=== PATIENT | female | born 1955 | race African-American/Black ===

== ENCOUNTER 2019-08-20 21:13 | Inpatient (IN) | payer OTHER ==
[2019-08-20] MEDS ORDERED: LIDOCAINE PATCH REMOVAL MC SCH (22:00)
[2019-08-20] MEDS ORDERED: morphine SULFATE 4 MG/ML VIAL IVPUSH ONE (22:33)
[2019-08-20] MEDS ORDERED: LACTATED RINGERS SOLUTION 1,000 ML/1,000 ML INFUS.BAG IV STA (22:34)
--- NOTE | 2019-08-20 22:34 | PDOC ---
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 For the past several days, she has had worsening R hip pain despite taking her gabapentin and her Percocet. Today, she has taken about 20 total of Percocet without relief, driving her to come to the ER. Pain is "24/04" rather than her baseline 02/12. Patient had an MRI on 08/05/2019, which showed a large 3.5 cm evolving area of osteonecrosis involving approximately 80% of the femoral head. Concern for multifocal areas of osteonecrosis vs possible metastases. Patient last saw her oncologist 2 weeks ago, who told her that she was ineligible for a trial. At that time, the patient stated that she wanted to stop the chemo and try prayer. Past History - Past Medical History Allergies/Adverse Reactions: Allergies Allergy/AdvReac Type Severity Reaction Status Date / Time Sulfa (Sulfonamide Allergy Swelling Verified 08/20/19 21:23 Antibiotics) [Sulfa(Sulfonamide Antibiotics)] Home Medications: Ambulatory Orders Gabapentin 400 mg PO TID 08/21/19 Meclizine HCl 25 mg PO TID PRN 08/21/19 Oxycodone HCl/Acetaminophen [Oxycodone-Acetaminophen 10-325] 1 each PO TID 08/21 Tramadol HCl 50 mg PO TID 08/21/19 Anemia: No Asthma: Yes (In childhood - now occasional Bronchitis) Cancer: Yes (left breast CA) COPD: No GI Disorders: (S/P Cholecystectomy) - Surgical History Abdominal Surgery: Yes (cholecystectomy) Appendectomy: No Cholecystectomy: Yes Neurologic Surgery: Yes Orthopedic Surgery: (Screws in back - herniated discs) - Immunization History Td Vaccination: No TDAP Vaccination: No Immunization Up to Date: Yes - Psycho Social/Smoking Cessation Hx Smoking Status: No Smoking History: Never smoked Number of Cigarettes Smoked Daily: 0 Hx Alcohol Use: No Drug/Substance Use Hx: No Substance Use Type: None Review of Systems - Review of Systems Comments:: 08/21/19 05:27 GENERAL/CONSTITUTIONAL: denies fever, chills, diaphoresis, generalized weakness , malaise, loss of appetite, weight change HEAD, EYES, EARS, NOSE AND THROAT: denies rhinorrhea, nasal congestion, throat pain, throat swelling, difficulty swallowing, mouth swelling, ear pain, eye pain , visual changes NEUROLOGIC: denies headache, focal weakness or paresthesias, dizziness, unsteady gait, seizure, mental status changes, bladder or bowel incontinence CARDIOVASCULAR: denies chest pain, syncope, palpitations, irregular heart rate, lightheadedness, peripheral edema RESPIRATORY: denies cough, shortness of breath, dyspnea with exertion, orthopnea , wheezing, stridor, hemoptysis GASTROINTESTINAL: denies abdominal pain, abdominal distension, nausea, vomiting , diarrhea, constipation, melena, hematochezia GENITOURINARY: denies dysuria, frequency, urgency, hesitancy, hematuria, flank pain, genital pain MUSCULOSKELETAL: endorses severe R hip pain SKIN: denies rash, itching, pallor HEMATOLOGIC/IMMUNOLOGIC: denies easy bleeding, easy bruising, lymphadenopathy, frequent infections ENDOCRINE: denies unexplained weight gain, unexplained weight loss, heat intolerance, cold intolerance PSYCHIATRIC: denies anxiety, depression, suicidal or homicidal ideation, hallucinations. *Physical Exam - Vital Signs Last Vital Signs Temp Pulse Resp BP Pulse Ox 97.6 F 106 H 18 119/73 95 08/20/19 21:22 08/20/19 21:22 08/20/19 21:22 08/20/19 21:22 08/20/19 21:22 - Physical Exam 08/21/19 05:28 GENERAL: Awake, alert, and fully oriented, appears in severe pain. HEAD: Normal with no signs of trauma. EYES: Pupils equal, round and reactive to light, extraocular movements intact, sclera anicteric, conjunctiva clear. No lid lag. EARS, NOSE, THROAT: Ears normal, nares patent, oropharynx clear without exudates. Dry mucous membranes. NECK: Normal range of motion, supple without lymphadenopathy, JVD, or masses. LUNGS: Breath sounds equal, clear to auscultation bilaterally. No wheezes, and no crackles. No accessory muscle use. HEART: Regular rate and rhythm, normal S1 and S2 without murmur, rub or gallop. ABDOMEN: Soft, nontender, non-distended, normoactive bowel sounds, negative guarding, negative rebound MUSCULOSKELETAL: R hip tenderness at ASIS. UPPER EXTREMITIES: 2+ pulses, warm, well-perfused. No cyanosis. No clubbing. Cap refill <2 seconds. No peripheral edema. LOWER EXTREMITIES: 2+ pulses, warm, well-perfused. No calf tenderness. No peripheral edema. NEUROLOGICAL: Cranial nerves II-XII intact. Normal speech. Normal gait. PSYCHIATRIC: Cooperative. Good eye contact. Appropriate mood and affect. SKIN: Warm, dry, normal turgor, no rashes or lesions noted. ED Treatment Course - LABORATORY CBC & Chemistry Diagram: 08/20/19 23:55 08/20/19 23:55 Medical Decision Making - Medical Decision Making 08/20/19 23:01 Patient with hx of breast cancer, prior met to small intestine, with R hip osteonecrosis vs malignancy and severe pain/inability to ambulate. - Hip X-rays - CBC, CMP - Lidocaine patch - morphine - admit for worsening pain uncontrolled by extensive regimen Discharge - Discharge Information Problems reviewed: Yes Clinical Impression/Diagnosis: Hip pain, right, Inability to ambulate due to hip - Admission Yes - Follow up/Referral - Patient Discharge Instructions - Post Discharge Activity
--- NOTE | 2019-08-20 22:36 | PDOC ---
Attending Attestation - Resident Resident Name: Sterling Lovell - ED Attending Attestation I have performed the following: I have examined & evaluated the patient, The case was reviewed & discussed with the resident, I agree w/resident's findings & plan - HPI HPI: 08/20/19 23:01 Pt comes with chronic right hip pain. She has necrosis of her femoral head. She was controlled on percocets, but the pain is breaking thru and percs only work for a few hrs at a time, and now patient is unable to ambulate. She has a hx of breast cancer with mets. She has no other PMHx. - Physicial Exam PE: 08/20/19 23:02 Pt is afebrile No rashes. Abd is distended, gas and stool; pt states that she is not constipated, but given all her narcotic use. No abd rebound or guarding heart [id number] lungs CTA b ext no pitting edema exquisite tenderness in the right hip. - Medical Decision Making 08/21/19 00:42 labs normal; alk phos is elevated slightly 08/21/19 04:21 Pt is unable to ambulate and she will be admitted 08/21/19 04:22 Pt will be admitted for pain management and for ortho eval
[2019-08-20] MEDS ORDERED: morphine CARPU-JECT 2 MG/1 ML DISP.SYRIN IVPUSH ONE (22:55)
[2019-08-20] MEDS ORDERED: LIDOCAINE 5% TOPICAL PATCH TP ONE (23:09)
[2019-08-20] MEDS ORDERED: LIDOCAINE 5% TOPICAL PATCH ONE (23:30)
[2019-08-20] MEDS ORDERED: MORPHINE SULFATE 2 MG/ML VIAL ONE (23:32)
[2019-08-21 00:14] LABS: BASO % 0.7 % (0-2.0); HEMATOCRIT 35.3 % (32.4-45.2); HEMOGLOBIN 11.8 GM/dL (10.7-15.3); LYMPH % 25.3 % (8-40); MCH 28.8 pg (25.7-33.7); MCHC 33.4 g/dl (32.0-36.0); MEAN CELL VOLUME 86.3 fl (80-96); MEAN PLT VOLUME 8.8 fl (7.5-11.1); MONO % 8.4 % (3.8-10.2); NEUT % 60.6 % (42.8-82.8); PLATELET COUNT 187 K/MM3 (134-434); RBC 4.09 M/mm3 (3.60-5.2); RDW 16.4 % (11.6-15.6); WHITE BLOOD COUNT 5.3 K/mm3 (4.0-10.0)
[2019-08-21 00:40] LABS: ALBUMIN 2.9 g/dl (3.4-5.0); BILIRUBIN,TOTAL 0.4 mg/dL (0.2-1); BLOOD UREA NITROGEN 8.1 mg/dL (7-18); CALCIUM 9.1 mg/dL (8.5-10.1); CREATININE 0.8 mg/dL (0.55-1.3); POTASSIUM 4.5 mmol/L (3.5-5.1); TOT PROT 7.7 g/dl (6.4-8.2)
[2019-08-21] MEDS ORDERED: MECLIZINE HCL 25 MG TABLET (FP) PO PRN (01:10)
[2019-08-21] MEDS ORDERED: PATIENT'S OWN MEDICATION (NON-FORMULARY) (Oxycodone Hcl/Acetaminophen [Oxycodone-Acetamino PO PRN (01:10)
--- NOTE | 2019-08-21 02:12 | HP ---
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 Patient recently moved from [place] where she sees her pain doctor. For about 2 months, patient experienced right hip pain for which she takes percocet, tramadol and gabapentin. About 2 weeks ago, she went to her doctor for persistent hip pain and difficulty walking, and MRI was done on 2019 which revealed a large 3.5 cm evolving area of osteonecrosis involving approx 80% of femoral head, concern for multifocal areas of osteonecrosis vs possible metastastases. She was advised to follow up with an orthopedic surgeon. Today, patient experienced severe, 10/10 right hip pain radiating down the thigh, not anymore relieved by her medications, so she came to the ED. Patient denies any fever, chills, headache, dizziness, chest pain, SOB, abdominal pain, diarrhea. 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 chronic Right hip pain PAST SURGICAL HISTORY: Mastectomy Social History: Smoking:denies Alcohol:denies Drugs: denies Allergies Sulfa (Sulfonamide Antibiotics) [Sulfa(Sulfonamide Antibiotics)] Allergy ( Verified 08/20/19 21:23) Swelling HOME MEDICATIONS: Home Medications Medication Instructions Recorded Gabapentin 400 mg PO TID 08/21/19 Meclizine HCl 25 mg PO TID PRN 08/21/19 Oxycodone HCl/Acetaminophen 1 each PO TID 08/21/19 [Oxycodone-Acetaminophen 10-325] Tramadol HCl 50 mg PO TID 08/21/19 REVIEW OF SYSTEMS CONSTITUTIONAL: Absent: fever, chills, diaphoresis, generalized weakness, malaise, loss of appetite, weight change HEENT: Absent: rhinorrhea, nasal congestion, throat pain, throat swelling, difficulty swallowing, mouth swelling, ear pain, eye pain, visual changes CARDIOVASCULAR: Absent: chest pain, syncope, palpitations, irregular heart rate, lightheadedness , peripheral edema RESPIRATORY: Absent: cough, shortness of breath, dyspnea with exertion, orthopnea, wheezing, stridor, hemoptysis GASTROINTESTINAL: Absent: abdominal pain, abdominal distension, nausea, vomiting, diarrhea, constipation, melena, hematochezia GENITOURINARY: Absent: dysuria, frequency, urgency, hesitancy, hematuria, flank pain, genital pain MUSCULOSKELETAL: Right hip pain Absent: myalgia, arthralgia, joint swelling, back pain, neck pain SKIN: Absent: rash, itching, pallor HEMATOLOGIC/IMMUNOLOGIC: Absent: easy bleeding, easy bruising, lymphadenopathy, frequent infections ENDOCRINE: Absent: unexplained weight gain, unexplained weight loss, heat intolerance, cold intolerance NEUROLOGIC: Absent: headache, focal weakness or paresthesias, dizziness, unsteady gait, seizure, mental status changes, bladder or bowel incontinence PSYCHIATRIC: Absent: anxiety, depression, suicidal or homicidal ideation, hallucinations. PHYSICAL EXAMINATION Vital Signs - 24 hr 08/20/19 08/21/19 21:22 01:05 Temperature 97.6 F 97.8 F Pulse Rate 106 H 80 Respiratory 18 18 Rate Blood Pressure 119/73 132/94 O2 Sat by Pulse 95 Oximetry (%) GENERAL: Awake, alert, and fully oriented, in no acute distress. HEAD: Normal with no signs of trauma. EYES: PERRLA, EOMI, sclera anicteric, conjunctiva clear. EARS, NOSE, THROAT: Moist mucous membranes. NECK: Normal range of motion, supple without lymphadenopathy, JVD, or masses. LUNGS: Breath sounds equal, clear to auscultation bilaterally. HEART: Regular rate and rhythm, normal S1 and S2 without murmur, rub or gallop. ABDOMEN: Soft, nontender, not distended, normoactive bowel sounds. MUSCULOSKELETAL: Normal range of motion at all joints. +tenderness on palpation of right hip/thigh LOWER EXTREMITIES: 2+ pulses, warm, well-perfused. No calf tenderness. No peripheral edema. NEUROLOGICAL: Cranial nerves II-XII grossly intact. Normal speech. Motor strength 5/5 RUE/LUE/LLE, 4/5 RLE limited by pain, sensation intact. PSYCHIATRIC: Cooperative. Good eye contact. Appropriate mood and affect. SKIN: Warm, dry, normal turgor. Laboratory Results - last 24 hr 08/20/19 08/20/1908/20/20 23:55 23:55 23:55 WBC 5.3 RBC 4.09 Hgb 11.8 Hct 35.3 MCV 86.3 MCH 28.8 MCHC 33.4 RDW 16.4 H Plt Count 187 MPV 8.8 Absolute Neuts (auto) 3.2 Neutrophils % 60.6 Lymphocytes % 25.3 Monocytes % 8.4 Eosinophils % 5.0 H D Basophils % 0.7 Nucleated RBC % 0 Sodium 139 Potassium 4.5 Chloride 106 Carbon Dioxide 27 Anion Gap 6 L BUN 8.1 Creatinine 0.8 Est GFR (CKD-EPI)AfAm 91.58 Est GFR (CKD-EPI)NonAf 79.01 Random Glucose 93 Calcium 9.1 Total Bilirubin 0.4 AST 79 H ALT 60 Alkaline Phosphatase 259 H Total Protein 7.7 Albumin 2.9 L Lipase 178 ASSESSMENT/PLAN: Patient is a 64 year old female with past medical history of 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 #Right hip pain, inability to ambulate -likely 2/2 osteonecrosis of right hip -Ortho (Dr. Chávez) consulted. -will continue home meds percocet, tramadol, gabapentin -IV Morphine prn -physical therapy #Elevated LFTs -will order abdominal US to evaluate -hepatitis panel -will continue to monitor #Hx of breast CA #FEN -Not on any standing fluids -Electrolytes wnl, routine bmp monitoring -Regular diet #Prophylaxis -Lovenox 40mg sq daily #Disposition -admit to med surg ATTENDING PHYSICIAN STATEMENT I saw and evaluated the patient. I reviewed the resident's note and discussed the case with the resident. I agree with the resident's findings and plan as documented. SUBJECTIVE: OBJECTIVE: ASSESSMENT AND PLAN: <Mookie Moran - Last Filed: 08/21/19 05:53> CHIEF COMPLAINT: PCP: HISTORY OF PRESENT ILLNESS: ER course was notable for: (1) (2) (3) Recent Travel: PAST MEDICAL HISTORY: PAST SURGICAL HISTORY: Social History: Smoking: Alcohol: Drugs: Allergies Sulfa (Sulfonamide Antibiotics) [Sulfa(Sulfonamide Antibiotics)] Allergy ( Verified 08/20/19 21:23) Swelling HOME MEDICATIONS: Home Medications Medication Instructions Recorded Gabapentin 400 mg PO TID 08/21/19 Meclizine HCl 25 mg PO TID PRN 08/21/19 Oxycodone HCl/Acetaminophen 1 each PO TID 08/21/19 [Oxycodone-Acetaminophen 10-325] Tramadol HCl 50 mg PO TID 08/21/19 REVIEW OF SYSTEMS CONSTITUTIONAL: Absent: fever, chills, diaphoresis, generalized weakness, malaise, loss of appetite, weight change HEENT: Absent: rhinorrhea, nasal congestion, throat pain, throat swelling, difficulty swallowing, mouth swelling, ear pain, eye pain, visual changes CARDIOVASCULAR: Absent: chest pain, syncope, palpitations, irregular heart rate, lightheadedness , peripheral edema RESPIRATORY: Absent: cough, shortness of breath, dyspnea with exertion, orthopnea, wheezing, stridor, hemoptysis GASTROINTESTINAL: Absent: abdominal pain, abdominal distension, nausea, vomiting, diarrhea, constipation, melena, hematochezia GENITOURINARY: Absent: dysuria, frequency, urgency, hesitancy, hematuria, flank pain, genital pain MUSCULOSKELETAL: Absent: myalgia, arthralgia, joint swelling, back pain, neck pain SKIN: Absent: rash, itching, pallor HEMATOLOGIC/IMMUNOLOGIC: Absent: easy bleeding, easy bruising, lymphadenopathy, frequent infections ENDOCRINE: Absent: unexplained weight gain, unexplained weight loss, heat intolerance, cold intolerance NEUROLOGIC: Absent: headache, focal weakness or paresthesias, dizziness, unsteady gait, seizure, mental status changes, bladder or bowel incontinence PSYCHIATRIC: Absent: anxiety, depression, suicidal or homicidal ideation, hallucinations. PHYSICAL EXAMINATION Vital Signs - 24 hr 08/20/19 08/21/19 08/21/19 21:22 01:05 05:18 Temperature 97.6 F 97.8 F 97.9 F Pulse Rate 106 H 80 84 Respiratory 18 18 18 Rate Blood Pressure 119/73 132/94 129/77 O2 Sat by Pulse 95 Oximetry (%) GENERAL: Awake, alert, and fully oriented, in no acute distress. HEAD: Normal with no signs of trauma. EYES: Pupils equal, round and reactive to light, extraocular movements intact, sclera anicteric, conjunctiva clear. No lid lag. EARS, NOSE, THROAT: Ears normal, nares patent, oropharynx clear without exudates. Moist mucous membranes. NECK: Normal range of motion, supple without lymphadenopathy, JVD, or masses. LUNGS: Breath sounds equal, clear to auscultation bilaterally. No wheezes, and no crackles. No accessory muscle use. HEART: Regular rate and rhythm, normal S1 and S2 without murmur, rub or gallop. ABDOMEN: Soft, nontender, not distended, normoactive bowel sounds, no guarding, no rebound, no masses. No hepatomegaly or splenomegaly. MUSCULOSKELETAL: Normal range of motion at all joints. No bony deformities or tenderness. No CVA tenderness. UPPER EXTREMITIES: 2+ pulses, warm, well-perfused. No cyanosis. No clubbing. No peripheral edema. LOWER EXTREMITIES: 2+ pulses, warm, well-perfused. No calf tenderness. No peripheral edema. NEUROLOGICAL: Cranial nerves II-XII intact. Normal speech. Normal gait. PSYCHIATRIC: Cooperative. Good eye contact. Appropriate mood and affect. SKIN: Warm, dry, normal turgor, no rashes or lesions noted, normal capillary refill. Laboratory Results - last 24 hr 08/20/19 08/20/19 08/20/19 23:55 23:55 23:55 WBC 5.3 RBC 4.09 Hgb 11.8 Hct 35.3 MCV 86.3 MCH 28.8 MCHC 33.4 RDW 16.4 H Plt Count 187 MPV 8.8 Absolute Neuts (auto) 3.2 Neutrophils % 60.6 Lymphocytes % 25.3 Monocytes % 8.4 Eosinophils % 5.0 H D Basophils % 0.7 Nucleated RBC % 0 Sodium 139 Potassium 4.5 Chloride 106 Carbon Dioxide 27 Anion Gap 6 L BUN 8.1 Creatinine 0.8 Est GFR (CKD-EPI)AfAm 91.58 Est GFR (CKD-EPI)NonAf 79.01 Random Glucose 93 Calcium 9.1 Total Bilirubin 0.4 AST 79 H ALT 60 Alkaline Phosphatase 259 H Total Protein 7.7 Albumin 2.9 L Lipase 178 ASSESSMENT/PLAN: Visit type - Emergency Visit Emergency Visit: Yes ED Registration Date: 08/20/19 Care time: The patient presented to the Emergency Department on the above date and was hospitalized for further evaluation of their emergent condition. - New Patient This patient is new to me today: Yes Date on this admission: 08/21/19 - Critical Care Critical Care patient: No ATTENDING PHYSICIAN STATEMENT I saw and evaluated the patient. I reviewed the resident's note and discussed the case with the resident. I agree with the resident's findings and plan as documented. 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 She is unable to ambulate due to pain. She rates pain as 10/10 gets worse with the movement. She had MRI was done on 08/05/2019 which revealed a large 3.5 cm evolving area of osteonecrosis involving approx 80% of femoral head, concern for multifocal areas of osteonecrosis vs possible metastastases. She denies chest pain, shortness of breath, nuasea, vomiting,fever, dizziness, LOC Shhe c/o mild generlaized abdominal pain and pelvic pain OBJECTIVE: Last Vital Signs Temp Pulse Resp BP Pulse Ox 97.9 F 84 18 129/77 95 08/21/19 05:18 08/21/19 05:18 08/21/19 05:18 08/21/19 05:18 08/20/19 21:22 ST/ALT/ALP 79/60/259, Labs, imaging studies reviewed General :Obese, not in acute distress Head - NC/ AT Eyes : PORSHA, EOMI, No cunjuctival pallor neck : supple, Thyroid wnl, no lymphadenopathy Resp : B/l clear CVS : RRR, s1s2+ no MRG Abd : Distended, Mild generlaized tenderness Neuro : A&o x3No focal neurologic deficit Ext : no edema, peripheral pulses palpable, Right hip tender to touch, ROM right hip severely restricted ASSESSMENT AND PLAN: Severe right hip pain due to osteonecrosis Unable to ambulate Declining functional status ABd pain, distension likley due to opioid induced constipation Transaminitis Admit to floor UA, EKG Pain management - percocet, morphine Stool softners Get abd sonogram hepatitis panel physical therapy eval ortho consult DVt ppx regular diet Discussed with resident staff in details Mookie Perry MD
[2019-08-21] MEDS ORDERED: GABAPENTIN 100 MG CAPSULE ONE (05:56)
[2019-08-21] MEDS ORDERED: DOCUSATE SODIUM 100 MG CAPSULE (FP) PO ONE (05:56)
[2019-08-21] MEDS: DOCUSATE SODIUM 100 MG CAPSULE (FP) PO SCH ×3 (06:15→21:05)
[2019-08-21] MEDS: GABAPENTIN 400 MG CAPSULE PO SCH ×3 (06:15→21:05)
[2019-08-21] MEDS ORDERED: morphine SULFATE 4 MG/ML VIAL ONE (08:57)
[2019-08-21] MEDS: ENOXAPARIN NA (PORCINE) 40 MG/0.4 ML DISP.SYRIN SQ SCH (09:30)
[2019-08-21] MEDS: MORPHINE SULFATE 2 MG/ML VIAL IVPUSH PRN (09:30)
[2019-08-21] MEDS: POLYETHYLENE GLYCOL 3350 119 GM BTL PO SCH (09:30)
--- NOTE | 2019-08-21 11:36 | PN ---
Physical Exam: SUBJECTIVE: Patient seen and examined. She is comfortable after receiving pain medication. OBJECTIVE: Vital Signs Period Temp Pulse Resp BP Sys/Lomeli Pulse Ox Last 24 Hr 97.6 F-97.9 F 80-106 18-18 119-132/73-94 95 GENERAL: The patient is awake, alert, and fully oriented, in no acute distress. HEAD: Normal with no signs of trauma. EYES: PERRL, extraocular movements intact, sclera anicteric, conjunctiva clear. No ptosis. ENT: Ears normal, nares patent, oropharynx clear without exudates, moist mucous membranes. NECK: Trachea midline, full range of motion, supple. LUNGS: Breath sounds equal, clear to auscultation bilaterally, no wheezes, no crackles, no accessory muscle use. HEART: Regular rate and rhythm, S1, S2 without murmur, rub or gallop. ABDOMEN: Soft, nontender, nondistended, normoactive bowel sounds, no guarding, no rebound, no hepatosplenomegaly, no masses. EXTREMITIES: 2+ pulses, warm, well-perfused, no edema. NEUROLOGICAL: Cranial nerves II through XII grossly intact. Normal speech, gait not observed. PSYCH: Normal mood, normal affect. SKIN: Warm, dry, normal turgor, no rashes or lesions noted Laboratory Results - last 24 hr 08/20/19 08/20/19 08/20/19 23:55 23:55 23:55 WBC 5.3 RBC 4.09 Hgb 11.8 Hct 35.3 MCV 86.3 MCH 28.8 MCHC 33.4 RDW 16.4 H Plt Count 187 MPV 8.8 Absolute Neuts (auto) 3.2 Neutrophils % 60.6 Lymphocytes % 25.3 Monocytes % 8.4 Eosinophils % 5.0 H D Basophils % 0.7 Nucleated RBC % 0 Sodium 139 Potassium 4.5 Chloride 106 Carbon Dioxide 27 Anion Gap 6 L BUN 8.1 Creatinine 0.8 Est GFR (CKD-EPI)AfAm 91.58 Est GFR (CKD-EPI)NonAf 79.01 Random Glucose 93 Calcium 9.1 Total Bilirubin 0.4 AST 79 H ALT 60 Alkaline Phosphatase 259 H Total Protein 7.7 Albumin 2.9 L Lipase 178 Active Medications Generic Name Dose Route Start Last Admin Trade Name Freq PRN Reason Stop Dose Admin Acetaminophen 325 mg 08/21/19 01:45 Tylenol - PO TID PRN PAIN 6-10 Docusate Sodium 100 mg 08/21/19 06:00 08/21/19 06:15 Colace - PO 100 mg TID WILLIAM Administration Enoxaparin Sodium 40 mg 08/21/19 10:00 08/21/19 09:30 Lovenox - SQ 40 mg DAILY WILLIAM Administration Gabapentin 400 mg 08/21/19 06:00 08/21/19 06:15 Neurontin - PO 400 mg TID WILLIAM Administration Meclizine HCl 25 mg 08/21/19 01:10 Antivert - PO TID PRN PAIN Morphine Sulfate 1 mg 08/21/19 01:09 08/21/19 09:30 Morphine Sulfate IVPUSH 1 mg Q4H PRN Administration PAIN LEVEL 7 - 10 Oxycodone HCl 5 mg 08/21/19 01:45 Roxicodone - PO TID PRN PAIN 6-10 Polyethylene Glycol 17 gm 08/21/19 10:00 08/21/19 09:30 Miralax (For Daily Use) - PO 17 gm DAILY WILLIAM Administration Tramadol HCl 50 mg 08/21/19 01:10 Ultram - PO TID PRN PAIN LEVEL 7 - 10 ASSESSMENT/PLAN: This is a 64 year old female with a history of metastatic breast cancer, chronic right hip pain who presented to the ED with worsening right hip pain. 1. Right hip pain secondary to osteonecrosis, possible metastases of femoral head - Pain control - Ortho consult 2. Metastatic breast cancer - RUQ US shows 2.3 cm and 2 cm hepatic lesions consistent with metastatic disease - Oncology, pallaitive care consults Visit type - Emergency Visit Emergency Visit: Yes ED Registration Date: 08/20/19 Care time: The patient presented to the Emergency Department on the above date and was hospitalized for further evaluation of their emergent condition. - New Patient This patient is new to me today: Yes Date on this admission: 08/21/19 - Critical Care Critical Care patient: No - Discharge Referral Referred to [facility] Med [facility].: No
[2019-08-21 11:53] LABS: BASO % 0.5 % (0-2.0); EOS % 5.5 % (0-4.5); HEMATOCRIT 33.1 % (32.4-45.2); HEMOGLOBIN 11.3 GM/dL (10.7-15.3); LYMPH % 21.4 % (8-40); MCH 29.4 pg (25.7-33.7); MEAN CELL VOLUME 86.4 fl (80-96); MEAN PLT VOLUME 8.5 fl (7.5-11.1); MONO % 8.1 % (3.8-10.2); NEUT % 64.5 % (42.8-82.8); PLATELET COUNT 174 K/MM3 (134-434); RBC 3.84 M/mm3 (3.60-5.2); WHITE BLOOD COUNT 4.7 K/mm3 (4.0-10.0)
[2019-08-21 12:16] LABS: ALBUMIN 2.6 g/dl (3.4-5.0); BILIRUBIN,TOTAL 0.4 mg/dL (0.2-1); CALCIUM 8.9 mg/dL (8.5-10.1); CREATININE 0.7 mg/dL (0.55-1.3); MAGNESIUM 2.2 mg/dL (1.8-2.4); PHOSPHOROUS 4.1 mg/dL (2.5-4.9); POTASSIUM 4.2 mmol/L (3.5-5.1)
[2019-08-21] MEDS ORDERED: ACETAMINOPHEN 325 MG TABLET (FP) ONE (18:11)
[2019-08-21] MEDS ORDERED: oxyCODONE HCL 5 MG TABLET ONE (18:12)
[2019-08-21] MEDS: oxyCODONE HCL 5 MG TABLET PO PRN (18:19)
[2019-08-21] MEDS: ACETAMINOPHEN 325 MG TABLET (FP) PO PRN (18:20)
[2019-08-22] MEDS ORDERED: guaiFENesin/D-METHORPHAN HB 10 ML UNIT-DOSE CUPS PO PRN (02:08)
[2019-08-22] MEDS: MORPHINE SULFATE 2 MG/ML VIAL IVPUSH PRN ×3 (05:21→19:47)
[2019-08-22] MEDS: DOCUSATE SODIUM 100 MG CAPSULE (FP) PO SCH ×3 (05:22→21:53)
[2019-08-22] MEDS: GABAPENTIN 400 MG CAPSULE PO SCH ×3 (05:22→21:53)
[2019-08-22] MEDS: ENOXAPARIN NA (PORCINE) 40 MG/0.4 ML DISP.SYRIN SQ SCH (10:09)
[2019-08-22] MEDS: POLYETHYLENE GLYCOL 3350 119 GM BTL PO SCH (10:09)
--- NOTE | 2019-08-22 10:17 | EKG ---
Test Reason : Blood Pressure : / mmHG Vent. Rate : 085 BPM Atrial Rate : 085 BPM P-R Int : 158 ms QRS Dur : 068 ms QT Int : 384 ms P-R-T Axes : 044 008 002 degrees QTc Int : 456 ms NORMAL SINUS RHYTHM MINIMAL VOLTAGE CRITERIA FOR LVH, MAY BE NORMAL VARIANT ABNORMAL ECG WHEN COMPARED WITH ECG OF 09-SEP-2015 09:28, NO SIGNIFICANT CHANGE WAS FOUND Confirmed by Jaron Corado ([id number]) on 08/22/2019 10:17:27 AM Referred By: Confirmed By:Jaron Corado
--- NOTE | 2019-08-22 10:19 | CONSULT ---
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 Patient recently moved from [place] where she sees her pain doctor. For about 2 months, patient experienced right hip pain for which she takes percocet, tramadol and gabapentin. About 2 weeks ago, she went to her doctor for persistent hip pain and difficulty walking, and MRI was done on 2019 which revealed a large 3.5 cm evolving area of osteonecrosis involving approx 80% of femoral head, concern for multifocal areas of osteonecrosis vs possible metastastases. She was advised to follow up with an orthopedic surgeon. Today, patient experienced severe, 10/10 right hip pain radiating down the thigh, not anymore relieved by her medications, so she came to the ED. Patient denies any fever, chills, headache, dizziness, chest pain, SOB, abdominal pain, diarrhea. PAST MEDICAL HISTORY: metastatic breast cancer chronic Right hip pain PAST SURGICAL HISTORY: Mastectomy-left cholecystesctomy L spine surgery Social History: Smoking:denies Alcohol:denies Drugs: denies Allergies Sulfa (Sulfonamide Antibiotics) [Sulfa(Sulfonamide Antibiotics)] Allergy ( Verified 08/20/19 21:23) Swelling HOME MEDICATIONS: Home Medications Medication Instructions Recorded Gabapentin 400 mg PO TID 08/21/19 Meclizine HCl 25 mg PO TID PRN 08/21/19 Oxycodone HCl/Acetaminophen 1 each PO TID 08/21/19 [Oxycodone-Acetaminophen 10-325] Tramadol HCl 50 mg PO TID 08/21/19 Home Medication List Medication Instructions Recorded Confirmed Type Gabapentin 400 mg PO TID 08/21/19 08/21/19 History Meclizine HCl 25 mg PO TID PRN 08/21/19 08/21/19 History Oxycodone HCl/Acetaminophen 1 each PO TID 08/21/19 08/21/19 History [Oxycodone-Acetaminophen 10-325] Tramadol HCl 50 mg PO TID 08/21/19 08/21/19 History Active Medications Generic Name Dose Route Start Last Admin Trade Name Freq PRN Reason Stop Dose Admin Acetaminophen 325 mg 08/21/19 01:45 08/21/19 18:20 Tylenol - PO 325 mg TID PRN Administration PAIN 6-10 Docusate Sodium 100 mg 08/21/19 06:00 08/22/19 05:22 Colace - PO 100 mg TID WILLIAM Administration Enoxaparin Sodium 40 mg 08/21/19 10:00 08/22/19 10:09 Lovenox - SQ 40 mg DAILY WILLIAM Administration Gabapentin 400 mg 08/21/19 06:00 08/22/19 05:22 Neurontin - PO 400 mg TID WILLIAM Administration Guaifenesin 10 ml 08/22/19 02:08 Robitussin Dm - PO Q4H PRN COUGH Meclizine HCl 25 mg 08/21/19 01:10 Antivert - PO TID PRN PAIN Morphine Sulfate 1 mg 08/21/19 01:09 08/22/19 05:21 Morphine Sulfate IVPUSH 1 mg Q4H PRN Administration PAIN LEVEL 7 - 10 Oxycodone HCl 5 mg 08/21/19 01:45 08/21/19 18:19 Roxicodone - PO 5 mg TID PRN Administration PAIN 6-10 Polyethylene Glycol 17 gm 08/21/19 10:00 08/22/19 10:09 Miralax (For Daily Use) - PO 17 gm DAILY WILLIAM Administration Tramadol HCl 50 mg 08/21/19 01:10 Ultram - PO TID PRN PAIN LEVEL 7 - 10 PHYSICAL EXAMINATION Last Vital Signs Temp Pulse Resp BP Pulse Ox 98.6 F 106 H 20 151/80 96 08/22/19 06:00 08/22/19 06:00 08/22/19 06:00 08/22/19 06:00 08/21/19 21:00 Cor: RSR, No murmurs, No gallops Lungs: Clear to P&A Abd: Soft, Normal bowel sounds, No organomegaly Ext:No significant edema Labs/Meds reviewed ASSESSMENT/PLAN: Patient is a 64 year old female with past medical history of breast cancer Breast cancer-- diagnosed 8 yrs.ago -- Left breast cancer--stage III diagnosed 2011 --10+ nodes. ER+, AK+, Her2-. Received ACx4 followed by Tx4 and RT. Was on arimidex Developed retroperitoneal mass ---bx + metastatic breast cancer-- ER-/AK-, Her2- 3+. Microsatellite stable. She has been on TDM1.? elevated LFTs needing 1 dose reduction s/p gemzar/trastuzumab ( got medrol dose paks with gemzar) Plan was to start her on trastuzumab deruxtecan ---when she moved from [place] CT c/a/p --07/08/19 --stable paraesophageal adenopathy. Minimally decreasing mesenteric, retrocaval, periceliac and shotty retrocrural adenopathy, stable to minimally decreased compared to CT c/a/p in 12/2018 will need to review MRI hip and L spine images done in [place] Will request orthopedics consult X ray done here shows no acute pathology 2 hepatic lesions on U/S--? new ? PET/? biopsy check CA 27.29 Pain control
--- NOTE | 2019-08-22 11:12 | PN ---
Progress Note (short form) - Note Progress Note: NEUROSURGERY CONSULT Pt just seen in my office last week Distant h/o L4-S1 fusion Intermittent LBP and sciatica Treated in [place] by pain management with multiple pain management injections Pain to R hip, groin and upper thigh, worse over past 2 weeks despite percocet, tramadol and neurontin; pain 10/10 No lower leg weakness/numbness; no B/B dysfunction h/o breast CA; no recent weight loss PMH; breast CA with small bowel seeding, L4-5-S1 fusion Meds: Tramadol, neurontin, percocet, hydrocodone prn; All: sulfa So Hx: non-smoker, no EtOH, retired Family History: non-contributory except for CA and DM ROS- negative for other constitutional, HEENT, CV, pulm, GI, , leather crafter, pscy, neuro; no fever/chill, recent weight loss PE: AF, VSS HEENT- NC/AT; Neck- supple; Cor- RR; Lungs- CTA B; Abd- benign; Ext- no sign of DVT CN- intact; Motor- 4+-5 except R IP 4- pain limited; Sensation- intact LT; DTR- 2+ LS spine MRI ([place])- intact L4-5-S1 fusion and implant; minimal central disc bulge L2-3 and L3-4 with mild annular tear/edema; no significant stenosis; implants in excellent positions L4-5-S1 R hip MRI- R femur head osteonecrosis H/o L4-S1 fusion with instrumentation; minimal L2-3 and L3-4 central disc bulge (not the patient's cause of current symptomatology), no neurosurgical intervention indicated nor recommended Metastatic/breast w/u per med onc Ortho input for R femur head osteonecrosis DVT prophylaxis The patient understands the above
--- NOTE | 2019-08-22 11:38 | PN ---
Physical Exam: SUBJECTIVE: Patient seen and examined. Pain in right hip is better. OBJECTIVE: Vital Signs Period Temp Pulse Resp BP Sys/Lomeli Pulse Ox Last 24 Hr 98 F-98.6 F 100-128 20-20 100-151/57-81 96-98 GENERAL: The patient is awake, alert, and fully oriented, in no acute distress. LUNGS: Breath sounds equal, clear to auscultation bilaterally, no wheezes, no crackles, no accessory muscle use. HEART: Regular rate and rhythm, S1, S2 without murmur, rub or gallop. ABDOMEN: Obese, soft, nontender, nondistended, normoactive bowel sounds, no guarding, no rebound, no hepatosplenomegaly, no masses. EXTREMITIES: 2+ pulses, warm, well-perfused, no edema. Laboratory Results - last 24 hr 08/21/19 08/21/19 11:32 11:32 WBC 4.7 RBC 3.84 Hgb 11.3 Hct 33.1 MCV 86.4 MCH 29.4 MCHC 34.0 RDW 16.0 H Plt Count 174 MPV 8.5 Absolute Neuts (auto) 3.0 Neutrophils % 64.5 Lymphocytes % 21.4 Monocytes % 8.1 Eosinophils % 5.5 H Basophils % 0.5 Nucleated RBC % 0 Sodium 141 Potassium 4.2 Chloride 107 Carbon Dioxide 32 Anion Gap 2 L BUN 9.0 Creatinine 0.7 Est GFR (CKD-EPI)AfAm 107.62 Est GFR (CKD-EPI)NonAf 92.86 Random Glucose 93 Calcium 8.9 Phosphorus 4.1 Magnesium 2.2 Total Bilirubin 0.4 AST 65 H ALT 53 Alkaline Phosphatase 234 H Total Protein 7.0 Albumin 2.6 L Active Medications Generic Name Dose Route Start Last Admin Trade Name Freq PRN Reason Stop Dose Admin Acetaminophen 325 mg 08/21/19 01:45 08/21/19 18:20 Tylenol - PO 325 mg TID PRN Administration PAIN 6-10 Docusate Sodium 100 mg 08/21/19 06:00 08/22/19 05:22 Colace - PO 100 mg TID WILLIAM Administration Enoxaparin Sodium 40 mg 08/21/19 10:00 08/22/19 10:09 Lovenox - SQ 40 mg DAILY WILLIAM Administration Gabapentin 400 mg 08/21/19 06:00 08/22/19 05:22 Neurontin - PO 400 mg TID WILLIAM Administration Guaifenesin 10 ml 08/22/19 02:08 Robitussin Dm - PO Q4H PRN COUGH Meclizine HCl 25 mg 08/21/19 01:10 Antivert - PO TID PRN PAIN Morphine Sulfate 1 mg 08/21/19 01:09 08/22/19 05:21 Morphine Sulfate IVPUSH 1 mg Q4H PRN Administration PAIN LEVEL 7 - 10 Oxycodone HCl 5 mg 08/21/19 01:45 08/21/19 18:19 Roxicodone - PO 5 mg TID PRN Administration PAIN 6-10 Polyethylene Glycol 17 gm 08/21/19 10:00 08/22/19 10:09 Miralax (For Daily Use) - PO 17 gm DAILY WILLIAM Administration Tramadol HCl 50 mg 08/21/19 01:10 Ultram - PO TID PRN PAIN LEVEL 7 - 10 ASSESSMENT/PLAN: This is a 64 year old female with a history of metastatic breast cancer, chronic right hip pain who presented to the ED with worsening right hip pain. 1. Right hip pain secondary to osteonecrosis, possible metastases of femoral head - Pain control - Awaiting ortho consult 2. Metastatic breast cancer - RUQ US shows 2.3 cm and 2 cm hepatic lesions consistent with metastatic disease - Oncology consult appreciated - palliative care evaluation Visit type - Emergency Visit Emergency Visit: Yes ED Registration Date: 08/20/19 Care time: The patient presented to the Emergency Department on the above date and was hospitalized for further evaluation of their emergent condition. - New Patient This patient is new to me today: No - Critical Care Critical Care patient: No - Discharge Referral Referred to [facility] No
--- NOTE | 2019-08-22 16:48 | PN ---
Progress Note (short form) - Note Progress Note: consult seen start PT, wbat will evaluate pt for total hip replacement
--- NOTE | 2019-08-22 17:06 | CONS ---
DATE OF CONSULTATION: 08/22/2019 CHIEF COMPLAINT: Right hip pain. HISTORY OF PRESENT ILLNESS: This is a 64-year-old female who has had acute on chronic right hip pain. The patient does have a workup, which was started in [place]; however, she is moving to [place] for continuation of her care at this point. She underwent MRI on August 05 showing a large area of osteonecrosis within the right femoral head. She also was evaluated for her lumbar spine as she has had a history of surgery, but recent imaging was reviewed by Dr. Faustin, and he does not feel that there is any lumbar spine involvement in her current pain. She says the pain is mostly in the hip and thigh area. She does note she gets a little bit of pain in the great toe as well. She denies any numbness or tingling. Of note, the patient is being treated for metastatic breast cancer and has had metastasis to the small bowel but not any bony metastasis to this point. In addition, recent PET scan did not show any hip involvement. PAST MEDICAL HISTORY: As above. PAST SURGICAL HISTORY: Significant for cholecystectomy, spine surgery. MEDICATIONS: Reviewed as in chart. SOCIAL HISTORY: Denies alcohol, tobacco, or drugs. REVIEW OF SYMPTOMS: Negative for any fever, chills, nausea, vomiting, or night sweats. PHYSICAL EXAMINATION: General: This is a well-appearing female in no acute distress. She is alert and oriented x3. She is seen lying in the hospital stretcher. Extremities: Examination of the right lower extremity demonstrates no skin lesions, no swelling, and no deformity. The hip is nontender laterally. The knee is nontender. The ankle is nontender. She does have some discomfort on log roll of the hip. She has pain with both internal and external rotation and flexion. That being said, she has no significant limitations to range of motion. She has negative straight leg raise. Displaced sensation is intact to light touch, 2+ DP pulse. EHL, FHL, tibialis anterior, gastroc, and soleus are intact. DIAGNOSTIC DATA: Plain film radiographs from the ER as well as the MRI from August 05 are reviewed. There is no apparent collapse in the right hip. There is extensive avascular necrosis present without any evidence of lytic lesion on the right hip. Of note, there is similar avascular necrosis on the left hip. Both sides show some reactive changes in the acetabulum as well. ASSESSMENT: Right hip avascular necrosis. PLAN: Discussed today's findings with patient. We reviewed that she does have avascular necrosis, which appears symptomatic on the right. I reviewed that asymptomatic aseptic necrosis does not need to be addressed, so her left side should be left to be for now. Should it become symptomatic, treatment could be necessary. The options for treating the right hip include conservative care with physical therapy and use of a walker. We also discussed the option of total hip replacement. Advised that therapy may result in her pain improving or may not. It is possible that she has gone on to have a small amount of collapse, which was not visible on her plain film x-rays, and this would have very limited healing ability. She would like to consider total hip replacement. I consulted with Dr. Elaine who will come to evaluate the patient to make a decision on whether she is a candidate for surgery. In the meantime, she can start physical therapy, weightbearing as tolerated using a walker. Dr. Elaine stated that surgery could be performed on Thursday should she be a reasonable candidate after his evaluation. NENA OAKES M.D. [id number]
--- NOTE | 2019-08-22 19:22 | PN ---
Progress Note (short form) - Note Progress Note: 64F admitted with ~2 months atraumatic, progressively worsening right hip pain and current inability to ambulate. (+) Right anterior groin pain that radiates down anterior thigh; worse with all weight-bearing activity involving right lower extremity and all range of motion involving right hip joint. (+) Right lateral hip pain that inhibits patient from lying on right side in bed at night. Some (+) pain at rest. (+) Increased difficulty attending to right foot hygiene, and putting on/taking off socks & shoes. Functional walking capacity deteriorated to <1/4 city block; rapid deterioration ; pain-free, unlimited ambulation 3 months ago. Dependent on a cane as an assistive ambulatory device. Pain mostly relieved by offloading right lower extremity. Pt. denies recent history of right hip trauma & right hip surgery. Pt. reports normal bowel and bladder function, as well as normal perineal sensation. Pt. denies any recent history of chills, sweats, fevers, chills, flu-like and otherwise constitutional symptoms. (+) Breast cancer, receiving treatment in [place]. (+) Intra and retro-peritoneal metastases. (?) Unclear duration off chemotherapeutic agents. PMH: Breast cancer with abdominal and retroperitoneal metastases; lumbar spinal stenosis; ELOISA due to hypovolemic shock. PSH: L4-S1 spinal fusion. Medication List: Neurontin, Tramadol PRN, Hydrocodone PRN, Percocet PRN. Medication Allergies: Sulfa drugs. Family Hx: Cancer; diabetes mellitus. Social Hx: Denies tobacco, alcohol, & recreational drugs; retired; lives in [place] and stays with son in [place]. ROS: Otherwise negative for any significant cardiac, oncologic, infectious, respiratory, endocrine, gastrointestinal, renal, orthopaedic, ENT, psychiatric, neurologic, metabolic, vascular, or hematologic conditions. All labs and vitals reviewed. Physical Examination: AAO x 3, NAD. Pt. examined while lying in bed. 5'5"; 195 lbs.; BMI: 32.4 kg/m2. General Orthopaedic Examination: General orthopaedic examination is negative for any small joint disease of the hands, no dorsal tendinopathy of the wrists, no interosseous, thenar, or hypothenar eminence muscle wasting of the hands, no generalized ligamentous laxity about the wrists, and she can fully extend both of her elbows. Hips: Skin C/D/I. No gross deformity. (+) TTP bilateral greater trochanters. Equal leg length. Negative Sage tests bilaterally. Normal left hip exam. (+) Right anterior groin pain elicited with log roll and axial load right lower extremity. PROM Right hip: 0-100 deg HF, 0-70 deg ER, 0-10 deg IR w/ reproduction of pain at terminus of IR; 0-30 deg abduction; 0-10 deg adduction. Able to SLR RLE, but (+) reproduction of right anterior groin pain. B/L LE M: Intact L2-S1. RLE S: 1/2 L5; L2-L4, S1 2/2. LLE S: L2-S 2/2. AP Pelvis, Frog-Leg Lateral X-Ray Right Hip: Mild degenerative changes; no obvious fractures nor dislocations; (+) lumbar spine hardware. MRI Pelvis: (+) Heterogeneous signal changes in both femoral heads. (+) Salters sign right femoral head w/subchondral collapse and flattening. A/P: 64F p/w symptomatic avascular necrosis of the right femoral head and current inability to ambulate. -Pain control: NSAID's, Percocet. -DVT PPx: -Chemical: Lovenox; hold all Factor Xa inhibitors and all platelet inhibitors. -Mechanical: KIRILL's, SCD's. -Incentive spirometry. -PT/OR/Rehab, OOB; WBAT RLE. -f/u plan per medical oncology team; need to clarify how long patient has been off chemotherapy for and how long she can remain off chemotherapeutic agents for. -Plan for right total hip replacement Thursday08/24/2018; risks, benefits, and alternatives discussed with and understood by patient and her family. -Care as per primary medical team. -Will follow. Nic Elaine MD (Orthopaedic Surgery).
[2019-08-22] MEDS: traMADol HCL 50 MG TABLET PO PRN (23:46)
[2019-08-23] MEDS: DOCUSATE SODIUM 100 MG CAPSULE (FP) PO SCH ×3 (05:31→21:53)
[2019-08-23] MEDS: GABAPENTIN 400 MG CAPSULE PO SCH ×3 (05:31→21:53)
[2019-08-23 07:35] LABS: HEMATOCRIT 30.7 % (32.4-45.2); HEMOGLOBIN 10.6 GM/dL (10.7-15.3); MCH 29.1 pg (25.7-33.7); MCHC 34.5 g/dl (32.0-36.0); MEAN CELL VOLUME 84.3 fl (80-96); MEAN PLT VOLUME 8.6 fl (7.5-11.1); PLATELET COUNT 171 K/MM3 (134-434); RBC 3.64 M/mm3 (3.60-5.2); RDW 16.4 % (11.6-15.6); WHITE BLOOD COUNT 4.5 K/mm3 (4.0-10.0)
[2019-08-23 07:42] LABS: INR 1.16 (0.83-1.09); PROTHROMBIN TIME (PATIENT) 13.7 SEC (9.7-13.0)
[2019-08-23 07:45] LABS: ACTIVATED PTT 29.9 SECONDS (25.2-36.5)
[2019-08-23 07:54] LABS: ALBUMIN 2.6 g/dl (3.4-5.0); BILIRUBIN,TOTAL 0.5 mg/dL (0.2-1); BLOOD UREA NITROGEN 5.8 mg/dL (7-18); CREATININE 0.5 mg/dL (0.55-1.3); POTASSIUM 3.7 mmol/L (3.5-5.1); TOT PROT 6.8 g/dl (6.4-8.2)
[2019-08-23] MEDS: MORPHINE SULFATE 2 MG/ML VIAL IVPUSH PRN ×3 (09:23→21:52)
[2019-08-23] MEDS: ENOXAPARIN NA (PORCINE) 40 MG/0.4 ML DISP.SYRIN SQ SCH (09:28)
[2019-08-23] MEDS: POLYETHYLENE GLYCOL 3350 119 GM BTL PO SCH (09:29)
[2019-08-23 09:43] LABS: URINE APPEARANCE CLEAR; URINE BILIRUBIN NEGATIVE (NEGATIVE); URINE COLOR YELLOW; URINE GLUCOSE (UA) NEGATIVE (NEGATIVE); URINE KETONE NEGATIVE (NEGATIVE); URINE LEUK ESTERASE NEGATIVE (NEGATIVE); URINE NITRITE NEGATIVE (NEGATIVE); URINE PROTEIN NEGATIVE (NEGATIVE); URINE UROBILINOGEN 0.2 mg/dL (0.2-1.0)
[2019-08-23] MEDS: traMADol HCL 50 MG TABLET PO PRN (12:45)
--- NOTE | 2019-08-23 13:52 | PN ---
Physical Exam: SUBJECTIVE: Patient seen and examined at the bedside. Stated she continues to have R hip pain and some abdominal pain. Denies acute complaints of cp, sob, n/v /c/d, fever, chills, headaches, dizziness, lightheadedness, headaches. OBJECTIVE: Vital Signs Period Temp Pulse Resp BP Sys/Lomeli Pulse Ox Last 24 Hr 98 F-98.8 F 90-105 20-20 134-153/64-88 97-98 GENERAL: The patient is awake, alert, and fully oriented, in no acute distress. EYES: PERRL, extraocular movements intact, conjunctiva clear. ENT: Oropharynx clear without exudates, moist mucous membranes. LUNGS: Breath sounds equal, clear to auscultation bilaterally, no wheezes, no crackles, no accessory muscle use. HEART: Regular rate and rhythm, S1, S2 without murmur, rub. ABDOMEN: Soft, tender to palpation throughout, obese, normoactive bowel sounds, no guarding, no rebound, no masses. EXTREMITIES: 2+ pulses, warm, well-perfused, no edema. PSYCH: Normal mood, normal affect. SKIN: Warm, dry, normal turgor, no rashes or lesions noted Laboratory Results - last 24 hr 08/23/19 08/23/19 08/23/19 06:40 06:40 06:40 WBC 4.5 RBC 3.64 Hgb 10.6 L Hct 30.7 L MCV 84.3 MCH 29.1 MCHC 34.5 RDW 16.4 H Plt Count 171 MPV 8.6 PT with INR 13.70 H INR 1.16 H PTT (Actin FS) 29.9 Sodium 142 Potassium 3.7 Chloride 111 H Carbon Dioxide 27 Anion Gap 4 L BUN 5.8 L Creatinine 0.5 L Est GFR (CKD-EPI)AfAm 120.22 Est GFR (CKD-EPI)NonAf 103.73 Random Glucose 106 Calcium 9.0 Total Bilirubin 0.5 AST 70 H ALT 53 Alkaline Phosphatase 222 H Total Protein 6.8 Albumin 2.6 L Urine Color Urine Appearance Urine pH Ur Specific Eden Urine Protein Urine Glucose (UA) Urine Ketones Urine Blood Urine Nitrite Urine Bilirubin Urine Urobilinogen Ur Leukocyte Esterase 08/23/19 07:31 WBC RBC Hgb Hct MCV MCH MCHC RDW Plt Count MPV PT with INR INR PTT (Actin FS) Sodium Potassium Chloride Carbon Dioxide Anion Gap BUN Creatinine Est GFR (CKD-EPI)AfAm Est GFR (CKD-EPI)NonAf Random Glucose Calcium Total Bilirubin AST ALT Alkaline Phosphatase Total Protein Albumin Urine Color Yellow Urine Appearance Clear Urine pH 7.0 Ur Specific Eden 1.008 L Urine Protein Negative Urine Glucose (UA) Negative Urine Ketones Negative Urine Blood Negative Urine Nitrite Negative Urine Bilirubin Negative Urine Urobilinogen 0.2 Ur Leukocyte Esterase Negative Active Medications Generic Name Dose Route Start Last Admin Trade Name Freq PRN Reason Stop Dose Admin Acetaminophen 325 mg 08/21/19 01:45 08/21/19 18:20 Tylenol - PO 325 mg TID PRN Administration PAIN 6-10 Docusate Sodium 100 mg 08/21/19 06:00 08/23/19 13:37 Colace - PO 100 mg TID WILLIAM Administration Enoxaparin Sodium 40 mg 08/21/19 10:00 08/23/19 09:28 Lovenox - SQ 40 mg DAILY WILLIAM Administration Gabapentin 400 mg 08/21/19 06:00 08/23/19 13:37 Neurontin - PO 400 mg TID WILLIAM Administration Guaifenesin 10 ml 08/22/19 02:08 Robitussin Dm - PO Q4H PRN COUGH Meclizine HCl 25 mg 08/21/19 01:10 Antivert - PO TID PRN PAIN Morphine Sulfate 1 mg 08/21/19 01:09 08/23/19 09:23 Morphine Sulfate IVPUSH 1 mg Q4H PRN Administration PAIN LEVEL 7 - 10 Oxycodone HCl 5 mg 08/21/19 01:45 08/21/19 18:19 Roxicodone - PO 5 mg TID PRN Administration PAIN 6-10 Polyethylene Glycol 17 gm 08/21/19 10:00 08/23/19 09:29 Miralax (For Daily Use) - PO 17 gm DAILY WILLIAM Administration Senna 1 tab 08/23/19 22:00 Senna - PO HS WILLIAM Tramadol HCl 50 mg 08/21/19 01:10 08/23/19 12:45 Ultram - PO 50 mg TID PRN Administration PAIN LEVEL 7 - 10 ASSESSMENT/PLAN: Lida Lim is a 64 year old female with past medical history of 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 and chronic Right hip pain admitted for inability to ambulate secondary to osteonecrosis Inability to ambulate secondary to osteonecrosis - orthopedics consulted, recs appreciated - as per orthopedics and MRI has osteonecrosis of the R hip - will be going to OR on 08/24 for washout - will continue home meds percocet, tramadol, gabapentin - IV Morphine prn - physical therapy Elevated LFTs - abd U/S noting hepatic lesions suggestive of neoplastic disease - hepatitis panel negative - will continue to monitor Hx of breast CA - will need latif scan to determine extent of malignancy - requiring IV access which is difficult to obtain - oncology consulted, recs appreciated - palliative care consulted Anemia - Hgb electrophoresis - sickle cell screen - LEENA - hematology consulted DVT PPx - Lovenox 40mg sq daily, holding prior to surgery FEN - No standing fluids - continue to monitor electrolytes and replete as necessary - Regular diet Disposition - continue to monitor on Med-surg Visit type - Emergency Visit Emergency Visit: Yes ED Registration Date: 08/20/19 Care time: The patient presented to the Emergency Department on the above date and was hospitalized for further evaluation of their emergent condition. - New Patient This patient is new to me today: Yes Date on this admission: 08/23/19 - Critical Care Critical Care patient: No
[2019-08-23] MEDS: ACETAMINOPHEN 325 MG TABLET (FP) PO PRN (16:38)
--- NOTE | 2019-08-23 16:54 | PN ---
Teaching Attending Note Name of Resident: William Fierro ATTENDING PHYSICIAN STATEMENT I saw and evaluated the patient. I reviewed the resident's note and discussed the case with the resident. I agree with the resident's findings and plan as documented. SUBJECTIVE: Patient reports right hip pain is controlled. OBJECTIVE: Vital Signs Period Temp Pulse Resp BP Sys/Lomeli Pulse Ox Last 24 Hr 98 F-98.8 F 90-100 20-20 131-153/64-88 97-98 GENERAL: The patient is awake, alert, and fully oriented, in no acute distress. LUNGS: Breath sounds equal, clear to auscultation bilaterally, no wheezes, no crackles, no accessory muscle use. HEART: Regular rate and rhythm, S1, S2 without murmur, rub or gallop. ABDOMEN: Obese, soft, nontender, nondistended, normoactive bowel sounds, no guarding, no rebound, no hepatosplenomegaly, no masses. EXTREMITIES: 2+ pulses, warm, well-perfused, no edema. Laboratory Results - last 24 hr 08/23/19 08/23/19 08/23/19 06:40 06:40 06:40 WBC 4.5 RBC 3.64 Hgb 10.6 L Hct 30.7 L MCV 84.3 MCH 29.1 MCHC 34.5 RDW 16.4 H Plt Count 171 MPV 8.6 PT with INR 13.70 H INR 1.16 H PTT (Actin FS) 29.9 Sodium 142 Potassium 3.7 Chloride 111 H Carbon Dioxide 27 Anion Gap 4 L BUN 5.8 L Creatinine 0.5 L Est GFR (CKD-EPI)AfAm 120.22 Est GFR (CKD-EPI)NonAf 103.73 Random Glucose 106 Calcium 9.0 Total Bilirubin 0.5 AST 70 H ALT 53 Alkaline Phosphatase 222 H Total Protein 6.8 Albumin 2.6 L Urine Color Urine Appearance Urine pH Ur Specific [place] Urine Protein Urine Glucose (UA) Urine Ketones Urine Blood Urine Nitrite Urine Bilirubin Urine Urobilinogen Ur Leukocyte Esterase 08/23/19 07:31 WBC RBC Hgb Hct MCV MCH MCHC RDW Plt Count MPV PT with INR INR PTT (Actin FS) Sodium Potassium Chloride Carbon Dioxide Anion Gap BUN Creatinine Est GFR (CKD-EPI)AfAm Est GFR (CKD-EPI)NonAf Random Glucose Calcium Total Bilirubin AST ALT Alkaline Phosphatase Total Protein Albumin Urine Color Yellow Urine Appearance Clear Urine pH 7.0 Ur Specific [place] 1.008 L Urine Protein Negative Urine Glucose (UA) Negative Urine Ketones Negative Urine Blood Negative Urine Nitrite Negative Urine Bilirubin Negative Urine Urobilinogen 0.2 Ur Leukocyte Esterase Negative Current Medications Generic Name Dose Route Start Last Admin Trade Name Freq PRN Reason Stop Dose Admin Acetaminophen 325 mg 08/21/19 01:45 08/23/19 16:38 Tylenol - PO 325 mg TID PRN Administration PAIN 6-10 Docusate Sodium 100 mg 08/21/19 06:00 08/23/19 13:37 Colace - PO 100 mg TID WILLIAM Administration Enoxaparin Sodium 40 mg 08/21/19 10:00 08/23/19 09:28 Lovenox - SQ 40 mg DAILY WILLIAM Administration Gabapentin 400 mg 08/21/19 06:00 08/23/19 13:37 Neurontin - PO 400 mg TID WILLIAM Administration Guaifenesin 10 ml 08/22/19 02:08 Robitussin Dm - PO Q4H PRN COUGH Meclizine HCl 25 mg 08/21/19 01:10 Antivert - PO TID PRN PAIN Morphine Sulfate 1 mg 08/21/19 01:09 08/23/19 16:21 Morphine Sulfate IVPUSH 1 mg Q4H PRN Administration PAIN LEVEL 7 - 10 Oxycodone HCl 5 mg 08/21/19 01:45 08/21/19 18:19 Roxicodone - PO 5 mg TID PRN Administration PAIN 6-10 Polyethylene Glycol 17 gm 08/21/19 10:00 08/23/19 09:29 Miralax (For Daily Use) - PO 17 gm DAILY WILLIAM Administration Senna 1 tab 08/23/19 22:00 Senna - PO HS WILLIAM Tramadol HCl 50 mg 08/21/19 01:10 08/23/19 12:45 Ultram - PO 50 mg TID PRN Administration PAIN LEVEL 7 - 10 ASSESSMENT AND PLAN: This is a 64 year old female with a history of metastatic breast cancer, chronic right hip pain who presented to the ED with worsening right hip pain. 1. Avaascular necrosis of right femoral head - Pain controlled - Plan for right total hip replacement tomorrow 2. Metastatic breast cancer - RUQ US shows 2.3 cm and 2 cm hepatic lesions consistent with metastatic disease - Oncology consult appreciated - Palliative care input appreciated - CA 27-29 pending
--- NOTE | 2019-08-23 17:46 | PN ---
Progress Note (short form) - Note Progress Note: Patient seen and examined Complains of right hip pains and difficulty in moving same Had [place].S. of liver with 2 suspicious lesions . Unable to do CT imaging because of lack of IV access. States last had treatment in [place] greater than 2 months ago. Last Vital Signs Temp Pulse Resp BP Pulse Ox 98.8 F 100 H 20 131/70 98 08/23/19 15:15 08/23/19 15:15 08/23/19 15:15 08/23/19 15:15 08/23/19 09:00 HEENT: IVANIA, EOM Intact Oropharynx: No thrush, No mucositis Neck: Supple Nodes: Without adenopathy Breasts: Without masses on right ; s/p recvonstruction on left ; right breast - s/p surgery Cor: RSR, No murmurs, No gallops Lungs: Clear to P&A, poor inspiratory effort Abd: Soft, Normal bowel sounds, No organomegaly Ext:No significant edema Skin: No rashes, Integument intact CBC, BMP 08/23/19 06:40 08/23/19 06:40 INR, PTT INR 1.16 (0.83-1.09) H 08/23/19 06:40 Current Medications Generic Name Dose Route Start Last Admin Trade Name Freq PRN Reason Stop Dose Admin Acetaminophen 325 mg 08/21/19 01:45 08/23/19 16:38 Tylenol - PO 325 mg TID PRN Administration PAIN 6-10 Docusate Sodium 100 mg 08/21/19 06:00 08/23/19 13:37 Colace - PO 100 mg TID WILLIAM Administration Enoxaparin Sodium 40 mg 08/21/19 10:00 08/23/19 09:28 Lovenox - SQ 40 mg DAILY WILLIAM Administration Gabapentin 400 mg 08/21/19 06:00 08/23/19 13:37 Neurontin - PO 400 mg TID WILLIAM Administration Guaifenesin 10 ml 08/22/19 02:08 Robitussin Dm - PO Q4H PRN COUGH Meclizine HCl 25 mg 08/21/19 01:10 Antivert - PO TID PRN PAIN Morphine Sulfate 1 mg 08/21/19 01:09 08/23/19 16:21 Morphine Sulfate IVPUSH 1 mg Q4H PRN Administration PAIN LEVEL 7 - 10 Oxycodone HCl 5 mg 08/21/19 01:45 08/21/19 18:19 Roxicodone - PO 5 mg TID PRN Administration PAIN 6-10 Polyethylene Glycol 17 gm 08/21/19 10:00 08/23/19 09:29 Miralax (For Daily Use) - PO 17 gm DAILY WILLIAM Administration Senna 1 tab 08/23/19 22:00 Senna - PO HS WILLIAM Tramadol HCl 50 mg 08/21/19 01:10 08/23/19 12:45 Ultram - PO 50 mg TID PRN Administration PAIN LEVEL 7 - 10 Impression: Avascular necrosis of right femoral head For surgery Metastatic breast c Details from [facility].S. with 2 lesions in liver and RPN lymphadenopathy. For surgery in AM.
[2019-08-23] MEDS ORDERED: SENNOSIDES 8.6MG TABLET (FP) PO SCH (22:00)
[2019-08-24] MEDS: oxyCODONE HCL 5 MG TABLET PO PRN ×2 (02:22→05:45)
[2019-08-24] MEDS: GABAPENTIN 400 MG CAPSULE PO SCH ×4 (05:29→23:39)
[2019-08-24] MEDS: DOCUSATE SODIUM 100 MG CAPSULE (FP) PO SCH ×2 (05:29→13:07)
[2019-08-24] MEDS: ACETAMINOPHEN 325 MG TABLET (FP) PO PRN (05:47)
--- NOTE | 2019-08-24 06:18 | PN ---
Physical Exam: SUBJECTIVE: Patient seen and examined at the bedside. Stated she is feeling the same as yesterday. Continues to have pain in her R hip but is able to ambulate with it. Denies fever, chills, cp, sob, abd pain, n/v/c/d, dizziness, lightheadedness, headaches. OBJECTIVE: Vital Signs Period Temp Pulse Resp BP Sys/Lomeli Pulse Ox Last 24 Hr 98 F-98.8 F 83-102 18-20 129-150/67-88 97-98 GENERAL: The patient is awake, alert, and fully oriented, in no acute distress. EYES: PERRL, extraocular movements intact, conjunctiva clear. ENT: Oropharynx clear without exudates, moist mucous membranes. LUNGS: Breath sounds equal, clear to auscultation bilaterally, no wheezes, no crackles, no accessory muscle use. HEART: Regular rate and rhythm, S1, S2 without murmur, rub. ABDOMEN: Soft, non-tender, obese, normoactive bowel sounds, no guarding, no rebound, no masses. EXTREMITIES: 2+ pulses, warm, well-perfused, no edema. PSYCH: Normal mood, normal affect. SKIN: Warm, dry, normal turgor, no rashes or lesions noted Laboratory Results - last 24 hr 08/23/19 08/23/19 08/23/19 06:40 06:40 06:40 WBC 4.5 RBC 3.64 Hgb 10.6 L Hct 30.7 L MCV 84.3 MCH 29.1 MCHC 34.5 RDW 16.4 H Plt Count 171 MPV 8.6 Sickle Cell Screen PT with INR 13.70 H INR 1.16 H PTT (Actin FS) 29.9 Sodium Potassium Chloride Carbon Dioxide Anion Gap BUN Creatinine Est GFR (CKD-EPI)AfAm Est GFR (CKD-EPI)NonAf Random Glucose Calcium Total Bilirubin AST ALT Alkaline Phosphatase Total Protein Albumin CA 27-29 32 Urine Color Urine Appearance Urine pH Ur Specific [place] Urine Protein Urine Glucose (UA) Urine Ketones Urine Blood Urine Nitrite Urine Bilirubin Urine Urobilinogen Ur Leukocyte Esterase 08/23/19 08/23/19 08/23/19 06:40 07:31 08:40 WBC RBC Hgb Hct MCV MCH MCHC RDW Plt Count MPV Sickle Cell Screen Cancelled PT with INR INR PTT (Actin FS) Sodium 142 Potassium 3.7 Chloride 111 H Carbon Dioxide 27 Anion Gap 4 L BUN 5.8 L Creatinine 0.5 L Est GFR (CKD-EPI)AfAm 120.22 Est GFR (CKD-EPI)NonAf 103.73 Random Glucose 106 Calcium 9.0 Total Bilirubin 0.5 AST 70 H ALT 53 Alkaline Phosphatase 222 H Total Protein 6.8 Albumin 2.6 L CA 27-29 Urine Color Yellow Urine Appearance Clear Urine pH 7.0 Ur Specific [place] 1.008 L Urine Protein Negative Urine Glucose (UA) Negative Urine Ketones Negative Urine Blood Negative Urine Nitrite Negative Urine Bilirubin Negative Urine Urobilinogen 0.2 Ur Leukocyte Esterase Negative Active Medications Generic Name Dose Route Start Last Admin Trade Name Freq PRN Reason Stop Dose Admin Acetaminophen 325 mg 08/21/19 01:45 08/24/19 05:47 Tylenol - PO 325 mg TID PRN Administration PAIN 6-10 Docusate Sodium 100 mg 08/21/19 06:00 08/24/19 05:29 Colace - PO 100 mg TID WILLIAM Administration Enoxaparin Sodium 40 mg 08/21/19 10:00 08/23/19 09:28 Lovenox - SQ 40 mg DAILY WILLIAM Administration Gabapentin 400 mg 08/21/19 06:00 08/24/19 05:29 Neurontin - PO 400 mg TID WILLIAM Administration Guaifenesin 10 ml 08/22/19 02:08 Robitussin Dm - PO Q4H PRN COUGH Meclizine HCl 25 mg 08/21/19 01:10 Antivert - PO TID PRN PAIN Morphine Sulfate 1 mg 08/21/19 01:09 08/23/19 21:52 Morphine Sulfate IVPUSH 1 mg Q4H PRN Administration PAIN LEVEL 7 - 10 Oxycodone HCl 5 mg 08/21/19 01:45 08/24/19 05:45 Roxicodone - PO 5 mg TID PRN Administration PAIN 6-10 Polyethylene Glycol 17 gm 08/21/19 10:00 08/23/19 09:29 Miralax (For Daily Use) - PO 17 gm DAILY WILLIAM Administration Senna 1 tab 08/23/19 22:00 08/23/19 21:53 Senna - PO 1 tab HS WILLIAM Administration Tramadol HCl 50 mg 08/21/19 01:10 08/23/19 12:45 Ultram - PO 50 mg TID PRN Administration PAIN LEVEL 7 - 10 ASSESSMENT/PLAN: Lida Lim is a 64 year old female with past medical history of 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 and chronic Right hip pain admitted for inability to ambulate secondary to osteonecrosis Inability to ambulate secondary to osteonecrosis - orthopedics consulted, recs appreciated - as per orthopedics and MRI has osteonecrosis of the R hip - will be going to OR today for hip replacement - will continue home meds percocet, tramadol, gabapentin - IV Morphine prn - physical therapy Elevated LFTs - abd U/S noting hepatic lesions suggestive of neoplastic disease - hepatitis panel negative - will continue to monitor Hx of breast CA - will need latif scan to determine extent of malignancy - oncology consulted, recs appreciated - palliative care consulted - previous oncologist, Dr. Gupta in [facility] - records obtained by oncology as per onc note Anemia - Hgb electrophoresis - sickle cell screen - LEENA - hematology consulted DVT PPx - Lovenox 40mg sq daily, holding prior to surgery FEN - No standing fluids - continue to monitor electrolytes and replete as necessary - NPO pending surgery, restart after surgery Disposition - continue to monitor on Med-surg Visit type - Emergency Visit Emergency Visit: Yes ED Registration Date: 08/20/19 Care time: The patient presented to the Emergency Department on the above date and was hospitalized for further evaluation of their emergent condition. - New Patient This patient is new to me today: No - Critical Care Critical Care patient: No
[2019-08-24 07:10] LABS: BASO % 0.5 % (0-2.0); EOS % 6.7 % (0-4.5); HEMATOCRIT 31.1 % (32.4-45.2); HEMOGLOBIN 10.7 GM/dL (10.7-15.3); LYMPH % 27.5 % (8-40); MCH 29.4 pg (25.7-33.7); MCHC 34.5 g/dl (32.0-36.0); MEAN CELL VOLUME 85.2 fl (80-96); MEAN PLT VOLUME 8.4 fl (7.5-11.1); MONO % 10.1 % (3.8-10.2); NEUT % 55.2 % (42.8-82.8); PLATELET COUNT 159 K/MM3 (134-434); RBC 3.65 M/mm3 (3.60-5.2); RDW 15.8 % (11.6-15.6); WHITE BLOOD COUNT 4.2 K/mm3 (4.0-10.0)
[2019-08-24 07:35] LABS: INR 1.11 (0.83-1.09); PROTHROMBIN TIME (PATIENT) 13.1 SEC (9.7-13.0)
[2019-08-24 07:37] LABS: ALBUMIN 2.5 g/dl (3.4-5.0); BILIRUBIN,TOTAL 0.4 mg/dL (0.2-1); BLOOD UREA NITROGEN 6.2 mg/dL (7-18); CALCIUM 8.9 mg/dL (8.5-10.1); CREATININE 0.5 mg/dL (0.55-1.3); MAGNESIUM 2.2 mg/dL (1.8-2.4); POTASSIUM 3.7 mmol/L (3.5-5.1); TOT PROT 6.6 g/dl (6.4-8.2)
[2019-08-24 07:38] LABS: ACTIVATED PTT 30.3 SECONDS (25.2-36.5)
--- NOTE | 2019-08-24 09:28 | PN ---
Progress Note (short form) - Note Progress Note: -Right total hip replacement today. -NPO, IVF. -Hold all chemical DVT PPx. Nic Elaine MD (Orthopaedic Surgery).
--- NOTE | 2019-08-24 09:44 | PN ---
Progress Note (short form) - Note Progress Note: NEUROSURGERY h/o L4-S1 fusion 15+ years ago Intermittent LBP and sciatica Occ R foot D1 pain No lower leg weakness/numbness; no B/B dysfunction h/o breast CA, followed by oncology PE: AF, VSS HEENT- NC/AT; Neck- supple; Cor- RR; Lungs- CTA B; Abd- benign; Ext- no sign of DVT CN- intact; Motor- 4+-5 except R IP 4- pain limited; Sensation- intact LT; DTR- 2+ LS spine MRI ([place])- intact L4-5-S1 fusion and implant; minimal central disc bulge L2-3 and L3-4 with mild annular tear/edema; no significant stenosis; implants in excellent positions L4-5-S1 R hip MRI- R femur head osteonecrosis H/o L4-S1 fusion with instrumentation; minimal L2-3 and L3-4 central disc bulge (not the patient's cause of current symptomatology) Metastatic/breast w/u per med onc Ortho procedure (R THR) planned today DVT prophylaxis Will only follow peripherally
[2019-08-24] MEDS: POLYETHYLENE GLYCOL 3350 119 GM BTL PO SCH (10:06)
[2019-08-24] MEDS: MORPHINE SULFATE 2 MG/ML VIAL IVPUSH PRN (10:52)
[2019-08-24] MEDS ORDERED: MIDAZOLAM HCL 2 MG/2 ML SINGLE DOSE VIAL ONE ×5 (13:51→19:46)
[2019-08-24] MEDS ORDERED: PROPOFOL 20 ML ONE (13:51)
--- NOTE | 2019-08-24 16:04 | PN ---
Progress Note (short form) - Note Progress Note: Pt. seen and examined in pre-op holding area. H&P reviewed. Risks, benefits, and alternatives of right total hip replacement surgery discussed with and understood by patient. Will proceed as planned: right total hip replacement. Nic Elaine MD (Orthopaedic Surgery).
[2019-08-24] MEDS ORDERED: ceFAZolin SODIUM 1 GM VIAL ONE ×2 (17:49→19:51)
[2019-08-24] MEDS ORDERED: VANCOMYCIN 1,000 MG VIAL (RESTRICTED TO ID ONLY) ONE (17:49)
[2019-08-24] MEDS ORDERED: ceFAZolin SODIUM 1 GM VIAL IVPB ONE ×2 (17:50→19:52)
[2019-08-24] MEDS ORDERED: KETOROLAC TROMETHAMINE 30 MG/1 ML VIAL ONE (17:55)
[2019-08-24] MEDS ORDERED: TRANEXAMIC ACID 1000 MG/10 ML VIAL ONE ×2 (17:55→19:51)
[2019-08-24] MEDS ORDERED: DEXAMETHASONE SOD PHOSPHATE 4 MG/1 ML VIAL ONE (17:55)
[2019-08-24] MEDS ORDERED: ONDANSETRON 4 MG/2 ML VIAL ONE (17:55)
[2019-08-24] MEDS ORDERED: VANCOMYCIN 1,000 MG VIAL (RESTRICTED TO ID ONLY) IVPB ONE (17:55)
--- NOTE | 2019-08-24 19:46 | PN ---
Teaching Attending Note Name of Resident: William Fierro ATTENDING PHYSICIAN STATEMENT I saw and evaluated the patient. I reviewed the resident's note and discussed the case with the resident. I agree with the resident's findings and plan as documented. SUBJECTIVE: seen at 1 pm No fever or chills. R hip pain. no N/V . no CP OBJECTIVE: NAd Cv: RRr, no MRG lungs: CTAB Ext : No edema or erythema . TTP over R lateral hip . no edema or erythema o n LE Lungs: CTAB Abd: soft, NT, Nd , NL BS breasts: L mastectomy, clean scar. no LAP in L axilla. R breast with no masses, no LAP in R axilla, no drainage from nipple ASSESSMENT AND PLAN: 64 y./o lady with h/o L breast cancer s/p mastectomy, radiation and chemo, with mets to intestine, L4-S1 fusion , sciatica, R femoral head osteonepcrosis ( out pt MRI) , who presented due to her hip pain . 1- R femoral head osteonecrosis 2- h/o Met breast cancer 3- Liver lesions . ? mets 4- h/o Sciatica and L4-S1 fusion 5- Dilated R renal collceting system on limited US plan : - for THR today - case was d/w Dr. Caldera. records from [place] were reviewed by Dr. Chris. Hb electropheresis ordered . cancer plan to be followed as out pt. willprobably need PET scan to evaluate liver lesions - CT C/A/P ordered - evaluate possible dilation of collecting system seen on limited Us. - start DVT px in am
[2019-08-24] MEDS ORDERED: oxyCODONE HCL 5 MG TABLET PO PRN ×2 (20:58→21:49)
[2019-08-24] MEDS ORDERED: ONDANSETRON 4 MG/2 ML VIAL IVPUSH PRN ×4 (20:58→21:49)
[2019-08-24] MEDS ORDERED: PROMETHAZINE HCL 25 MG/1 ML VIAL IVPUSH PRN ×2 (20:58→21:49)
--- NOTE | 2019-08-24 21:06 | PN ---
Progress Note (short form) - Note Progress Note: 64F s/p right VENESSA POD #0. -Pain control: per anaesthesia team. -Ancef 2g IV q6h x 3 doses post-op. -DVT PPx: - Chemical: ASA 81mg PO BID x 6 weeks. - Mechanical: KIRILL's, SCD's. -Incentive spirometry q15 min. -PT/OT/Rehab, OOB. -WBAT RLE. -Right hip precautions. -Hip abduction pillow: straps loose, not tight. -f/u AM labs: maintain Hemoglobin above 10/Hematocrit above 30. -f/u drain output: 1 x deep & 1 x superficial HemoVac drains (common cannister). -Care per ICU & medical hospitalist team. -Discharge planning: f/u 7-10 days at [facility] [place] office; call for appointment; . -Will follow. Nic Elaine MD (Orthopaedic Surgery).
--- NOTE | 2019-08-24 21:10 | OP ---
Operative Note - Note: Operative Date: 08/24/19 Pre-Operative Diagnosis: Avascular necrosis right hip Operation: Right total hip replacement Findings: AVN right femoral head Implants: [place]. Cup - Trident II-Tritanium, 52mm, cluster. 1 x 25mm acetabular screw. Poly - 32mm, neutral. Stem - Accolade II, 127 deg NSA, #2. Head - 32mm diameter, standard length, Biolox/Delta Ceramic Post-Operative Diagnosis: Same as Pre-op Surgeon: Nic Elaine Story Teller: Tommy Elaine Anesthesiologist/SHODER FILLER: William Rodríguez Anesthesia: Spinal Specimens Removed: Right femoral head Estimated Blood Loss (mls): 400 Drains & Tubes with Location: 1 x superficial & 1 x deep HemoVac (common cannister). Fluid Volume Replaced (mls): 1,400 (Crystalloid) Operative Report Dictated: Yes
[2019-08-24] MEDS ORDERED: MAGNESIUM HYDROX 2400MG/30ML ORAL SUSPENSION 30 ML CUP PO PRN (21:15)
[2019-08-24] MEDS ORDERED: MAG HYDROX/AL HYDROX/SIMETH 30 ML UNIT-DOSE CUP PO PRN (21:15)
[2019-08-24] MEDS ORDERED: LACTATED RINGERS SOLUTION 1,000 ML IV SCH ×2 (21:15→21:49)
[2019-08-24] MEDS ORDERED: MECLIZINE HCL 25 MG TABLET (FP) PO PRN (21:49)
[2019-08-24] MEDS ORDERED: guaiFENesin/D-METHORPHAN HB 10 ML UNIT-DOSE CUPS PO PRN (21:49)
[2019-08-24] MEDS ORDERED: SENNOSIDES/DOCUSATE COMBO (SENNA PLUS) TABLET (UD) PO SCH (22:00)
[2019-08-24] MEDS ORDERED: ASPIRIN 81 MG CHEWABLE TABLETS PO SCH (22:00)
[2019-08-24] MEDS ORDERED: HYDROmorphone HCl 2 MG/ML VIAL ONE (22:19)
[2019-08-24] MEDS ORDERED: HYDROmorphone HCl 2 MG/ML VIAL IVPUSH ONE (22:20)
[2019-08-24] MEDS ORDERED: HYDROmorphone HCL CARPU-JECT 2 MG/1 ML DISP.SYRIN IVPUSH ONE (22:20)
--- NOTE | 2019-08-24 22:33 | CONSULT ---
Consultation: REQUESTING PROVIDER: Dr. Elaine CONSULT REQUEST: We have been asked to medically evaluate this patient for Admission to ICU for post op care. 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 MRI performed as outpatient showed osteonecrosis of the right hip. Patient went for total hip replacement with Dr. Elaine and is POD 0. REVIEW OF SYSTEMS: CONSTITUTIONAL: Absent: fever, chills, diaphoresis, generalized weakness, malaise, loss of appetite, weight change HEENT: Absent: rhinorrhea, nasal congestion, throat pain, throat swelling, difficulty swallowing, mouth swelling, ear pain, eye pain, visual changes CARDIOVASCULAR: Absent: chest pain, syncope, palpitations, irregular heart rate, lightheadedness, peripheral edema RESPIRATORY: Absent: cough, shortness of breath, dyspnea with exertion, orthopnea, wheezing, stridor, hemoptysis GASTROINTESTINAL: Absent: abdominal pain, abdominal distension, nausea, vomiting, diarrhea, constipation, melena, hematochezia GENITOURINARY: Absent: dysuria, frequency, urgency, hesitancy, hematuria, flank pain, genital pain MUSCULOSKELETAL: Absent: neck pain SKIN: Absent: rash, itching, pallor HEMATOLOGIC/IMMUNOLOGIC: Absent: easy bleeding, easy bruising, lymphadenopathy, frequent infections ENDOCRINE: Absent: unexplained weight gain, unexplained weight loss, heat intolerance, cold intolerance NEUROLOGIC: Absent: headache, focal weakness or paresthesias, dizziness, unsteady gait, seizure, mental status changes, bladder or bowel incontinence PSYCHIATRIC: Absent: anxiety, depression, suicidal or homicidal ideation, hallucinations. PHYSICAL EXAMINATION Vital Signs - 24 hr 08/24/19 08/24/19 08/24/19 00:00 05:57 08:27 Temperature 98.7 F 98.4 F 98.4 F Pulse Rate 102 H 83 104 H Respiratory 18 18 18 Rate Blood Pressure 129/71 141/67 112/52 L O2 Sat by Pulse Oximetry (%) 08/24/19 08/24/19 08/24/19 09:00 12:45 21:05 Temperature 97.7 F Pulse Rate 100 H 93 H Respiratory 12 13 Rate Blood Pressure 131/76 90/70 O2 Sat by Pulse 97 100 100 Oximetry (%) 02/19/20 02/19/20 02/19/20 21:15 21:30 21:45 Temperature Pulse Rate 87 97 H 100 H Respiratory 15 14 12 Rate Blood Pressure 125/66 132/69 131/76 O2 Sat by Pulse 100 100 100 Oximetry (%) 08/24/19 22:00 Temperature Pulse Rate 98 H Respiratory 16 Rate Blood Pressure 135/78 O2 Sat by Pulse 100 Oximetry (%) GENERAL: Awake, alert, and fully oriented, in no acute distress. HEAD: Normal with no signs of trauma. EYES: Pupils equal, round and reactive to light, extraocular movements intact, sclera anicteric, conjunctiva clear. No lid lag. LUNGS: Breath sounds equal, clear to auscultation bilaterally. No wheezes, and no crackles. No accessory muscle use. HEART: Regular rate and rhythm, normal S1 and S2 without murmur, rub or gallop. ABDOMEN: Soft, nontender, moderately distended, normoactive bowel sounds, no guarding, no rebound, no masses. No hepatomegaly or splenomegaly. LOWER EXTREMITIES: 2+ pulses, warm, well-perfused. No calf tenderness. No peripheral edema. Post op wound NEUROLOGICAL: Cranial nerves II-X intact. Normal speech. Laboratory Results - last 24 hr 08/23/19 08/23/19 08/24/19 06:40 08:40 06:35 WBC 4.2 RBC 3.65 Hgb 10.7 Hct 31.1 L MCV 85.2 MCH 29.4 MCHC 34.5 RDW 15.8 H Plt Count 159 MPV 8.4 Absolute Neuts (auto) 2.3 Neutrophils % 55.2 Lymphocytes % 27.5 D Monocytes % 10.1 Eosinophils % 6.7 H Basophils % 0.5 Nucleated RBC % 0 PT with INR INR PTT (Actin FS) Sodium Potassium Chloride Carbon Dioxide Anion Gap BUN Creatinine Est GFR (CKD-EPI)AfAm Est GFR (CKD-EPI)NonAf Random Glucose Calcium Magnesium Total Bilirubin AST ALT Alkaline Phosphatase Total Protein Albumin CA 27-29 32 LEENA Screen Positive H LEENA Homogeneous Pattern TNP LEENA Nucleolar Pattern TNP LEENA Spindle Simona Pattern TNP LEENA Midbody Pattern TNP LEENA Centriole Pattern TNP LEENA Nuclear Dot Pattern TNP LEENA PCNA Pattern TNP LEENA Nuclear Membr Pat 1:320 H LEENA Speckled Pattern 1:80 LEENA Centromere Pattern TNP Blood Type Antibody Screen 08/24/19 08/24/19 08/24/19 06:35 06:35 06:35 WBC RBC Hgb Hct MCV MCH MCHC RDW Plt Count MPV Absolute Neuts (auto) Neutrophils % Lymphocytes % Monocytes % Eosinophils % Basophils % Nucleated RBC % PT with INR 13.10 H INR 1.11 H PTT (Actin FS) 30.3 Sodium 141 Potassium 3.7 Chloride 108 H Carbon Dioxide 27 Anion Gap 5 L BUN 6.2 L Creatinine 0.5 L Est GFR (CKD-EPI)AfAm 120.22 Est GFR (CKD-EPI)NonAf 103.73 Random Glucose 100 Calcium 8.9 Magnesium 2.2 Total Bilirubin 0.4 AST 63 H ALT 50 Alkaline Phosphatase 212 H Total Protein 6.6 Albumin 2.5 L CA 27-29 LEENA Screen LEENA Homogeneous Pattern LEENA Nucleolar Pattern LEENA Spindle Simona Pattern LEENA Midbody Pattern LEENA Centriole Pattern LEENA Nuclear Dot Pattern LEENA PCNA Pattern LEENA Nuclear Membr Pat LEENA Speckled Pattern LEENA Centromere Pattern Blood Type O POSITIVE Antibody Screen Negative Active Medications Generic Name Dose Route Start Last Admin Trade Name Freq PRN Reason Stop Dose Admin Al Hydroxide/Mg Hydroxide 30 ml 08/24/19 21:49 Mylanta Oral Suspension - PO Q4H PRN DYSPEPSIA Aspirin 81 mg 08/24/19 22:00 Asa - PO BID [facility] Chlorhexidine Gluconate 1 applic 08/24/19 22:00 Hibiclens For Decolonization - TP HS [facility] Fentanyl 50 mcg 08/24/19 21:49 Sublimaze Injection - IVPUSH [id number] PRN PAIN-PACU ORDER X 4 DOSES ONLY Gabapentin 400 mg 08/24/19 22:00 Neurontin - PO TID WILLIAM Guaifenesin 10 ml 08/24/19 21:49 Robitussin Dm - PO Q4H PRN COUGH Hydromorphone HCl 1 mg 08/24/19 22:20 Dilaudid Injection - IVPUSH 08/24/19 22:21 ONCE ONE Cefazolin Sodium 2 gm/ 50 mls @ 200 mls/hr 08/25/19 02:00 Dextrose IVPB 08/25/19 14:14 Q6H WILLIAM Lactated Ringer's 1,000 mls @ 125 mls/hr 08/24/19 21:49 Lactated Ringers Solution IV 08/25/19 06:00 ASDIR WILLIAM Magnesium Hydroxide 30 ml 08/24/19 21:49 Milk Of Magnesia - PO PRN PRN CONSTIPATION Meclizine HCl 25 mg 08/24/19 21:49 Antivert - PO TID PRN PAIN Mupirocin 1 applic 08/24/19 22:00 Bactroban Ointment (For Decolonization) - NS 08/29/19 21:59 BID WILLIAM Ondansetron HCl 4 mg 08/24/19 21:49 Zofran Injection IVPUSH Q6H PRN NAUSEA AND/OR VOMITING Ondansetron HCl 4 mg 08/24/19 21:49 Zofran Injection IVPUSH Q6H PRN NAUSEA Oxycodone HCl 5 mg 08/24/19 21:49 Roxicodone - PO TID PRN PAIN 6-10 Oxycodone HCl 10 mg 08/24/19 21:49 Roxicodone - PO 08/25/19 20:57 Q4H PRN PAIN LEVEL 6-10 Pantoprazole Sodium 40 mg 08/25/19 10:00 Protonix - PO DAILY WILLIAM Promethazine HCl 12.5 mg 08/24/19 21:49 Phenergan Injection - IVPUSH Q6H PRN NAUSEA-FOR RESCUE AFTER 15 MIN Senna/Docusate Sodium 2 tablet 08/24/19 22:00 Pericolace - PO BID WILLIAM ASSESSMENT/PLAN: The patient is a 64 yo f w/ PMH 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 MRI performed as outpatient showed osteonecrosis of the right hip. Patient went for total hip replacement with Dr. Elaine and is POD 0. #Neuro -awake and alert #Cardio -BP WNL post op #Pulmonary -on supplemental O2 by NC -no active issues #MSK -POD 0 right hip replacement -Pain ctrl per anaesthesia team -ancef 2g IV q6h x 3 doses post op -PT/OOB -immobilize limb in abduction pillow -f/u am labs -drainsx2 in place #Prophy -ASA 81 PO BID x 6 weeks -SCDs #FEN -LR @ 125 -replete lytes PRN -Regular diet #Dispo -admit ICU for post op management Visit type - Emergency Visit Emergency Visit: Yes ED Registration Date: 08/20/19 Care time: The patient presented to the Emergency Department on the above date and was hospitalized for further evaluation of their emergent condition. - New Patient This patient is new to me today: Yes Date on this admission: 08/24/19 - Critical Care Critical Care patient: Yes Total Critical Care Time (in minutes): 35 Critical Care Statement: The care of this patient involved high complexity decision making to prevent further life threatening deterioration of the patient's condition and/or to evaluate & treat vital organ system(s) failure or risk of failure. ATTENDING PHYSICIAN STATEMENT I saw and evaluated the patient. I reviewed the resident's note and discussed the case with the resident. I agree with the resident's findings and plan as documented. SUBJECTIVE: OBJECTIVE: ASSESSMENT AND PLAN:
[2019-08-24] MEDS: ASPIRIN 81 MG CHEWABLE TABLETS PO SCH (23:13)
[2019-08-24] MEDS: CHLORHEXIDINE GLUCONATE 4% CLEANSER FOR DECOLONIZATION TP SCH (23:16)
[2019-08-24] MEDS: MUPIROCIN 2% TOPICAL OINTMENT FOR DECOLONIZATION NS SCH (23:17)
[2019-08-24] MEDS: SENNOSIDES/DOCUSATE COMBO (SENNA PLUS) TABLET (UD) PO SCH (23:39)
--- NOTE | 2019-08-25 01:01 | OP ---
Date of Operation: 08/24/2019 Pre-Operative Diagnosis: Avascular necrosis right hip. Post-Operative Diagnosis: Avascular necrosis right hip. Procedure Performed: Right total hip replacement. ([id number]) Surgeon: Nic Elaine M.D. Assistant Executive Housekeeper: Tommy Elaine M.D. Anesthesia: Spinal, sedation. Position: Supine Incision: Lateral. Specimens Removed: Bones, soft tissue. Estimated Blood Loss: 400 mL. Intravenous Fluid: 1.4L crystalloid. Specimens: None. Drains: 1 x deep & 1 x superficial HemoVac. Complications: None. Urine Output: None. Bacteriology: None. Transfusions: None. Closure: No. 1 Vicryl, skin yusef. Indications: The patient was indicated for a right total hip replacement in order to facilitate improved motion and mobilization, and to prevent the complications associated with a sedentary lifestyle. The patient was identified in the holding area by her armband. A long discussion was held with the patient regarding the risks, benefits and alternatives of the above named procedure. Risks include but are not limited to: pain, bleeding, infection, damage to surrounding structures (including nerves, blood vessels, skin, ligaments, tendons and bone), wound complications, failure of hardware/implants/reduction, need for further surgery, blood clots, myocardial infarction, pulmonary embolism , cerebrovascular insult, anaesthesia complications, compartment syndrome, limb loss, limp, loss of function, and . Benefits as mentioned above. Alternatives include no surgery. All questions were answered. The patient understood and agreed to the procedure. Informed consent was obtained, witnessed and verified. The patients correct operative limb - that is the right lower extremity - was marked, and the patient was taken to the operating room after being seen by the anesthesia and nursing staff. Procedure: The patient was brought into the operating room, placed on the OR table and secured with a safety strap. Consent and the operative site were again verified with the patient and nursing and anaesthesia staff. Anaesthesia was then administered. This included 2g IV Ancef, 1g IV Vancomycin, and 1g IV tranexamic acid (TXA). The patient was placed in the supine position with the greater trochanter lying at the edge of the table, thus freeing the muscles of the buttock from the table. All bony prominences were well padded. The non-operative limb was loosely secured to the operating table using a Kerlix bandage. With respect to the pelvis, the limb lengths were accurately compared. There was a limb length discrepancy of 0.25cm noted with the left limb longer than the other. The operative limb was prepped in standard sterile fashion using betadine prep & scrub, alcohol, and DuraPrep, and then free draped. A time out was done, led by me the attending surgeon, and the case began. With the patient in the supine position, a modified lateral (Hardinge) approach was utilized to access the hip. The skin incision was centered over the greater trochanter proximally, at the level of the anterior-superior iliac spine, and extended distally, ending 3-5cm distal to the vastus ridge, along the anterior border of the femur. Subcutaneous dissection was carried down to the level of the iliotibial band which was split longitudinally in line with its fibers. The gluteus bianca muscle was split proximally in line with its fibers to the level of the apex of the incision. A standard Charnley retractor was then placed subfascially to expose the deep structures. Using electrocautery, a hockey stick incision was utilized to split the anterior fibers of gluteus medius and gain access to the joe-lateral femur. This ended parallel to the femur at the entry point to the Gu[place]arrama-Blas window. Electrocautery was then used to expose the anterior neck of the femur. The supero-lateral and infero-medial hip capsule was then incised and anterior radial capsular cuts were made as needed. An anterior acetabular retractor was then placed to facilitate exposure. The operative limb was adducted across the midline and the hip was externally rotated with the knee flexed using the tibia as a lever to facilitate an anterolateral hip dislocation. A femoral neck cut was made approximately 1cm proximal to the lesser trochanter using an oscillating saw. The femoral head was delivered out of the operative field. The operative limb was then brought back onto the table and the ankles were crossed. Posterior and inferior acetabular retractors were then placed. The acetabulum was then reamed in sequentially increasing diameter using sharp domed basket reamers. A final size 52mm reamer was used, ensuring concentric acetabular bone bed preparation. A Steve Tident II-Tritanium, 52mm cup was then impacted, achieving solid press fit in the desired orientation based on pelvic alignment. We elected to supplement cup fixation with a single 25mm acetabular screw. A 32mm, neutral highly cross-linked UHMWPE liner was then implanted. All retractors were removed. The operative limb was adducted and externally rotated to allow visualization of the proximal femur. A sharp Hohmann retractor was placed posterior to the tip of the greater trochanter to protect the hip abductor. A box osteotome was used to begin the femoral preparation. A sharp, end cutting reamer was used to manually gain entry to the femoral canal. Next, broaches were delivered via mallet strikes to prepare the proximal femoral bone bed for final implantation. The tibia was used as a goniometer with which we could accurately dial in our desired femoral anteversion. Modular femoral stem, neck, and head trial components were assembled and the hip was reduced. In the supine position, the true limb lengths were matched. The hip was then reduced and stability was ensured in all physiologic positions of compromise. This included flexion to 90 degrees with adduction and internal rotation. This also included extension and external rotation. At no point did the trunion impinge upon the cup. A Gustine Accolade II, Size #2, high offset stem was then implanted using mallet strikes until achieving solid press-fit. A Biolox/Delta Ceramic head, size 32mm diameter, standard length head was then impacted using a protective head impacter and mallet strikes. As before, the hip was reduced and stability was ensured in all physiologic positions of compromise. Again, in the supine position, the true limb lengths were matched. The operative limb lay in physiologic 15 degrees of external rotation. The wounds were copiously irrigated throughout the case and hemostatis was assured. Meticulous technique was implemented to avoid any implants coming into contact with free edges of the wound & skin. One deep (subfascial) and one superficial (suprafascial) drain were utilized. The split gluteus medius muscle fibers were reattached using #1 vicryl sutures. The iliotibial band, gluteus bianca fascia, and subcutaneous tissues were closed using #1 vicryl sutures. The skin was closed using yusef. A sterile compressive dressing was applied. A hip abduction pillow was placed between the legs. The patient was transferred to a hospital bed. A post-operative x-ray was taken with the patient on the hospital bed. This showed the hip to be well reduced with all implants in place and no evidence of annemarie-prosthetic fracture or retained foreign body. The patient was then transferred to the recovery room in stable condition, as per the anesthesia team, having tolerated the procedure well. MD NASRA Trujillo/[id number] MTDD
[2019-08-25] MEDS ORDERED: CEFAZOLIN 2 GM in DEXTROSE 5%-WATER - 50 ML IVPB SCH (02:00)
[2019-08-25] MEDS ORDERED: CEFAZOLIN 2 GM/D5W 2 GM/50 ML ML IVPB SCH (02:00)
[2019-08-25] MEDS: CEFAZOLIN 2 GM/D5W 2 GM/50 ML ML IVPB SCH ×3 (02:30→13:07)
[2019-08-25] MEDS: oxyCODONE HCL 5 MG TABLET PO PRN ×4 (02:30→14:59)
[2019-08-25] MEDS: GABAPENTIN 400 MG CAPSULE PO SCH ×3 (06:38→21:45)
[2019-08-25] MEDS: MAGNESIUM HYDROX 2400MG/30ML ORAL SUSPENSION 30 ML CUP PO PRN ×2 (06:38→21:45)
--- NOTE | 2019-08-25 08:45 | PN ---
Physical Exam: SUBJECTIVE: Patient seen and examined at the bedside. Had total hip replacement yesterday. Stated she felt better post-op with pain well controlled. Endorsed some abdominal discomfort and noted that she had moved her bowels prior to the surgery. Denied fever, chills, cp, sob, n/v/c/d, headaches, dizziness, lightheadedness. OBJECTIVE: Vital Signs Period Temp Pulse Resp BP Sys/Lomeli Pulse Ox Last 24 Hr 97.7 F-98.6 F 87-123 12-21 90-151/52-79 97-100 GENERAL: The patient is awake, alert, and fully oriented, in no acute distress. EYES: PERRL, extraocular movements intact, conjunctiva clear. ENT: Oropharynx clear without exudates, moist mucous membranes. LUNGS: Breath sounds equal, clear to auscultation bilaterally, no wheezes, no crackles, no accessory muscle use. HEART: Regular rate and rhythm, S1, S2 without murmur, rub. ABDOMEN: Soft, mild discomfort to palpation, obese, normoactive bowel sounds, no guarding, no rebound, no masses. EXTREMITIES: 2+ pulses, warm, well-perfused, no edema. Noted drain and dressings on the R hip in abductor pillow. Minor pain upon palpation. PSYCH: Normal mood, normal affect. SKIN: Warm, dry, normal turgor, no rashes or lesions noted. Laboratory Results - last 24 hr 08/23/19 08:40 LEENA Screen Positive H LEENA Homogeneous Pattern TNP LEENA Nucleolar Pattern TNP LEENA Spindle Simona Pattern TNP LEENA Midbody Pattern TNP LEENA Centriole Pattern TNP LEENA Nuclear Dot Pattern TNP LEENA PCNA Pattern TNP LEENA Nuclear Membr Pat 1:320 H LEENA Speckled Pattern 1:80 LEENA Centromere Pattern TNP Active Medications Generic Name Dose Route Start Last Admin Trade Name Freq PRN Reason Stop Dose Admin Al Hydroxide/Mg Hydroxide 30 ml 08/24/19 21:49 Mylanta Oral Suspension - PO Q4H PRN DYSPEPSIA Aspirin 81 mg 08/24/19 22:00 08/24/19 23:13 Asa - PO Not Given BID WILLIAM Chlorhexidine Gluconate 1 applic 08/24/19 22:00 08/24/19 23:16 Hibiclens For Decolonization - TP 1 applic HS WILLIAM Administration Fentanyl 50 mcg 08/24/19 21:49 Sublimaze Injection - IVPUSH Q5M PRN PAIN-PACU ORDER X 4 DOSES ONLY Gabapentin 400 mg 08/24/19 22:00 08/25/19 06:38 Neurontin - PO 400 mg TID WILLIAM Administration Guaifenesin 10 ml 08/24/19 21:49 Robitussin Dm - PO Q4H PRN COUGH Cefazolin Sodium/Dextrose 2 gm in 50 mls @ 100 mls/hr 08/25/19 02:00 02:30 Ancef 2 Gm Premixed Ivpb - IVPB 08/25/19 14:29 100 mls/hr Q6H WILLIAM Administration Magnesium Hydroxide 30 ml 08/24/19 21:49 08/25/19 06:38 Milk Of Magnesia - PO 30 ml PRN PRN Administration CONSTIPATION Meclizine HCl 25 mg 08/24/19 21:49 Antivert - PO TID PRN PAIN Mupirocin 1 applic 08/24/19 22:00 08/24/19 23:17 Bactroban Ointment (For Decolonization) - NS 08/29/19 21:59 1 applic BID WILLIAM Administration Ondansetron HCl 4 mg 08/24/19 21:49 Zofran Injection IVPUSH Q6H PRN NAUSEA Oxycodone HCl 10 mg 08/24/19 21:49 08/25/19 06:38 Roxicodone - PO 08/25/19 20:57 10 mg Q4H PRN Administration PAIN LEVEL 6-10 Oxycodone HCl 5 mg 08/25/19 07:27 Roxicodone - PO Q4H PRN PAIN LEVEL 1-5 Pantoprazole Sodium 40 mg 08/25/19 10:00 Protonix - PO DAILY WILLIAM Promethazine HCl 12.5 mg 08/24/19 21:49 Phenergan Injection - IVPUSH Q6H PRN NAUSEA-FOR RESCUE AFTER 15 MIN Senna/Docusate Sodium 2 tablet 08/24/19 22:00 08/24/19 23:39 Pericolace - PO 2 tablet BID WILLIAM Administration RECORDS OBTAINED FROM ONCOLOGY OFFICE 2011 extensive breast cancer on left side. 10 positive lymph nodes ER+, WI+, HER2 -. Given AC x4 and taxol x4 and radiation, Armimidex. Had retroperitoneal mass biopsied and positive for metastatic breast cancer. Then found to be ER -, WI -, HER/donnell +. On Kadcyla one dose reduction. Impression of breast cancer ER - , WI -, HER/donnell + in the mesentery and retroperitoneum, with recurrence. Hx of extensive primary breast cancer in 2011 that was ER+, WI +, HER/donnell - having failed arimidex, s/p AC x4 and taxol x4. Plan at time of 07/11/19: denied BRCA testing, on "waldemar intervention", had discussed navelbine or trastuzamab deruxtecan with family and patient to make her decision. PET SCAN 05/16/19 Impression: mimimally enlarging paraesophageal adenopathy with a current maximum SUV of 10.8g/ml, increased from previous study. Increasing hypermetabolic activity in mesenteric and retrocaval adenopathy since previous study. stable periceliac and retrocaval adenopathy. findings compatible with mild progression of disease since 02/18/19. 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 and chronic Right hip pain admitted for inability to ambulate secondary to osteonecrosis Inability to ambulate secondary to osteonecrosis - orthopedics consulted, recs appreciated - as per orthopedics and MRI has osteonecrosis of the R hip - s/p day 1 of Right total hip replacement - will continue home meds percocet, tramadol, gabapentin - cefazolin s/p surgery - physical therapy/OOB - chemical AC: aspirin 81mg bid for 6 weeks - incentive spirometry - on bowel regimen Elevated LFTs - abd U/S noting hepatic lesions suggestive of neoplastic disease - hepatitis panel negative - will continue to monitor Hx of breast CA - will need latif scan to determine extent of malignancy - oncology consulted, recs appreciated - palliative care consulted - previous oncologist, Dr. Gupta in [facility] - records obtained by oncology as per onc note, records also faxed from oncology office shortly as above Anemia - Hgb electrophoresis - sickle cell screen - LEENA - hematology consulted DVT PPx - aspirin 81mg bid as per orthopedics FEN - No standing fluids - continue to monitor electrolytes and replete as necessary - regular diet Disposition - currently in ICU, transfer to the floor Visit type - Emergency Visit Emergency Visit: Yes ED Registration Date: 08/20/19 Care time: The patient presented to the Emergency Department on the above date and was hospitalized for further evaluation of their emergent condition. - New Patient This patient is new to me today: No - Critical Care Critical Care patient: Yes Total Critical Care Time (in minutes): 35 Critical Care Statement: The care of this patient involved high complexity decision making to prevent further life threatening deterioration of the patient 's condition and/or to evaluate & treat vital organ system(s) failure or risk of failure.
[2019-08-25] MEDS ORDERED: PANTOPRAZOLE 40 MG TABLET PO SCH (10:00)
[2019-08-25] MEDS ORDERED: PT OWN MED DRAWER 7, Y5N ONE (10:30)
[2019-08-25] MEDS: PANTOPRAZOLE 40 MG TABLET PO SCH (10:31)
[2019-08-25] MEDS: ASPIRIN 81 MG CHEWABLE TABLETS PO SCH ×2 (10:31→21:45)
[2019-08-25] MEDS: SENNOSIDES/DOCUSATE COMBO (SENNA PLUS) TABLET (UD) PO SCH ×2 (10:31→21:45)
--- NOTE | 2019-08-25 11:11 | PN ---
Progress Note (short form) - Note Progress Note: 64yo F s/p Right hip replacement, POD 1. Pt seen and examined at bedside in ICU. Pt had no acute events overnight. Pt states that she feels well today only complaining of Hip pain. Pt denies numbness or weakness in right leg. Pt denies fever, chills, n/v, cp, sob. Last Vital Signs Temp Pulse Resp BP Pulse Ox 98.4 F 120 H 18 117/84 100 08/25/19 10:00 08/25/19 10:00 08/25/19 10:00 08/25/19 10:00 08/25/19 09:00 CBC, BMP 08/24/19 06:35 08/24/19 06:35 PE; Gen: A&O X3 Resp: breathing comfortably Ext: no weakness or numbness, drain in place with serosanguinous drainage. Incision dressing intact/clean Problem List - Problems (1) H/O total hip arthroplasty Assessment/Plan: Plan -pt appears to be stable, she can be transferred to the floor -pain control -oob/ambulate with PT -ASA 81mg BID for DVT ppx -regular diet Pt discussed with Dr. Jesus, who agrees with plan Code(s): Z96.649 - PRESENCE OF UNSPECIFIED ARTIFICIAL HIP JOINT Qualifiers: Laterality: right Qualified Code(s): Z96.641 - Presence of right artificial hip joint
[2019-08-25] MEDS: MUPIROCIN 2% TOPICAL OINTMENT FOR DECOLONIZATION NS SCH ×2 (11:25→21:48)
--- NOTE | 2019-08-25 11:41 | PN ---
Teaching Attending Note Name of Resident: Yasmin Maciel ATTENDING PHYSICIAN STATEMENT I saw and evaluated the patient. I reviewed the resident's note and discussed the case with the resident. I agree with the resident's findings and plan as documented. SUBJECTIVE: Pt seen and examined in the ICU. Just received pain meds. No nausea/vomiting. No fevers or chills. OBJECTIVE: Vital Signs Period Temp Pulse Resp BP Sys/Lomeli Pulse Ox Last 24 Hr 97.7 F-98.6 F 87-123 12-21 90-151/52-84 100-100 Intake & Output 08/22/19 08/23/19 08/24/19 08/25/19 23:59 23:59 23:59 23:59 Intake Total 710 0 1600 960 Output Total 800 310 Balance 710 0 800 650 Weight 88.451 kg 88.723 kg Gen: NAD at rest Heart: RRR Lung: decreased breath sounds at the bases Abd: soft, nontender Ext: no edema, drain with serosanguinous fluid CBC, BMP 08/24/19 06:35 08/24/19 06:35 Active Medications Al Hydroxide/Mg Hydroxide (Mylanta Oral Suspension -) 30 ml PO Q4H PRN PRN Reason: DYSPEPSIA Aspirin (Asa -) 81 mg PO BID [facility] Last Admin: 08/25/19 10:31 Dose: 81 mg Chlorhexidine Gluconate (Hibiclens For Decolonization -) 1 applic TP HS [facility] Last Admin: 08/24/19 23:16 Dose: 1 applic Fentanyl (Sublimaze Injection -) 50 mcg IVPUSH Q5M PRN PRN Reason: PAIN-PACU ORDER X 4 DOSES ONLY Gabapentin (Neurontin -) 400 mg PO TID [facility] Last Admin: 08/25/19 06:38 Dose: 400 mg Guaifenesin (Robitussin Dm -) 10 ml PO Q4H PRN PRN Reason: COUGH Cefazolin Sodium/Dextrose (Ancef 2 Gm Premixed Ivpb -) 2 gm in 50 mls @ 100 mls /hr IVPB Q6H [facility] Stop: 08/25/19 14:29 Last Admin: 08/25/19 08:54 Dose: 100 mls/hr Magnesium Hydroxide (Milk Of Magnesia -) 30 ml PO PRN PRN PRN Reason: CONSTIPATION Last Admin: 08/25/19 06:38 Dose: 30 ml Meclizine HCl (Antivert -) 25 mg PO TID PRN PRN Reason: PAIN Mupirocin (Bactroban Ointment (For Decolonization) -) 1 applic NS BID [facility] Stop: 08/29/19 21:59 Last Admin: 08/25/19 11:25 Dose: 1 applic Ondansetron HCl (Zofran Injection) 4 mg IVPUSH Q6H PRN PRN Reason: NAUSEA Oxycodone HCl (Roxicodone -) 10 mg PO Q4H PRN PRN Reason: PAIN LEVEL 6-10 Stop: 08/25/19 20:57 Last Admin: 08/25/19 10:50 Dose: 10 mg Oxycodone HCl (Roxicodone -) 5 mg PO Q4H PRN PRN Reason: PAIN LEVEL 1-5 Pantoprazole Sodium (Protonix -) 40 mg PO DAILY [facility] Last Admin: 08/25/19 10:31 Dose: 40 mg Promethazine HCl (Phenergan Injection -) 12.5 mg IVPUSH Q6H PRN PRN Reason: NAUSEA-FOR RESCUE AFTER 15 MIN Senna/Docusate Sodium (Pericolace -) 2 tablet PO BID [facility] Last Admin: 08/25/19 10:31 Dose: 2 tablet ASSESSMENT AND PLAN: Metastatic Breast Cancer Right Femoral Head AVN s/p Right total hip replacement - pain control - incentive spirometry - PO as tolerated - rehab/PT - DVT prophylaxis - can monitor on floor
--- NOTE | 2019-08-25 11:48 | PN ---
Physical Exam: SUBJECTIVE: Patient seen and examined. No acute events overnight. Moderate pain in R hip surgical site. No fevers. Pt passing flatus. Denies tingling, numbness, weakness in lower extremities. OBJECTIVE: Vital Signs Period Temp Pulse Resp BP Sys/Lomeli Pulse Ox Last 24 Hr 97.7 F-98.6 F 87-123 12-21 90-151/52-84 100-100 GENERAL: The patient is awake, alert, and fully oriented, in no acute distress. HEAD: Normal with no signs of trauma. EYES: PERRL, extraocular movements intact, sclera anicteric, conjunctiva clear. No ptosis. ENT: Ears normal, nares patent, oropharynx clear without exudates, moist mucous membranes. NECK: Trachea midline, full range of motion, supple. LUNGS: Breath sounds equal, clear to auscultation bilaterally, no wheezes, no crackles, no accessory muscle use. HEART: Regular rate and rhythm, S1, S2 without murmur, rub or gallop. ABDOMEN: Soft, mild tenderness, slightly distended (baseline) normoactive bowel sounds, no guarding, no rebound, no hepatosplenomegaly, no masses. EXTREMITIES: 2+ pulses, warm, well-perfused, no edema. Noted drain and dressings on the R hip in abductor pillow. Minor pain upon palpation. NEUROLOGICAL: Cranial nerves II through XII grossly intact. Normal speech, gait not observed. PSYCH: Normal mood, normal affect. SKIN: Warm, dry, normal turgor, no rashes or lesions noted Laboratory Results - last 24 hr 08/23/19 08:40 LEENA Screen Positive H LEENA Homogeneous Pattern TNP LEENA Nucleolar Pattern TNP LEENA Spindle Simona Pattern TNP LEENA Midbody Pattern TNP LEENA Centriole Pattern TNP LEENA Nuclear Dot Pattern TNP LEENA PCNA Pattern TNP LEENA Nuclear Membr Pat 1:320 H LEENA Speckled Pattern 1:80 LEENA Centromere Pattern TNP Active Medications Al Hydroxide/Mg Hydroxide (Mylanta Oral Suspension -) 30 ml PO Q4H PRN PRN Reason: DYSPEPSIA Aspirin (Asa -) 81 mg PO BID [facility] Last Admin: 08/25/19 10:31 Dose: 81 mg Chlorhexidine Gluconate (Hibiclens For Decolonization -) 1 applic TP HS [facility] Last Admin: 08/24/19 23:16 Dose: 1 applic Fentanyl (Sublimaze Injection -) 50 mcg IVPUSH Q5M PRN PRN Reason: PAIN-PACU ORDER X 4 DOSES ONLY Gabapentin (Neurontin -) 400 mg PO TID [facility] Last Admin: 08/25/19 06:38 Dose: 400 mg Guaifenesin (Robitussin Dm -) 10 ml PO Q4H PRN PRN Reason: COUGH Cefazolin Sodium/Dextrose (Ancef 2 Gm Premixed Ivpb -) 2 gm in 50 mls @ 100 mls/hr IVPB Q6H [facility] Stop: 08/25/19 14:29 Last Admin: 08/25/19 08:54 Dose: 100 mls/hr Magnesium Hydroxide (Milk Of Magnesia -) 30 ml PO PRN PRN PRN Reason: CONSTIPATION Last Admin: 08/25/19 06:38 Dose: 30 ml Meclizine HCl (Antivert -) 25 mg PO TID PRN PRN Reason: PAIN Mupirocin (Bactroban Ointment (For Decolonization) -) 1 applic NS BID [facility] Stop: 08/29/19 21:59 Last Admin: 08/25/19 11:25 Dose: 1 applic Ondansetron HCl (Zofran Injection) 4 mg IVPUSH Q6H PRN PRN Reason: NAUSEA Oxycodone HCl (Roxicodone -) 10 mg PO Q4H PRN PRN Reason: PAIN LEVEL 6-10 Stop: 08/25/19 20:57 Last Admin: 08/25/19 10:50 Dose: 10 mg Oxycodone HCl (Roxicodone -) 5 mg PO Q4H PRN PRN Reason: PAIN LEVEL 1-5 Pantoprazole Sodium (Protonix -) 40 mg PO DAILY [facility] Last Admin: 08/25/19 10:31 Dose: 40 mg Promethazine HCl (Phenergan Injection -) 12.5 mg IVPUSH Q6H PRN PRN Reason: NAUSEA-FOR RESCUE AFTER 15 MIN Senna/Docusate Sodium (Pericolace -) 2 tablet PO BID [facility] Last Admin: 08/25/19 10:31 Dose: 2 tablet ASSESSMENT/PLAN: Patient is a 64 year old female with past medical history of 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 and chronic Right hip pain admitted for inability to ambulate secondary to osteonecrosis Neuro -Awake and alert Cardiovascular -BP WNL post op Pulmonary -On supplemental O2 by NC -No active issues -Incentive spirometry MSK -As per orthopedics and MRI has osteonecrosis of the R hip -POD#1 of Right total hip replacement -Pain ctrl per anaesthesia team -Ancef 2g IV q6h x 3 doses post op -PT/OOB -Immobilize limb in abduction pillow -Drains x2 in place Ppx -ASA 81 PO BID x 6 weeks -SCDs FEN -No standing fluids -Replete lytes PRN -Advance to Regular diet Dispo -Pt is stable for transfer to med-surg Visit type - Emergency Visit Emergency Visit: No - New Patient This patient is new to me today: Yes Date on this admission: 08/25/19 - Critical Care Critical Care patient: Yes Total Critical Care Time (in minutes): 45 Critical Care Statement: The care of this patient involved high complexity decision making to prevent further life threatening deterioration of the patient's condition and/or to evaluate & treat vital organ system(s) failure or risk of failure. ATTENDING PHYSICIAN STATEMENT I saw and evaluated the patient. I reviewed the resident's note and discussed the case with the resident. I agree with the resident's findings and plan as documented. SUBJECTIVE: OBJECTIVE: ASSESSMENT AND PLAN:
--- NOTE | 2019-08-25 12:53 | PN ---
Teaching Attending Note Name of Resident: William Fierro ATTENDING PHYSICIAN STATEMENT I saw and evaluated the patient. I reviewed the resident's note and discussed the case with the resident. I agree with the resident's findings and plan as documented. SUBJECTIVE: seen at 9:30 am pain is controlled on pain regimen, denies SOB , denies any CP or abd pain. passed gas but no BM OBJECTIVE: NAd Cv: RRR, no MRG lungs: CTAB Ext :R hip with a surgical dressing and some edema , no erythema. drains with sanguinous fluid. R DP and PT 2+. warm foot with nl sensation . no edema on LLE Abd: soft, NT, Nd , NL BS ASSESSMENT AND PLAN: 64 y/o lady with h/o L breast cancer s/p mastectomy, radiation and chemo, with mets to intestine, L4-S1 fusion , sciatica, R femoral head osteonepcrosis ( out pt MRI) , who presented due to her hip pain. 1- R femoral head osteonecrosis 2- h/o Met breast cancer 3- Liver lesions. ? mets 4- h/o Sciatica and L4-S1 fusion 5- Dilated R renal collceting system on limited US plan: - s/p R THR 08/24/19. - doing well and pain is controlled - drains management per surgical team. monitor out put - DVT px per surgical team: asa bid x 6 weeks - SCds on L leg - PT eval. - Dr. Chris's note reviewed. Info regarding her cancer reviewed. will ask patient to bring MRI report ( back and hip ) - She will sheryl further w/u as out pt - CT scans of C/A/P are pending to evaluate for METs and to evaluate renal collecting system seen on US. dispo: transfer to floor. discharge is pending removal of drain and ambulation . d/w patient and her sister the possibility of rehab placement. they will think about it.
[2019-08-25] MEDS ORDERED: ACETAMINOPHEN 1000 MG/100 ML VIAL (NON FORMULARY) IVPB ONE ×2 (13:06→22:39)
[2019-08-25] MEDS: SIMETHICONE 80 MG TAB.CHEW (FP) PO PRN (15:19)
[2019-08-25 17:06] LABS: HGB SOLUBILITY Positive (Negative); Hgb C 0 % (0.0); Hgb F 0 % (0.0-2.0); Hgb S 39.4 % (0.0)
[2019-08-25] MEDS ORDERED: oxyCODONE HCL 5 MG TABLET PO PRN (21:24)
--- NOTE | 2019-08-25 21:39 | PN ---
Progress Note (short form) - Note Progress Note: PAtient seen and examined c/o constipation AFVSS Cor: RSR, No murmurs, No gallops Lungs: Clear to P&A Abd: Soft, Normal bowel sounds, mildly distended Ext:No significant edema LAbs/MEds reviewed A/P Patient is a 64 year old female with past medical history of breast cancer Breast cancer-- diagnosed 8 yrs.ago -- Left breast cancer--stage III diagnosed 2011 --10+ nodes. ER+, MS+, Her2-. Received ACx4 followed by Tx4 and RT. Was on arimidex Developed retroperitoneal mass ---bx + metastatic breast cancer-- ER-/MS-, Her2- 3+. Microsatellite stable. She has been on TDM1.? elevated LFTs needing 1 dose reduction s/p gemzar/trastuzumab ( got medrol dose paks with gemzar) Discussed with primary oncologist in [place]---Plan was to start her on trastuzumab deruxtecan ---when she moved from [place] CT c/a/p --07/08/19 --stable paraesophageal adenopathy. Minimally decreasing mesenteric, retrocaval, periceliac and shotty retrocrural adenopathy, stable to minimally decreased compared to CT c/a/p in 12/2018 will need to review MRI hip and L spine images done in [place] Will request orthopedics consult X ray done here shows no acute pathology 2 hepatic lesions on U/S--? new PET/biopsy when medically stable s/p rt. 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 hip post op. anemia post op. constipation will request GI consult
[2019-08-25] MEDS: CHLORHEXIDINE GLUCONATE 4% CLEANSER FOR DECOLONIZATION TP SCH (21:45)
[2019-08-25] MEDS ORDERED: PIPERACILLIN/TAZOB 3.375 GM 3.375 GM in DEXTROSE 5%-WATER - 50 ML IVPB ONE (23:30)
[2019-08-26] MEDS ORDERED: DEXTROSE 5%-WATER - 50 ML IVPB ONE (00:15)
[2019-08-26] MEDS ORDERED: PIPERACILLIN/TAZOBACTAM 3.375 GM VIAL IVPB ONE (00:15)
[2019-08-26 01:33] LABS: PH,URINE 5.5 (5.0-8.0); URINE APPEARANCE CLOUDY; URINE BILIRUBIN NEGATIVE (NEGATIVE); URINE COLOR YELLOW; URINE GLUCOSE (UA) NEGATIVE (NEGATIVE); URINE KETONE NEGATIVE (NEGATIVE); URINE LEUK ESTERASE NEGATIVE (NEGATIVE); URINE NITRITE NEGATIVE (NEGATIVE); URINE PROTEIN NEGATIVE (NEGATIVE); URINE UROBILINOGEN 0.2 mg/dL (0.2-1.0)
[2019-08-26] MEDS: GABAPENTIN 400 MG CAPSULE PO SCH ×3 (06:47→21:22)
[2019-08-26 07:08] LABS: BASO % 0.3 % (0-2.0); EOS % 2.4 % (0-4.5); HEMOGLOBIN 7.8 GM/dL (10.7-15.3); LYMPH % 17.9 % (8-40); MCH 29.8 pg (25.7-33.7); MCHC 35.3 g/dl (32.0-36.0); MEAN CELL VOLUME 84.4 fl (80-96); MEAN PLT VOLUME 8.2 fl (7.5-11.1); MONO % 9.3 % (3.8-10.2); NEUT % 70.1 % (42.8-82.8); PLATELET COUNT 148 K/MM3 (134-434); RDW 15.8 % (11.6-15.6); WHITE BLOOD COUNT 7.1 K/mm3 (4.0-10.0)
[2019-08-26 07:38] LABS: ALBUMIN 2.2 g/dl (3.4-5.0); BILIRUBIN,TOTAL 0.6 mg/dL (0.2-1); BLOOD UREA NITROGEN 7.4 mg/dL (7-18); CREATININE 0.6 mg/dL (0.55-1.3); MAGNESIUM 2.3 mg/dL (1.8-2.4); PHOSPHOROUS 3.3 mg/dL (2.5-4.9); TOT PROT 5.8 g/dl (6.4-8.2)
--- NOTE | 2019-08-26 08:43 | PN ---
Progress Note (short form) - Note Progress Note: ORTHOPEDICS 64yo F s/p Right hip replacement, POD 2. Pt seen and examined at bedside in ICU. Pt spiked low grade fever overnight 100.6 and is tachy to 118. Pt states that she feels well today and that hip pain is improved. Pt denies numbness or weakness in right leg. Pt denies n/v, cp, sob. Pt has yet to get out of bed and pt was not seen by PT yesterday. Pt states she is anxious to get out of bed and moving. PE; Gen: A&O X3 Resp: breathing comfortably Ext: no weakness or numbness, drain in place with serosanguinous drainage. Incision dressing intact/clean Problem List - Problems (1) H/O total hip arthroplasty Assessment/Plan: Plan -pt needs OOB/ambulate/CHair today -aggressive chest PT and incentive spirometry, fever most likely actelectosis -pain control -DEANDRA chamorro once out of bed Pt discussed with Dr. Elaine who agrees with plan Code(s): Z96.649 - PRESENCE OF UNSPECIFIED ARTIFICIAL HIP JOINT Qualifiers: Laterality: right Qualified Code(s): Z96.641 - Presence of right artificial hip joint
[2019-08-26] MEDS: MUPIROCIN 2% TOPICAL OINTMENT FOR DECOLONIZATION NS SCH ×2 (09:15→22:00)
[2019-08-26] MEDS: SENNOSIDES/DOCUSATE COMBO (SENNA PLUS) TABLET (UD) PO SCH ×2 (09:16→21:22)
[2019-08-26] MEDS: oxyCODONE HCL 5 MG TABLET PO PRN ×2 (09:16→20:30)
[2019-08-26] MEDS: PANTOPRAZOLE 40 MG TABLET PO SCH (09:16)
--- NOTE | 2019-08-26 09:38 | PN ---
Physical Exam: SUBJECTIVE: Patient seen and examined. Pt had fever 100.6 overnight. Pain is moderate in R hip. Decreased appetite, no bowel movements but passing flatus. OBJECTIVE: Vital Signs Period Temp Pulse Resp BP Sys/Lomeli Pulse Ox Last 24 Hr 97.9 F-100.6 F 107-128 14-18 103-141/53-84 94-98 GENERAL: The patient is awake, alert, and fully oriented, in no acute distress. HEAD: Normal with no signs of trauma. EYES: PERRL, extraocular movements intact, sclera anicteric, conjunctiva clear. No ptosis. ENT: Ears normal, nares patent, oropharynx clear without exudates, moist mucous membranes. NECK: Trachea midline, full range of motion, supple. LUNGS: Breath sounds equal, clear to auscultation bilaterally, no wheezes, no crackles, no accessory muscle use. HEART: Regular rate and rhythm, S1, S2 without murmur, rub or gallop. ABDOMEN: Soft, mild tenderness, slightly distended (baseline) normoactive bowel sounds, no guarding, no rebound, no hepatosplenomegaly, no masses. EXTREMITIES: 2+ pulses, warm, well-perfused, no edema. Noted drain and dressings on the R hip in abductor pillow. Minor pain upon palpation. NEUROLOGICAL: Cranial nerves II through XII grossly intact. Normal speech, gait not observed. PSYCH: Normal mood, normal affect. SKIN: Warm, dry, normal turgor, no rashes or lesions noted Laboratory Results - last 24 hr CBC, BMP 08/26/19 06:00 08/26/19 06:00 Active Medications Al Hydroxide/Mg Hydroxide (Mylanta Oral Suspension -) 30 ml PO Q4H PRN PRN Reason: DYSPEPSIA Aspirin (Asa -) 81 mg PO BID [facility] Last Admin: 08/25/19 21:45 Dose: 81 mg Chlorhexidine Gluconate (Hibiclens For Decolonization -) 1 applic TP HS [facility] Last Admin: 08/25/19 21:45 Dose: 1 applic Fentanyl (Sublimaze Injection -) 50 mcg IVPUSH Q5M PRN PRN Reason: PAIN-PACU ORDER X 4 DOSES ONLY Gabapentin (Neurontin -) 400 mg PO TID [facility] Last Admin: 08/26/19 06:47 Dose: Not Given Guaifenesin (Robitussin Dm -) 10 ml PO Q4H PRN PRN Reason: COUGH Magnesium Hydroxide (Milk Of Magnesia -) 30 ml PO PRN PRN PRN Reason: CONSTIPATION Last Admin: 08/25/19 21:45 Dose: 30 ml Meclizine HCl (Antivert -) 25 mg PO TID PRN PRN Reason: PAIN Mupirocin (Bactroban Ointment (For Decolonization) -) 1 applic NS BID [facility] Stop: 08/29/19 21:59 Last Admin: 08/26/19 09:15 Dose: 1 applic Ondansetron HCl (Zofran Injection) 4 mg IVPUSH Q6H PRN PRN Reason: NAUSEA Oxycodone HCl (Roxicodone -) 5 mg PO Q4H PRN PRN Reason: PAIN LEVEL 1-5 Last Admin: 08/26/19 09:16 Dose: 5 mg Oxycodone HCl (Roxicodone -) 10 mg PO Q4H PRN PRN Reason: PAIN LEVEL 6-10 Pantoprazole Sodium (Protonix -) 40 mg PO DAILY [facility] Last Admin: 08/26/19 09:16 Dose: 40 mg Promethazine HCl (Phenergan Injection -) 12.5 mg IVPUSH Q6H PRN PRN Reason: NAUSEA-FOR RESCUE AFTER 15 MIN Senna/Docusate Sodium (Pericolace -) 2 tablet PO BID [facility] Last Admin: 08/26/19 09:16 Dose: 2 tablet Simethicone (Mylicon -) 80 mg PO Q4H PRN PRN Reason: GAS Last Admin: 08/25/19 15:19 Dose: 80 mg ASSESSMENT/PLAN: Patient is a 64 year old female with past medical history of 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 and chronic Right hip pain admitted for inability to ambulate secondary to osteonecrosis Neuro -Awake and alert Cardiovascular -BP WNL post op Pulmonary -On supplemental O2 by NC -No active issues -Incentive spirometry MSK -As per orthopedics and MRI has osteonecrosis of the R hip -POD#2 of Right total hip replacement -Pain ctrl per anaesthesia team -Ancef 2g IV q6h x 3 doses post op -PT/OOB -Immobilize limb in abduction pillow -Drains x2 in place -Fever 100.6 overnight, likely post-op fever -Sepsis w/u sent: CXR no acute issues, no leukocytosis Ppx -ASA 81 PO BID x 6 weeks -SCDs FEN -No standing fluids -Replete lytes PRN -Advance to Regular diet Dispo -Pt is stable for transfer to [facility]-surg Visit type - Emergency Visit Emergency Visit: No - New Patient This patient is new to me today: No - Critical Care Critical Care patient: Yes Total Critical Care Time (in minutes): 45 Critical Care Statement: The care of this patient involved high complexity decision making to prevent further life threatening deterioration of the patient 's condition and/or to evaluate & treat vital organ system(s) failure or risk of failure. ATTENDING PHYSICIAN STATEMENT I saw and evaluated the patient. I reviewed the resident's note and discussed the case with the resident. I agree with the resident's findings and plan as documented. SUBJECTIVE: OBJECTIVE: ASSESSMENT AND PLAN:
[2019-08-26] MEDS ORDERED: IBUPROFEN 600 MG TABLET (FP) PO ONE (10:00)
[2019-08-26 10:01] LABS: HEMOGLOBIN 8.3 GM/dL (10.7-15.3); MCH 29.4 pg (25.7-33.7); MCHC 34.6 g/dl (32.0-36.0); MEAN CELL VOLUME 84.9 fl (80-96); MEAN PLT VOLUME 8.5 fl (7.5-11.1); PLATELET COUNT 187 K/MM3 (134-434); RBC 2.83 M/mm3 (3.60-5.2); RDW 15.9 % (11.6-15.6); WHITE BLOOD COUNT 8.9 K/mm3 (4.0-10.0)
--- NOTE | 2019-08-26 10:15 | PN ---
Progress Note (short form) - Note Progress Note: Hematology/Oncology Resident HPI: Pt reports still significant pain mostly revolving around surgery and abdomen. Pt is sitting OOB to chair which she reports is her first time since surgery. Pt has low-grade temperatures starting today without clear source. Vital Signs Temperature 100.5 F H 08/26/19 10:00 Pulse Rate 143 H 08/26/19 10:00 Respiratory Rate 15 08/26/19 10:00 Blood Pressure 141/65 08/26/19 10:00 O2 Sat by Pulse Oximetry (%) 94 L 08/26/19 04:50 PE: Gen: OOB to chair with mild distress 2/2 to pain, awake, alert, oriented x3 HEENT: NC/AT, FRED, sclera anicteric, MMM LUNG: Shallow breaths, diminished at bases b/l, no wheezes noted, on RA without accessory muscle use. CHEST: Port site C/D/I R anterior site CARD: Tachycardic with regular rhythm, no murmurs appreciated ABD: Soft, distended, hypoactive BS, mild tenderness throughout, no guarding, no rebound. EXT: No calf tenderness, no edema Active Medications Al Hydroxide/Mg Hydroxide (Mylanta Oral Suspension -) 30 ml PO Q4H PRN PRN Reason: DYSPEPSIA Aspirin (Asa -) 81 mg PO BID [facility] Last Admin: 08/25/19 21:45 Dose: 81 mg Chlorhexidine Gluconate (Hibiclens For Decolonization -) 1 applic TP HS [facility] Last Admin: 08/25/19 21:45 Dose: 1 applic Fentanyl (Sublimaze Injection -) 50 mcg IVPUSH Q5M PRN PRN Reason: PAIN-PACU ORDER X 4 DOSES ONLY Gabapentin (Neurontin -) 400 mg PO TID [facility] Last Admin: 08/26/19 06:47 Dose: Not Given Guaifenesin (Robitussin Dm -) 10 ml PO Q4H PRN PRN Reason: COUGH Magnesium Hydroxide (Milk Of Magnesia -) 30 ml PO PRN PRN PRN Reason: CONSTIPATION Last Admin: 08/25/19 21:45 Dose: 30 ml Meclizine HCl (Antivert -) 25 mg PO TID PRN PRN Reason: PAIN Mupirocin (Bactroban Ointment (For Decolonization) -) 1 applic NS BID [facility] Stop: 08/29/19 21:59 Last Admin: 08/26/19 09:15 Dose: 1 applic Ondansetron HCl (Zofran Injection) 4 mg IVPUSH Q6H PRN PRN Reason: NAUSEA Oxycodone HCl (Roxicodone -) 5 mg PO Q4H PRN PRN Reason: PAIN LEVEL 1-5 Last Admin: 08/26/19 09:16 Dose: 5 mg Oxycodone HCl (Roxicodone -) 10 mg PO Q4H PRN PRN Reason: PAIN LEVEL 6-10 Pantoprazole Sodium (Protonix -) 40 mg PO DAILY [facility] Last Admin: 08/26/19 09:16 Dose: 40 mg Promethazine HCl (Phenergan Injection -) 12.5 mg IVPUSH Q6H PRN PRN Reason: NAUSEA-FOR RESCUE AFTER 15 MIN Senna/Docusate Sodium (Pericolace -) 2 tablet PO BID [facility] Last Admin: 08/26/19 09:16 Dose: 2 tablet Simethicone (Mylicon -) 80 mg PO Q4H PRN PRN Reason: GAS Last Admin: 08/25/19 15:19 Dose: 80 mg CBC, BMP 08/26/19 09:40 08/26/19 06:00 IMAGING (new) CXR night of 08/25: Single view of the chest has been submitted. Since 08/21/2019 there is minimal increase in central markings with prominent mediastinum and right port with tip at junction of SVC and right atrium. There is no sign of a pneumothorax. Gross consolidation or peripheral failure is not seen. There is no sign of a pneumothorax or gross atelectasis. The angles are sharp. There are left sided possible breast clips. Correlation recommended. Assessment/Plan: Stage III Breast Ca Osteonecrosis of the hip s/p intervention Post-operative fevers Abdominal distention Sinus Tachycardia --Pt with abdominal distention causing significant pain --Possibly related to post-op ileus vs. opiate related constipation --Continue to mobilize per surgery team and patient toleration --Would minimize opiate pain medications --Fever w/u per primary teams --Tachycardia likely related to pain --Pt will eventually need PET scan alongside of biopsy if not performed for Breast Ca --Discussion with [place] oncologist with plan being starting Trastuzumab when acute problems have resolved and allowed by surgery for wound healing Case discussed with Dr. Dot Mccormick, DO - IM PGY-3
[2019-08-26] MEDS: ASPIRIN 81 MG CHEWABLE TABLETS PO SCH ×2 (10:29→21:18)
[2019-08-26 10:42] LABS: LDH 306 U/L (84-246)
[2019-08-26] MEDS ORDERED: MORPHINE SULFATE 2 MG/ML VIAL IVPUSH PRN (11:44)
--- NOTE | 2019-08-26 11:44 | PN ---
Teaching Attending Note Name of Resident: Yasmin Maciel ATTENDING PHYSICIAN STATEMENT I saw and evaluated the patient. I reviewed the resident's note and discussed the case with the resident. I agree with the resident's findings and plan as documented. SUBJECTIVE: Patient seen and examined in the ICU. Still with significant pain. No CP or SOB. OBJECTIVE: Intake & Output 08/23/19 08/24/19 08/25/19 08/26/19 23:59 23:59 23:59 23:59 Intake Total 0 1600 2035 370 Output Total 800 1315 400 Balance 0 800 720 -30 Weight 195 lb 9.6 oz 198 lb 8 oz Last Vital Signs Temp Pulse Resp BP Pulse Ox 100.5 F H 143 H 15 115/71 94 L 08/26/19 10:00 08/26/19 10:00 08/26/19 10:00 08/26/19 10:00 08/26/19 09:00 Active Medications Al Hydroxide/Mg Hydroxide (Mylanta Oral Suspension -) 30 ml PO Q4H PRN PRN Reason: DYSPEPSIA Aspirin (Asa -) 81 mg PO BID [facility] Last Admin: 08/26/19 10:29 Dose: 81 mg Chlorhexidine Gluconate (Hibiclens For Decolonization -) 1 applic TP HS [facility] Last Admin: 08/25/19 21:45 Dose: 1 applic Fentanyl (Sublimaze Injection -) 50 mcg IVPUSH Q5M PRN PRN Reason: PAIN-PACU ORDER X 4 DOSES ONLY Gabapentin (Neurontin -) 400 mg PO TID [facility] Last Admin: 08/26/19 06:47 Dose: Not Given Guaifenesin (Robitussin Dm -) 10 ml PO Q4H PRN PRN Reason: COUGH Magnesium Hydroxide (Milk Of Magnesia -) 30 ml PO PRN PRN PRN Reason: CONSTIPATION Last Admin: 08/25/19 21:45 Dose: 30 ml Meclizine HCl (Antivert -) 25 mg PO TID PRN PRN Reason: PAIN Mupirocin (Bactroban Ointment (For Decolonization) -) 1 applic NS BID [facility] Stop: 08/29/19 21:59 Last Admin: 08/26/19 09:15 Dose: 1 applic Ondansetron HCl (Zofran Injection) 4 mg IVPUSH Q6H PRN PRN Reason: NAUSEA Oxycodone HCl (Roxicodone -) 5 mg PO Q4H PRN PRN Reason: PAIN LEVEL 1-5 Last Admin: 08/26/19 09:16 Dose: 5 mg Oxycodone HCl (Roxicodone -) 10 mg PO Q4H PRN PRN Reason: PAIN LEVEL 6-10 Pantoprazole Sodium (Protonix -) 40 mg PO DAILY [facility] Last Admin: 08/26/19 09:16 Dose: 40 mg Promethazine HCl (Phenergan Injection -) 12.5 mg IVPUSH Q6H PRN PRN Reason: NAUSEA-FOR RESCUE AFTER 15 MIN Senna/Docusate Sodium (Pericolace -) 2 tablet PO BID [facility] Last Admin: 08/26/19 09:16 Dose: 2 tablet Simethicone (Mylicon -) 80 mg PO Q4H PRN PRN Reason: GAS Last Admin: 08/25/19 15:19 Dose: 80 mg Gen: Awake and alert, Uncomfortable due to pain Heart: RRR Lung: decreased breath sounds at the bases Abd: soft, nontender Ext: no edema, drain with serosanguinous fluid Laboratory Results - last 24 hr 08/23/19 08/24/19 08/26/19 08:40 06:35 00:00 WBC RBC Hgb Hct MCV MCH MCHC RDW Plt Count MPV Absolute Neuts (auto) Neutrophils % Lymphocytes % Monocytes % Eosinophils % Basophils % Nucleated RBC % Hemoglobin A 56.6 L Hemoglobin A2 4.0 H Hemoglobin C 0 Hemoglobin S 39.4 H Variant Hemoglobin 0.0 Hemoglobin Interpret Maternal Rh 0 Hemoglobin Solubility Positive H Sodium Potassium Chloride Carbon Dioxide Anion Gap BUN Creatinine Est GFR (CKD-EPI)AfAm Est GFR (CKD-EPI)NonAf Random Glucose Calcium Phosphorus Magnesium Total Bilirubin AST ALT Alkaline Phosphatase LD Total Total Protein Albumin Urine Color Yellow Urine Appearance Cloudy Urine pH 5.5 D Ur Specific [place] 1.012 Urine Protein Negative Urine Glucose (UA) Negative Urine Ketones Negative Urine Blood Negative Urine Nitrite Negative Urine Bilirubin Negative Urine Urobilinogen 0.2 Ur Leukocyte Esterase Negative Rheumatoid Factor Crossmatch See Detail 08/26/19 08/26/19 08/26/19 06:00 06:00 09:40 WBC 7.1 8.9 RBC 2.60 L 2.83 L Hgb 7.8 L 8.3 L Hct 22.0 L D 24.0 L MCV 84.4 84.9 MCH 29.8 29.4 MCHC 35.3 34.6 RDW 15.8 H 15.9 H Plt Count 148 187 D MPV 8.2 8.5 Absolute Neuts (auto) 5.0 Neutrophils % 70.1 D Lymphocytes % 17.9 D Monocytes % 9.3 Eosinophils % 2.4 Basophils % 0.3 Nucleated RBC % 0 Hemoglobin A Hemoglobin A2 Hemoglobin C Hemoglobin S Variant Hemoglobin Hemoglobin Interpret Maternal Rh Hemoglobin Solubility Sodium 138 Potassium 4.0 Chloride 104 Carbon Dioxide 29 Anion Gap 4 L BUN 7.4 Creatinine 0.6 Est GFR (CKD-EPI)AfAm 113.22 Est GFR (CKD-EPI)NonAf 97.69 Random Glucose 106 Calcium 8.0 L Phosphorus 3.3 Magnesium 2.3 Total Bilirubin 0.6 AST 79 H ALT 33 Alkaline Phosphatase 190 H LD Total Total Protein 5.8 L Albumin 2.2 L Urine Color Urine Appearance Urine pH Ur Specific [place] Urine Protein Urine Glucose (UA) Urine Ketones Urine Blood Urine Nitrite Urine Bilirubin Urine Urobilinogen Ur Leukocyte Esterase Rheumatoid Factor Crossmatch 08/26/19 09:40 WBC RBC Hgb Hct MCV MCH MCHC RDW Plt Count MPV Absolute Neuts (auto) Neutrophils % Lymphocytes % Monocytes % Eosinophils % Basophils % Nucleated RBC % Hemoglobin A Hemoglobin A2 Hemoglobin C Hemoglobin S Variant Hemoglobin Hemoglobin Interpret Maternal Rh Hemoglobin Solubility Sodium Potassium Chloride Carbon Dioxide Anion Gap BUN Creatinine Est GFR (CKD-EPI)AfAm Est GFR (CKD-EPI)NonAf Random Glucose Calcium Phosphorus Magnesium Total Bilirubin AST ALT Alkaline Phosphatase LD Total 306 H Total Protein Albumin Urine Color Urine Appearance Urine pH Ur Specific [place] Urine Protein Urine Glucose (UA) Urine Ketones Urine Blood Urine Nitrite Urine Bilirubin Urine Urobilinogen Ur Leukocyte Esterase Rheumatoid Factor < 10.0 Crossmatch ASSESSMENT AND PLAN: Metastatic Breast Cancer Right Femoral Head AVN s/p Right total hip replacement Anemia - Increase pain control - incentive spirometry - PO as tolerated - rehab/PT - DVT prophylaxis - Normal transfusion thresholds - Can monitor on floor Dr Laird
[2019-08-26] MEDS ORDERED: POLYETHYLENE GLYCOL 3350 119 GM BTL PO PRN (11:45)
[2019-08-26] MEDS ORDERED: SENNOSIDES 8.6MG TABLET (FP) PO PRN (11:45)
[2019-08-26] MEDS ORDERED: DOCUSATE SODIUM 100 MG CAPSULE (FP) PO PRN (11:45)
--- NOTE | 2019-08-26 13:36 | PN ---
Teaching Attending Note Name of Resident: William Fierro ATTENDING PHYSICIAN STATEMENT I saw and evaluated the patient. I reviewed the resident's note and discussed the case with the resident. I agree with the resident's findings and plan as documented. SUBJECTIVE: no fever or chills. has painin R hip. No N/V . No palpitations, feels thirsty. no N/V . No abd pain . fever last niight OBJECTIVE: seen at 9:30 am just after she finished PT. NAD. sitting in chair , dry MM Cv: regular rhythm, tachycardic , no MRG. lungs: CTAB. Ext: R hip with a surgical dressing and some edema, no erythema. drains with sanguinous fluid. R DP and PT 2+. warm foot with nl sensation . no edema on LLE Abd distended. NT. ASSESSMENT AND PLAN: 64 y/o lady with h/o L breast cancer s/p mastectomy, radiation and chemo, with mets to intestine, L4-S1 fusion , sciatica, R femoral head osteonepcrosis ( out pt MRI), who presented due to her hip pain. 1- R femoral head osteonecrosis 2- h/o Met breast cancer. 3- Liver lesions. ? mets. 4- h/o Sciatica and L4-S1 fusion. 5- Dilated R renal collceting system on limited US. 6- Positive LEENA. 7- tachycardia. 8- Acute blood loss anemia. 9- fever Plan: - s/p R THR 08/24/19. - tachycardia ( sinus on tele ) , is likely due to increased pain, anemia and volume depletion . - repeat HB is 8.3. anemia is likely due to acute blood loss, doubt hemolysis. has sickle cell trait on electropheresis. check LDH - pain control regimen adjusted - start IVF - drains management per surgical team. monitor out put - DVT px per surgical team: asa bid x 6 weeks - SCDs on L leg. - PT eval. walked in room and sat on chair - LEENA is strongly positive , but this is not specific. will order RF, and Ds DNA. unfortunately, Estevez Abs are not available at our institution - CT scans of C/A/P was cancelled, as patient refused. no urgency in doing it looking for Mets - will renal US to evaluate dilated collecting system. - constipation and worsening abd distention are likely due to Narcotic use. will use Bowel regimen .if worsening condition , then might get CT of abd/ pelvis - Fever: hopefully it is due to atelectasis. cxray and UA today neg. watch off Abx dispo: transfer to floor is pending
[2019-08-26 15:11] LABS: SICKLE CELL SCREEN POSITIVE (NEGATIVE)
--- NOTE | 2019-08-26 15:57 | CON.GI ---
Consult Consult Specialty:: GI Referred by:: Hospitalist Service Reason for Consultation:: abdominal distention - History of Present Illness Chief Complaint: Right hip pain History of Present Illness: 64F s/p TRHR secondary to avascular necrosis 08/24/19. Called to evaluate abdominal distention. Patient denies abdominal pain. No BM since admission. Describes chronic constipation. No rectal bleeding. Had colonoscopy remotely in [place], none recently. Abdominal US this admission revealed 2 liver lesions. - History Source History Provided By: Patient, Family Member (daughter present at bedside) Limitations to Obtaining History: No Limitations - Past Medical History Heme/Onc: Yes: Cancer (BCA (patient describes spread to small bowel. Clarified as there being mesenteric adenopathy by Dr. Paz)) Musculoskeletal: Yes: Chronic low back pain - Past Surgical History Past Surgical History: Yes: Hysterectomy (with one ovary retained) - Alcohol/Substance Use Hx Alcohol Use: No History of Substance Use: reports: None - Smoking History Smoking history: Never smoked Aproximately how many cigarettes per day: 0 - Social History ADL: Independent Occupation: On disability: worked as [employer] @ [employer] Place of : Other ([place]) History of Recent Travel: No Home Medications - Allergies Allergies/Adverse Reactions: Allergies Allergy/AdvReac Type Severity Reaction Status Date / Time Sulfa (Sulfonamide Allergy Swelling Verified 08/20/19 21:23 Antibiotics) [Sulfa(Sulfonamide Antibiotics)] - Home Medications Home Medications: Ambulatory Orders Gabapentin 400 mg PO TID 08/21/19 Meclizine HCl 25 mg PO TID PRN 08/21/19 Oxycodone HCl/Acetaminophen [Oxycodone-Acetaminophen 10-325] 1 each PO TID 08/21 Tramadol HCl 50 mg PO TID 08/21/19 Family Medical History Other Family History: Mothe: : Lung Ca: 60's. Father: : Colon Ca: 70' s. 6 brothers, 3 sisters. 1 sister with DM II. 2 daughters, 1 brother Review of Systems - Review of Systems Constitutional: denies: Chills, Fever Cardiovascular: denies: Chest Pain Respiratory: denies: Cough Gastrointestinal: reports: Bloating, Constipation. denies: Abdominal Pain, Diarrhea, Rectal Bleeding Physical Exam-GI Vital Signs: Vital Signs Temperature 100.0 F H 08/26/19 14:00 Pulse Rate 111 H 08/26/19 14:00 Respiratory Rate 117 H 08/26/19 14:00 Blood Pressure 104/72 08/26/19 14:00 O2 Sat by Pulse Oximetry (%) 94 L 08/26/19 09:00 Constitutional: Yes: Calm Eyes: No: Sclera Icterus Cardiovascular: Yes: Regular Rate and Rhythm. No: Murmur Respiratory: Yes: Diminished (at bases bilaterally with poor insp effort) Gastrointestinal Inspection: No: Distention ...Auscultate: Yes: Normoactive Bowel Sounds ...Palpate: Yes: Soft. No: Hepatomegaly, Splenomegaly, Tenderness ...Percussion: Yes: Tympanitic (Mild tympany) ...Rectal Exam: Yes: Other (Advisor Consultant present: No external lesions, no masses, no stool in rectal vault.) Edema: No (No LE edema) Neurological: Yes: Alert Labs: CBC, BMP 08/26/19 09:40 08/26/19 06:00 INR, PTT INR 1.11 (0.83-1.09) H 08/24/19 06:35 Problem List - Problems (1) Constipation Assessment/Plan: Chronic constipation likely exacerbated by recent hip surgery and subsequent opiate analgesia, component of post op ileus Currently on bowel regimen Ordered Triple phase CT scan of the abdomen and pelvis with and without contrast to further assess liver lesions and bowel. Per my discussion with Dr. Paz, liver lesions were not noted on CT scan performed in [place] 07/25. Other recommendations pending the above When acute issues are resolved and when medically able, colonoscopy could be considered given family history of colon cancer. Code(s): K59.00 - CONSTIPATION, UNSPECIFIED
--- NOTE | 2019-08-26 17:30 | PN ---
Physical Exam: SUBJECTIVE: Patient seen and examined at the bedside. Overnight events noted, fever during the night. Stated that she was feeling better but continued to have R hip pain, back discomfort, and some dizziness. Had not moved her bowels since before her surgery. Denied cp, sob, abd pain, n/v, headaches, focal weakness, numbness, tingling. Drain with 40cc of fluid overnight. OBJECTIVE: Vital Signs Period Temp Pulse Resp BP Sys/Lomeli Pulse Ox Last 24 Hr 98.1 F-100.6 F 107-143 14-117 103-141/54-74 94-98 GENERAL: The patient is awake, alert, and fully oriented, in no acute distress. EYES: PERRL, extraocular movements intact, conjunctiva clear. ENT: Oropharynx clear without exudates, moist mucous membranes. LUNGS: Breath sounds equal, clear to auscultation bilaterally, no wheezes, no crackles, no accessory muscle use. HEART: Regular rate and rhythm, S1, S2 without murmur, rub. ABDOMEN: Soft, no discomfort to palpation, obese, normoactive bowel sounds, no guarding, no rebound, no masses. EXTREMITIES: 2+ pulses, warm, well-perfused, no edema. Noted drain and dressings on the R hip in abductor pillow. Minor pain upon palpation. PSYCH: Normal mood, normal affect. SKIN: Warm, dry, normal turgor, no rashes or lesions noted. Laboratory Results - last 24 hr 08/23/19 08/24/19 08/26/19 06:40 06:35 00:00 WBC RBC Hgb Hct MCV MCH MCHC RDW Plt Count MPV Absolute Neuts (auto) Neutrophils % Lymphocytes % Monocytes % Eosinophils % Basophils % Nucleated RBC % Sickle Cell Screen Positive Sodium Potassium Chloride Carbon Dioxide Anion Gap BUN Creatinine Est GFR (CKD-EPI)AfAm Est GFR (CKD-EPI)NonAf Random Glucose Calcium Phosphorus Magnesium Total Bilirubin AST ALT Alkaline Phosphatase LD Total Total Protein Albumin Urine Color Yellow Urine Appearance Cloudy Urine pH 5.5 D Ur Specific [place] 1.012 Urine Protein Negative Urine Glucose (UA) Negative Urine Ketones Negative Urine Blood Negative Urine Nitrite Negative Urine Bilirubin Negative Urine Urobilinogen 0.2 Ur Leukocyte Esterase Negative Rheumatoid Factor Blood Type O POSITIVE Antibody Screen Negative Crossmatch See Detail 08/26/19 08/26/19 08/26/19 06:00 06:00 09:40 WBC 7.1 8.9 RBC 2.60 L 2.83 L Hgb 7.8 L 8.3 L Hct 22.0 L D 24.0 L MCV 84.4 84.9 MCH 29.8 29.4 MCHC 35.3 34.6 RDW 15.8 H 15.9 H Plt Count 148 187 D MPV 8.2 8.5 Absolute Neuts (auto) 5.0 Neutrophils % 70.1 D Lymphocytes % 17.9 D Monocytes % 9.3 Eosinophils % 2.4 Basophils % 0.3 Nucleated RBC % 0 Sickle Cell Screen Sodium 138 Potassium 4.0 Chloride 104 Carbon Dioxide 29 Anion Gap 4 L BUN 7.4 Creatinine 0.6 Est GFR (CKD-EPI)AfAm 113.22 Est GFR (CKD-EPI)NonAf 97.69 Random Glucose 106 Calcium 8.0 L Phosphorus 3.3 Magnesium 2.3 Total Bilirubin 0.6 AST 79 H ALT 33 Alkaline Phosphatase 190 H LD Total Total Protein 5.8 L Albumin 2.2 L Urine Color Urine Appearance Urine pH Ur Specific [place] Urine Protein Urine Glucose (UA) Urine Ketones Urine Blood Urine Nitrite Urine Bilirubin Urine Urobilinogen Ur Leukocyte Esterase Rheumatoid Factor Blood Type Antibody Screen Crossmatch 08/26/19 09:40 WBC RBC Hgb Hct MCV MCH MCHC RDW Plt Count MPV Absolute Neuts (auto) Neutrophils % Lymphocytes % Monocytes % Eosinophils % Basophils % Nucleated RBC % Sickle Cell Screen Sodium Potassium Chloride Carbon Dioxide Anion Gap BUN Creatinine Est GFR (CKD-EPI)AfAm Est GFR (CKD-EPI)NonAf Random Glucose Calcium Phosphorus Magnesium Total Bilirubin AST ALT Alkaline Phosphatase LD Total 306 H Total Protein Albumin Urine Color Urine Appearance Urine pH Ur Specific [place] Urine Protein Urine Glucose (UA) Urine Ketones Urine Blood Urine Nitrite Urine Bilirubin Urine Urobilinogen Ur Leukocyte Esterase Rheumatoid Factor < 10.0 Blood Type Antibody Screen Crossmatch Active Medications Generic Name Dose Route Start Last Admin Trade Name Freq PRN Reason Stop Dose Admin Acetaminophen 650 mg 08/26/19 11:43 Tylenol - PO Q6H PRN Fever Or Pain Al Hydroxide/Mg Hydroxide 30 ml 08/24/19 21:49 Mylanta Oral Suspension - PO Q4H PRN DYSPEPSIA Aspirin 81 mg 08/24/19 22:00 08/26/19 10:29 Asa - PO 81 mg BID WILLIAM Administration Chlorhexidine Gluconate 1 applic 08/24/19 22:00 08/25/19 21:45 Hibiclens For Decolonization - TP 1 applic HS WILLIAM Administration Docusate Sodium 100 mg 08/26/19 11:45 Colace - PO DAILY PRN CONSTIPATION Gabapentin 400 mg 08/24/19 22:00 08/26/19 06:47 Neurontin - PO Not Given TID WILLIAM Guaifenesin 10 ml 08/24/19 21:49 Robitussin Dm - PO Q4H PRN COUGH Magnesium Hydroxide 30 ml 08/24/19 21:49 08/25/19 21:45 Milk Of Magnesia - PO 30 ml PRN PRN Administration CONSTIPATION Meclizine HCl 25 mg 08/24/19 21:49 Antivert - PO TID PRN PAIN Morphine Sulfate 1 mg 08/26/19 11:44 Morphine Sulfate IVPUSH Q4H PRN PAIN LEVEL 6-10 Mupirocin 1 applic 08/24/19 22:00 08/26/19 09:15 Bactroban Ointment (For Decolonization) - NS 08/29/19 21:59 1 applic BID WILLIAM Administration Ondansetron HCl 4 mg 08/24/19 21:49 Zofran Injection IVPUSH Q6H PRN NAUSEA Oxycodone HCl 5 mg 08/25/19 07:27 08/26/19 09:16 Roxicodone - PO 5 mg Q4H PRN Administration PAIN LEVEL 1-5 Oxycodone HCl 10 mg 08/26/19 08:36 Roxicodone - PO Q4H PRN PAIN LEVEL 6-10 Pantoprazole Sodium 40 mg 08/25/19 10:00 08/26/19 09:16 Protonix - PO 40 mg DAILY WILLIAM Administration Polyethylene Glycol 17 gm 08/26/19 11:45 Miralax (For Daily Use) - PO DAILY PRN CONSTIPATION Promethazine HCl 12.5 mg 08/24/19 21:49 Phenergan Injection - IVPUSH Q6H PRN NAUSEA-FOR RESCUE AFTER 15 MIN Senna/Docusate Sodium 2 tablet 08/24/19 22:00 08/26/19 09:16 Pericolace - PO 2 tablet BID WILLIAM Administration Simethicone 80 mg 08/25/19 15:09 08/25/19 15:19 Mylicon - PO 80 mg Q4H PRN Administration GAS RECORDS OBTAINED FROM ONCOLOGY OFFICE 2011 extensive breast cancer on left side. 10 positive lymph nodes ER+, DE+, HER2 -. Given AC x4 and taxol x4 and radiation, Armimidex. Had retroperitoneal mass biopsied and positive for metastatic breast cancer. Then found to be ER -, DE -, HER/donnell +. On Kadcyla one dose reduction. Impression of breast cancer ER - , DE -, HER/donnell + in the mesentery and retroperitoneum, with recurrence. Hx of extensive primary breast cancer in 2011 that was ER+, DE +, HER/donnell - having failed arimidex, s/p AC x4 and taxol x4. Plan at time of 07/11/19: denied BRCA testing, on "waldemar intervention", had discussed navelbine or trastuzamab deruxtecan with family and patient to make her decision. PET SCAN 05/16/19 Impression: mimimally enlarging paraesophageal adenopathy with a current maximum SUV of 10.8g/ml, increased from previous study. Increasing hypermetabolic activity in mesenteric and retrocaval adenopathy since previous study. stable periceliac and retrocaval adenopathy. findings compatible with mild progression of disease since 02/18/19. 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 On bowel regimen due to opiate use and constipation - physical therapy/OOB, walked 5ft with PT - chemical AC: aspirin 81mg bid for 6 weeks - incentive spirometry - on bowel regimen - will likely need SNF upon discharge Fever - likely in setting of atelectasis due to recent surgery and staying immobile in bed - CXR without changes - UA negative - continue to monitor Elevated LFTs - abd U/S noting hepatic lesions suggestive of neoplastic disease - hepatitis panel negative - will continue to monitor - triple scan phase ordered to assess liver lesions and bowel Hx of breast CA - will need latif scan to determine extent of malignancy, to be done as outpatient - oncology consulted, recs appreciated - palliative care consulted - previous oncologist, Dr. Gupta in [facility] - records obtained by oncology as per onc note, records also faxed from oncology office shortly as above - colonoscopy could be considered in setting of family history of colon CA as per GI Anemia - Hgb electrophoresis - sickle cell screen positive - LEENA positive - RF negative - having 2 units of PRBCs transfused - hematology consulted - continue to monitor CBC DVT PPx - aspirin 81mg bid as per orthopedics FEN - No standing fluids - continue to monitor electrolytes and replete as necessary - regular diet Disposition - currently in ICU, transfer to the floor Visit type - Emergency Visit Emergency Visit: Yes ED Registration Date: 08/20/19 Care time: The patient presented to the Emergency Department on the above date and was hospitalized for further evaluation of their emergent condition. - New Patient This patient is new to me today: No - Critical Care Critical Care patient: Yes Total Critical Care Time (in minutes): 35 Critical Care Statement: The care of this patient involved high complexity decision making to prevent further life threatening deterioration of the patient 's condition and/or to evaluate & treat vital organ system(s) failure or risk of failure.
--- NOTE | 2019-08-26 18:56 | PATH ---
Surgical Pathology Report Patient Name: DINA SCALES [facility]. Rec. #: [id number] /Age/Gender: 1955 (Age: 64) / F Account: [id number] Location: ICU JUNIOR PROJECT MANAGER Taken: 08/24/2019 Received: 08/25/2019 Reported: 08/26/2019 Physicians: Tommy Elaine M.D. Specimen(s) Received RIGHT FEMORAL HEAD Clinical History Inability to ambulate due to right hip pain Final Diagnosis FEMORAL HEAD, RIGHT, TOTAL HIP REPLACEMENT: BONE WITH MARROW FAT NECROSIS AND DYSTROPHIC CALCIFICATION COMPATIBLE WITH OSTEONECROSIS (AVASCULAR BONE NECROSIS). Electronically Signed Hanna Mabry M.D. Gross Description Received in formalin, labeled "right femoral head," is a 4.0 x 4.0 x 3.7 cm. femoral head with a 2.2 cm in length portion of femoral length attached. The margin of resection is smooth. No areas of eburnation are identified. The articular surface is braun-yellow and focally granular. The underlying trabecular bone is yellow and hard. A resources representative section is submitted in one cassette, following decalcification. /08/25/2019 saudi08/25/2019
[2019-08-26] MEDS: ACETAMINOPHEN 325 MG TABLET (FP) PO PRN (20:32)
[2019-08-26] MEDS ORDERED: PT OWN MED DRAWER 7, Y5N ONE (20:56)
[2019-08-26] MEDS: CHLORHEXIDINE GLUCONATE 4% CLEANSER FOR DECOLONIZATION TP SCH (21:18)
[2019-08-26] MEDS: MAG HYDROX/AL HYDROX/SIMETH 30 ML UNIT-DOSE CUP PO PRN (21:19)
[2019-08-26] MEDS: SIMETHICONE 80 MG TAB.CHEW (FP) PO PRN (21:19)
[2019-08-26 22:36] LABS: HEMATOCRIT 24.1 % (32.4-45.2); HEMOGLOBIN 8.3 GM/dL (10.7-15.3); MCH 29.7 pg (25.7-33.7); MCHC 34.6 g/dl (32.0-36.0); MEAN PLT VOLUME 8.2 fl (7.5-11.1); PLATELET COUNT 143 K/MM3 (134-434); RBC 2.81 M/mm3 (3.60-5.2); RDW 15.4 % (11.6-15.6)
[2019-08-27] MEDS: GABAPENTIN 400 MG CAPSULE PO SCH ×3 (06:04→22:15)
[2019-08-27 06:43] LABS: BASO % 0.3 % (0-2.0); EOS % 2.1 % (0-4.5); HEMATOCRIT 24.4 % (32.4-45.2); HEMOGLOBIN 8.5 GM/dL (10.7-15.3); LYMPH % 15.4 % (8-40); MCH 29.8 pg (25.7-33.7); MCHC 34.7 g/dl (32.0-36.0); MEAN CELL VOLUME 85.6 fl (80-96); MEAN PLT VOLUME 8.4 fl (7.5-11.1); MONO % 9.2 % (3.8-10.2); PLATELET COUNT 159 K/MM3 (134-434); RBC 2.85 M/mm3 (3.60-5.2); RDW 15.8 % (11.6-15.6); WHITE BLOOD COUNT 7.9 K/mm3 (4.0-10.0)
--- NOTE | 2019-08-27 07:34 | PN ---
Progress Note (short form) - Note Progress Note: SUBJECTIVE: Patient seen and examined in the ICU. -pain better controlled -improved movement -awaiting floor bed OBJECTIVE: Vital Signs Temp 98.4 F 08/27/19 02:00 Pulse 128 H 08/27/19 06:00 Resp 21 H 08/27/19 06:00 BP 118/58 L 08/27/19 06:00 Pulse Ox 99 08/26/19 20:12 Intake & Output 08/26/19 08/26/19 08/27/19 11:59 23:59 11:59 Intake Total 370 180 Output Total 439 329 0450 Balance -30 750 -1425 Weight 90.038 kg 91.2 kg Intake: IVPB 150 Oral 220 180 Output: Drainage 30 25 Right Hip 30 25 Urine 627 255 2209 [place] [phone] Other: Voiding Method Indwelling Catheter Indwelling Catheter # Unmeasured Voids [place] 1 Bowel Movement Yes No # Bowel Movements 1 Body Mass Index (BMI) 32.9 Weight Measurement Method Built in Bedscale Built in Bedscale Active Medications Acetaminophen (Tylenol -) 650 mg PO Q6H PRN PRN Reason: Fever Or Pain Last Admin: 08/26/19 20:32 Dose: 650 mg Al Hydroxide/Mg Hydroxide (Mylanta Oral Suspension -) 30 ml PO Q4H PRN PRN Reason: DYSPEPSIA Last Admin: 08/26/19 21:19 Dose: 30 ml Aspirin (Asa -) 81 mg PO BID [facility] Last Admin: 08/26/19 21:18 Dose: 81 mg Chlorhexidine Gluconate (Hibiclens For Decolonization -) 1 applic TP HS [facility] Last Admin: 08/26/19 21:18 Dose: 1 applic Docusate Sodium (Colace -) 100 mg PO DAILY PRN PRN Reason: CONSTIPATION Gabapentin (Neurontin -) 400 mg PO TID [facility] Last Admin: 08/27/19 06:04 Dose: 400 mg Guaifenesin (Robitussin Dm -) 10 ml PO Q4H PRN PRN Reason: COUGH Magnesium Hydroxide (Milk Of Magnesia -) 30 ml PO PRN PRN PRN Reason: CONSTIPATION Last Admin: 08/25/19 21:45 Dose: 30 ml Meclizine HCl (Antivert -) 25 mg PO TID PRN PRN Reason: PAIN Morphine Sulfate (Morphine Sulfate) 1 mg IVPUSH Q4H PRN PRN Reason: PAIN LEVEL 6-10 Mupirocin (Bactroban Ointment (For Decolonization) -) 1 applic NS BID [facility] Stop: 08/29/19 21:59 Last Admin: 08/26/19 22:00 Dose: Not Given Ondansetron HCl (Zofran Injection) 4 mg IVPUSH Q6H PRN PRN Reason: NAUSEA Oxycodone HCl (Roxicodone -) 5 mg PO Q4H PRN PRN Reason: PAIN LEVEL 1-5 Last Admin: 08/26/19 09:16 Dose: 5 mg Oxycodone HCl (Roxicodone -) 10 mg PO Q4H PRN PRN Reason: PAIN LEVEL 6-10 Last Admin: 08/26/19 20:30 Dose: 10 mg Pantoprazole Sodium (Protonix -) 40 mg PO DAILY [facility] Last Admin: 08/26/19 09:16 Dose: 40 mg Polyethylene Glycol (Miralax (For Daily Use) -) 17 gm PO DAILY PRN PRN Reason: CONSTIPATION Promethazine HCl (Phenergan Injection -) 12.5 mg IVPUSH Q6H PRN PRN Reason: NAUSEA-FOR RESCUE AFTER 15 MIN Senna/Docusate Sodium (Pericolace -) 2 tablet PO BID [facility] Last Admin: 08/26/19 21:22 Dose: 2 tablet Gen: Awake and alert, Uncomfortable due to pain Heart: RRR Lung: decreased breath sounds at the bases Abd: soft, nontender Ext: no edema, drain with serosanguinous fluid ASSESSMENT AND PLAN: Metastatic Breast Cancer Right Femoral Head AVN s/p Right total hip replacement Anemia - Pain control, roxicodone - incentive spirometry - PO as tolerated - rehab/PT, OOB - DVT prophylaxis - Normal transfusion thresholds - transfer to floor bed
[2019-08-27 07:42] LABS: ALBUMIN 2.2 g/dl (3.4-5.0); BILIRUBIN,TOTAL 0.6 mg/dL (0.2-1); BLOOD UREA NITROGEN 8.2 mg/dL (7-18); CALCIUM 8.5 mg/dL (8.5-10.1); CREATININE 0.5 mg/dL (0.55-1.3); MAGNESIUM 2.4 mg/dL (1.8-2.4); PHOSPHOROUS 2.4 mg/dL (2.5-4.9); POTASSIUM 3.9 mmol/L (3.5-5.1)
[2019-08-27] MEDS: SENNOSIDES/DOCUSATE COMBO (SENNA PLUS) TABLET (UD) PO SCH ×2 (09:19→22:16)
[2019-08-27] MEDS: PANTOPRAZOLE 40 MG TABLET PO SCH (09:20)
[2019-08-27] MEDS: ASPIRIN 81 MG CHEWABLE TABLETS PO SCH ×2 (09:20→22:16)
[2019-08-27] MEDS: MUPIROCIN 2% TOPICAL OINTMENT FOR DECOLONIZATION NS SCH ×2 (09:25→22:16)
[2019-08-27] MEDS ORDERED: NAPH,MB-DB/K PH,MBDB POWDER PACKET PO ONE (09:46)
--- NOTE | 2019-08-27 09:46 | PN ---
Progress Note (short form) - Note Progress Note: NEUROSURGERY In ICU Chart reviewed s/p R THR Incisional pain In good spirit PE: AF, VSS, low grade temp earlier HEENT- NC/AT; Neck- supple; Cor- RR; Lungs- CTA B; Abd- benign; Ext- no sign of DVT CN- intact; Motor- 4+-5 except R IP 4- pain limited; Sensation- intact LT; DTR- 2+ LS spine MRI ([place])- intact L4-5-S1 fusion and implant; minimal central disc bulge L2-3 and L3-4 with mild annular tear/edema; no significant stenosis; implants in excellent positions L4-5-S1 R hip MRI- R femur head osteonecrosis H/o L4-S1 fusion with instrumentation; minimal L2-3 and L3-4 central disc bulge (not the patient's cause of current symptomatology) Metastatic/breast w/u per med onc (liver lesions?) Ortho procedure (R THR) planned today DVT prophylaxis Will follow peripherally
--- NOTE | 2019-08-27 09:54 | PN ---
Progress Note (short form) - Note Progress Note: PAtient seen and examined c/o rt. hip post op. paina nd abdomianlpain HAd 2 BMs today AFVSS Cor: RSR, No murmurs, No gallops Lungs: Clear to P&A Abd: Soft, Normal bowel sounds, mildly distended. no guarding/rigidity Ext:No significant edema LAbs/MEds reviewed A/P Patient is a 64 year old female with past medical history of breast cancer Breast cancer-- diagnosed 8 yrs.ago -- Left breast cancer--stage III diagnosed 2011 --10+ nodes. ER+, TN+, Her2-. Received ACx4 followed by Tx4 and RT. Was on arimidex Developed retroperitoneal mass ---bx + metastatic breast cancer-- ER-/TN-, Her2- 3+. Microsatellite stable. She has been on TDM1.? elevated LFTs needing 1 dose reduction s/p gemzar/trastuzumab ( got medrol dose paks with gemzar) Discussed with primary oncologist in [place]---Plan was to start her on trastuzumab deruxtecan ---when she moved from [place] CT c/a/p --07/08/19 --stable paraesophageal adenopathy. Minimally decreasing mesenteric, retrocaval, periceliac and shotty retrocrural adenopathy, stable to minimally decreased compared to CT c/a/p in 12/2018 will need to review MRI hip and L spine images done in [place] Will request orthopedics consult X ray done here shows no acute pathology 2 hepatic lesions on U/S--? new PET/biopsy when medically stable s/p rt. 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 hip post op. anemia post op. constipation//? ileus appreciate GI input -- CT scans oredered post op. care per icu/surgery/medical teams Will need w/u of liver lesions ane metastATic disease after postop. recovery
[2019-08-27] MEDS: ACETAMINOPHEN 325 MG TABLET (FP) PO PRN ×2 (12:51→18:51)
[2019-08-27] MEDS: oxyCODONE HCL 5 MG TABLET PO PRN ×2 (12:59→22:21)
--- NOTE | 2019-08-27 13:26 | PN ---
Progress Note (short form) - Note Progress Note: POD#3 Comfortable Apyrexial Vitals as per chart Hg Low7 Pulse is hyperdynamic. For 2 pints of blood Wound Bandage dry Drain in situ Will remove tomorrow R LE No calf or subsartorial tenderness No NVD PLAN 2 pints blood PainMX PT Mobilize FWBAT VTE prophylaxis [id number] BID
--- NOTE | 2019-08-27 13:36 | PN ---
Progress Note (short form) - Note Progress Note: Pt reports increased bloating. No BM today. On abdominal exam she is tympanitic, distended. No signs of peritonitis. Will order Relistor 8 mg S.C. daily to help restore GI function. Advised patient to minimize use of narcotics.
[2019-08-27] MEDS: SODIUM CHLORIDE 1,000 ML IV SCH (14:00)
--- NOTE | 2019-08-27 14:12 | PN ---
Teaching Attending Note Name of Resident: Juan Carlos Barber ATTENDING PHYSICIAN STATEMENT I saw and evaluated the patient. I reviewed the resident's note and discussed the case with the resident. I agree with the resident's findings and plan as documented. SUBJECTIVE: pain is controlled. denies SOB , no N/V OBJECTIVE: NAD. sitting in chair, dry MM. Cv: regular rhythm, tachycardic, no MRG. lungs: CTAB. Ext: R hip with a surgical dressing and some edema, no erythema. R DP and PT 2+ . warm foot with nl sensation . no edema or erythema on LLE Abd distended. NT. nl BS ASSESSMENT AND PLAN: 64 y/o lady with h/o L breast cancer s/p mastectomy, radiation and chemo, with mets to intestine, L4-S1 fusion , sciatica, R femoral head osteonepcrosis ( out pt MRI), who presented due to her hip pain. 1- R femoral head osteonecrosis 2- h/o Met breast cancer. 3- Liver lesions. ? mets. 4- h/o Sciatica and L4-S1 fusion. 5- Dilated R renal collecting system on limited US. 6- Positive LEENA. 7- Sinus tachycardia. 8- Acute blood loss anemia. 9- fever 10- Sickle cell trait 11- constipation with possible mild ileus Plan: - s/p R THR 08/24/19. - Sinus tachycardia due to volume depletion , pain , and anemia . improved - stable HB - pain control - IVF - bowel regimen . relistor started - DVT px per surgical team: asa bid x 6 weeks - follow RF, and Ds DNA. unfortunately. further w/u as out pt - follow CT scan of Abd/pelvis - cancel renal US as CT is ordered - monitor if fever recurs
--- NOTE | 2019-08-27 14:32 | PN ---
Physical Exam: SUBJECTIVE: Patient seen and examined at bedside. Complaint of R hip pain and mild dizziness. Has had BM. Eating slowly. OBJECTIVE: Vital Signs Period Temp Pulse Resp BP Sys/Lomeli Pulse Ox Last 24 Hr 98.2 F-98.4 F 69-129 15- 93-122/58-72 99 Gen: AAOx3, NAD HEENT: NCAT, EOMI Neck: supple, no bruit Cardio: tachycardic, regular, normal s1s2, no mrg Pulm: limited exam. Pt unable to turn. No rales/ronchi appreciated Abd: soft, nontender Ext: sensation/motor function intact distally Laboratory Results - last 24 hr 08/23/19 08/26/19 08/26/19 06:40 09:40 22:20 WBC 8.0 RBC 2.81 L Hgb 8.3 L Hct 24.1 L MCV 86.0 MCH 29.7 MCHC 34.6 RDW 15.4 Plt Count 143 D MPV 8.2 Absolute Neuts (auto) Neutrophils % Lymphocytes % Monocytes % Eosinophils % Basophils % Nucleated RBC % Sickle Cell Screen Positive Sodium Potassium Chloride Carbon Dioxide Anion Gap BUN Creatinine Est GFR (CKD-EPI)AfAm Est GFR (CKD-EPI)NonAf Random Glucose Calcium Phosphorus Magnesium Total Bilirubin AST ALT Alkaline Phosphatase Total Protein Albumin Double Strand DNA Ab <1 08/27/19 08/27/19 06:00 06:00 WBC 7.9 RBC 2.85 L Hgb 8.5 L Hct 24.4 L MCV 85.6 MCH 29.8 MCHC 34.7 RDW 15.8 H Plt Count 159 MPV 8.4 Absolute Neuts (auto) 5.8 Neutrophils % 73.0 Lymphocytes % 15.4 Monocytes % 9.2 Eosinophils % 2.1 Basophils % 0.3 Nucleated RBC % 0 Sickle Cell Screen Sodium 140 Potassium 3.9 Chloride 106 Carbon Dioxide 28 Anion Gap 5 L BUN 8.2 Creatinine 0.5 L Est GFR (CKD-EPI)AfAm 120.22 Est GFR (CKD-EPI)NonAf 103.73 Random Glucose 118 H Calcium 8.5 Phosphorus 2.4 L Magnesium 2.4 Total Bilirubin 0.6 AST 81 H ALT 30 Alkaline Phosphatase 182 H Total Protein 6.0 L Albumin 2.2 L Double Strand DNA Ab Active Medications Generic Name Dose Route Start Last Admin Trade Name Freq PRN Reason Stop Dose Admin Acetaminophen 650 mg 08/26/19 11:43 08/27/19 12:51 Tylenol - PO 650 mg Q6H PRN Administration Fever Or Pain Al Hydroxide/Mg Hydroxide 30 ml 08/24/19 21:49 08/26/19 21:19 Mylanta Oral Suspension - PO 30 ml Q4H PRN Administration DYSPEPSIA Aspirin 81 mg 08/24/19 22:00 08/27/19 09:20 Asa - PO 81 mg BID [facility] Administration Chlorhexidine Gluconate 1 applic 08/24/19 22:00 08/26/19 21:18 Hibiclens For Decolonization - TP 1 applic HS [facility] Administration Docusate Sodium 100 mg 08/26/19 11:45 Colace - PO DAILY PRN CONSTIPATION Gabapentin 400 mg 08/24/19 22:00 08/27/19 06:04 Neurontin - PO 400 mg TID [facility] Administration Guaifenesin 10 ml 08/24/19 21:49 Robitussin Dm - PO Q4H PRN COUGH Sodium Chloride 1,000 mls @ 75 mls/hr 08/27/19 12:15 Normal Saline - IV ASDIR [facility] Magnesium Hydroxide 30 ml 08/24/19 21:49 08/25/19 21:45 Milk Of Magnesia - PO 30 ml PRN PRN Administration CONSTIPATION Meclizine HCl 25 mg 08/24/19 21:49 Antivert - PO TID PRN PAIN Methylnaltrexone [place] 8 mg 08/27/19 13:45 Relistor - SQ DAILY [facility] Morphine Sulfate 1 mg 08/26/19 11:44 Morphine Sulfate IVPUSH Q4H PRN PAIN LEVEL 6-10 Mupirocin 1 applic 08/24/19 22:00 08/27/19 09:25 Bactroban Ointment (For Decolonization) - NS 08/29/19 21:59 1 applic BID [facility] Administration Ondansetron HCl 4 mg 08/24/19 21:49 Zofran Injection IVPUSH Q6H PRN NAUSEA Oxycodone HCl 5 mg 08/25/19 07:27 08/26/19 09:16 Roxicodone - PO 5 mg Q4H PRN Administration PAIN LEVEL 1-5 Oxycodone HCl 10 mg 08/26/19 08:36 08/27/19 12:59 Roxicodone - PO 10 mg Q4H PRN Administration PAIN LEVEL 6-10 Pantoprazole Sodium 40 mg 08/25/19 10:00 08/27/19 09:20 Protonix - PO 40 mg DAILY [facility] Administration Polyethylene Glycol 17 gm 08/26/19 11:45 Miralax (For Daily Use) - PO DAILY PRN CONSTIPATION Promethazine HCl 12.5 mg 08/24/19 21:49 Phenergan Injection - IVPUSH Q6H PRN NAUSEA-FOR RESCUE AFTER 15 MIN Senna/Docusate Sodium 2 tablet 08/24/19 22:00 08/27/19 09:19 Pericolace - PO 2 tablet BID [facility] Administration ASSESSMENT/PLAN: 64 year old female with past medical history of 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 She is now s/p R THR (08/24/19). R hip osteonecrosis -s/p R THR (08/24/19) -eating -had BM yest -EBL 400 -R hip drainage stable at 30ml Anemia -likely 2/2 surgery -monitor RBC -per pt, she received 1 PRBC yest via chemoport Tachycardia -sinus tachy -likely 2/2 blood loss and pain -monitor Breast CA with ? mets to liver -GI, Heme/Onc on board -evidently new lesions seen on US -for CTAP -LEENA, RF pos, dsDNA pending Visit type - Emergency Visit Emergency Visit: No - New Patient This patient is new to me today: Yes Date on this admission: 08/27/19 - Critical Care Critical Care patient: Yes Total Critical Care Time (in minutes): 30 Critical Care Statement: The care of this patient involved high complexity decision making to prevent further life threatening deterioration of the patient's condition and/or to evaluate & treat vital organ system(s) failure or risk of failure. ATTENDING PHYSICIAN STATEMENT I saw and evaluated the patient. I reviewed the resident's note and discussed the case with the resident. I agree with the resident's findings and plan as documented. SUBJECTIVE: OBJECTIVE: ASSESSMENT AND PLAN:
[2019-08-27] MEDS: Methylnaltrexone Bromide 12 MG/0.6 ML KIT SQ SCH (14:55)
--- NOTE | 2019-08-27 17:56 | PN ---
Progress Note, Physician History of Present Illness: c/o right hip pain. no new events. - Current Medication List Current Medications: Active Medications Acetaminophen (Tylenol -) 650 mg PO Q6H PRN PRN Reason: Fever Or Pain Last Admin: 08/27/19 12:51 Dose: 650 mg Al Hydroxide/Mg Hydroxide (Mylanta Oral Suspension -) 30 ml PO Q4H PRN PRN Reason: DYSPEPSIA Last Admin: 08/26/19 21:19 Dose: 30 ml Aspirin (Asa -) 81 mg PO BID [facility] Last Admin: 08/27/19 09:20 Dose: 81 mg Chlorhexidine Gluconate (Hibiclens For Decolonization -) 1 applic TP HS [facility] Last Admin: 08/26/19 21:18 Dose: 1 applic Docusate Sodium (Colace -) 100 mg PO DAILY PRN PRN Reason: CONSTIPATION Gabapentin (Neurontin -) 400 mg PO TID [facility] Last Admin: 08/27/19 14:55 Dose: 400 mg Guaifenesin (Robitussin Dm -) 10 ml PO Q4H PRN PRN Reason: COUGH Sodium Chloride (Normal Saline -) 1,000 mls @ 75 mls/hr IV ASDIR [facility] Last Admin: 08/27/19 14:00 Dose: 75 mls/hr Magnesium Hydroxide (Milk Of Magnesia -) 30 ml PO PRN PRN PRN Reason: CONSTIPATION Last Admin: 08/25/19 21:45 Dose: 30 ml Meclizine HCl (Antivert -) 25 mg PO TID PRN PRN Reason: PAIN Methylnaltrexone [place] (Relistor -) 8 mg SQ DAILY [facility] Last Admin: 08/27/19 14:55 Dose: 8 mg Morphine Sulfate (Morphine Sulfate) 1 mg IVPUSH Q4H PRN PRN Reason: PAIN LEVEL 6-10 Mupirocin (Bactroban Ointment (For Decolonization) -) 1 applic NS BID [facility] Stop: 08/29/19 21:59 Last Admin: 08/27/19 09:25 Dose: 1 applic Ondansetron HCl (Zofran Injection) 4 mg IVPUSH Q6H PRN PRN Reason: NAUSEA Oxycodone HCl (Roxicodone -) 5 mg PO Q4H PRN PRN Reason: PAIN LEVEL 1-5 Last Admin: 08/26/19 09:16 Dose: 5 mg Oxycodone HCl (Roxicodone -) 10 mg PO Q4H PRN PRN Reason: PAIN LEVEL 6-10 Last Admin: 08/27/19 12:59 Dose: 10 mg Pantoprazole Sodium (Protonix -) 40 mg PO DAILY [facility] Last Admin: 08/27/19 09:20 Dose: 40 mg Polyethylene Glycol (Miralax (For Daily Use) -) 17 gm PO DAILY PRN PRN Reason: CONSTIPATION Promethazine HCl (Phenergan Injection -) 12.5 mg IVPUSH Q6H PRN PRN Reason: NAUSEA-FOR RESCUE AFTER 15 MIN Senna/Docusate Sodium (Pericolace -) 2 tablet PO BID [facility] Last Admin: 08/27/19 09:19 Dose: 2 tablet - Objective Vital Signs: Vital Signs Temperature 99.8 F H 08/27/19 14:00 Pulse Rate 114 H 08/27/19 16:00 Respiratory Rate 22 H 08/27/19 16:00 Blood Pressure 133/66 08/27/19 16:00 O2 Sat by Pulse Oximetry (%) 99 08/27/19 09:00 Constitutional: Yes: No Distress Eyes: Yes: Conjunctiva Clear Respiratory: Yes: Regular, CTA Bilaterally Gastrointestinal: Yes: Soft. No: Tenderness Edema: No Labs: CBC, BMP 08/27/19 06:00 08/27/19 06:00 INR, PTT INR 1.11 (0.83-1.09) H 08/24/19 06:35 Assessment/Plan 64F with metastatic breast cancer, follows in [place], admitted with worsening right hip pain 2/2 large 3.5 cm osteonecrosis s/p THR on 08/24. CBC stable. Plan for imaging to eval extent of breast ca and outpatient oncology f/u.
[2019-08-27] MEDS: CHLORHEXIDINE GLUCONATE 4% CLEANSER FOR DECOLONIZATION TP SCH (22:16)
[2019-08-28] MEDS: GABAPENTIN 400 MG CAPSULE PO SCH ×3 (05:34→21:13)
[2019-08-28 06:34] LABS: BASO % 0.4 % (0-2.0); HEMATOCRIT 29.3 % (32.4-45.2); HEMOGLOBIN 10.1 GM/dL (10.7-15.3); LYMPH % 15.6 % (8-40); MCH 29.9 pg (25.7-33.7); MCHC 34.4 g/dl (32.0-36.0); MEAN CELL VOLUME 86.9 fl (80-96); MEAN PLT VOLUME 8.3 fl (7.5-11.1); MONO % 9.4 % (3.8-10.2); NEUT % 70.6 % (42.8-82.8); PLATELET COUNT 161 K/MM3 (134-434); RBC 3.37 M/mm3 (3.60-5.2); RDW 15.7 % (11.6-15.6); WHITE BLOOD COUNT 7.4 K/mm3 (4.0-10.0)
[2019-08-28 06:46] LABS: BILIRUBIN,TOTAL 0.6 mg/dL (0.2-1); BLOOD UREA NITROGEN 7.8 mg/dL (7-18); CALCIUM 8.1 mg/dL (8.5-10.1); CREATININE 0.5 mg/dL (0.55-1.3); TOT PROT 5.9 g/dl (6.4-8.2)
[2019-08-28] MEDS: ASPIRIN 81 MG CHEWABLE TABLETS PO SCH ×2 (09:37→21:13)
[2019-08-28] MEDS: oxyCODONE HCL 5 MG TABLET PO PRN ×3 (09:38→21:14)
[2019-08-28] MEDS: SENNOSIDES/DOCUSATE COMBO (SENNA PLUS) TABLET (UD) PO SCH ×2 (09:38→21:12)
[2019-08-28] MEDS: SODIUM CHLORIDE 1,000 ML IV SCH ×2 (09:39→14:23)
[2019-08-28] MEDS: PANTOPRAZOLE 40 MG TABLET PO SCH (09:40)
[2019-08-28] MEDS: MAG HYDROX/AL HYDROX/SIMETH 30 ML UNIT-DOSE CUP PO PRN (09:40)
[2019-08-28] MEDS: ACETAMINOPHEN 325 MG TABLET (FP) PO PRN ×2 (09:41→17:51)
[2019-08-28] MEDS: MUPIROCIN 2% TOPICAL OINTMENT FOR DECOLONIZATION NS SCH (09:43)
--- NOTE | 2019-08-28 10:40 | PN ---
Progress Note (short form) - Note Progress Note: Pulm/CCM Subjective: Patient seen and examined in ICU. S/p right THR with drain. Not in acute distress, denies pain. Up for transfer to floor CBC, BMP 08/28/19 06:00 08/28/19 06:00 Vital Signs Temperature 98.4 F 08/28/19 05:00 Pulse Rate 104 H 08/28/19 08:00 Respiratory Rate 19 08/28/19 09:00 Blood Pressure 109/95 08/28/19 08:00 O2 Sat by Pulse Oximetry (%) 99 08/28/19 09:00 Intake & Output 08/25/19 08/26/19 08/27/19 08/28/19 23:59 23:59 23:59 23:59 Intake Total 2035 656 432 1683 Output Total 1315 1330 2795 550 Balance 688 -408 -2459 767 Weight 88.723 kg 90.038 kg 91.2 kg 85.82 kg Home Medication List Medication Instructions Recorded Confirmed Type Gabapentin 400 mg PO TID 08/21/19 08/21/19 History Meclizine HCl 25 mg PO TID PRN 08/21/19 08/21/19 History Oxycodone HCl/Acetaminophen 1 each PO TID 08/21/19 08/21/19 History [Oxycodone-Acetaminophen 10-325] Tramadol HCl 50 mg PO TID 08/21/19 08/21/19 History Active Medications Active Medications Acetaminophen (Tylenol -) 650 mg PO Q6H PRN PRN Reason: Fever Or Pain Last Admin: 08/28/19 09:41 Dose: 650 mg Al Hydroxide/Mg Hydroxide (Mylanta Oral Suspension -) 30 ml PO Q4H PRN PRN Reason: DYSPEPSIA Last Admin: 08/28/19 09:40 Dose: 30 ml Aspirin (Asa -) 81 mg PO BID [facility] Last Admin: 08/28/19 09:37 Dose: 81 mg Chlorhexidine Gluconate (Hibiclens For Decolonization -) 1 applic TP HS [facility] Last Admin: 08/27/19 22:16 Dose: 1 applic Docusate Sodium (Colace -) 100 mg PO DAILY PRN PRN Reason: CONSTIPATION Last Admin: 08/28/19 09:37 Dose: 100 mg Gabapentin (Neurontin -) 400 mg PO TID [facility] Last Admin: 08/28/19 05:34 Dose: 400 mg Guaifenesin (Robitussin Dm -) 10 ml PO Q4H PRN PRN Reason: COUGH Sodium Chloride (Normal Saline -) 1,000 mls @ 75 mls/hr IV ASDIR [facility] Last Admin: 08/28/19 09:39 Dose: 75 mls/hr Magnesium Hydroxide (Milk Of Magnesia -) 30 ml PO PRN PRN PRN Reason: CONSTIPATION Last Admin: 08/25/19 21:45 Dose: 30 ml Meclizine HCl (Antivert -) 25 mg PO TID PRN PRN Reason: PAIN Last Admin: 08/28/19 09:40 Dose: 25 mg Methylnaltrexone [place] (Relistor -) 8 mg SQ DAILY [facility] Last Admin: 08/27/19 14:55 Dose: 8 mg Morphine Sulfate (Morphine Sulfate) 1 mg IVPUSH Q4H PRN PRN Reason: PAIN LEVEL 6-10 Last Admin: 08/28/19 02:26 Dose: 1 mg Mupirocin (Bactroban Ointment (For Decolonization) -) 1 applic NS BID [facility] Stop: 08/29/19 21:59 Last Admin: 08/28/19 09:43 Dose: 1 applic Ondansetron HCl (Zofran Injection) 4 mg IVPUSH Q6H PRN PRN Reason: NAUSEA Oxycodone HCl (Roxicodone -) 5 mg PO Q4H PRN PRN Reason: PAIN LEVEL 1-5 Last Admin: 08/27/19 22:21 Dose: 5 mg Oxycodone HCl (Roxicodone -) 10 mg PO Q4H PRN PRN Reason: PAIN LEVEL 6-10 Last Admin: 08/28/19 09:38 Dose: 10 mg Pantoprazole Sodium (Protonix -) 40 mg PO DAILY [facility] Last Admin: 08/28/19 09:40 Dose: 40 mg Polyethylene Glycol (Miralax (For Daily Use) -) 17 gm PO DAILY PRN PRN Reason: CONSTIPATION Promethazine HCl (Phenergan Injection -) 12.5 mg IVPUSH Q6H PRN PRN Reason: NAUSEA-FOR RESCUE AFTER 15 MIN Senna/Docusate Sodium (Pericolace -) 2 tablet PO BID [facility] Last Admin: 08/28/19 09:38 Dose: 2 tablet ASSESSMENT: Neuro: Awake, alert, oriented Pulm: lungs clear bilaterally, no adventitious breath sounds, diminished at bases CV: S1S2, Sinus tach : chamorro cath in place, (+) 750 ml last 24 hrs GI: abdomen soft, non tender All Active Problems Fever H/O total hip arthroplasty (Acute) Hip pain, right Inability to ambulate due to hip Breast cancer DVT prophylaxis (Acute) PLAN: Follow up on cultures (NTD) Incentive spirometer DVT ppx as per surgery, continue ASA PT/OT PPI ppx Dispo: up for transfer to the floor Nanci Goldsmith ACNP-BC
[2019-08-28] MEDS: Methylnaltrexone Bromide 12 MG/0.6 ML KIT SQ SCH (11:00)
--- NOTE | 2019-08-28 17:35 | PN ---
Progress Note, Physician History of Present Illness: Feeling better, less pain. - Current Medication List Current Medications: Active Medications Acetaminophen (Tylenol -) 650 mg PO Q6H PRN PRN Reason: Fever Or Pain Last Admin: 08/28/19 09:41 Dose: 650 mg Al Hydroxide/Mg Hydroxide (Mylanta Oral Suspension -) 30 ml PO Q4H PRN PRN Reason: DYSPEPSIA Last Admin: 08/28/19 09:40 Dose: 30 ml Aspirin (Asa -) 81 mg PO BID [facility] Last Admin: 08/28/19 09:37 Dose: 81 mg Chlorhexidine Gluconate (Hibiclens For Decolonization -) 1 applic TP HS [facility] Last Admin: 08/27/19 22:16 Dose: 1 applic Docusate Sodium (Colace -) 100 mg PO DAILY PRN PRN Reason: CONSTIPATION Last Admin: 08/28/19 09:37 Dose: 100 mg Gabapentin (Neurontin -) 400 mg PO TID [facility] Last Admin: 08/28/19 14:22 Dose: 400 mg Guaifenesin (Robitussin Dm -) 10 ml PO Q4H PRN PRN Reason: COUGH Sodium Chloride (Normal Saline -) 1,000 mls @ 75 mls/hr IV ASDIR [facility] Last Admin: 08/28/19 14:23 Dose: Not Given Magnesium Hydroxide (Milk Of Magnesia -) 30 ml PO PRN PRN PRN Reason: CONSTIPATION Last Admin: 08/25/19 21:45 Dose: 30 ml Meclizine HCl (Antivert -) 25 mg PO TID PRN PRN Reason: PAIN Last Admin: 08/28/19 09:40 Dose: 25 mg Methylnaltrexone [place] (Relistor -) 8 mg SQ DAILY [facility] Last Admin: 08/28/19 11:00 Dose: 8 mg Morphine Sulfate (Morphine Sulfate) 1 mg IVPUSH Q4H PRN PRN Reason: PAIN LEVEL 6-10 Last Admin: 08/28/19 02:26 Dose: 1 mg Mupirocin (Bactroban Ointment (For Decolonization) -) 1 applic NS BID [facility] Stop: 08/29/19 21:59 Last Admin: 08/28/19 09:43 Dose: 1 applic Ondansetron HCl (Zofran Injection) 4 mg IVPUSH Q6H PRN PRN Reason: NAUSEA Oxycodone HCl (Roxicodone -) 5 mg PO Q4H PRN PRN Reason: PAIN LEVEL 1-5 Last Admin: 08/27/19 22:21 Dose: 5 mg Oxycodone HCl (Roxicodone -) 10 mg PO Q4H PRN PRN Reason: PAIN LEVEL 6-10 Last Admin: 08/28/19 09:38 Dose: 10 mg Pantoprazole Sodium (Protonix -) 40 mg PO DAILY [facility] Last Admin: 08/28/19 09:40 Dose: 40 mg Polyethylene Glycol (Miralax (For Daily Use) -) 17 gm PO DAILY PRN PRN Reason: CONSTIPATION Promethazine HCl (Phenergan Injection -) 12.5 mg IVPUSH Q6H PRN PRN Reason: NAUSEA-FOR RESCUE AFTER 15 MIN Senna/Docusate Sodium (Pericolace -) 2 tablet PO BID [facility] Last Admin: 08/28/19 09:38 Dose: 2 tablet - Objective Vital Signs: Vital Signs Temperature 99.5 F 08/28/19 14:00 Pulse Rate 109 H 08/28/19 14:00 Respiratory Rate 17 08/28/19 14:00 Blood Pressure 122/66 08/28/19 14:00 O2 Sat by Pulse Oximetry (%) 99 08/28/19 09:00 Constitutional: Yes: No Distress, Calm, Other Eyes: Yes: Conjunctiva Clear Cardiovascular: Yes: Regular Rate and Rhythm Respiratory: Yes: Regular Edema: No Labs: CBC, BMP 08/28/19 06:00 08/28/19 06:00 INR, PTT INR 1.11 (0.83-1.09) H 08/24/19 06:35 Assessment/Plan 64F with metastatic breast cancer, follows in [place], admitted with worsening right hip pain 2/2 large 3.5 cm osteonecrosis s/p THR on 08/24. CBC stable. Plan for imaging to eval extent of breast ca and outpatient oncology f/u.
--- NOTE | 2019-08-28 18:27 | PN ---
Progress Note (short form) - Note Progress Note: Subjective: no fever or chills. no SOB , has pain in R hip. no BM yesterday Objective: Vital Signs: Last Vital Signs Temp Pulse Resp BP Pulse Ox 98.7 F 110 H 17 150/80 99 08/28/19 18:00 08/28/19 18:00 08/28/19 18:00 08/28/19 18:00 08/28/19 09:00 Laboratory Results - last 24 hr 08/24/19 08/27/19 08/28/19 06:35 14:45 06:00 WBC 7.4 RBC 3.37 L Hgb 10.1 L Hct 29.3 L D MCV 86.9 MCH 29.9 MCHC 34.4 RDW 15.7 H Plt Count 161 MPV 8.3 Absolute Neuts (auto) 5.2 Neutrophils % 70.6 Lymphocytes % 15.6 Monocytes % 9.4 Eosinophils % 4.0 D Basophils % 0.4 Nucleated RBC % 0 Sodium Potassium Chloride Carbon Dioxide Anion Gap BUN Creatinine Est GFR (CKD-EPI)AfAm Est GFR (CKD-EPI)NonAf Random Glucose Calcium Total Bilirubin AST ALT Alkaline Phosphatase Total Protein Albumin Blood Type O POSITIVE Antibody Screen Negative Crossmatch See Detail See Detail 08/28/19 06:00 WBC RBC Hgb Hct MCV MCH MCHC RDW Plt Count MPV Absolute Neuts (auto) Neutrophils % Lymphocytes % Monocytes % Eosinophils % Basophils % Nucleated RBC % Sodium 139 Potassium 4.0 Chloride 108 H Carbon Dioxide 27 Anion Gap 4 L BUN 7.8 Creatinine 0.5 L Est GFR (CKD-EPI)AfAm 120.22 Est GFR (CKD-EPI)NonAf 103.73 Random Glucose 109 H Calcium 8.1 L Total Bilirubin 0.6 AST 71 H ALT 29 Alkaline Phosphatase 161 H Total Protein 5.9 L Albumin 2.0 L Blood Type Antibody Screen Crossmatch Physical Exam: NAD. MMM Cv: regular rhythm, tachycardic to 110, no MRG. lungs: CTAB. Ext: R hip with a surgical dressing and some edema, no erythema. R DP and PT 2+ . warm foot with nl sensation . no edema or erythema on LLE Abd distended. NT. nl BS ASSESSMENT AND PLAN: 64 y/o lady with h/o L breast cancer s/p mastectomy, radiation and chemo, with mets to intestine, L4-S1 fusion , sciatica, R femoral head osteonepcrosis ( out pt MRI), who presented due to her hip pain. 1- R femoral head osteonecrosis 2- h/o Met breast cancer. 3- Liver lesions. ? mets. 4- h/o Sciatica and L4-S1 fusion. 5- Dilated R renal collecting system on limited US. 6- Positive LEENA. 7- Sinus tachycardia. 8- Acute blood loss anemia. 9- fever 10- Sickle cell trait 11- constipation with possible mild ileus Plan: - s/p R THR 08/24/19. - Sinus tachycardia due to volume depletion , pain , and anemia . improved - stable HB - pain control - IVF - bowel regimen - DVT px per surgical team: asa bid x 6 weeks - + LEENA , Neg RF and DsDNA. further w/u as out pt - follow CT scan of Abd/pelvis cont PT Visit type - Emergency Visit Emergency Visit: Yes ED Registration Date: 08/20/19 Care time: The patient presented to the Emergency Department on the above date and was hospitalized for further evaluation of their emergent condition. - New Patient This patient is new to me today: No - Critical Care Critical Care patient: No
[2019-08-28] MEDS ORDERED: PROMETHAZINE HCL 25 MG/1 ML VIAL IVPUSH PRN (20:45)
[2019-08-28] MEDS ORDERED: MECLIZINE HCL 25 MG TABLET (FP) PO PRN (20:45)
[2019-08-28] MEDS ORDERED: ONDANSETRON 4 MG/2 ML VIAL IVPUSH PRN (20:45)
[2019-08-28] MEDS ORDERED: guaiFENesin/D-METHORPHAN HB 10 ML UNIT-DOSE CUPS PO PRN (20:45)
[2019-08-28] MEDS ORDERED: MAG HYDROX/AL HYDROX/SIMETH 30 ML UNIT-DOSE CUP PO PRN (20:45)
[2019-08-28] MEDS ORDERED: MUPIROCIN 2% TOPICAL OINTMENT FOR DECOLONIZATION NS SCH (22:00)
[2019-08-28] MEDS ORDERED: CHLORHEXIDINE GLUCONATE 4% CLEANSER FOR DECOLONIZATION TP SCH (22:00)
[2019-08-29] MEDS: GABAPENTIN 400 MG CAPSULE PO SCH ×3 (06:18→22:40)
[2019-08-29 09:24] LABS: HEMATOCRIT 29.9 % (32.4-45.2); HEMOGLOBIN 10.2 GM/dL (10.7-15.3); MCH 29.7 pg (25.7-33.7); MCHC 34.3 g/dl (32.0-36.0); MEAN CELL VOLUME 86.8 fl (80-96); MEAN PLT VOLUME 8.1 fl (7.5-11.1); PLATELET COUNT 212 K/MM3 (134-434); RBC 3.44 M/mm3 (3.60-5.2); RDW 15.7 % (11.6-15.6); WHITE BLOOD COUNT 6.7 K/mm3 (4.0-10.0)
[2019-08-29] MEDS: ASPIRIN 81 MG CHEWABLE TABLETS PO SCH ×2 (10:46→22:40)
[2019-08-29] MEDS: DOCUSATE SODIUM 100 MG CAPSULE (FP) PO PRN (10:46)
[2019-08-29] MEDS: SENNOSIDES/DOCUSATE COMBO (SENNA PLUS) TABLET (UD) PO SCH ×2 (10:46→22:40)
[2019-08-29] MEDS: MAGNESIUM HYDROX 2400MG/30ML ORAL SUSPENSION 30 ML CUP PO PRN (10:47)
[2019-08-29] MEDS: PANTOPRAZOLE 40 MG TABLET PO SCH (10:47)
[2019-08-29] MEDS: POLYETHYLENE GLYCOL 3350 119 GM BTL PO PRN (10:47)
[2019-08-29] MEDS: oxyCODONE HCL 5 MG TABLET PO PRN ×2 (12:38→22:39)
[2019-08-29] MEDS: SODIUM CHLORIDE 1,000 ML IV SCH ×2 (12:39→20:06)
[2019-08-29] MEDS: Methylnaltrexone Bromide 12 MG/0.6 ML KIT SQ SCH (12:39)
--- NOTE | 2019-08-29 13:54 | PN ---
Teaching Attending Note Name of Resident: William Fierro ATTENDING PHYSICIAN STATEMENT I saw and evaluated the patient. I reviewed the resident's note and discussed the case with the resident. I agree with the resident's findings and plan as documented. SUBJECTIVE: No fever or chills. no BELLA . No N/V. she has R hip pain. had a small BM. no ABD pain OBJECTIVE: NAD. MMM Cv: regular rhythm, slightly tachycardic, no MRG. Lungs: CTAB. Ext: R hip with a surgical dressing and some edema, no erythema. R DP and PT 2+ . warm foot with nl sensation . no edema or erythema on LLE Abd distended. NT. nl BS ASSESSMENT AND PLAN: 64 y/o lady with h/o L breast cancer s/p mastectomy, radiation and chemo, with mets to intestine, L4-S1 fusion , sciatica, R femoral head osteonecrosis ( out pt MRI), who presented due to her hip pain. 1- R femoral head osteonecrosis 2- h/o Met breast cancer. 3- Liver lesions. ? mets. 4- h/o Sciatica and L4-S1 fusion. 5- Dilated R renal collecting system on limited US. 6- Positive LEENA. 7- Sinus tachycardia. 8- Acute blood loss anemia. 9- fever 10- Sickle cell trait 11- constipation with possible mild ileus Plan: - s/p R THR 08/24/19. - Sinus tachycardia due to volume depletion, pain, and anemia. improved - stable HB. - pain control. - IVF. - bowel regimen. - DVT px per surgical team: asa bid x 6 weeks - + LEENA , Neg RF and DsDNA. further w/u as out pt - follow CT scan of Abd/pelvis . will try to get a peripheral IV fro the IV contrast . cont PT Rehab placement at [place]
[2019-08-29] MEDS ORDERED: PORTA CATH FLUSH 10 ML IVPUSH ONE (14:15)
--- NOTE | 2019-08-29 16:28 | PN ---
Physical Exam: SUBJECTIVE: Patient seen and examined at the bedside. Patient stated that she continued to have some pain in her right hip and endorsed some dizziness and mild nausea. Denied any acute complaints of cp, sob, abd pain, vomiting, constipation, diarrhea, headaches. OBJECTIVE: Vital Signs Period Temp Pulse Resp BP Sys/Lomeli Pulse Ox Last 24 Hr 98.7 F-100.6 F 98-117 17-20 135-150/72-80 96-99 GENERAL: The patient is awake, alert, and fully oriented, in no acute distress. EYES: PERRL, extraocular movements intact, conjunctiva clear. ENT: Oropharynx clear without exudates, moist mucous membranes. LUNGS: Breath sounds equal, clear to auscultation bilaterally, no wheezes, no crackles, no accessory muscle use. HEART: Regular rate and rhythm, S1, S2 without murmur, rub. ABDOMEN: Soft, no discomfort to palpation, obese, normoactive bowel sounds, no guarding, no rebound, no masses. EXTREMITIES: 2+ pulses, warm, well-perfused, no edema. Noted drain and dressings on the R hip in abductor pillow. Minor pain upon palpation. PSYCH: Normal mood, normal affect. SKIN: Warm, dry, normal turgor, no rashes or lesions noted. Laboratory Results - last 24 hr 08/24/19 08/29/19 06:35 08:30 WBC 6.7 RBC 3.44 L Hgb 10.2 L Hct 29.9 L MCV 86.8 MCH 29.7 MCHC 34.3 RDW 15.7 H Plt Count 212 D MPV 8.1 Blood Type O POSITIVE Antibody Screen Negative Crossmatch See Detail Active Medications Generic Name Dose Route Start Last Admin Trade Name Freq PRN Reason Stop Dose Admin Acetaminophen 650 mg 08/28/19 20:45 Tylenol - PO Q6H PRN Fever Or Pain Al Hydroxide/Mg Hydroxide 30 ml 08/28/19 20:45 Mylanta Oral Suspension - PO Q4H PRN DYSPEPSIA Aspirin 81 mg 08/28/19 22:00 08/29/19 10:46 Asa - PO 81 mg BID WILLIAM Administration Docusate Sodium 100 mg 08/28/19 20:45 08/29/19 10:46 Colace - PO 100 mg DAILY PRN Administration CONSTIPATION Gabapentin 400 mg 08/28/19 22:00 08/29/19 14:45 Neurontin - PO 400 mg TID WILLIAM Administration Guaifenesin 10 ml 08/28/19 20:45 Robitussin Dm - PO Q4H PRN COUGH Sodium Chloride 1,000 mls @ 75 mls/hr 08/27/19 12:15 08/29/19 12:39 Normal Saline - IV Not Given ASDIR WILLIAM Magnesium Hydroxide 30 ml 08/28/19 20:45 08/29/19 10:47 Milk Of Magnesia - PO 30 ml PRN PRN Administration CONSTIPATION Meclizine HCl 25 mg 08/28/19 20:45 Antivert - PO TID PRN PAIN Methylnaltrexone [place] 8 mg 08/27/19 13:45 08/29/19 12:39 Relistor - SQ 8 mg DAILY WILLIAM Administration Morphine Sulfate 1 mg 08/28/19 20:45 Morphine Sulfate IVPUSH Q4H PRN PAIN LEVEL 6-10 Ondansetron HCl 4 mg 08/28/19 20:45 Zofran Injection IVPUSH Q6H PRN NAUSEA Oxycodone HCl 5 mg 08/28/19 20:45 08/29/19 12:38 Roxicodone - PO 5 mg Q4H PRN Administration PAIN LEVEL 1-5 Oxycodone HCl 10 mg 08/28/19 20:45 Roxicodone - PO Q4H PRN PAIN LEVEL 6-10 Pantoprazole Sodium 40 mg 08/29/19 10:00 08/29/19 10:47 Protonix - PO 40 mg DAILY WILLIAM Administration Polyethylene Glycol 17 gm 08/28/19 20:45 08/29/19 10:47 Miralax (For Daily Use) - PO 17 gm DAILY PRN Administration CONSTIPATION Senna/Docusate Sodium 2 tablet 08/28/19 22:00 08/29/19 10:46 Pericolace - PO 2 tablet BID WILLIAM Administration RECORDS OBTAINED FROM ONCOLOGY OFFICE 2011 extensive breast cancer on left side. 10 positive lymph nodes ER+, MO+, HER2 -. Given AC x4 and taxol x4 and radiation, Armimidex. Had retroperitoneal mass biopsied and positive for metastatic breast cancer. Then found to be ER -, MO -, HER/donnell +. On Kadcyla one dose reduction. Impression of breast cancer ER - , MO -, HER/donnell + in the mesentery and retroperitoneum, with recurrence. Hx of extensive primary breast cancer in 2012 that was ER+, MO +, HER/donnell - having f eleanor arimidex, s/p AC x4 and taxol x4. Plan at time of 07/11/19: denied BRCA testing, on "waldemar intervention", had discussed navelbine or trastuzamab deruxtecan with family and patient to make her decision. PET SCAN 05/16/19 Impression: mimimally enlarging paraesophageal adenopathy with a current maximum SUV of 10.8g/ml, increased from previous study. Increasing hypermetabolic activity in mesenteric and retrocaval adenopathy since previous study. stable periceliac and retrocaval adenopathy. findings compatible with mild progression of disease since 02/18/19. 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 and chronic Right hip pain admitted for inability to ambulate secondary to osteonecrosis Inability to ambulate secondary to osteonecrosis - orthopedics consulted, recs appreciated - as per orthopedics and MRI has osteonecrosis of the R hip - s/p day 5 Right total hip replacement - oxycodone, gabapentin for pain. On bowel regimen due to opiate use and constipation - physical therapy/OOB, walked 8ft with PT - chemical AC: aspirin 81mg bid for 6 weeks - incentive spirometry - will likely need SNF upon discharge Fever - likely in setting of atelectasis due to recent surgery and staying immobile in bed - CXR without changes - UA negative, repeat ordered due to repeat fever - continue to monitor Elevated LFTs - abd U/S noting hepatic lesions suggestive of neoplastic disease - hepatitis panel negative - will continue to monitor - triple scan phase ordered to assess liver lesions and bowel, attempting to have scan performed, difficulty in obtaining access Hx of breast CA - will need latif scan to determine extent of malignancy, to be done as outpatient - oncology consulted, recs appreciated - palliative care consulted - previous oncologist, Dr. Gupta in [facility] - records obtained by oncology as per onc note, records also faxed from oncology office shortly as above - colonoscopy could be considered in setting of family history of colon CA as per GI Anemia - Hgb electrophoresis - sickle cell screen positive - LEENA positive - RF, Anti-DSDNA negative - s/p 2 units tranfusion - hematology consulted - continue to monitor CBC DVT PPx - aspirin 81mg bid as per orthopedics FEN - No standing fluids - continue to monitor electrolytes and replete as necessary - regular diet Disposition - continue to monitor on Med-surg - will be discharged to SNF Visit type - Emergency Visit Emergency Visit: Yes ED Registration Date: 08/20/19 Care time: The patient presented to the Emergency Department on the above date and was hospitalized for further evaluation of their emergent condition. - New Patient This patient is new to me today: No - Critical Care Critical Care patient: No
[2019-08-29] MEDS: ACETAMINOPHEN 325 MG TABLET (FP) PO PRN (17:19)
--- NOTE | 2019-08-29 21:41 | PN ---
Progress Note (short form) - Note Progress Note: PAtient seen and examined c/o rt. hip post op. paina nd abdomianlpain HAd 2 BMs today Last Vital Signs Temp Pulse Resp BP Pulse Ox 100 F H 116 H 20 134/74 96 08/29/19 16:20 08/29/19 16:20 08/29/19 16:20 08/29/19 16:20 08/29/19 09:00 Cor: RSR, No murmurs, No gallops Lungs: Clear to P&A Abd: Soft, Normal bowel sounds, mildly distended. no guarding/rigidity Ext:No significant edema LAbs/MEds reviewed A/P Patient is a 64 year old female with past medical history of breast cancer Breast cancer-- diagnosed 8 yrs.ago -- Left breast cancer--stage III diagnosed 2011 --10+ nodes. ER+, MT+, Her2-. Received ACx4 followed by Tx4 and RT. Was on arimidex Developed retroperitoneal mass ---bx + metastatic breast cancer-- ER-/MT-, Her2- 3+. Microsatellite stable. She has been on TDM1.? elevated LFTs needing 1 dose reduction s/p gemzar/trastuzumab ( got medrol dose paks with gemzar) Discussed with primary oncologist in [place]---Plan was to start her on trastuzumab deruxtecan ---when she moved from [place] CT c/a/p --07/08/19 --stable paraesophageal adenopathy. Minimally decreasing mesenteric, retrocaval, periceliac and shotty retrocrural adenopathy, stable to minimally decreased compared to CT c/a/p in 12/2018 will need to review MRI hip and L spine images done in [place] Will request orthopedics consult X ray done here shows no acute pathology 2 hepatic lesions on U/S--? new PET/biopsy when medically stable s/p rt. 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 hip post op. anemia post op. constipation//? ileus appreciate GI input -- CT scans oredered post op. care per icu/surgery/medical teams Will need w/u of liver lesions ane metastATic disease after postop. recovery
[2019-08-30] MEDS: MORPHINE SULFATE 2 MG/ML VIAL IVPUSH PRN (01:44)
[2019-08-30] MEDS: DOCUSATE SODIUM 100 MG CAPSULE (FP) PO PRN ×2 (01:52→09:04)
[2019-08-30] MEDS: MAGNESIUM HYDROX 2400MG/30ML ORAL SUSPENSION 30 ML CUP PO PRN (01:52)
[2019-08-30 05:27] LABS: BASO % 0.3 % (0-2.0); HEMATOCRIT 29.5 % (32.4-45.2); LYMPH % 15.8 % (8-40); MCH 29.7 pg (25.7-33.7); MCHC 33.9 g/dl (32.0-36.0); MEAN CELL VOLUME 87.6 fl (80-96); MEAN PLT VOLUME 7.2 fl (7.5-11.1); MONO % 11.4 % (3.8-10.2); NEUT % 68.5 % (42.8-82.8); PLATELET COUNT 223 K/MM3 (134-434); RBC 3.37 M/mm3 (3.60-5.2); RDW 15.8 % (11.6-15.6); WHITE BLOOD COUNT 5.7 K/mm3 (4.0-10.0)
[2019-08-30] MEDS: GABAPENTIN 400 MG CAPSULE PO SCH ×3 (05:34→21:56)
[2019-08-30 06:13] LABS: ALBUMIN 1.9 g/dl (3.4-5.0); BILIRUBIN,TOTAL 0.4 mg/dL (0.2-1); CALCIUM 8.3 mg/dL (8.5-10.1); CREATININE 0.5 mg/dL (0.55-1.3); MAGNESIUM 2.4 mg/dL (1.8-2.4); TOT PROT 5.8 g/dl (6.4-8.2)
[2019-08-30] MEDS ORDERED: LACTATED RINGERS SOLUTION 1,000 ML/1,000 ML INFUS.BAG IV SCH (06:15)
[2019-08-30] MEDS: Methylnaltrexone Bromide 12 MG/0.6 ML KIT SQ SCH (09:03)
[2019-08-30] MEDS: SENNOSIDES/DOCUSATE COMBO (SENNA PLUS) TABLET (UD) PO SCH ×2 (09:04→21:56)
[2019-08-30] MEDS: PANTOPRAZOLE 40 MG TABLET PO SCH (09:04)
[2019-08-30] MEDS: ASPIRIN 81 MG CHEWABLE TABLETS PO SCH ×2 (09:04→21:57)
[2019-08-30] MEDS ORDERED: MINERAL OIL ENEMA 133 ML ENEMA PR ONE (10:14)
[2019-08-30 12:12] VITALS: BMI 31.4
[2019-08-30 12:41] LABS: EPI CELLS 4.5 /HPF (0-5/HPF); HYALINE CASTS 1 /lpf (0-8); URINE APPEARANCE CLOUDY; URINE BACTERIA 1886.4 /hpf (NEGATIVE); URINE BILIRUBIN NEGATIVE (NEGATIVE); URINE COLOR YELLOW; URINE GLUCOSE (UA) NEGATIVE (NEGATIVE); URINE KETONE NEGATIVE (NEGATIVE); URINE LEUK ESTERASE 1+ (NEGATIVE); URINE NITRITE NEGATIVE (NEGATIVE); URINE PROTEIN NEGATIVE (NEGATIVE); URINE RBC 2 /hpf (0-4); URINE UROBILINOGEN 0.2 mg/dL (0.2-1.0); URINE WBC 8 /hpf (0-5)
[2019-08-30] MEDS ORDERED: CEFTRIAXONE 1 GM in DEXTROSE 5%-WATER - 50 ML IVPB ONE ×2 (13:30→17:30)
[2019-08-30] MEDS: oxyCODONE HCL 5 MG TABLET PO PRN ×2 (13:40→17:26)
--- NOTE | 2019-08-30 14:39 | PN.GI ---
GI Progress Note Subjective: CT scan reviewed: B/L pleural effusions Mass near GE Junction separate from esophagus suspicious for necrotic LN B/L hydronephrosis Enlarged mesenteric LN's Right pelvic mass felt to be necrotic LN Hypodense liver lesions suspicious for tumors Patient sitting in chair, complaining of SOB. O2 Sat 100%. No chest pain. Started on relistor over the weekend - Objective Vital Signs: Vital Signs Temperature 97.9 F 08/30/19 10:56 Pulse Rate 103 H 08/30/19 10:56 Respiratory Rate 18 08/30/19 10:56 Blood Pressure 149/73 08/30/19 10:56 O2 Sat by Pulse Oximetry (%) 96 08/30/19 08:52 Constitutional: Calm Eyes: No: Sclera Icterus Cardiovascular: Yes: Tachycardia. No: Murmur Respiratory: Yes: Diminished (at bases bilaterally) Gastrointestinal Inspection: No: Scars ...Auscultate: Yes: Normoactive Bowel Sounds ...Palpate: Yes: Soft. No: Tenderness ...Percussion: No: Tympanitic Neurological: Yes: Alert Labs: CBC, BMP 08/30/19 05:00 08/30/19 05:00 INR, PTT INR 1.11 (0.83-1.09) H 08/24/19 06:35 Hepatic Panel Total Bilirubin 0.4 mg/dL (0.2-1) 08/30/19 05:00 AST 70 U/L (15-37) H 08/30/19 05:00 ALT 33 U/L (13-61) 08/30/19 05:00 Alkaline Phosphatase 158 U/L (45-117) H 08/30/19 05:00 Albumin 1.9 g/dl (3.4-5.0) L 08/30/19 05:00 Problem List - Problems (1) Constipation Assessment/Plan: On relistor 8mg SC daily MiraLAX and Senokot Discontinue Senokot and MiraLAX if having watery BMS Code(s): K59.00 - CONSTIPATION, UNSPECIFIED (2) Liver masses Assessment/Plan: And lymphadenopathy as described in CT scan suspicious for metastatic disease. Plan per oncology Code(s): R16.0 - HEPATOMEGALY, NOT ELSEWHERE CLASSIFIED (3) Shortness of breath Assessment/Plan: Ms. Panda's nurse is aware and was evaluating Ms. Panda. Will be letting primary team know Code(s): R06.02 - SHORTNESS OF BREATH
--- NOTE | 2019-08-30 15:20 | PN ---
Physical Exam: SUBJECTIVE: Patient seen and examined at the bedside. Stated that she had episodes of vomiting overnight. Noted that she continues to have left hip pain and some abdominal discomfort. Stated that she did have 2 bowel movements after [employer] today. Had one fever yesterday. Denied further fevers, chills, cp, headaches, dizziness, lightheadedness. Endorsed some shortness of breath. OBJECTIVE: Vital Signs Period Temp Pulse Resp BP Sys/Lomeli Pulse Ox Last 24 Hr 97.9 F-100 F 102-116 18-20 110-149/60-74 96-99 GENERAL: The patient is awake, alert, and fully oriented, in no acute distress. EYES: PERRL, extraocular movements intact, conjunctiva clear. ENT: Oropharynx clear without exudates, moist mucous membranes. LUNGS: Breath sounds equal, clear to auscultation bilaterally, no wheezes, no crackles, no accessory muscle use. HEART: Regular rate and rhythm, S1, S2 without murmur, rub. ABDOMEN: Soft, distended, obese, mild discomfort to palpation, normoactive bowel sounds, no guarding, no rebound, no masses. EXTREMITIES: 2+ pulses, warm, well-perfused, no edema. Noted dressings on the R hip in abductor pillow. Minor pain upon palpation. PSYCH: Normal mood, normal affect. SKIN: Warm, dry, normal turgor, no rashes or lesions noted. Laboratory Results - last 24 hr 08/30/19 08/30/19 08/30/19 05:00 05:00 11:30 WBC 5.7 RBC 3.37 L Hgb 10.0 L Hct 29.5 L MCV 87.6 MCH 29.7 MCHC 33.9 RDW 15.8 H Plt Count 223 MPV 7.2 L D Absolute Neuts (auto) 3.9 Neutrophils % 68.5 Lymphocytes % 15.8 Monocytes % 11.4 H Eosinophils % 4.0 Basophils % 0.3 Nucleated RBC % 0 Sodium 140 Potassium 4.0 Chloride 107 Carbon Dioxide 28 Anion Gap 5 L BUN 7.0 Creatinine 0.5 L Est GFR (CKD-EPI)AfAm 120.22 Est GFR (CKD-EPI)NonAf 103.73 Random Glucose 111 H Calcium 8.3 L Magnesium 2.4 Total Bilirubin 0.4 AST 70 H ALT 33 Alkaline Phosphatase 158 H Total Protein 5.8 L Albumin 1.9 L Lipase 125 Urine Color Yellow Urine Appearance Cloudy Urine pH 8.0 D Ur Specific [place] 1.007 L Urine Protein Negative Urine Glucose (UA) Negative Urine Ketones Negative Urine Blood Negative Urine Nitrite Negative Urine Bilirubin Negative Urine Urobilinogen 0.2 Ur Leukocyte Esterase 1+ H Urine WBC (Auto) 8 Urine RBC (Auto) 2 Urine Casts (Auto) 1 U Epithel Cells (Auto) 4.5 Urine Bacteria (Auto) 1886.4 Active Medications Generic Name Dose Route Start Last Admin Trade Name Freq PRN Reason Stop Dose Admin Acetaminophen 650 mg 08/28/19 20:45 08/29/19 17:19 Tylenol - PO 650 mg Q6H PRN Administration Fever Or Pain Al Hydroxide/Mg Hydroxide 30 ml 08/28/19 20:45 Mylanta Oral Suspension - PO Q4H PRN DYSPEPSIA Aspirin 81 mg 08/28/19 22:00 08/30/19 09:04 Asa - PO 81 mg BID [facility] Administration Docusate Sodium 100 mg 08/28/19 20:45 08/30/19 09:04 Colace - PO 100 mg DAILY PRN Administration CONSTIPATION Gabapentin 400 mg 08/28/19 22:00 08/30/19 13:39 Neurontin - PO 400 mg TID WILLIAM Administration Guaifenesin 10 ml 08/28/19 20:45 Robitussin Dm - PO Q4H PRN COUGH Magnesium Hydroxide 30 ml 08/28/19 20:45 08/30/19 01:52 Milk Of Magnesia - PO 30 ml PRN PRN Administration CONSTIPATION Meclizine HCl 25 mg 08/28/19 20:45 Antivert - PO TID PRN PAIN Methylnaltrexone [place] 8 mg 08/27/19 13:45 08/30/19 09:03 Relistor - SQ 8 mg DAILY WILLIAM Administration Morphine Sulfate 1 mg 08/28/19 20:45 08/30/19 01:44 Morphine Sulfate IVPUSH 1 mg Q4H PRN Administration PAIN LEVEL 6-10 Ondansetron HCl 4 mg 08/28/19 20:45 Zofran Injection IVPUSH Q6H PRN NAUSEA Oxycodone HCl 5 mg 08/28/19 20:45 08/29/19 12:38 Roxicodone - PO 5 mg Q4H PRN Administration PAIN LEVEL 1-5 Oxycodone HCl 10 mg 08/28/19 20:45 08/30/19 13:40 Roxicodone - PO 10 mg Q4H PRN Administration PAIN LEVEL 6-10 Pantoprazole Sodium 40 mg 08/29/19 10:00 08/30/19 09:04 Protonix - PO 40 mg DAILY WILLIAM Administration Polyethylene Glycol 17 gm 08/28/19 20:45 08/29/19 10:47 Miralax (For Daily Use) - PO 17 gm DAILY PRN Administration CONSTIPATION Senna/Docusate Sodium 2 tablet 08/28/19 22:00 08/30/19 09:04 Pericolace - PO 2 tablet BID WILLIAM Administration RECORDS OBTAINED FROM ONCOLOGY OFFICE 2012 extensive breast cancer on left side. 10 positive lymph nodes ER+, RI+, HER2 -. Given AC x4 and taxol x4 and radiation, Armimidex. Had retroperitoneal mass biopsied and positive for metastatic breast cancer. Then found to be ER -, RI -, HER/donnell +. On Kadcyla one dose reduction. Impression of breast cancer ER - , RI -, HER/donnell + in the mesentery and retroperitoneum, with recurrence. Hx of extensive primary breast cancer in 2011 that was ER+, RI +, HER/donnell - having failed arimidex, s/p AC x4 and taxol x4. Plan at time of 07/11/19: denied BRCA testing, on "waldemar intervention", had discussed navelbine or trastuzamab deruxtecan with family and patient to make her decision. PET SCAN 05/16/19 Impression: mimimally enlarging paraesophageal adenopathy with a current maximum SUV of 10.8g/ml, increased from previous study. Increasing hypermetabolic activity in mesenteric and retrocaval adenopathy since previous study. stable periceliac and retrocaval adenopathy. findings compatible with mild progression of disease since 02/18/19. no new hypermetabolic lesions CT CHEST ABDOMEN PELVIS 07/08/19 CT CHEST: stable paraesophageal adenopathy with current maximum short axis diaemeter 18mm, unchanged CT ABD/PELVIS: Minimally decreasing mesenteric, retrocaval, periceliac, and shotty retrocrural adenopathy, all stable or minimally decrease since the previous study, compatible with positive responses to therapy IMAGING CT ABD/PELVIS 1. Bilateral pleural effusions and bibasilar atelectasis. 2. GE junction mass possibly representing a necrotic lymph node. 3. Ascites. 4. Hepatomegaly with hypodense liver lesions suspicious for metastatic disease. 5. Bilateral hydronephrosis without obvious obstruction. 6. Enlarged mesenteric lymph nodes. 7. Right pelvic masses also suspicious for additional adenopathy. Local correlation and follow-up recommended. Please see above discussion. 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 On bowel regimen due to opiate use and constipation, had been having bowel movements. Can d/c if patient having watery bowel movements - physical therapy/OOB, walked 8ft with PT - chemical AC: aspirin 81mg bid for 6 weeks - incentive spirometry - will need SNF upon discharge Fever - likely in setting of atelectasis due to recent surgery and staying immobile in bed - CXR without changes - UA negative, repeat noting bacteriuria, ordering urine and blood cx - one dose of ceftriaxone, continue to monitor and restart if cultures grow bacteria Elevated LFTs - abd U/S noting hepatic lesions suggestive of neoplastic disease - hepatitis panel negative - will continue to monitor - triple scan phase ordered to assess liver lesions and bowel, report as above Hx of breast CA - will need latif scan to determine extent of malignancy, to be done as outpatient - oncology consulted, recs appreciated - palliative care consulted - previous oncologist, Dr. Gupta in [facility] - records obtained by oncology as per onc note, records also faxed from oncology office shortly as above - colonoscopy could be considered in setting of family history of colon CA as per GI Anemia - Hgb electrophoresis - sickle cell screen positive - LEENA positive - RF, Anti-DSDNA negative - s/p 2 units tranfusion - hematology consulted - continue to monitor CBC DVT PPx - aspirin 81mg bid as per orthopedics FEN - No standing fluids - continue to monitor electrolytes and replete as necessary - regular diet Disposition - continue to monitor on Med-surg - will be discharged to SNF Visit type - Emergency Visit Emergency Visit: Yes ED Registration Date: 08/20/19 Care time: The patient presented to the Emergency Department on the above date and was hospitalized for further evaluation of their emergent condition. - New Patient This patient is new to me today: No - Critical Care Critical Care patient: No
[2019-08-30] MEDS ORDERED: DEXTROSE 5%-WATER - 50 ML IVPB ONE (17:24)
[2019-08-30] MEDS ORDERED: cefTRIAXone SODIUM 1 GM VIAL ONE (17:24)
--- NOTE | 2019-08-30 19:39 | PN ---
Teaching Attending Note Name of Resident: William Fierro ATTENDING PHYSICIAN STATEMENT I saw and evaluated the patient. I reviewed the resident's note and discussed the case with the resident. I agree with the resident's findings and plan as documented. SUBJECTIVE:seen at around 12 pm no fever or chills. no SOB , no N/V . had BMs. feels her Abd distention is better OBJECTIVE: NAD. MMM Cv: regular rhythm, slightly tachycardic, no MRG. Lungs: CTAB. Ext: R hip with a surgical dressing and some edema, no erythema. R DP and PT 2+ . warm foot with nl sensation. no edema or erythema on LLE Abd distended. minimal TTp inall quadrants, no guarding . Tympany. bladder is not percussed ASSESSMENT AND PLAN: 64 y/o lady with h/o L breast cancer s/p mastectomy, radiation and chemo, with mets to intestine, L4-S1 fusion , sciatica, R femoral head osteonecrosis ( out pt MRI), who presented due to her hip pain. 1- R femoral head osteonecrosis 2- h/o Met breast cancer. 3- Suspicion for Liver lesions 4- h/o Sciatica and L4-S1 fusion. 5- Dilated R renal collecting system on limited US. 6- Positive LEENA. 7- Sinus tachycardia. 8- Acute blood loss anemia. 9- fever : resolved 10- Sickle cell trait 11- constipation with possible mild ileus 12 - bilateral hydronephrosis Plan: - s/p R THR 08/24/19. - stable HB. - having BM. cont bowel regimen - dc IVF - CT scan reviewed . lymphadenopathy . liver lesions likely mets. b/l hydro - uro eval as out pt - d/w ONc team: No plan for any specific treatment at this point after her sx - DVT px per surgical team: asa bid x 6 weeks - + LEENA, Neg RF and DsDNA. further w/u as out pt cont PT Rehab placement at [facility] ASSESSMENT AND PLAN:
[2019-08-31] MEDS: GABAPENTIN 400 MG CAPSULE PO SCH ×3 (05:34→21:28)
--- NOTE | 2019-08-31 09:17 | PN ---
Teaching Attending Note Name of Resident: William Fierro ATTENDING PHYSICIAN STATEMENT I saw and evaluated the patient. I reviewed the resident's note and discussed the case with the resident. I agree with the resident's findings and plan as documented. SUBJECTIVE: Patient look comfortbale with no acute distress. Vital Signs Temperature 98.6 F 08/31/19 06:00 Pulse Rate 109 H 08/31/19 06:00 Respiratory Rate 20 08/31/19 06:00 Blood Pressure 145/75 08/31/19 06:00 O2 Sat by Pulse Oximetry (%) 96 08/30/19 21:00 GENERAL: The patient is awake, alert, and fully oriented, in no acute distress. HEAD: Normal with no signs of trauma. EYES: PERRL, extraocular movements intact, sclera anicteric, conjunctiva clear. ENT: Ears normal, oropharynx clear without exudates, moist mucous membranes. NECK: Trachea midline, full range of motion, supple. LUNGS: Breath sounds equal, clear to auscultation bilaterally, no wheezes, no crackles, no accessory muscle use. HEART: NST rate of 109, S1, S2 without murmur, rub or gallop. ABDOMEN: Soft, nontender, nondistended, normoactive bowel sounds, no guarding, no rebound, no hepatosplenomegaly, no masses. EXTREMITIES: 2+ pulses, warm, well-perfused, no edema. NEUROLOGICAL: Cranial nerves II through XII grossly intact. Normal speech, gait not observed. PSYCH: Normal mood, normal affect. SKIN: Warm, dry, normal turgor, no rashes or lesion CBCD WBC 5.7 K/mm3 (4.0-10.0) 08/30/19 05:00 RBC 3.37 M/mm3 (3.60-5.2) L 08/30/19 05:00 Hgb 10.0 GM/dL (10.7-15.3) L 08/30/19 05:00 Hct 29.5 % (32.4-45.2) L 08/30/19 05:00 MCV 87.6 fl (80-96) 08/30/19 05:00 MCHC 33.9 g/dl (32.0-36.0) 08/30/19 05:00 RDW 15.8 % (11.6-15.6) H 08/30/19 05:00 Plt Count 223 K/MM3 (134-434) 08/30/19 05:00 MPV 7.2 fl (7.5-11.1) L D 08/30/19 05:00 CMP Sodium 140 mmol/L (136-145) 08/30/19 05:00 Potassium 4.0 mmol/L (3.5-5.1) 08/30/19 05:00 Chloride 107 mmol/L (98-107) 08/30/19 05:00 Carbon Dioxide 28 mmol/L (21-32) 08/30/19 05:00 Anion Gap 5 MMOL/L (8-16) L 08/30/19 05:00 BUN 7.0 mg/dL (7-18) 08/30/19 05:00 Creatinine 0.5 mg/dL (0.55-1.3) L 08/30/19 05:00 Random Glucose 111 mg/dL (74-106) H 08/30/19 05:00 Calcium 8.3 mg/dL (8.5-10.1) L 08/30/19 05:00 Total Bilirubin 0.4 mg/dL (0.2-1) 08/30/19 05:00 AST 70 U/L (15-37) H 08/30/19 05:00 ALT 33 U/L (13-61) 08/30/19 05:00 Alkaline Phosphatase 158 U/L (45-117) H 08/30/19 05:00 Total Protein 5.8 g/dl (6.4-8.2) L 08/30/19 05:00 Albumin 1.9 g/dl (3.4-5.0) L 08/30/19 05:00 Current Medications Generic Name Dose Route Start Last Admin Trade Name Freq PRN Reason Stop Dose Admin Acetaminophen 650 mg 08/28/19 20:45 08/29/19 17:19 Tylenol - PO 650 mg Q6H PRN Administration Fever Or Pain Al Hydroxide/Mg Hydroxide 30 ml 08/28/19 20:45 Mylanta Oral Suspension - PO Q4H PRN DYSPEPSIA Aspirin 81 mg 08/28/19 22:00 08/30/19 21:57 Asa - PO 81 mg BID WILLIAM Administration Docusate Sodium 100 mg 08/28/19 20:45 08/30/19 09:04 Colace - PO 100 mg DAILY PRN Administration CONSTIPATION Gabapentin 400 mg 08/28/19 22:00 08/31/19 05:34 Neurontin - PO 400 mg TID [facility] Administration Guaifenesin 10 ml 08/28/19 20:45 Robitussin Dm - PO Q4H PRN COUGH Magnesium Hydroxide 30 ml 08/28/19 20:45 08/30/19 01:52 Milk Of Magnesia - PO 30 ml PRN PRN Administration CONSTIPATION Meclizine HCl 25 mg 08/28/19 20:45 Antivert - PO TID PRN PAIN Methylnaltrexone [place] 8 mg 08/27/19 13:45 08/30/19 09:03 Relistor - SQ 8 mg DAILY [facility] Administration Morphine Sulfate 1 mg 08/28/19 20:45 08/30/19 01:44 Morphine Sulfate IVPUSH 1 mg Q4H PRN Administration PAIN LEVEL 6-10 Ondansetron HCl 4 mg 08/28/19 20:45 Zofran Injection IVPUSH Q6H PRN NAUSEA Oxycodone HCl 5 mg 08/28/19 20:45 08/29/19 12:38 Roxicodone - PO 5 mg Q4H PRN Administration PAIN LEVEL 1-5 Oxycodone HCl 10 mg 08/28/19 20:45 08/30/19 17:26 Roxicodone - PO 10 mg Q4H PRN Administration PAIN LEVEL 6-10 Pantoprazole Sodium 40 mg 08/29/19 10:00 08/30/19 09:04 Protonix - PO 40 mg DAILY WILLIAM Administration Polyethylene Glycol 17 gm 08/28/19 20:45 08/29/19 10:47 Miralax (For Daily Use) - PO 17 gm DAILY PRN Administration CONSTIPATION Senna/Docusate Sodium 2 tablet 08/28/19 22:00 08/30/19 21:56 Pericolace - PO 2 tablet BID [facility] Administration Home Medications Medication Instructions Recorded Gabapentin 400 mg PO TID 08/21/19 Meclizine HCl 25 mg PO TID PRN 08/21/19 Oxycodone HCl/Acetaminophen 1 each PO TID 08/21/19 [Oxycodone-Acetaminophen 10-325] Tramadol HCl 50 mg PO TID 08/21/19 Microbiology 08/25/19 22:12 Blood - Peripheral Venous Blood Culture - Final NO GROWTH AFTER 5 DAYS INCUBATION 08/25/19 22:55 Blood - Peripheral Venous Blood Culture - Final NO GROWTH AFTER 5 DAYS INCUBATION 08/25/19 23:30 Urine - Urine - Catheterized Urine Culture - Final NO GROWTH OBTAINED CT scan reviewed . lymphadenopathy . liver lesions likely mets. b/l hydro ASSESSMENT AND PLAN: Patient is a 64yof with PMhx of L breast cancer s/p mastectomy, radiation and chemo, with mets to intestine, L4-S1 fusion , sciatica, R femoral head osteonecrosis ( out pt MRI), who presented due to having hip pain. # R femoral head osteonecrosis s/p R THR 08/24/19. # h/o Met breast cancer. # Suspicion for Liver lesions # h/o Sciatica and L4-S1 fusion. # Dilated R renal collecting system on limited US. # Positive LEENA. # Sinus tachycardia. # Acute blood loss anemia. # fever : resolved # Sickle cell trait # constipation with possible mild ileus; resolved # bilateral hydronephrosis hematology recommends lovenox aq vs aspirin since is a high risk for dvt as per oncology team: No plan for any specific treatment at this point after her sx as per ortho : DVT px per surgical team: asa bid x 6 weeks cont PT Rehab placement at [facility]
[2019-08-31] MEDS: SENNOSIDES/DOCUSATE COMBO (SENNA PLUS) TABLET (UD) PO SCH ×2 (09:43→21:28)
[2019-08-31] MEDS: ASPIRIN 81 MG CHEWABLE TABLETS PO SCH ×2 (09:43→21:28)
[2019-08-31] MEDS: PANTOPRAZOLE 40 MG TABLET PO SCH (09:43)
[2019-08-31] MEDS: ACETAMINOPHEN 325 MG TABLET (FP) PO PRN ×2 (09:44→21:30)
[2019-08-31] MEDS ORDERED: PT OWN MED DRAWER 7, Y5N ONE (10:39)
--- NOTE | 2019-08-31 11:50 | PN.GI ---
GI Progress Note Subjective: Continues with constipation, though small BM yesterday in afternoon. - Objective Vital Signs: Vital Signs Temperature 99.2 F 08/31/19 09:00 Pulse Rate 114 H 08/31/19 09:00 Respiratory Rate 18 08/31/19 09:00 Blood Pressure 139/71 08/31/19 09:00 O2 Sat by Pulse Oximetry (%) 96 08/30/19 21:00 Gastrointestinal Inspection: No: Distention ...Auscultate: Yes: Normoactive Bowel Sounds ...Palpate: Yes: Soft. No: Tenderness Labs: CBC, BMP 08/30/19 05:00 08/30/19 05:00 INR, PTT INR 1.11 (0.83-1.09) H 08/24/19 06:35 - ....Imaging Cat Scan: Report Reviewed (Suspicious for necrotic LN's adjacent to esophagus and liver lesions likely constituting metastases) Assessment/Plan Continued constipation in setting of being bed bound with hip pain and CT findings suspicious for metastatic disease. Suggest: Increase Miralax to 85 g x 1 (1/4 of usual bowel prep for colonoscopy) followed by daily dose of 34 g Plans per oncology given findings highly suggestive of metastatic disease
[2019-08-31] MEDS: Methylnaltrexone Bromide 12 MG/0.6 ML KIT SQ SCH (12:00)
--- NOTE | 2019-08-31 13:21 | PN ---
Physical Exam: SUBJECTIVE: Patient seen and examined at the bedside. Patient stated that she continues to have pain in her hip and occasionally does get some shortness of breath when she ambulates. Has occasional dizziness, feels generalized weakness , and has some abdominal pain. Noted she had a very small bowel movement overnight. Denied cp, nausea, vomiting, headaches, fever, chills, visual changes. OBJECTIVE: Vital Signs Period Temp Pulse Resp BP Sys/Lomeli Pulse Ox Last 24 Hr 98 F-99.2 F 103-116 18-20 122-145/58-76 96 GENERAL: The patient is awake, alert, and fully oriented, in no acute distress. EYES: PERRL, extraocular movements intact, conjunctiva clear. ENT: Oropharynx clear without exudates, moist mucous membranes. LUNGS: Breath sounds equal, clear to auscultation bilaterally, no wheezes, no crackles, no accessory muscle use. HEART: Regular rate and rhythm, S1, S2 without murmur, rub. ABDOMEN: Soft, distended, obese, mild discomfort to palpation throughout, normoactive bowel sounds, no guarding, no rebound, no masses. EXTREMITIES: 2+ pulses, warm, well-perfused, no edema. Noted dressings on the R hip in abductor pillow. Minor pain upon palpation. PSYCH: Normal mood, normal affect. SKIN: Warm, dry, normal turgor. Laboratory Results - last 24 hr 08/23/19 08/23/19 08/23/19 06:40 06:40 06:40 WBC 4.5 Corrected WBC (auto) [employer] RBC 3.64 Hgb 10.6 L Hct 30.7 L MCV 84.3 MCH 29.1 MCHC 34.5 RDW 16.4 H Plt Count 171 MPV 8.6 Manual Slide Review Mar[employer] Install[employer] Platelet Comment [employer] Install[employer] Sickle Cell Screen Positive Hemoglobin A Cancelled Hemoglobin A2 Cancelled Hemoglobin C Cancelled Hemoglobin S Cancelled Variant Hemoglobin Cancelled Hemoglobin Interpret Cancelled Maternal Rh Cancelled Hemoglobin Solubility Cancelled Sodium 142 Potassium 3.7 Chloride 111 H Carbon Dioxide 27 Anion Gap 4 L BUN 5.8 L Creatinine 0.5 L Est GFR (CKD-EPI)AfAm 120.22 Est GFR (CKD-EPI)NonAf 103.73 POC Glucometer Random Glucose 106 Calcium 9.0 Total Bilirubin 0.5 AST 70 H ALT 53 Alkaline Phosphatase 222 H Total Protein 6.8 Albumin 2.6 L Blood Type Antibody Screen Crossmatch 08/27/19 08/31/19 14:45 11:28 WBC Corrected WBC (auto) RBC Hgb Hct MCV MCH MCHC RDW Plt Count MPV Manual Slide Review Platelet Comment Sickle Cell Screen Hemoglobin A Hemoglobin A2 Hemoglobin C Hemoglobin S Variant Hemoglobin Hemoglobin Interpret Maternal Rh Hemoglobin Solubility Sodium Potassium Chloride Carbon Dioxide Anion Gap BUN Creatinine Est GFR (CKD-EPI)AfAm Est GFR (CKD-EPI)NonAf POC Glucometer 109 Random Glucose Calcium Total Bilirubin AST ALT Alkaline Phosphatase Total Protein Albumin Blood Type O POSITIVE Antibody Screen Negative Crossmatch See Detail Active Medications Generic Name Dose Route Start Last Admin Trade Name Freq PRN Reason Stop Dose Admin Acetaminophen 650 mg 08/28/19 20:45 08/31/19 09:44 Tylenol - PO 650 mg Q6H PRN Administration Fever Or Pain Al Hydroxide/Mg Hydroxide 30 ml 08/28/19 20:45 Mylanta Oral Suspension - PO Q4H PRN DYSPEPSIA Aspirin 81 mg 08/28/19 22:00 08/31/19 09:43 Asa - PO 81 mg BID WILLIAM Administration Docusate Sodium 100 mg 08/28/19 20:45 08/30/19 09:04 Colace - PO 100 mg DAILY PRN Administration CONSTIPATION Gabapentin 400 mg 08/28/19 22:00 08/31/19 05:34 Neurontin - PO 400 mg TID WILLIAM Administration Guaifenesin 10 ml 08/28/19 20:45 Robitussin Dm - PO Q4H PRN COUGH Magnesium Hydroxide 30 ml 08/28/19 20:45 08/30/19 01:52 Milk Of Magnesia - PO 30 ml PRN PRN Administration CONSTIPATION Meclizine HCl 25 mg 08/28/19 20:45 Antivert - PO TID PRN PAIN Methylnaltrexone [place] 8 mg 08/27/19 13:45 08/31/19 12:00 Relistor - SQ 8 mg DAILY WILLIAM Administration Morphine Sulfate 1 mg 08/28/19 20:45 08/30/19 01:44 Morphine Sulfate IVPUSH 1 mg Q4H PRN Administration PAIN LEVEL 6-10 Ondansetron HCl 4 mg 08/28/19 20:45 Zofran Injection IVPUSH Q6H PRN NAUSEA Oxycodone HCl 5 mg 08/28/19 20:45 02/24/20 12:38 Roxicodone - PO 5 mg Q4H PRN Administration PAIN LEVEL 1-5 Oxycodone HCl 10 mg 08/28/19 20:45 08/30/19 17:26 Roxicodone - PO 10 mg Q4H PRN Administration PAIN LEVEL 6-10 Pantoprazole Sodium 40 mg 08/29/19 10:00 08/31/19 09:43 Protonix - PO 40 mg DAILY WILLIAM Administration Polyethylene Glycol 17 gm 08/28/19 20:45 08/29/19 10:47 Miralax (For Daily Use) - PO 17 gm DAILY PRN Administration CONSTIPATION Senna/Docusate Sodium 2 tablet 08/28/19 22:00 08/31/19 09:43 Pericolace - PO 2 tablet BID WILLIAM Administration RECORDS OBTAINED FROM ONCOLOGY OFFICE 2012 extensive breast cancer on left side. 10 positive lymph nodes ER+, MO+, HER2 -. Given AC x4 and taxol x4 and radiation, Armimidex. Had retroperitoneal mass biopsied and positive for metastatic breast cancer. Then found to be ER -, MO -, HER/donnell +. On Kadcyla one dose reduction. Impression of breast cancer ER - , MO -, HER/donnell + in the mesentery and retroperitoneum, with recurrence. Hx of extensive primary breast cancer in 2011 that was ER+, MO +, HER/donnell - having failed arimidex, s/p AC x4 and taxol x4. Plan at time of 07/11/19: denied BRCA testing, on "waldemar intervention", had discussed navelbine or trastuzamab deruxtecan with family and patient to make her decision. PET SCAN 05/16/19 Impression: mimimally enlarging paraesophageal adenopathy with a current maximum SUV of 10.8g/ml, increased from previous study. Increasing hypermetabolic activity in mesenteric and retrocaval adenopathy since previous study. stable periceliac and retrocaval adenopathy. findings compatible with mild progression of disease since 02/18/19. no new hypermetabolic lesions CT CHEST ABDOMEN PELVIS 07/08/19 CT CHEST: stable paraesophageal adenopathy with current maximum short axis diaemeter 18mm, unchanged CT ABD/PELVIS: Minimally decreasing mesenteric, retrocaval, periceliac, and shotty retrocrural adenopathy, all stable or minimally decrease since the previous study, compatible with positive responses to therapy IMAGING CT ABD/PELVIS 1. Bilateral pleural effusions and bibasilar atelectasis. 2. GE junction mass possibly representing a necrotic lymph node. 3. Ascites. 4. Hepatomegaly with hypodense liver lesions suspicious for metastatic disease. 5. Bilateral hydronephrosis without obvious obstruction. 6. Enlarged mesenteric lymph nodes. 7. Right pelvic masses also suspicious for additional adenopathy. Local correlation and follow-up recommended. Please see above discussion. 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 Inability to ambulate secondary to osteonecrosis - orthopedics consulted, recs appreciated - as per orthopedics and MRI has osteonecrosis of the R hip - s/p day 7 Right total hip replacement - oxycodone, gabapentin for pain. On bowel regimen due to opiate use and constipation, had been having bowel movements. Can d/c if patient having watery bowel movements - physical therapy/OOB, walked 25ft with PT - chemical AC: aspirin 81mg bid for 6 weeks. After speaking with orthopedics it is advised to have this DVT prophylaxis regimen and not to stop it as patients after hip replacement are at high risk of DVT - incentive spirometry - will need SNF upon discharge Fever - likely in setting of atelectasis due to recent surgery and staying immobile in bed - CXR without changes - UA negative, repeat noting bacteriuria, ordering urine and blood cx - one dose of ceftriaxone, continue to monitor and restart if cultures grow bacteria, has remained afebrile - bilateral duplex negative for DVT - will CTA in setting of malignancy, recent surgery, increased immobility PE. Wells Score 4 for PE Elevated LFTs - abd U/S noting hepatic lesions suggestive of neoplastic disease - hepatitis panel negative - will continue to monitor - triple scan phase ordered to assess liver lesions and bowel, report as above Hx of breast CA - will need latif scan to determine extent of malignancy, to be done as outpatient - oncology consulted, recs appreciated - palliative care consulted - previous oncologist, Dr. Gupta in [facility] [place] - records obtained by oncology as per onc note, records also faxed from oncology office shortly as above - colonoscopy could be considered in setting of family history of colon CA as per GI - lesions and lymph nodes to be biopsied at a later time when aspirin prophylaxis is completed as biopsy will require no antiplatelets or anticoagulants. No chemotherapy or cancer treatment will be initiated prior to biopsy and analysis of lesions. Patient can be discharged to SNF for subacute rehab and will follow up with the oncology service for further guidance and management of her cancer. Discussed with hematology/oncology team Anemia - Hgb electrophoresis - sickle cell screen positive - LEENA positive - RF, Anti-DSDNA negative - s/p 2 units transfusion - hematology consulted, recs appreciated - continue to monitor CBC Constipation - likely in the setting of decreased mobility, opiate use, and CT findings suspicious of metastatic disease - GI consulted, recs appreciated - Miralax 85gm x1 followed by daily dose of 34g daily - continue to monitor for bowel movements DVT PPx - aspirin 81mg bid as per orthopedics FEN - No standing fluids - continue to monitor electrolytes and replete as necessary - regular diet Disposition - continue to monitor on Med-surg - will be discharged to SNF Visit type - Emergency Visit Emergency Visit: Yes ED Registration Date: 08/20/19 Care time: The patient presented to the Emergency Department on the above date and was hospitalized for further evaluation of their emergent condition. - New Patient This patient is new to me today: No - Critical Care Critical Care patient: No
[2019-08-31] MEDS: oxyCODONE HCL 5 MG TABLET PO PRN ×2 (14:02→21:28)
--- NOTE | 2019-08-31 16:45 | EKG ---
Test Reason : Blood Pressure : / mmHG Vent. Rate : 115 BPM Atrial Rate : 115 BPM P-R Int : 142 ms QRS Dur : 068 ms QT Int : 328 ms P-R-T Axes : 029 006 -04 degrees QTc Int : 453 ms SINUS TACHYCARDIA INFERIOR INFARCT , AGE UNDETERMINED ABNORMAL ECG WHEN COMPARED WITH ECG OF 20-AUG-2019 23:43, INFERIOR INFARCT IS NOW PRESENT PATIENT SITTING IN CHAIR DURING EKG, V1, V2 POSITIONED HIGHER DUE TO CHEST PORT . Confirmed by MD DEION, ALFREDO ([id number]) on 08/31/2019 4:44:42 PM Referred By: Dexter LAND Confirmed By:ALFREDO ALBARRAN MD
[2019-08-31] MEDS: MORPHINE SULFATE 2 MG/ML VIAL IVPUSH PRN (17:02)
--- NOTE | 2019-08-31 20:40 | PN ---
Progress Note (short form) - Note Progress Note: 64F s/p RIGHT total hip replacement POD #5. Pain well controlled. No acute events overnight. Pt. denies overnight history of headaches, chest pain, shortness of breath, nausea, vomiting, chills, & sweats. (+) Voiding; (+) Flatus; (+) BM. Tolerating diet. (+) Walked in room with PT. All labs and vitals reviewed. PE: AAO x 3, NAD. R-Hip: Dressing C/D/I. Drain intact & in place; drain removed now on rounds. NVI distally. A/P: 64F s/p RIGHT total hip replacement POD #5. -Pain control. -DVT PPx: -Chemical: ASA 81mg PO BID x 6 weeks. -Mechanical: KIRILL's, SCD's. -Incentive spirometry q15 min. -PT/OT/Rehab, OOB. -WBAT RLE. -(+) Hip abduction pillow x 6 weeks when in bed. -(+) R hip precautions. -Diet as tolerated. -Care per medical hospitalist & medical oncology teams. -Discharge planning: rehab; f/u [facility] [place] office 7-10 days after hospital discharge; call for appointment; . -Will follow. Nic Elaine MD (Orthopaedic Surgery).
[2019-09-01] MEDS: POLYETHYLENE GLYCOL 3350 119 GM BTL PO PRN (01:43)
[2019-09-01] MEDS: GABAPENTIN 400 MG CAPSULE PO SCH ×3 (06:36→21:59)
[2019-09-01 07:22] LABS: BASO % 0.4 % (0-2.0); EOS % 4.1 % (0-4.5); HEMATOCRIT 27.4 % (32.4-45.2); HEMOGLOBIN 9.4 GM/dL (10.7-15.3); LYMPH % 17.3 % (8-40); MCH 29.9 pg (25.7-33.7); MCHC 34.4 g/dl (32.0-36.0); MEAN CELL VOLUME 86.7 fl (80-96); MEAN PLT VOLUME 7.5 fl (7.5-11.1); MONO % 8.8 % (3.8-10.2); NEUT % 69.4 % (42.8-82.8); PLATELET COUNT 250 K/MM3 (134-434); RBC 3.16 M/mm3 (3.60-5.2); RDW 15.8 % (11.6-15.6); WHITE BLOOD COUNT 5.4 K/mm3 (4.0-10.0)
[2019-09-01 08:01] LABS: ALBUMIN 1.8 g/dl (3.4-5.0); BILIRUBIN,TOTAL 0.3 mg/dL (0.2-1); BLOOD UREA NITROGEN 6.1 mg/dL (7-18); CALCIUM 8.3 mg/dL (8.5-10.1); CREATININE 0.5 mg/dL (0.55-1.3); MAGNESIUM 2.1 mg/dL (1.8-2.4); POTASSIUM 3.7 mmol/L (3.5-5.1); TOT PROT 5.6 g/dl (6.4-8.2)
[2019-09-01] MEDS ORDERED: cefTRIAXone SODIUM 1 GM VIAL ONE (09:48)
[2019-09-01] MEDS ORDERED: DEXTROSE 5%-WATER - 50 ML IVPB ONE (09:48)
[2019-09-01] MEDS: CEFTRIAXONE 1 GM in DEXTROSE 5%-WATER - 50 ML IVPB SCH ×2 (10:25→10:27)
[2019-09-01] MEDS: SENNOSIDES/DOCUSATE COMBO (SENNA PLUS) TABLET (UD) PO SCH ×2 (10:26→22:02)
[2019-09-01] MEDS: PANTOPRAZOLE 40 MG TABLET PO SCH (10:26)
[2019-09-01] MEDS: ASPIRIN 81 MG CHEWABLE TABLETS PO SCH (10:26)
[2019-09-01] MEDS: ENOXAPARIN NA (PORCINE) 40 MG/0.4 ML DISP.SYRIN SQ SCH (10:26)
[2019-09-01] MEDS: Methylnaltrexone Bromide 12 MG/0.6 ML KIT SQ SCH (10:32)
[2019-09-01] MEDS ORDERED: PT OWN MED DRAWER 7, Y5N ONE (10:59)
[2019-09-01] MEDS: oxyCODONE HCL 5 MG TABLET PO PRN ×3 (12:22→21:58)
--- NOTE | 2019-09-01 16:38 | PN ---
Physical Exam: SUBJECTIVE: Patient seen and examined at the bedside. Stated that she felt ok. Her breathing status she noted is stable. Had not had good bowel movements. Denied cp, sob, abd pain, nausea, vomiting, lightheadness, focal weakness, sensory deficits, fever, chills. OBJECTIVE: Vital Signs Period Temp Pulse Resp BP Sys/Lomeli Pulse Ox Last 24 Hr 97.8 F-99.4 F 95-120 15-21 138-175/68-79 98 GENERAL: The patient is awake, alert, and fully oriented, in no acute distress. EYES: PERRL, extraocular movements intact, conjunctiva clear. ENT: Oropharynx clear without exudates, moist mucous membranes. LUNGS: Breath sounds equal, clear to auscultation bilaterally, no wheezes, no crackles, no accessory muscle use. HEART: Regular rate and rhythm, S1, S2 without murmur, rub. ABDOMEN: Soft, distended, obese, mild discomfort to palpation throughout, normoactive bowel sounds, no guarding, no rebound, no masses. EXTREMITIES: 2+ pulses, warm, well-perfused, no edema. Dressing intact. Minor pain upon palpation. NEUROLOGY: 4/5 muscle strength bilaterally upper and lower extremities. Sensation intact to gross touch throughout. PSYCH: Normal mood, normal affect. SKIN: Warm, dry, normal turgor. Laboratory Results - last 24 hr 09/01/19 09/01/19 06:30 06:30 WBC 5.4 RBC 3.16 L Hgb 9.4 L Hct 27.4 L MCV 86.7 MCH 29.9 MCHC 34.4 RDW 15.8 H Plt Count 250 MPV 7.5 Absolute Neuts (auto) 3.8 Neutrophils % 69.4 Lymphocytes % 17.3 Monocytes % 8.8 Eosinophils % 4.1 Basophils % 0.4 Nucleated RBC % 0 Sodium 139 Potassium 3.7 Chloride 105 Carbon Dioxide 27 Anion Gap 7 L BUN 6.1 L Creatinine 0.5 L Est GFR (CKD-EPI)AfAm 120.22 Est GFR (CKD-EPI)NonAf 103.73 Random Glucose 96 Calcium 8.3 L Phosphorus 4.0 Magnesium 2.1 Total Bilirubin 0.3 AST 71 H ALT 34 Alkaline Phosphatase 164 H Total Protein 5.6 L Albumin 1.8 L Active Medications Generic Name Dose Route Start Last Admin Trade Name Freq PRN Reason Stop Dose Admin Acetaminophen 650 mg 08/28/19 20:45 08/31/19 21:30 Tylenol - PO 650 mg Q6H PRN Administration Fever Or Pain Al Hydroxide/Mg Hydroxide 30 ml 08/28/19 20:45 09/01/19 01:43 Mylanta Oral Suspension - PO 30 ml Q4H PRN Administration DYSPEPSIA Aspirin 81 mg 08/28/19 22:00 09/01/19 10:26 Asa - PO 81 mg BID [facility] Administration Docusate Sodium 100 mg 08/28/19 20:45 08/30/19 09:04 Colace - PO 100 mg DAILY PRN Administration CONSTIPATION Enoxaparin Sodium 40 mg 09/01/19 10:00 09/01/19 10:26 Lovenox - SQ 40 mg DAILY [facility] Administration Gabapentin 400 mg 08/28/19 22:00 09/01/19 06:36 Neurontin - PO 400 mg TID [facility] Administration Guaifenesin 10 ml 08/28/19 20:45 Robitussin Dm - PO Q4H PRN COUGH Ceftriaxone Sodium 1 gm/ 50 mls @ 200 mls/hr 09/01/19 09:45 09/01/19 10:27 Dextrose IVPB Not Given DAILY [facility] Protocol Magnesium Hydroxide 30 ml 08/28/19 20:45 08/30/19 01:52 Milk Of Magnesia - PO 30 ml PRN PRN Administration CONSTIPATION Meclizine HCl 25 mg 08/28/19 20:45 Antivert - PO TID PRN PAIN Methylnaltrexone [place] 8 mg 08/27/19 13:45 09/01/19 10:32 Relistor - SQ 8 mg DAILY [facility] Administration Morphine Sulfate 1 mg 08/28/19 20:45 08/31/19 17:02 Morphine Sulfate IVPUSH 1 mg Q4H PRN Administration PAIN LEVEL 6-10 Ondansetron HCl 4 mg 08/28/19 20:45 Zofran Injection IVPUSH Q6H PRN NAUSEA Oxycodone HCl 5 mg 08/28/19 20:45 08/29/19 12:38 Roxicodone - PO 5 mg Q4H PRN Administration PAIN LEVEL 1-5 Oxycodone HCl 10 mg 08/28/19 20:45 09/01/19 12:22 Roxicodone - PO 10 mg Q4H PRN Administration PAIN LEVEL 6-10 Pantoprazole Sodium 40 mg 08/29/19 10:00 09/01/19 10:26 Protonix - PO 40 mg DAILY [facility] Administration Polyethylene Glycol 17 gm 08/28/19 20:45 09/01/19 01:43 Miralax (For Daily Use) - PO 17 gm DAILY PRN Administration CONSTIPATION Senna/Docusate Sodium 2 tablet 08/28/19 22:00 09/01/19 10:26 Pericolace - PO 2 tablet BID [facility] Administration RECORDS OBTAINED FROM ONCOLOGY OFFICE 2011 extensive breast cancer on left side. 10 positive lymph nodes ER+, AK+, HER2 -. Given AC x4 and taxol x4 and radiation, Armimidex. Had retroperitoneal mass biopsied and positive for metastatic breast cancer. Then found to be ER -, AK -, HER/donnell +. On Kadcyla one dose reduction. Impression of breast cancer ER - , AK -, HER/donnell + in the mesentery and retroperitoneum, with recurrence. Hx of extensive primary breast cancer in 2011 that was ER+, AK +, HER/donnell - having failed arimidex, s/p AC x4 and taxol x4. Plan at time of 07/11/19: denied BRCA testing, on "waldemar intervention", had discussed navelbine or trastuzamab deruxtecan with family and patient to make her decision. PET SCAN 05/16/19 Impression: mimimally enlarging paraesophageal adenopathy with a current maximum SUV of 10.8g/ml, increased from previous study. Increasing hypermetabolic activity in mesenteric and retrocaval adenopathy since previous study. stable periceliac and retrocaval adenopathy. findings compatible with mild progression of disease since 02/18/19. no new hypermetabolic lesions CT CHEST ABDOMEN PELVIS 07/08/19 CT CHEST: stable paraesophageal adenopathy with current maximum short axis diaemeter 18mm, unchanged CT ABD/PELVIS: Minimally decreasing mesenteric, retrocaval, periceliac, and shotty retrocrural adenopathy, all stable or minimally decrease since the previous study, compatible with positive responses to therapy IMAGING CT ABD/PELVIS 1. Bilateral pleural effusions and bibasilar atelectasis. 2. GE junction mass possibly representing a necrotic lymph node. 3. Ascites. 4. Hepatomegaly with hypodense liver lesions suspicious for metastatic disease. 5. Bilateral hydronephrosis without obvious obstruction. 6. Enlarged mesenteric lymph nodes. 7. Right pelvic masses also suspicious for additional adenopathy. Local correlation and follow-up recommended. Please see above discussion. 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 Inability to ambulate secondary to osteonecrosis - orthopedics consulted, recs appreciated - as per orthopedics and MRI has osteonecrosis of the R hip - s/p day 8 Right total hip replacement - oxycodone, gabapentin for pain. On bowel regimen due to opiate use and constipation, had been having bowel movements. Can d/c if patient having watery bowel movements - physical therapy/OOB, walked 8ft with PT - chemical AC: aspirin 81mg bid for 6 weeks. After speaking with orthopedics it is advised to have this DVT prophylaxis regimen and not to stop it as patients after hip replacement are at high risk of DVT - incentive spirometry - will need SNF upon discharge UTI - repeat noting bacteriuria with cultures growing >[id number] lactose fermenting bacteria - ceftriaxone 1gm daily - bilateral duplex negative for DVT Elevated LFTs - abd U/S noting hepatic lesions suggestive of neoplastic disease - hepatitis panel negative - will continue to monitor - triple scan phase ordered to assess liver lesions and bowel, report as above Hx of breast CA - will need latif scan to determine extent of malignancy, to be done as outpatient - oncology consulted, recs appreciated - palliative care consulted - previous oncologist, Dr. Gupta in [facility] - records obtained by oncology as per onc note, records also faxed from oncology office shortly as above - colonoscopy could be considered in setting of family history of colon CA as per GI - lesions and lymph nodes to be biopsied at a later time when aspirin prophylaxis is completed as biopsy will require no antiplatelets or anticoagulants. No chemotherapy or cancer treatment will be initiated prior to biopsy and analysis of lesions. Patient can be discharged to SNF for subacute rehab and will follow up with the oncology service for further guidance and management of her cancer. Discussed with hematology/oncology team Anemia - Hgb electrophoresis - sickle cell screen positive - LEENA positive - RF, Anti-DSDNA negative - s/p 2 units transfusion - hematology consulted, recs appreciated - continue to monitor CBC Constipation - likely in the setting of decreased mobility, opiate use, and CT findings suspicious of metastatic disease - GI consulted, recs appreciated - Miralax 34g daily - continue to monitor for bowel movements DVT PPx - aspirin 81mg bid as per orthopedics - Lovenox 40mg daily FEN - No standing fluids - continue to monitor electrolytes and replete as necessary - regular diet Disposition - continue to monitor on Med-surg - will be discharged to SNF Visit type - Emergency Visit Emergency Visit: Yes ED Registration Date: 08/20/19 Care time: The patient presented to the Emergency Department on the above date and was hospitalized for further evaluation of their emergent condition. - New Patient This patient is new to me today: No - Critical Care Critical Care patient: No
--- NOTE | 2019-09-01 19:09 | PN ---
Teaching Attending Note Name of Resident: William Fierro ATTENDING PHYSICIAN STATEMENT I saw and evaluated the patient. I reviewed the resident's note and discussed the case with the resident. I agree with the resident's findings and plan as documented. SUBJECTIVE: feeling better . no fever or chills. Vital Signs Temperature 97.8 F 09/01/19 14:00 Pulse Rate 103 H 09/01/19 14:00 Respiratory Rate 18 09/01/19 14:00 Blood Pressure 148/77 09/01/19 14:00 O2 Sat by Pulse Oximetry (%) 98 09/01/19 11:35 GENERAL: The patient is awake, alert, and fully oriented, in no acute distress. HEAD: Normal with no signs of trauma. EYES: PERRL, extraocular movements intact, sclera anicteric, conjunctiva clear. ENT: Ears normal, oropharynx clear without exudates, moist mucous membranes. NECK: Trachea midline, full range of motion, supple. LUNGS: Breath sounds equal, clear to auscultation bilaterally, no wheezes, no crackles, no accessory muscle use. HEART: tachycardic S1, S2 without murmur, rub or gallop. ABDOMEN: Soft, nontender, nondistended, normoactive bowel sounds, no guarding, no rebound, no hepatosplenomegaly, no masses. EXTREMITIES: 2+ pulses, warm, well-perfused, no edema. NEUROLOGICAL: Cranial nerves II through XII grossly intact. Normal speech, gait not observed. PSYCH: Normal mood, normal affect. SKIN: Warm, dry, normal turgor, no rashes or lesion CBCD WBC 5.4 K/mm3 (4.0-10.0) 09/01/19 06:30 RBC 3.16 M/mm3 (3.60-5.2) L 09/01/19 06:30 Hgb 9.4 GM/dL (10.7-15.3) L 09/01/19 06:30 Hct 27.4 % (32.4-45.2) L 09/01/19 06:30 MCV 86.7 fl (80-96) 09/01/19 06:30 MCHC 34.4 g/dl (32.0-36.0) 09/01/19 06:30 RDW 15.8 % (11.6-15.6) H 09/01/19 06:30 Plt Count 250 K/MM3 (134-434) 09/01/19 06:30 MPV 7.5 fl (7.5-11.1) 09/01/19 06:30 CMP Sodium 139 mmol/L (136-145) 09/01/19 06:30 Potassium 3.7 mmol/L (3.5-5.1) 09/01/19 06:30 Chloride 105 mmol/L (98-107) 09/01/19 06:30 Carbon Dioxide 27 mmol/L (21-32) 09/01/19 06:30 Anion Gap 7 MMOL/L (8-16) L 09/01/19 06:30 BUN 6.1 mg/dL (7-18) L 09/01/19 06:30 Creatinine 0.5 mg/dL (0.55-1.3) L 09/01/19 06:30 Random Glucose 96 mg/dL (74-106) 09/01/19 06:30 Calcium 8.3 mg/dL (8.5-10.1) L 09/01/19 06:30 Total Bilirubin 0.3 mg/dL (0.2-1) 09/01/19 06:30 AST 71 U/L (15-37) H 09/01/19 06:30 ALT 34 U/L (13-61) 09/01/19 06:30 Alkaline Phosphatase 164 U/L (45-117) H 09/01/19 06:30 Total Protein 5.6 g/dl (6.4-8.2) L 09/01/19 06:30 Albumin 1.8 g/dl (3.4-5.0) L 09/01/19 06:30 Current Medications Generic Name Dose Route Start Last Admin Trade Name Freq PRN Reason Stop Dose Admin Acetaminophen 650 mg 08/28/19 20:45 08/31/19 21:30 Tylenol - PO 650 mg Q6H PRN Administration Fever Or Pain Al Hydroxide/Mg Hydroxide 30 ml 08/28/19 20:45 09/01/19 01:43 Mylanta Oral Suspension - PO 30 ml Q4H PRN Administration DYSPEPSIA Docusate Sodium 100 mg 08/28/19 20:45 08/30/19 09:04 Colace - PO 100 mg DAILY PRN Administration CONSTIPATION Enoxaparin Sodium 40 mg 09/01/19 10:00 09/01/19 10:26 Lovenox - SQ 40 mg DAILY [facility] Administration Gabapentin 400 mg 08/28/19 22:00 09/01/19 17:18 Neurontin - PO 400 mg TID [facility] Administration Guaifenesin 10 ml 08/28/19 20:45 Robitussin Dm - PO Q4H PRN COUGH Ceftriaxone Sodium 1 gm/ 50 mls @ 200 mls/hr 09/01/19 09:45 09/01/19 10:27 Dextrose IVPB Not Given DAILY [facility] Protocol Magnesium Hydroxide 30 ml 08/28/19 20:45 08/30/19 01:52 Milk Of Magnesia - PO 30 ml PRN PRN Administration CONSTIPATION Meclizine HCl 25 mg 08/28/19 20:45 Antivert - PO TID PRN PAIN Methylnaltrexone [place] 8 mg 08/27/19 13:45 09/01/19 10:32 Relistor - SQ 8 mg DAILY [facility] Administration Morphine Sulfate 1 mg 08/28/19 20:45 08/31/19 17:02 Morphine Sulfate IVPUSH 1 mg Q4H PRN Administration PAIN LEVEL 6-10 Ondansetron HCl 4 mg 08/28/19 20:45 Zofran Injection IVPUSH Q6H PRN NAUSEA Oxycodone HCl 5 mg 08/28/19 20:45 08/29/19 12:38 Roxicodone - PO 5 mg Q4H PRN Administration PAIN LEVEL 1-5 Oxycodone HCl 10 mg 08/28/19 20:45 09/01/19 17:18 Roxicodone - PO 10 mg Q4H PRN Administration PAIN LEVEL 6-10 Pantoprazole Sodium 40 mg 08/29/19 10:00 09/01/19 10:26 Protonix - PO 40 mg DAILY [facility] Administration Polyethylene Glycol 17 gm 08/28/19 20:45 09/01/19 01:43 Miralax (For Daily Use) - PO 17 gm DAILY PRN Administration CONSTIPATION Senna/Docusate Sodium 2 tablet 08/28/19 22:00 09/01/19 10:26 Pericolace - PO 2 tablet BID [facility] Administration Home Medications Medication Instructions Recorded Gabapentin 400 mg PO TID 08/21/19 Meclizine HCl 25 mg PO TID PRN 02/16/20 Oxycodone HCl/Acetaminophen 1 each PO TID 08/21/19 [Oxycodone-Acetaminophen 10-325] Tramadol HCl 50 mg PO TID 08/21/19 Microbiology 08/25/19 22:12 Blood - Peripheral Venous Blood Culture - Final NO GROWTH AFTER 5 DAYS INCUBATION 08/25/19 22:55 Blood - Peripheral Venous Blood Culture - Final NO GROWTH AFTER 5 DAYS INCUBATION 08/25/19 23:30 Urine - Urine - Catheterized Urine Culture - Final NO GROWTH OBTAINED CT scan reviewed . lymphadenopathy . liver lesions likely mets. b/l hydro ASSESSMENT AND PLAN: Patient is a 64yof with PMhx of L breast cancer s/p mastectomy, radiation and chemo, with mets to intestine, L4-S1 fusion , sciatica, R femoral head osteonecrosis ( out pt MRI), who presented due to having hip pain. 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 # h/o Met breast cancer. # Suspicion for Liver lesions # h/o Sciatica and L4-S1 fusion. # Dilated R renal collecting system on limited US. # Positive LEENA. # Sinus tachycardia. # Acute blood loss anemia. # fever : resolved # Sickle cell trait # constipation with possible mild ileus; resolved # bilateral hydronephrosis hematology recommends lovenox aq vs aspirin since is a high risk for dvt as per oncology team: No plan for any specific treatment at this point after her sx as per ortho : DVT px per surgical team: asa bid x 6 weeks cont PT Rehab placement at [place]
--- NOTE | 2019-09-01 21:11 | PN ---
Progress Note (short form) - Note Progress Note: PAtient seen and examined Had a BM today Was out of bed Last Vital Signs Temp Pulse Resp BP Pulse Ox 98.6 F 109 H 18 149/95 98 09/01/19 19:56 09/01/19 19:56 09/01/19 19:56 09/01/19 19:56 09/01/19 19:58 Cor: RSR, No murmurs, No gallops Lungs: Clear to P&A Abd: Soft, Normal bowel sounds, No organomegaly Ext:No significant edema LAbs/MEds reviewed A/P Patient is a 64 year old female with past medical history of breast cancer Breast cancer-- diagnosed 8 yrs.ago -- Left breast cancer--stage III diagnosed 2011 --10+ nodes. ER+, VA+, Her2-. Received ACx4 followed by Tx4 and RT. Was on arimidex Developed retroperitoneal mass ---bx + metastatic breast cancer-- ER-/VA-, Her2- 3+. Microsatellite stable. She has been on TDM1.? elevated LFTs needing 1 dose reduction s/p gemzar/trastuzumab ( got medrol dose paks with gemzar) Discussed with primary oncologist in [place]---Plan was to start her on trastuzumab deruxtecan ---when she moved from [place] CT c/a/p --07/08/19 --stable paraesophageal adenopathy. Minimally decreasing mesenteric, retrocaval, periceliac and shotty retrocrural adenopathy, stable to minimally decreased compared to CT c/a/p in 12/2018 2 hepatic lesions on U/S--? new PET/biopsy when medically stable CT a/p -- enlarged mesenteric nodes/pelvic masses/ GE junction necrotic node. 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 anemia post op. constipation will stop aspirin will need lovenox for DVT prophylaxis will consider biopsy of liver lesions will need follow up outpatient --[phone]. PAtient was given contact info will consider systemic therapy for breast cancer, depending on performance status after rehab
[2019-09-02] MEDS: MORPHINE SULFATE 2 MG/ML VIAL IVPUSH PRN (00:11)
[2019-09-02] MEDS ORDERED: PT OWN MED DRAWER 7, Y5N ONE ×2 (00:53→10:11)
[2019-09-02] MEDS: GABAPENTIN 400 MG CAPSULE PO SCH ×2 (06:01→13:45)
[2019-09-02] MEDS ORDERED: INSULIN (NOVOLOG) ASPART 100 UNITS/ML 10ML VIAL ONE (06:39)
--- NOTE | 2019-09-02 09:30 | PN ---
Teaching Attending Note Name of Resident: William Fierro ATTENDING PHYSICIAN STATEMENT I saw and evaluated the patient. I reviewed the resident's note and discussed the case with the resident. I agree with the resident's findings and plan as documented. SUBJECTIVE: OBJECTIVE: Vital Signs Temperature 98.1 F 09/02/19 06:00 Pulse Rate 106 H 09/02/19 06:00 Respiratory Rate 18 09/02/19 06:00 Blood Pressure 140/60 09/02/19 06:00 O2 Sat by Pulse Oximetry (%) 98 09/01/19 19:58 CBCD WBC 5.4 K/mm3 (4.0-10.0) 09/01/19 06:30 RBC 3.16 M/mm3 (3.60-5.2) L 09/01/19 06:30 Hgb 9.4 GM/dL (10.7-15.3) L 09/01/19 06:30 Hct 27.4 % (32.4-45.2) L 09/01/19 06:30 MCV 86.7 fl (80-96) 09/01/19 06:30 MCHC 34.4 g/dl (32.0-36.0) 09/01/19 06:30 RDW 15.8 % (11.6-15.6) H 09/01/19 06:30 Plt Count 250 K/MM3 (134-434) 09/01/19 06:30 MPV 7.5 fl (7.5-11.1) 09/01/19 06:30 CMP Sodium 139 mmol/L (136-145) 09/01/19 06:30 Potassium 3.7 mmol/L (3.5-5.1) 09/01/19 06:30 Chloride 105 mmol/L (98-107) 09/01/19 06:30 Carbon Dioxide 27 mmol/L (21-32) 09/01/19 06:30 Anion Gap 7 MMOL/L (8-16) L 09/01/19 06:30 BUN 6.1 mg/dL (7-18) L 09/01/19 06:30 Creatinine 0.5 mg/dL (0.55-1.3) L 09/01/19 06:30 Random Glucose 96 mg/dL (74-106) 09/01/19 06:30 Calcium 8.3 mg/dL (8.5-10.1) L 09/01/19 06:30 Total Bilirubin 0.3 mg/dL (0.2-1) 09/01/19 06:30 AST 71 U/L (15-37) H 09/01/19 06:30 ALT 34 U/L (13-61) 09/01/19 06:30 Alkaline Phosphatase 164 U/L (45-117) H 09/01/19 06:30 Total Protein 5.6 g/dl (6.4-8.2) L 09/01/19 06:30 Albumin 1.8 g/dl (3.4-5.0) L 09/01/19 06:30 Current Medications Generic Name Dose Route Start Last Admin Trade Name Freq PRN Reason Stop Dose Admin Acetaminophen 650 mg 08/28/19 20:45 08/31/19 21:30 Tylenol - PO 650 mg Q6H PRN Administration Fever Or Pain Al Hydroxide/Mg Hydroxide 30 ml 08/28/19 20:45 09/01/19 01:43 Mylanta Oral Suspension - PO 30 ml Q4H PRN Administration DYSPEPSIA Docusate Sodium 100 mg 08/28/19 20:45 08/30/19 09:04 Colace - PO 100 mg DAILY PRN Administration CONSTIPATION Enoxaparin Sodium 40 mg 09/01/19 10:00 09/01/19 10:26 Lovenox - SQ 40 mg DAILY [facility] Administration Gabapentin 400 mg 08/28/19 22:00 09/02/19 06:01 Neurontin - PO 400 mg TID [facility] Administration Guaifenesin 10 ml 08/28/19 20:45 Robitussin Dm - PO Q4H PRN COUGH Ceftriaxone Sodium 1 gm/ 50 mls @ 200 mls/hr 09/01/19 09:45 09/01/19 10:27 Dextrose IVPB Not Given DAILY [facility] Protocol Magnesium Hydroxide 30 ml 08/28/19 20:45 08/30/19 01:52 Milk Of Magnesia - PO 30 ml PRN PRN Administration CONSTIPATION Meclizine HCl 25 mg 08/28/19 20:45 Antivert - PO TID PRN PAIN Methylnaltrexone [place] 8 mg 08/27/19 13:45 09/01/19 10:32 Relistor - SQ 8 mg DAILY [facility] Administration Ondansetron HCl 4 mg 08/28/19 20:45 Zofran Injection IVPUSH Q6H PRN NAUSEA Oxycodone HCl 5 mg 08/28/19 20:45 08/29/19 12:38 Roxicodone - PO 5 mg Q4H PRN Administration PAIN LEVEL 1-5 Oxycodone HCl 10 mg 08/28/19 20:45 09/01/19 21:58 Roxicodone - PO 10 mg Q4H PRN Administration PAIN LEVEL 6-10 Pantoprazole Sodium 40 mg 08/29/19 10:00 09/01/19 10:26 Protonix - PO 40 mg DAILY [facility] Administration Polyethylene Glycol 17 gm 08/28/19 20:45 09/01/19 01:43 Miralax (For Daily Use) - PO 17 gm DAILY PRN Administration CONSTIPATION Senna/Docusate Sodium 2 tablet 08/28/19 22:00 09/01/19 22:02 Pericolace - PO 2 tablet BID [facility] Administration Home Medications Medication Instructions Recorded Gabapentin 400 mg PO TID 08/21/19 Meclizine HCl 25 mg PO TID PRN 08/21/19 Oxycodone HCl/Acetaminophen 1 each PO TID 08/21/19 [Oxycodone-Acetaminophen 10-325] Tramadol HCl 50 mg PO TID 08/21/19 Aspirin [ASA -] 81 mg PO BID #0 tab.chew 08/31/19 Docusate Sodium [Colace -] 100 mg PO DAILY PRN capsule 08/31/19 Polyethylene Glycol 3350 [Miralax 17 gm PO DAILY PRN bottle 08/31/19 119 gm Btl -] Sennosides/Docusate Sodium 2 tablet PO BID tablet 08/31/19 [Pericolace -] Microbiology 08/30/19 17:30 Urine - Urine Clean Catch Urine Culture - Final Klebsiella Pneumoniae 08/30/19 12:47 Blood - Brittanie Cath Blood Culture - Preliminary NO GROWTH OBTAINED AFTER 48 HOURS, INCUBATION TO CONTINUE FOR 3 DAYS. 08/30/19 14:00 Blood - Brittanie Cath Blood Culture - Preliminary NO GROWTH OBTAINED AFTER 48 HOURS, INCUBATION TO CONTINUE FOR 3 DAYS. 08/25/19 22:12 Blood - Peripheral Venous Blood Culture - Final NO GROWTH AFTER 5 DAYS INCUBATION 08/25/19 22:55 Blood - Peripheral Venous Blood Culture - Final NO GROWTH AFTER 5 DAYS INCUBATION 08/25/19 23:30 Urine - Urine - Catheterized Urine Culture - Final NO GROWTH OBTAINED CT ABD/PELVIS 1. Bilateral pleural effusions and bibasilar atelectasis. 2. GE junction mass possibly representing a necrotic lymph node. 3. Ascites. 4. Hepatomegaly with hypodense liver lesions suspicious for metastatic disease. 5. Bilateral hydronephrosis without obvious obstruction. 6. Enlarged mesenteric lymph nodes. 7. Right pelvic masses also suspicious for additional adenopathy. Local correlation and follow-up recommended. Please see above discussion. CT scan reviewed . lymphadenopathy . liver lesions likely mets. b/l hydro ASSESSMENT AND PLAN: Patient is a 64yof with PMhx of L breast cancer s/p mastectomy, radiation and chemo, with mets to intestine, L4-S1 fusion , sciatica, R femoral head osteonecrosis ( out pt MRI), who presented due to having hip pain. 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 # h/o Met breast cancer. # Suspicion for Liver lesions # h/o Sciatica and L4-S1 fusion. # Dilated R renal collecting system on limited US. # Positive LEENA. # Sinus tachycardia. # Acute blood loss anemia. # fever : resolved # Sickle cell trait # constipation with possible mild ileus; resolved # bilateral hydronephrosis hematology recommends lovenox aq vs aspirin since is a high risk for dvt as per oncology team: No plan for any specific treatment at this point after her sx as per ortho : DVT px per surgical team: asa bid x 6 weeks cont [facility]
[2019-09-02] MEDS ORDERED: DEXTROSE 5%-WATER - 50 ML IVPB ONE (10:11)
[2019-09-02] MEDS ORDERED: cefTRIAXone SODIUM 1 GM VIAL ONE (10:11)
[2019-09-02] MEDS: oxyCODONE HCL 5 MG TABLET PO PRN ×2 (10:19→14:13)
[2019-09-02] MEDS: Methylnaltrexone Bromide 12 MG/0.6 ML KIT SQ SCH (10:20)
[2019-09-02] MEDS: PANTOPRAZOLE 40 MG TABLET PO SCH (10:20)
[2019-09-02] MEDS: ENOXAPARIN NA (PORCINE) 40 MG/0.4 ML DISP.SYRIN SQ SCH (10:20)
[2019-09-02] MEDS: SENNOSIDES/DOCUSATE COMBO (SENNA PLUS) TABLET (UD) PO SCH (10:20)
[2019-09-02] MEDS: CEFTRIAXONE 1 GM in DEXTROSE 5%-WATER - 50 ML IVPB SCH (10:22)
[2019-09-02 12:48] VITALS: BP 139/72; PULSE 111; TEMP 98
--- NOTE | 2019-09-02 13:38 | DS ---
Physical Exam: SUBJECTIVE: Patient seen and examined at the bedside. Stated she was feeling better but continued to have significant pain at her hip. Endorsed better breathing. Stated she had a large bowel movement yesterday. Denied fever, chills , cough, cp, abd pain, n/v, headaches, dizziness, lightheadedness, dysuria, hematuria, focal weakness, numbness, tingling. OBJECTIVE: Vital Signs Period Temp Pulse Resp BP Sys/Lomeli Pulse Ox Last 24 Hr 97.8 F-99.2 F 103-111 18-18 130-149/60-95 98-98 PHYSICAL EXAM GENERAL: The patient is awake, alert, and fully oriented, in no acute distress. EYES: PERRL, extraocular movements intact, conjunctiva clear. ENT: Oropharynx clear without exudates, moist mucous membranes. LUNGS: Breath sounds equal, clear to auscultation bilaterally, no wheezes, no crackles, no accessory muscle use. HEART: Regular rate and rhythm, S1, S2 without murmur, rub. ABDOMEN: Soft, distended, obese, mild discomfort to palpation throughout, normoactive bowel sounds, no guarding, no rebound, no masses. EXTREMITIES: 2+ pulses, warm, well-perfused, no edema. Dressing intact. Minor pain upon palpation. NEUROLOGY: 4/5 muscle strength bilaterally upper and lower extremities. Sensation intact to gross touch throughout. PSYCH: Normal mood, normal affect. SKIN: Warm, dry, normal turgor. 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 Patient was found to have osteonecrosis of the R hip as per MRI. Patient underwent R total hip replacement. Was assessed by physical therapy and determined to need SNF for strength and gait rehab. DVT PPx was originally aspirin 81mg bid and switched to Lovenox 40mg subq once daily. While admitted the patient was found to have a UTI, Klebsiella pneumoniae with multiple sesitivities. Received ceftriaxone and will complete a total of 7 days of antibiotics. Patient has a history of breast cancer. While admitted the patient was noted to have elevated LFTs, RUQ U/s noting hepatic lesions suggestive of neoplastic disease. Triple phase scan noted as below suggestive of neoplastic disease. Was seen by oncology who recommended that the patient complete rehab and will be assessed for any cancer treatment after her completion of rehab to determine functional status. GI saw the patient and advised that the patient have a colonoscopy as she has a family history of colon cancer. All lesions and lymph nodes to be biopsied at a later time when aspirin prophylaxis is completed as biopsy will require no antiplatelets or anticoagulants. No chemotherapy or cancer treatment will be initiated prior to biopsy and analysis of lesions. Patient can be discharged to SNF for subacute rehab and will follow up with the oncology service for further guidance and management of her cancer. which was discussed with hematology/oncology team. Will need latif scan at a later time to determine extent of malignancy. Additionally, patient was noted to be sickle cell trait positive and advised to follow up with a reheater. Previous records from patient's oncologist as below. Patient was noted to have dilation of her ureters for which she was advised to follow up outpatient with a urologist. Patient was started on Lovenox 40mg sq once a day for 5 weeks, ceftin 500mg bid for 5 additional days, Miralax, senna, and colace as a bowel regimen and advised to follow up with her PCP, orthopedic surgeon, reheater/oncologist, lead driver, and urologist. Patient was spoken to and agreed with the plan. Patient was discharged in stable medical condition. IMAGING CT ABD/PELVIS 1. Bilateral pleural effusions and bibasilar atelectasis. 2. GE junction mass possibly representing a necrotic lymph node. 3. Ascites. 4. Hepatomegaly with hypodense liver lesions suspicious for metastatic disease. 5. Bilateral hydronephrosis without obvious obstruction. 6. Enlarged mesenteric lymph nodes. 7. Right pelvic masses also suspicious for additional adenopathy. Local correlation and follow-up recommended. Please see above discussion. RECORDS OBTAINED FROM ONCOLOGY OFFICE 2011 extensive breast cancer on left side. 10 positive lymph nodes ER+, DE+, HER2 -. Given AC x4 and taxol x4 and radiation, Armimidex. Had retroperitoneal mass biopsied and positive for metastatic breast cancer. Then found to be ER -, DE -, HER/donnell +. On Kadcyla one dose reduction. Impression of breast cancer ER - , DE -, HER/donnell + in the mesentery and retroperitoneum, with recurrence. Hx of extensive primary breast cancer in 2011 that was ER+, DE +, HER/donnell - having failed arimidex, s/p AC x4 and taxol x4. Plan at time of 07/11/19: denied BRCA testing, on "waldemar intervention", had discussed navelbine or trastuzamab deruxtecan with family and patient to make her decision. PET SCAN 05/16/19 Impression: mimimally enlarging paraesophageal adenopathy with a current maximum SUV of 10.8g/ml, increased from previous study. Increasing hypermetabolic activity in mesenteric and retrocaval adenopathy since previous study. stable periceliac and retrocaval adenopathy. findings compatible with mild progression of disease since 02/18/19. no new hypermetabolic lesions CT CHEST ABDOMEN PELVIS 07/08/19 CT CHEST: stable paraesophageal adenopathy with current maximum short axis diaemeter 18mm, unchanged CT ABD/PELVIS: Minimally decreasing mesenteric, retrocaval, periceliac, and shotty retrocrural adenopathy, all stable or minimally decrease since the previous study, compatible with positive responses to therapy Date of Admission:08/20/19 Date of Discharge: 09/02/19 Minutes to complete discharge: 35 Discharge Summary Problems reviewed: Yes Reason For Visit: INABILITY TO AMBULATE DUE TO HIP,PAIN RIGHT Current Active Problems Liver masses (Acute) Shortness of breath (Acute) Hip pain, right (Chronic) Condition: Improved - Instructions Diet, Activity, Other Instructions: You were admitted for pain in your right hip. You had an MRI of your hip which showed damage to your right femur. You had a total right hip replacement. You were noted to have elevated liver enzymes. An ultrasound of your liver showed lesions suggestive of neoplastic disease which was confirmed by a CT scan. CT scan shows results as below. You are recommended to follow up with the oncologist and lead driver for theses findings. You had blood work that showed you have sickle cell trait, please follow up with the reheater for these findings. You were noted to have dilation of your ureters for which you are recommended to follow up with urologist. MEDICATIONS START to take Lovenox 40 mg SQ ONCE a day for 5 more weeks. START to take ceftin 500 twice a day for 5 more days. Your last dose will be on September 06. START to take Miralax 34gm daily to assist with your constipation. START to take senna 2 tabs at night to assist with your constipation. START to take Colace 1 tab daily to assist with your constipation. Please avoid taking NSAIDs (Aleve, Ibuprofen, Motrin, Advil, Naproxen, etc.) Please take Tylenol for pain. Do not exceed 4,000mg per day. REFERRALS Please follow up with your PCP within 1 week. If you do not have one we have provided one for you, [facility]. Please follow up with your Orthopedic surgeon, Dr. Elaine within 1 week, call for appointment; . Please follow up with your Cable Operator/Oncologist within 2 weeks, We have provided Dr. Chris. Please follow up with the lead driver, Dr. Parks, within 2 weeks. Please follow up with the urologist, Dr. Claus Lau, within 2 week. SPECIAL INSTRUCTIONS You are being discharged to [facility] for rehabilitation. Please follow the recommendations of the rehab staff in order to improve your strength. If you have any episodes of fever, chest pain, palpitations, inability to ambulate, lightheadedness, falls, or any other general feelings of unwellness, please call 911 or go to your nearest emergency room. CT ABD/PELVIS 1. Bilateral pleural effusions and bibasilar atelectasis. 2. GE junction mass possibly representing a necrotic lymph node. 3. Ascites. 4. Hepatomegaly with hypodense liver lesions suspicious for metastatic disease. 5. Bilateral hydronephrosis without obvious obstruction. 6. Enlarged mesenteric lymph nodes. 7. Right pelvic masses also suspicious for additional adenopathy. Local correlation and follow-up recommended. Please see above discussion. Referrals: [facility] [place] [facility] [place] [Provider Group] - 1 Week Eagle Parks DO [Staff Physician] - 2 Weeks Claus Lau MD [Staff Physician] - 2 Weeks Dot Paz MD [Staff Physician] - 2 Weeks Tommy Elaine MD [Staff Physician] - 1 Week Disposition: [facility] - Home Medications Comprehensive Discharge Medication List: Ambulatory Orders Gabapentin 400 mg PO TID 08/21/19 Meclizine HCl 25 mg PO TID PRN 08/21/19 Oxycodone HCl/Acetaminophen [Oxycodone-Acetaminophen 10-325] 1 each PO TID 08/21 Tramadol HCl 50 mg PO TID 08/21/19 Aspirin [ASA -] 81 mg PO BID #0 tab.chew 08/31/19 Docusate Sodium [Colace -] 100 mg PO DAILY PRN capsule 08/31/19 Polyethylene Glycol 3350 [Miralax 119 gm Btl -] 17 gm PO DAILY PRN bottle 08/31 Sennosides/Docusate Sodium [Pericolace -] 2 tablet PO BID tablet 08/31/19 Cefuroxime Axetil [Ceftin -] 500 mg PO BID #10 tablet 09/02/19 Problem List - Problems (1) Liver masses Code(s): R16.0 - HEPATOMEGALY, NOT ELSEWHERE CLASSIFIED (2) Shortness of breath Code(s): R06.02 - SHORTNESS OF BREATH (3) Hip pain, right Code(s): M25.551 - PAIN IN RIGHT HIP (4) Constipation Code(s): K59.00 - CONSTIPATION, UNSPECIFIED (5) H/O total hip arthroplasty Code(s): Z96.649 - PRESENCE OF UNSPECIFIED ARTIFICIAL HIP JOINT Qualifiers: Laterality: right Qualified Code(s): Z96.641 - Presence of right artificial hip joint (6) Inability to ambulate due to hip Code(s): R26.2 - DIFFICULTY IN WALKING, NOT ELSEWHERE CLASSIFIED (7) Breast cancer Code(s): C50.919 - MALIGNANT NEOPLASM OF UNSP SITE OF UNSPECIFIED FEMALE BREAST This patient is new to me today: No Emergency Visit: Yes ED Registration Date: 08/20/19 Care time: The patient presented to the Emergency Department on the above date and was hospitalized for further evaluation of their emergent condition. Critical Care patient: No - Discharge Referral Referred to [facility] Yes Physician Referral: Martin Parks DO (GI)
== END 2019-09-02 14:53 | DRG 470 ==
LOC: JER 21:13 → JERBED 22:55 → J7W 08-21 19:51 → J6S 08-24 18:58 → JICU 08-24 21:51 → J8W 08-28 20:29
PROVIDERS: ADMIT Internal Medicine; ATTEND Internal Medicine
PROC: 0SR90JZ Replacement of Right Hip Joint with Synthetic Substitute, Open Approach (ICD-10-PCS; principal; 2019-08-24 14:30)
DX: M87.051 Idiopathic aseptic necrosis of right femur (principal); C78.4 Secondary malignant neoplasm of small intestine; N13.30 Unspecified hydronephrosis; D62 Acute posthemorrhagic anemia; J98.11 Atelectasis; K56.7 Ileus, unspecified; N39.0 Urinary tract infection, site not specified; C50.911 Malignant neoplasm of unspecified site of right female breast; B96.1 Klebsiella pneumoniae [K. pneumoniae] as the cause of diseases classified elsewhere; R00.0 Tachycardia, unspecified; D57.3 Sickle-cell trait
CPT/HCPCS: 36415; 36430; 36511; 71045-TC-FY; 73523-TC-FY; 74178-TC; 76705-TC; 80053; 80074; 81003; 82962; 83021; 83615; 83690; 83735; 84100; 85025; 85027; 85610; 85660; 85730; 86038; 86225; 86300; 86431; 86850; 86900; 86901; 86922; 87040; 87086; 87186; 88305-TC; 88311-TC; 93005; 93010; 93970-TC; 94010; 94760; 94761; 97116-GP; 97162-GP; 99285-25; J0131; J7030; P9038; P9058; Q9967

== ENCOUNTER 2020-05-23 06:55 | Day surgery (SDC) | payer OTHER ==
[~2020-05-23 06:55] MED LIST: DEXAMETHASONE SODIUM PHOSPHATE 10 MG in SODIUM CHLORIDE 50 ML IVPB ONE; PALONOSETRON HCL 0.25 MG/5 ML VIAL IVPUSH ONE; SODIUM CHLORIDE IVPB ONE; [UNRECOGNIZED DRUG - OTHER] IVPB ONE
[2020-05-23] MEDS ORDERED: FOSAPREPITANT DIMEGLUMINE 150 MG in SODIUM CHLORIDE 145 ML IVPB ONE (09:30)
[2020-05-23] MEDS ORDERED: DEXAMETHASONE SODIUM PHOSPHATE 16 MG in SODIUM CHLORIDE 50 ML IVPB ONE (09:30)
[2020-05-23] MEDS ORDERED: PALONOSETRON HCL 0.25 MG/5 ML VIAL IVPUSH ONE (09:30)
[2020-05-23] MEDS ORDERED: DEXTROSE 5% IVPB ONE (10:00)
[2020-05-23] MEDS ORDERED: WATER IVPB ONE (10:00)
[2020-05-23] MEDS ORDERED: [UNRECOGNIZED DRUG - OTHER] IVPB ONE (10:00)
[2020-05-23 10:59] LABS: BASO % 0.7 % (0-2.0); EOS % 6.8 % (0-4.5); HEMATOCRIT 34.5 % (32.4-45.2); HEMOGLOBIN 11.3 GM/dL (10.7-15.3); LYMPH % 30.6 % (8-40); MCH 30.8 pg (25.7-33.7); MCHC 32.7 g/dl (32.0-36.0); MEAN CELL VOLUME 94.2 fl (80-96); MEAN PLT VOLUME 7.6 fl (7.5-11.1); MONO % 11.9 % (3.8-10.2); PLATELET COUNT 155 K/MM3 (134-434); RBC 3.66 M/mm3 (3.60-5.2); RDW 16.1 % (11.6-15.6); WHITE BLOOD COUNT 4.8 K/mm3 (4.0-10.0)
[2020-05-23 11:13] LABS: CHLORIDE 107 mmol/L (98-107); POTASSIUM 3.6 mmol/L (3.5-5.1); SODIUM 141 mmol/L (136-145)
[2020-05-23 11:15] LABS: ANION GAP 5 MMOL/L (8-16); BLOOD UREA NITROGEN 12.2 mg/dL (7-18); CALCIUM 9.7 mg/dL (8.5-10.1); CO2 29 mmol/L (21-32); GLUCOSE,RANDOM 84 mg/dL (74-106); MAGNESIUM 2.1 mg/dL (1.8-2.4)
[2020-05-23 11:18] LABS: CREATININE 0.7 mg/dL (0.55-1.3); SGOT/AST 46 U/L (15-37); SGPT/ALT 43 U/L (13-61)
[2020-05-23 11:19] LABS: BILIRUBIN,TOTAL 1.3 mg/dL (0.2-1)
[2020-05-23 11:21] LABS: ALK PHOS 236 U/L (45-117)
[2020-05-23] MEDS ORDERED: DEXAMETHASONE SODIUM PHOSPHATE 12 MG in SODIUM CHLORIDE 50 ML IVPB ONE (11:45)
[2020-05-23 15:41] VITALS: BP 138/66; PULSE 101; TEMP 98
[2020-05-23] MEDS ORDERED: PORTA CATH FLUSH 10 ML IVPUSH ONE (15:41)
== END 2020-05-23 15:20 | disposition home or self-care (01) ==
LOC: JONCCHEMO 06:55
PROVIDERS: ATTEND Internal Medicine Hematology & Oncology
PROC: 30233N1 Transfusion of Nonautologous Red Blood Cells into Peripheral Vein, Percutaneous Approach (ICD-10-PCS; principal; 2020-05-23)
DX: D64.81 Anemia due to antineoplastic chemotherapy (principal); C34.31 Malignant neoplasm of lower lobe, right bronchus or lung
CPT/HCPCS: 36415; 36430; 80053; 82607; 83735; 84443; 85025; C9399; J1453; J2469

== ENCOUNTER → 2020-06-20 | Day surgery (SDC) | payer OTHER ==
[~2020-06-20] MED LIST changes: -DEXAMETHASONE SODIUM PHOSPHATE 10 MG in SODIUM CHLORIDE 50 ML IVPB ONE; +DEXAMETHASONE SODIUM PHOSPHATE 16 MG in SODIUM CHLORIDE 50 ML IVPB ONE; +DEXTROSE 5% IVPB ONE; +FOSAPREPITANT DIMEGLUMINE 150 MG in SODIUM CHLORIDE 150 ML IVPB ONE; -SODIUM CHLORIDE IVPB ONE; +WATER IVPB ONE; +[UNRECOGNIZED DRUG - OTHER] IVPB ONE; -[UNRECOGNIZED DRUG - OTHER] IVPB ONE
[2020-06-20 12:55] LABS: BASO % 0.5 % (0-2.0); EOS % 5.8 % (0-4.5); HEMATOCRIT 35.4 % (32.4-45.2); HEMOGLOBIN 11.5 GM/dL (10.7-15.3); LYMPH % 19.4 % (8-40); MCHC 32.6 g/dl (32.0-36.0); MEAN CELL VOLUME 95.3 fl (80-96); MEAN PLT VOLUME 8.5 fl (7.5-11.1); MONO % 14.9 % (3.8-10.2); NEUT % 59.4 % (42.8-82.8); PLATELET COUNT 151 K/MM3 (134-434); RBC 3.71 M/mm3 (3.60-5.2); RDW 15.9 % (11.6-15.6); WHITE BLOOD COUNT 5.6 K/mm3 (4.0-10.0)
[2020-06-20 14:33] LABS: CALCIUM 9.3 mg/dL (8.5-10.1)
[2020-06-20 14:34] LABS: BLOOD UREA NITROGEN 11.9 mg/dL (7-18)
[2020-06-20 14:36] LABS: CREATININE 0.9 mg/dL (0.55-1.3)
[2020-06-20 14:38] LABS: TOT PROT 6.7 g/dl (6.4-8.2)
[2020-06-20 14:41] LABS: BILIRUBIN,TOTAL 1.4 mg/dL (0.2-1); POTASSIUM 3.2 mmol/L (3.5-5.1)
[2020-06-20 16:41] VITALS: BP 138/72; PULSE 96; TEMP 97.9
== END | disposition home or self-care (01) ==
LOC: JONCCHEMO 06-13 06:20
PROVIDERS: ATTEND Internal Medicine Hematology & Oncology
PROC: 3E04305 Introduction of Other Antineoplastic into Central Vein, Percutaneous Approach (ICD-10-PCS; principal; 2020-06-20)
PROC: 3E043GC Introduction of Other Therapeutic Substance into Central Vein, Percutaneous Approach (ICD-10-PCS; 2020-06-20)
DX: Z51.11 Encounter for antineoplastic chemotherapy (principal); C50.919 Malignant neoplasm of unspecified site of unspecified female breast; I10 Essential (primary) hypertension; Z91.012 Allergy to eggs; Z96.641 Presence of right artificial hip joint; G40.909 Epilepsy, unspecified, not intractable, without status epilepticus
CPT/HCPCS: 36415; 80053; 85025; 96367; 96375; 96413; C9399; J1453; J2469

== ENCOUNTER 2020-08-30 07:52 | Day surgery (SDC) | payer OTHER ==
[~2020-08-30 07:52] MED LIST changes: +DEXAMETHASONE SODIUM PHOSPHATE 12 MG in SODIUM CHLORIDE 50 ML IVPB ONE
[2020-08-30] MEDS ORDERED: DEXAMETHASONE SODIUM PHOSPHATE 12 MG in SODIUM CHLORIDE 50 ML IVPB ONE (09:30)
[2020-08-30] MEDS ORDERED: FOSAPREPITANT DIMEGLUMINE 150 MG in SODIUM CHLORIDE 145 ML IVPB ONE (09:30)
[2020-08-30] MEDS ORDERED: PALONOSETRON HCL 0.25 MG/5 ML VIAL IVPUSH ONE (09:30)
[2020-08-30] MEDS ORDERED: [UNRECOGNIZED DRUG - OTHER] IVPB ONE (10:00)
[2020-08-30] MEDS ORDERED: WATER IVPB ONE (10:00)
[2020-08-30] MEDS ORDERED: DEXTROSE 5% IVPB ONE (10:00)
[2020-08-30 10:22] LABS: BASO % 0.6 % (0-2.0); EOS % 11.1 % (0-4.5); HEMATOCRIT 28.3 % (32.4-45.2); HEMOGLOBIN 9.4 GM/dL (10.7-15.3); MCHC 33.4 g/dl (32.0-36.0); MEAN PLT VOLUME 8.8 fl (7.5-11.1); MONO % 13.4 % (3.8-10.2); NEUT % 52.9 % (42.8-82.8); PLATELET COUNT 121 K/MM3 (134-434); RBC 3.04 M/mm3 (3.60-5.2); RDW 14.9 % (11.6-15.6); WHITE BLOOD COUNT 5.5 K/mm3 (4.0-10.0)
[2020-08-30 11:50] LABS: ALBUMIN 2.5 g/dl (3.4-5.0); BILIRUBIN,TOTAL 0.6 mg/dL (0.2-1); BLOOD UREA NITROGEN 11.9 mg/dL (7-18); CALCIUM 8.8 mg/dL (8.5-10.1); CREATININE 0.8 mg/dL (0.55-1.3); TOT PROT 6.4 g/dl (6.4-8.2)
[2020-08-30 11:51] LABS: POTASSIUM 4.1 mmol/L (3.5-5.1)
[2020-08-30 17:18] VITALS: TEMP 98.9
[2020-08-30 17:36] VITALS: BP 130/67; PULSE 95
[2020-08-30] MEDS ORDERED: PORTA CATH FLUSH 10 ML IVPUSH ONE (17:36)
== END 2020-08-30 15:20 | disposition home or self-care (01) ==
LOC: JONCCHEMO 07:52
PROVIDERS: ATTEND Internal Medicine Hematology & Oncology
DX: Z51.11 Encounter for antineoplastic chemotherapy (principal); C50.919 Malignant neoplasm of unspecified site of unspecified female breast
CPT/HCPCS: 36415; 80053; 85025; 96367; 96375; 96413; J1453; J2469; J9358

== ENCOUNTER 2020-09-17 14:07 | Inpatient (IN) | payer OTHER ==
[2020-09-17] MEDS ORDERED: SODIUM CHLORIDE 2,449 ML IV ONE (17:38)
[2020-09-17] MEDS ORDERED: ACETAMINOPHEN 1000 MG/100 ML VIAL (NON FORMULARY) IVPB ONE (17:40)
[2020-09-17] MEDS ORDERED: CEFEPIME HCL/D5W 2 GM/50 ML BAG IVPB ONE (17:53)
[2020-09-17] MEDS ORDERED: VANCOMYCIN/WATER BAGS 1,250 MG/250 ML BAG IVPB ONE (17:53)
[2020-09-17] MEDS ORDERED: ACETAMINOPHEN 500 MG TABLET (FP) PO ONE (18:16)
[2020-09-17] MEDS ORDERED: CEFEPIME 2 GM/100 ML BAG IVPB ONE (18:25)
[2020-09-17] MEDS ORDERED: ACETAMINOPHEN 500 MG TABLET (FP) ONE (18:27)
[2020-09-17 19:13] LABS: BASO % 0.4 % (0-2.0); EOS % 2.3 % (0-4.5); HEMATOCRIT 28.9 % (32.4-45.2); HEMOGLOBIN 9.8 GM/dL (10.7-15.3); LYMPH % 16.2 % (8-40); MCH 32.1 pg (25.7-33.7); MEAN CELL VOLUME 94.6 fl (80-96); MEAN PLT VOLUME 8.4 fl (7.5-11.1); MONO % 13.6 % (3.8-10.2); NEUT % 67.5 % (42.8-82.8); PLATELET COUNT 173 K/MM3 (134-434); RBC 3.05 M/mm3 (3.60-5.2); RDW 16.5 % (11.6-15.6); WHITE BLOOD COUNT 9.1 K/mm3 (4.0-10.0)
[2020-09-17 19:25] LABS: CHLORIDE 104 mmol/L (98-107); POTASSIUM 3.8 mmol/L (3.5-5.1); SODIUM 136 mmol/L (136-145)
[2020-09-17 19:27] LABS: CALCIUM 8.9 mg/dL (8.5-10.1)
[2020-09-17 19:28] LABS: ALBUMIN 2.7 g/dl (3.4-5.0); ANION GAP 7 MMOL/L (8-16); BLOOD UREA NITROGEN 8.2 mg/dL (7-18); CO2 25 mmol/L (21-32); GLUCOSE,RANDOM 131 mg/dL (74-106); INR 1.22 (0.83-1.09); PROTHROMBIN TIME (PATIENT) 14.9 SEC (9.7-13.0)
[2020-09-17 19:30] LABS: ACTIVATED PTT 83.3 SECONDS (25.2-36.5)
[2020-09-17 19:31] LABS: CREATININE 0.8 mg/dL (0.55-1.3); SGOT/AST 50 U/L (15-37); SGPT/ALT 26 U/L (13-61)
[2020-09-17 19:33] LABS: TOT PROT 7.2 g/dl (6.4-8.2)
[2020-09-17 19:34] LABS: ALK PHOS 183 U/L (45-117)
[2020-09-17] MEDS ORDERED: IBUPROFEN 600 MG TABLET (FP) PO ONE ×2 (19:34→19:37)
[2020-09-17 20:05] LABS: EPI CELLS 3 /uL (0-25.1); HYALINE CASTS 10 /uL (0-3.1); URINE APPEARANCE TURBID; URINE BACTERIA >9,000 /uL (0-1359); URINE BILIRUBIN NEGATIVE (NEGATIVE); URINE COLOR YELLOW; URINE GLUCOSE (UA) NEGATIVE (NEGATIVE); URINE KETONE NEGATIVE (NEGATIVE); URINE LEUK ESTERASE 3+ (NEGATIVE); URINE NITRITE POSITIVE (NEGATIVE); URINE PROTEIN 2+ (NEGATIVE); URINE RBC 945 /uL (0-23.9); URINE UROBILINOGEN 0.2 mg/dL (0.2-1.0); URINE WBC 7704 /uL (0-25.8)
[2020-09-17] MEDS ORDERED: ACETAMINOPHEN 325 MG TABLET (FP) PO PRN (23:38)
[2020-09-18] MEDS: SODIUM CHLORIDE 1,000 ML IV SCH ×3 (00:20→17:52)
[2020-09-18] MEDS ORDERED: CEFEPIME HCL/D5W 1 GM/50 ML BAG IVPB SCH (02:00)
[2020-09-18] MEDS ORDERED: DEXTROSE 5%-WATER 100 ML IVPB ONE ×3 (04:05→17:29)
[2020-09-18] MEDS ORDERED: CEFEPIME HCL 1 GM VIAL (RESTRICTED TO ID) ONE ×3 (04:05→17:29)
[2020-09-18] MEDS: CEFEPIME 1 GM in DEXTROSE 5%-WATER 100 ML IVPB SCH ×3 (04:08→17:52)
[2020-09-18 06:58] VITALS: BMI 33.3
[2020-09-18 08:55] LABS: BASO % 0.3 % (0-2.0); EOS % 3.6 % (0-4.5); HEMATOCRIT 27.9 % (32.4-45.2); HEMOGLOBIN 9.6 GM/dL (10.7-15.3); LYMPH % 11.8 % (8-40); MCH 32.3 pg (25.7-33.7); MCHC 34.5 g/dl (32.0-36.0); MEAN CELL VOLUME 93.7 fl (80-96); MEAN PLT VOLUME 8.5 fl (7.5-11.1); MONO % 9.8 % (3.8-10.2); NEUT % 74.5 % (42.8-82.8); PLATELET COUNT 142 K/MM3 (134-434); RBC 2.98 M/mm3 (3.60-5.2); RDW 16.7 % (11.6-15.6); WHITE BLOOD COUNT 7.3 K/mm3 (4.0-10.0)
[2020-09-18 08:59] LABS: POTASSIUM 3.9 mmol/L (3.5-5.1)
[2020-09-18 09:07] LABS: ALBUMIN 2.5 g/dl (3.4-5.0); BLOOD UREA NITROGEN 8.9 mg/dL (7-18); CALCIUM 8.8 mg/dL (8.5-10.1); MAGNESIUM 2.2 mg/dL (1.8-2.4)
[2020-09-18 09:10] LABS: CREATININE 0.8 mg/dL (0.55-1.3); PHOSPHOROUS 2.5 mg/dL (2.5-4.9)
[2020-09-18 09:12] LABS: TOT PROT 6.6 g/dl (6.4-8.2)
[2020-09-18] MEDS: levETIRAcetam 500 MG TABLET (FP) PO SCH ×2 (09:45→22:52)
[2020-09-18] MEDS: ENOXAPARIN NA (PORCINE) 40 MG/0.4 ML DISP.SYRIN SQ SCH (09:45)
[2020-09-18] MEDS ORDERED: ACETAMINOPHEN 1000 MG/100 ML VIAL (NON FORMULARY) IVPB ONE (14:30)
[2020-09-18] MEDS ORDERED: IRON SUCROSE INJECTION 200 MG in SODIUM CHLORIDE 90 ML IVPB ONE (15:47)
[2020-09-18] MEDS ORDERED: VANCOMYCIN 1 GM in D5W (PRE-DOCKED) 1,000 MG/250 ML IVPB SCH (19:00)
[2020-09-18] MEDS ORDERED: GABAPENTIN 100 MG CAPSULE PO SCH (22:00)
[2020-09-18] MEDS: METOPROLOL TARTRATE 25 MG TABLET (FP) PO SCH (22:52)
[2020-09-19] MEDS ORDERED: ACETAMINOPHEN 1000 MG/100 ML VIAL (NON FORMULARY) IVPB ONE (00:53)
[2020-09-19] MEDS: CEFEPIME 1 GM in DEXTROSE 5%-WATER 100 ML IVPB SCH ×3 (02:22→18:13)
[2020-09-19] MEDS ORDERED: DEXTROSE 5%-WATER 100 ML IVPB ONE ×2 (09:22→18:11)
[2020-09-19] MEDS ORDERED: CEFEPIME HCL 1 GM VIAL (RESTRICTED TO ID) ONE ×2 (09:22→18:11)
[2020-09-19] MEDS: PANTOPRAZOLE 40 MG TABLET PO SCH (09:25)
[2020-09-19] MEDS: levETIRAcetam 500 MG TABLET (FP) PO SCH ×2 (09:25→21:39)
[2020-09-19] MEDS: SODIUM CHLORIDE 1,000 ML IV SCH (09:25)
[2020-09-19] MEDS: ENOXAPARIN NA (PORCINE) 40 MG/0.4 ML DISP.SYRIN SQ SCH (09:25)
[2020-09-19] MEDS: ASPIRIN 81 MG CHEWABLE TABLETS PO SCH (09:25)
[2020-09-19] MEDS: METOPROLOL TARTRATE 25 MG TABLET (FP) PO SCH ×2 (09:26→21:39)
[2020-09-19] MEDS: GABAPENTIN 100 MG CAPSULE PO SCH ×3 (10:45→21:40)
[2020-09-19 11:26] LABS: BASO % 0.5 % (0-2.0); EOS % 7.1 % (0-4.5); LYMPH % 20.1 % (8-40); MCH 32.2 pg (25.7-33.7); MCHC 34.4 g/dl (32.0-36.0); MEAN CELL VOLUME 93.5 fl (80-96); MEAN PLT VOLUME 8.3 fl (7.5-11.1); NEUT % 58.3 % (42.8-82.8); PLATELET COUNT 120 K/MM3 (134-434); RBC 2.78 M/mm3 (3.60-5.2); RDW 16.4 % (11.6-15.6); WHITE BLOOD COUNT 4.6 K/mm3 (4.0-10.0)
[2020-09-19 12:13] LABS: ALBUMIN 2.3 g/dl (3.4-5.0); BLOOD UREA NITROGEN 6.2 mg/dL (7-18); MAGNESIUM 2.2 mg/dL (1.8-2.4)
[2020-09-19 12:16] LABS: CALCIUM 8.9 mg/dL (8.5-10.1); CREATININE 0.7 mg/dL (0.55-1.3); PHOSPHOROUS 2.9 mg/dL (2.5-4.9)
[2020-09-19 12:18] LABS: BILIRUBIN,TOTAL 0.7 mg/dL (0.2-1); TOT PROT 6.3 g/dl (6.4-8.2)
[2020-09-19 12:19] LABS: POTASSIUM 3.6 mmol/L (3.5-5.1)
[2020-09-19] MEDS ORDERED: ACETAMINOPHEN 1000 MG/100 ML VIAL (NON FORMULARY) IVPB PRN (15:31)
[2020-09-19] MEDS ORDERED: VANCOMYCIN 1 GM in D5W (PRE-DOCKED) 1,000 MG/250 ML IVPB SCH (19:00)
[2020-09-20] MEDS: GABAPENTIN 100 MG CAPSULE PO SCH ×3 (06:10→21:40)
[2020-09-20] MEDS: SODIUM CHLORIDE 1,000 ML IV SCH (07:34)
[2020-09-20] MEDS ORDERED: PORTA CATH FLUSH 10 ML IVPUSH ONE (08:24)
[2020-09-20 08:28] LABS: BASO % 0.6 % (0-2.0); EOS % 7.9 % (0-4.5); HEMATOCRIT 23.9 % (32.4-45.2); LYMPH % 28.6 % (8-40); MCH 31.4 pg (25.7-33.7); MCHC 33.3 g/dl (32.0-36.0); MEAN CELL VOLUME 94.2 fl (80-96); MEAN PLT VOLUME 8.5 fl (7.5-11.1); NEUT % 43.9 % (42.8-82.8); PLATELET COUNT 124 K/MM3 (134-434); RBC 2.54 M/mm3 (3.60-5.2); RDW 16.1 % (11.6-15.6); WHITE BLOOD COUNT 5.2 K/mm3 (4.0-10.0)
[2020-09-20 08:46] LABS: POTASSIUM 3.6 mmol/L (3.5-5.1)
[2020-09-20 08:48] LABS: CALCIUM 8.6 mg/dL (8.5-10.1)
[2020-09-20 08:49] LABS: BLOOD UREA NITROGEN 6.3 mg/dL (7-18)
[2020-09-20 08:52] LABS: CREATININE 0.6 mg/dL (0.55-1.3); PHOSPHOROUS 2.5 mg/dL (2.5-4.9)
[2020-09-20 08:53] LABS: BILIRUBIN,TOTAL 0.5 mg/dL (0.2-1)
[2020-09-20 08:54] LABS: TOT PROT 5.9 g/dl (6.4-8.2)
[2020-09-20 09:03] LABS: AMYLASE 41 U/L (25-115); LIPASE 72 U/L (73-393)
[2020-09-20] MEDS: ENOXAPARIN NA (PORCINE) 40 MG/0.4 ML DISP.SYRIN SQ SCH (09:33)
[2020-09-20] MEDS: METOPROLOL TARTRATE 25 MG TABLET (FP) PO SCH ×2 (09:33→21:40)
[2020-09-20] MEDS: PANTOPRAZOLE 40 MG TABLET PO SCH (09:33)
[2020-09-20] MEDS: levETIRAcetam 500 MG TABLET (FP) PO SCH ×2 (09:33→21:40)
[2020-09-20] MEDS: ASPIRIN 81 MG CHEWABLE TABLETS PO SCH (09:33)
[2020-09-20] MEDS ORDERED: IBUPROFEN 400 MG TABLET (FP) PO PRN (09:37)
[2020-09-20] MEDS ORDERED: ACETAMINOPHEN 325 MG TABLET (FP) PO PRN (09:37)
[2020-09-20] MEDS ORDERED: DEXTROSE 5%-WATER - 50 ML IVPB ONE ×2 (10:36→17:30)
[2020-09-20] MEDS ORDERED: CEFEPIME HCL 1 GM VIAL (RESTRICTED TO ID) ONE (10:36)
[2020-09-20] MEDS ORDERED: CEFEPIME 1 GM in DEXTROSE 5%-WATER - 50 ML IVPB SCH (10:45)
[2020-09-20 11:55] LABS: ANISOCYTOSIS 1+; MACROCYTOSIS 0; PLATELET ESTIMATE DECREASED
[2020-09-20] MEDS ORDERED: cefTRIAXone SODIUM 1 GM VIAL ONE (17:30)
[2020-09-20] MEDS: CEFTRIAXONE 1 GM in DEXTROSE 5%-WATER - 50 ML IVPB SCH (17:31)
[2020-09-21] MEDS: GABAPENTIN 100 MG CAPSULE PO SCH ×3 (05:34→21:21)
[2020-09-21 09:31] LABS: BASO % 0.7 % (0-2.0); EOS % 9.9 % (0-4.5); HEMATOCRIT 24.2 % (32.4-45.2); HEMOGLOBIN 8.4 GM/dL (10.7-15.3); LYMPH % 29.4 % (8-40); MCH 32.1 pg (25.7-33.7); MCHC 34.5 g/dl (32.0-36.0); MEAN CELL VOLUME 93.1 fl (80-96); MEAN PLT VOLUME 8.1 fl (7.5-11.1); MONO % 17.7 % (3.8-10.2); NEUT % 42.3 % (42.8-82.8); PLATELET COUNT 129 K/MM3 (134-434); RDW 16.2 % (11.6-15.6); WHITE BLOOD COUNT 4.8 K/mm3 (4.0-10.0)
[2020-09-21 09:36] LABS: INR 1.08 (0.83-1.09); PROTHROMBIN TIME (PATIENT) 13.3 SEC (9.7-13.0)
[2020-09-21] MEDS ORDERED: cefTRIAXone SODIUM 1 GM VIAL ONE (09:44)
[2020-09-21] MEDS ORDERED: DEXTROSE 5%-WATER - 50 ML IVPB ONE (09:45)
[2020-09-21] MEDS: SODIUM CHLORIDE 1,000 ML IV SCH (10:03)
[2020-09-21] MEDS: PANTOPRAZOLE 40 MG TABLET PO SCH (10:05)
[2020-09-21] MEDS: levETIRAcetam 500 MG TABLET (FP) PO SCH ×2 (10:05→21:22)
[2020-09-21] MEDS: METOPROLOL TARTRATE 25 MG TABLET (FP) PO SCH ×2 (10:05→21:21)
[2020-09-21] MEDS: CEFTRIAXONE 1 GM in DEXTROSE 5%-WATER - 50 ML IVPB SCH (10:05)
[2020-09-21] MEDS: ASPIRIN 81 MG CHEWABLE TABLETS PO SCH (10:05)
[2020-09-21] MEDS: ENOXAPARIN NA (PORCINE) 40 MG/0.4 ML DISP.SYRIN SQ SCH (10:06)
[2020-09-21 10:07] LABS: POTASSIUM 3.6 mmol/L (3.5-5.1)
[2020-09-21 10:10] LABS: ALBUMIN 2.1 g/dl (3.4-5.0)
[2020-09-21 10:11] LABS: BLOOD UREA NITROGEN 6.3 mg/dL (7-18); MAGNESIUM 2.1 mg/dL (1.8-2.4)
[2020-09-21 10:14] LABS: CREATININE 0.5 mg/dL (0.55-1.3); PHOSPHOROUS 2.5 mg/dL (2.5-4.9)
[2020-09-21 10:17] LABS: TOT PROT 6.1 g/dl (6.4-8.2)
[2020-09-21 10:21] LABS: BILIRUBIN,TOTAL 0.5 mg/dL (0.2-1)
[2020-09-21] MEDS ORDERED: ACETAMINOPHEN 325 MG TABLET (FP) PO PRN (10:41)
[2020-09-21 10:48] LABS: ANISOCYTOSIS 1+; MACROCYTOSIS 0; OVALOCYTE 1+; PLATELET ESTIMATE DECREASED; TEAR DROP CELLS 1+
[2020-09-21] MEDS: DULoxetine HCL 20 MG CAPSULE.DR PO SCH (14:31)
[2020-09-22] MEDS: GABAPENTIN 100 MG CAPSULE PO SCH ×3 (06:12→21:43)
[2020-09-22] MEDS: SODIUM CHLORIDE 1,000 ML IV SCH (06:12)
[2020-09-22] MEDS ORDERED: DEXTROSE 5%-WATER - 50 ML IVPB ONE (08:51)
[2020-09-22] MEDS ORDERED: cefTRIAXone SODIUM 1 GM VIAL ONE (08:51)
[2020-09-22 08:53] LABS: EOS % 10.8 % (0-4.5); HEMOGLOBIN 8.1 GM/dL (10.7-15.3); LYMPH % 26.1 % (8-40); MCH 31.5 pg (25.7-33.7); MCHC 33.8 g/dl (32.0-36.0); MEAN CELL VOLUME 93.1 fl (80-96); MEAN PLT VOLUME 8.2 fl (7.5-11.1); MONO % 15.6 % (3.8-10.2); NEUT % 46.5 % (42.8-82.8); PLATELET COUNT 129 K/MM3 (134-434); RBC 2.58 M/mm3 (3.60-5.2); WHITE BLOOD COUNT 4.7 K/mm3 (4.0-10.0)
[2020-09-22 09:06] LABS: POTASSIUM 3.4 mmol/L (3.5-5.1)
[2020-09-22 09:08] LABS: CALCIUM 8.8 mg/dL (8.5-10.1)
[2020-09-22 09:09] LABS: MAGNESIUM 1.8 mg/dL (1.8-2.4)
[2020-09-22 09:12] LABS: CREATININE 0.5 mg/dL (0.55-1.3); PHOSPHOROUS 2.6 mg/dL (2.5-4.9)
[2020-09-22] MEDS ORDERED: guaiFENesin/CODEINE 5 ML UNIT-DOSE CUPS PO PRN (09:12)
[2020-09-22 09:13] LABS: BILIRUBIN,TOTAL 0.6 mg/dL (0.2-1)
[2020-09-22] MEDS ORDERED: ALBUTEROL SO4 HFA INHALER IH PRN (09:13)
[2020-09-22 09:14] LABS: TOT PROT 5.9 g/dl (6.4-8.2)
[2020-09-22] MEDS: levETIRAcetam 500 MG TABLET (FP) PO SCH ×2 (09:22→21:43)
[2020-09-22] MEDS: DULoxetine HCL 20 MG CAPSULE.DR PO SCH (09:22)
[2020-09-22] MEDS: ENOXAPARIN NA (PORCINE) 40 MG/0.4 ML DISP.SYRIN SQ SCH (09:22)
[2020-09-22] MEDS: METOPROLOL TARTRATE 25 MG TABLET (FP) PO SCH ×2 (09:22→21:44)
[2020-09-22] MEDS: ASPIRIN 81 MG CHEWABLE TABLETS PO SCH (09:22)
[2020-09-22] MEDS: CEFTRIAXONE 1 GM in DEXTROSE 5%-WATER - 50 ML IVPB SCH (09:23)
[2020-09-22] MEDS: PANTOPRAZOLE 40 MG TABLET PO SCH (09:23)
[2020-09-22] MEDS ORDERED: POTASSIUM CHLORIDE TABS 20 MEQ TABLET.ER (FP) PO ONE (15:12)
[2020-09-23] MEDS: GABAPENTIN 100 MG CAPSULE PO SCH ×3 (06:01→22:09)
[2020-09-23] MEDS: SODIUM CHLORIDE 1,000 ML IV SCH ×2 (06:06→22:14)
[2020-09-23 09:17] LABS: BASO % 0.6 % (0-2.0); EOS % 9.9 % (0-4.5); HEMATOCRIT 31.4 % (32.4-45.2); HEMOGLOBIN 10.2 GM/dL (10.7-15.3); LYMPH % 29.8 % (8-40); MCH 31.6 pg (25.7-33.7); MCHC 32.4 g/dl (32.0-36.0); MEAN CELL VOLUME 97.5 fl (80-96); MEAN PLT VOLUME 8.8 fl (7.5-11.1); MONO % 11.4 % (3.8-10.2); NEUT % 48.3 % (42.8-82.8); PLATELET COUNT 99 K/MM3 (134-434); RBC 3.22 M/mm3 (3.60-5.2); RDW 16.6 % (11.6-15.6); WHITE BLOOD COUNT 4.1 K/mm3 (4.0-10.0)
[2020-09-23] MEDS ORDERED: cefTRIAXone SODIUM 1 GM VIAL ONE (09:18)
[2020-09-23] MEDS ORDERED: DEXTROSE 5%-WATER - 50 ML IVPB ONE (09:18)
[2020-09-23] MEDS ORDERED: PT OWN MED DRAWER 7, Y5N ONE (09:18)
[2020-09-23] MEDS: levETIRAcetam 500 MG TABLET (FP) PO SCH ×2 (09:35→22:09)
[2020-09-23] MEDS: ENOXAPARIN NA (PORCINE) 40 MG/0.4 ML DISP.SYRIN SQ SCH (09:35)
[2020-09-23] MEDS: CEFTRIAXONE 1 GM in DEXTROSE 5%-WATER - 50 ML IVPB SCH (09:35)
[2020-09-23] MEDS: DULoxetine HCL 20 MG CAPSULE.DR PO SCH (09:35)
[2020-09-23] MEDS: METOPROLOL TARTRATE 25 MG TABLET (FP) PO SCH ×2 (09:35→22:09)
[2020-09-23] MEDS: PANTOPRAZOLE 40 MG TABLET PO SCH (09:35)
[2020-09-23 09:36] LABS: ALBUMIN 2.2 g/dl (3.4-5.0); BILIRUBIN,TOTAL 0.6 mg/dL (0.2-1); BLOOD UREA NITROGEN 4.7 mg/dL (7-18); CALCIUM 9.1 mg/dL (8.5-10.1); CREATININE 0.5 mg/dL (0.55-1.3); POTASSIUM 4.1 mmol/L (3.5-5.1); TOT PROT 6.3 g/dl (6.4-8.2)
[2020-09-23] MEDS: ASPIRIN 81 MG CHEWABLE TABLETS PO SCH (10:00)
[2020-09-24] MEDS: GABAPENTIN 100 MG CAPSULE PO SCH ×3 (05:47→22:20)
[2020-09-24] MEDS ORDERED: PT OWN MED DRAWER 7, Y5N ONE (08:57)
[2020-09-24] MEDS ORDERED: cefTRIAXone SODIUM 1 GM VIAL ONE (08:58)
[2020-09-24] MEDS ORDERED: DEXTROSE 5%-WATER - 50 ML IVPB ONE (08:58)
[2020-09-24] MEDS: CEFTRIAXONE 1 GM in DEXTROSE 5%-WATER - 50 ML IVPB SCH (09:02)
[2020-09-24] MEDS: SODIUM CHLORIDE 1,000 ML IV SCH (09:06)
[2020-09-24] MEDS: levETIRAcetam 500 MG TABLET (FP) PO SCH ×2 (09:08→22:20)
[2020-09-24] MEDS: METOPROLOL TARTRATE 25 MG TABLET (FP) PO SCH ×2 (09:09→22:20)
[2020-09-24 09:48] LABS: BASO % 0.6 % (0-2.0); EOS % 9.5 % (0-4.5); HEMATOCRIT 25.4 % (32.4-45.2); HEMOGLOBIN 8.7 GM/dL (10.7-15.3); LYMPH % 27.5 % (8-40); MCHC 34.4 g/dl (32.0-36.0); MEAN CELL VOLUME 92.9 fl (80-96); MEAN PLT VOLUME 7.7 fl (7.5-11.1); MONO % 11.9 % (3.8-10.2); NEUT % 50.5 % (42.8-82.8); PLATELET COUNT 149 K/MM3 (134-434); RBC 2.73 M/mm3 (3.60-5.2); RDW 16.1 % (11.6-15.6); WHITE BLOOD COUNT 4.8 K/mm3 (4.0-10.0)
[2020-09-24 09:51] LABS: INR 1.14 (0.83-1.09); PROTHROMBIN TIME (PATIENT) 13.7 SEC (9.7-13.0)
[2020-09-24] MEDS ORDERED: guaiFENesin 600 MG TABLET.ER (FP) PO SCH (10:00)
[2020-09-24 10:07] LABS: POTASSIUM 3.6 mmol/L (3.5-5.1)
[2020-09-24 10:19] LABS: ALBUMIN 2.2 g/dl (3.4-5.0); BLOOD UREA NITROGEN 4.8 mg/dL (7-18); CALCIUM 9.3 mg/dL (8.5-10.1); MAGNESIUM 1.7 mg/dL (1.8-2.4)
[2020-09-24 10:23] LABS: BILIRUBIN,TOTAL 0.7 mg/dL (0.2-1); CREATININE 0.5 mg/dL (0.55-1.3); PHOSPHOROUS 3.3 mg/dL (2.5-4.9)
[2020-09-24] MEDS: PANTOPRAZOLE 40 MG TABLET PO SCH (10:24)
[2020-09-24] MEDS: ENOXAPARIN NA (PORCINE) 40 MG/0.4 ML DISP.SYRIN SQ SCH (10:24)
[2020-09-24] MEDS: ASPIRIN 81 MG CHEWABLE TABLETS PO SCH (10:24)
[2020-09-24] MEDS: DULoxetine HCL 20 MG CAPSULE.DR PO SCH (10:24)
[2020-09-24 10:25] LABS: TOT PROT 6.4 g/dl (6.4-8.2)
[2020-09-24] MEDS ORDERED: ACETAMINOPHEN 1000 MG/100 ML VIAL (NON FORMULARY) IVPB ONE (10:43)
[2020-09-24] MEDS ORDERED: MIDAZOLAM HCL 2 MG/2 ML SINGLE DOSE VIAL ONE ×2 (11:13→14:51)
[2020-09-24] MEDS ORDERED: PROPOFOL 20 ML ONE ×3 (11:13→15:15)
[2020-09-24] MEDS ORDERED: DEXAMETHASONE SOD PHOSPHATE 4 MG/1 ML VIAL ONE ×2 (12:01→15:23)
[2020-09-24] MEDS ORDERED: ceFAZolin SODIUM 1 GM VIAL ONE (12:01)
[2020-09-24] MEDS ORDERED: KETOROLAC TROMETHAMINE 30 MG/1 ML VIAL ONE (12:01)
[2020-09-24] MEDS ORDERED: LIDOCAINE HCL/PF 2% SDV 5ML VIAL ONE (14:52)
[2020-09-24] MEDS ORDERED: ONDANSETRON 4 MG/2 ML VIAL IVPUSH PRN (16:07)
[2020-09-24] MEDS ORDERED: PROMETHAZINE HCL 25 MG/1 ML VIAL IVPUSH PRN (16:07)
[2020-09-24] MEDS ORDERED: LACTATED RINGERS SOLUTION 1,000 ML IV SCH (16:15)
[2020-09-24] MEDS ORDERED: SODIUM CHLORIDE 1,000 ML IV SCH (16:49)
[2020-09-24] MEDS ORDERED: IBUPROFEN 400 MG TABLET (FP) PO PRN (16:49)
[2020-09-24] MEDS ORDERED: ALBUTEROL SO4 HFA INHALER IH PRN (16:49)
[2020-09-24] MEDS: guaiFENesin 600 MG TABLET.ER (FP) PO SCH (22:20)
[2020-09-25] MEDS: GABAPENTIN 100 MG CAPSULE PO SCH ×3 (06:27→21:30)
[2020-09-25 08:22] LABS: BASO % 0.4 % (0-2.0); EOS % 0.4 % (0-4.5); HEMATOCRIT 27.9 % (32.4-45.2); HEMOGLOBIN 9.2 GM/dL (10.7-15.3); LYMPH % 27.4 % (8-40); MCH 31.3 pg (25.7-33.7); MCHC 33.1 g/dl (32.0-36.0); MEAN CELL VOLUME 94.4 fl (80-96); MEAN PLT VOLUME 8.6 fl (7.5-11.1); MONO % 10.7 % (3.8-10.2); NEUT % 61.1 % (42.8-82.8); PLATELET COUNT 179 K/MM3 (134-434); RBC 2.95 M/mm3 (3.60-5.2); RDW 16.4 % (11.6-15.6); WHITE BLOOD COUNT 4.6 K/mm3 (4.0-10.0)
[2020-09-25 08:59] LABS: ALBUMIN 2.3 g/dl (3.4-5.0)
[2020-09-25 09:03] LABS: BILIRUBIN,TOTAL 0.7 mg/dL (0.2-1); CALCIUM 9.7 mg/dL (8.5-10.1)
[2020-09-25 09:04] LABS: MAGNESIUM 1.9 mg/dL (1.8-2.4); PHOSPHOROUS 4.1 mg/dL (2.5-4.9)
[2020-09-25 09:08] LABS: CREATININE 0.6 mg/dL (0.55-1.3)
[2020-09-25 09:09] LABS: TOT PROT 6.6 g/dl (6.4-8.2)
[2020-09-25] MEDS: ACETAMINOPHEN 325 MG TABLET (FP) PO PRN (09:56)
[2020-09-25] MEDS ORDERED: DEXTROSE 5%-WATER - 50 ML IVPB ONE (10:58)
[2020-09-25] MEDS ORDERED: cefTRIAXone SODIUM 1 GM VIAL ONE (10:58)
[2020-09-25] MEDS: CEFTRIAXONE 1 GM in DEXTROSE 5%-WATER - 50 ML IVPB SCH (11:00)
[2020-09-25] MEDS: METOPROLOL TARTRATE 25 MG TABLET (FP) PO SCH ×2 (11:01→21:30)
[2020-09-25] MEDS: PANTOPRAZOLE 40 MG TABLET PO SCH (11:01)
[2020-09-25] MEDS: levETIRAcetam 500 MG TABLET (FP) PO SCH ×2 (11:01→21:30)
[2020-09-25] MEDS: ENOXAPARIN NA (PORCINE) 40 MG/0.4 ML DISP.SYRIN SQ SCH (11:02)
[2020-09-25] MEDS: guaiFENesin 600 MG TABLET.ER (FP) PO SCH ×2 (11:02→21:30)
[2020-09-25] MEDS: ASPIRIN 81 MG CHEWABLE TABLETS PO SCH (11:02)
[2020-09-25] MEDS ORDERED: PT OWN MED DRAWER 7, Y5N ONE (11:09)
[2020-09-25] MEDS: DULoxetine HCL 20 MG CAPSULE.DR PO SCH (11:10)
[2020-09-25] MEDS ORDERED: MORPHINE SULFATE 2 MG/ML VIAL IVPUSH PRN (13:11)
[2020-09-26] MEDS: GABAPENTIN 100 MG CAPSULE PO SCH ×3 (06:14→21:46)
[2020-09-26 08:39] LABS: BASO % 0.6 % (0-2.0); EOS % 4.1 % (0-4.5); HEMATOCRIT 23.6 % (32.4-45.2); HEMOGLOBIN 8.2 GM/dL (10.7-15.3); LYMPH % 32.7 % (8-40); MCH 32.4 pg (25.7-33.7); MCHC 34.9 g/dl (32.0-36.0); MEAN CELL VOLUME 92.9 fl (80-96); MEAN PLT VOLUME 7.7 fl (7.5-11.1); MONO % 10.9 % (3.8-10.2); NEUT % 51.7 % (42.8-82.8); PLATELET COUNT 169 K/MM3 (134-434); RBC 2.54 M/mm3 (3.60-5.2); RDW 16.3 % (11.6-15.6); WHITE BLOOD COUNT 4.8 K/mm3 (4.0-10.0)
[2020-09-26 09:15] LABS: POTASSIUM 3.3 mmol/L (3.5-5.1)
[2020-09-26 09:22] LABS: ALBUMIN 2.1 g/dl (3.4-5.0); BLOOD UREA NITROGEN 12.7 mg/dL (7-18); CALCIUM 8.5 mg/dL (8.5-10.1); MAGNESIUM 1.7 mg/dL (1.8-2.4)
[2020-09-26 09:26] LABS: CREATININE 0.7 mg/dL (0.55-1.3); PHOSPHOROUS 2.8 mg/dL (2.5-4.9)
[2020-09-26 09:27] LABS: BILIRUBIN,TOTAL 0.5 mg/dL (0.2-1)
[2020-09-26] MEDS ORDERED: PT OWN MED DRAWER 7, Y5N ONE (10:17)
[2020-09-26] MEDS ORDERED: DEXTROSE 5%-WATER - 50 ML IVPB ONE (10:17)
[2020-09-26] MEDS ORDERED: cefTRIAXone SODIUM 1 GM VIAL ONE (10:17)
[2020-09-26] MEDS: CEFTRIAXONE 1 GM in DEXTROSE 5%-WATER - 50 ML IVPB SCH (10:20)
[2020-09-26] MEDS: ENOXAPARIN NA (PORCINE) 40 MG/0.4 ML DISP.SYRIN SQ SCH (10:21)
[2020-09-26] MEDS: guaiFENesin 600 MG TABLET.ER (FP) PO SCH ×2 (10:21→21:47)
[2020-09-26] MEDS: METOPROLOL TARTRATE 25 MG TABLET (FP) PO SCH ×2 (10:21→21:47)
[2020-09-26] MEDS: DULoxetine HCL 20 MG CAPSULE.DR PO SCH (10:21)
[2020-09-26] MEDS: levETIRAcetam 500 MG TABLET (FP) PO SCH ×2 (10:21→21:47)
[2020-09-26] MEDS: PANTOPRAZOLE 40 MG TABLET PO SCH (10:21)
[2020-09-26] MEDS: ASPIRIN 81 MG CHEWABLE TABLETS PO SCH (10:22)
[2020-09-26] MEDS ORDERED: oxyCODONE HCL 5 MG TABLET PO ONE (21:29)
[2020-09-27] MEDS: GABAPENTIN 100 MG CAPSULE PO SCH ×3 (06:08→21:20)
[2020-09-27] MEDS ORDERED: cefTRIAXone SODIUM 1 GM VIAL ONE (09:59)
[2020-09-27] MEDS ORDERED: DEXTROSE 5%-WATER - 50 ML IVPB ONE (09:59)
[2020-09-27] MEDS ORDERED: PT OWN MED DRAWER 7, Y5N ONE (09:59)
[2020-09-27 10:15] LABS: BASO % 0.5 % (0-2.0); HEMATOCRIT 25.1 % (32.4-45.2); HEMOGLOBIN 8.7 GM/dL (10.7-15.3); LYMPH % 28.6 % (8-40); MCH 32.6 pg (25.7-33.7); MCHC 34.8 g/dl (32.0-36.0); MEAN CELL VOLUME 93.9 fl (80-96); MEAN PLT VOLUME 7.8 fl (7.5-11.1); MONO % 10.6 % (3.8-10.2); NEUT % 52.3 % (42.8-82.8); PLATELET COUNT 199 K/MM3 (134-434); RBC 2.67 M/mm3 (3.60-5.2); RDW 16.8 % (11.6-15.6); WHITE BLOOD COUNT 5.3 K/mm3 (4.0-10.0)
[2020-09-27] MEDS: ENOXAPARIN NA (PORCINE) 40 MG/0.4 ML DISP.SYRIN SQ SCH (10:44)
[2020-09-27] MEDS: PANTOPRAZOLE 40 MG TABLET PO SCH (10:44)
[2020-09-27] MEDS: DULoxetine HCL 20 MG CAPSULE.DR PO SCH (10:44)
[2020-09-27] MEDS: levETIRAcetam 500 MG TABLET (FP) PO SCH ×2 (10:44→21:20)
[2020-09-27] MEDS: guaiFENesin 600 MG TABLET.ER (FP) PO SCH ×2 (10:44→21:20)
[2020-09-27] MEDS: ASPIRIN 81 MG CHEWABLE TABLETS PO SCH (10:45)
[2020-09-27] MEDS: METOPROLOL TARTRATE 25 MG TABLET (FP) PO SCH ×2 (10:45→21:20)
[2020-09-27] MEDS: CEFTRIAXONE 1 GM in DEXTROSE 5%-WATER - 50 ML IVPB SCH (10:45)
[2020-09-27 12:14] LABS: POTASSIUM 3.4 mmol/L (3.5-5.1)
[2020-09-27 12:17] LABS: ALBUMIN 2.1 g/dl (3.4-5.0); BILIRUBIN,TOTAL 0.6 mg/dL (0.2-1); CALCIUM 8.7 mg/dL (8.5-10.1); CREATININE 0.5 mg/dL (0.55-1.3); MAGNESIUM 1.8 mg/dL (1.8-2.4); PHOSPHOROUS 2.7 mg/dL (2.5-4.9); TOT PROT 6.2 g/dl (6.4-8.2)
[2020-09-27] MEDS ORDERED: POTASSIUM CHLORIDE TABS 20 MEQ TABLET.ER (FP) PO ONE (13:27)
[2020-09-27] MEDS: KCL 10 MEQ IVPB 10 MEQ/100 ML INFUS.BAG IVPB SCH ×3 (13:53→21:19)
[2020-09-28] MEDS: GABAPENTIN 100 MG CAPSULE PO SCH ×2 (05:40→22:53)
[2020-09-28 09:21] LABS: BASO % 0.5 % (0-2.0); CHLORIDE 108 mmol/L (98-107); EOS % 8.4 % (0-4.5); HEMATOCRIT 27.9 % (32.4-45.2); HEMOGLOBIN 9.3 GM/dL (10.7-15.3); LYMPH % 25.9 % (8-40); MCH 31.7 pg (25.7-33.7); MCHC 33.4 g/dl (32.0-36.0); MEAN CELL VOLUME 94.7 fl (80-96); MEAN PLT VOLUME 8.4 fl (7.5-11.1); MONO % 8.8 % (3.8-10.2); NEUT % 56.4 % (42.8-82.8); PLATELET COUNT 186 K/MM3 (134-434); POTASSIUM 4.1 mmol/L (3.5-5.1); RBC 2.95 M/mm3 (3.60-5.2); RDW 17.3 % (11.6-15.6); SODIUM 142 mmol/L (136-145); WHITE BLOOD COUNT 5.2 K/mm3 (4.0-10.0)
[2020-09-28 09:30] LABS: ALBUMIN 2.2 g/dl (3.4-5.0); ANION GAP 5 MMOL/L (8-16); CALCIUM 9.7 mg/dL (8.5-10.1); CO2 29 mmol/L (21-32)
[2020-09-28 09:31] LABS: BLOOD UREA NITROGEN 6.3 mg/dL (7-18); GLUCOSE,RANDOM 103 mg/dL (74-106)
[2020-09-28 09:33] LABS: CREATININE 0.5 mg/dL (0.55-1.3); PHOSPHOROUS 2.6 mg/dL (2.5-4.9); SGOT/AST 41 U/L (15-37); SGPT/ALT 23 U/L (13-61)
[2020-09-28 09:34] LABS: BILIRUBIN,TOTAL 0.7 mg/dL (0.2-1); TOT PROT 6.4 g/dl (6.4-8.2)
[2020-09-28 09:39] LABS: ALK PHOS 182 U/L (45-117)
[2020-09-28] MEDS ORDERED: PT OWN MED DRAWER 7, Y5N ONE ×2 (09:57→22:26)
[2020-09-28] MEDS ORDERED: DEXTROSE 5%-WATER - 50 ML IVPB ONE (09:57)
[2020-09-28] MEDS ORDERED: cefTRIAXone SODIUM 1 GM VIAL ONE (09:57)
[2020-09-28] MEDS: CEFTRIAXONE 1 GM in DEXTROSE 5%-WATER - 50 ML IVPB SCH (09:59)
[2020-09-28] MEDS: ENOXAPARIN NA (PORCINE) 40 MG/0.4 ML DISP.SYRIN SQ SCH (09:59)
[2020-09-28] MEDS: PANTOPRAZOLE 40 MG TABLET PO SCH (10:00)
[2020-09-28] MEDS: ACETAMINOPHEN 325 MG TABLET (FP) PO PRN (10:00)
[2020-09-28] MEDS: ASPIRIN 81 MG CHEWABLE TABLETS PO SCH (10:00)
[2020-09-28] MEDS: levETIRAcetam 500 MG TABLET (FP) PO SCH ×2 (10:00→22:53)
[2020-09-28] MEDS: METOPROLOL TARTRATE 25 MG TABLET (FP) PO SCH ×2 (10:00→22:53)
[2020-09-28] MEDS: guaiFENesin 600 MG TABLET.ER (FP) PO SCH ×2 (10:00→22:53)
[2020-09-28] MEDS: DULoxetine HCL 20 MG CAPSULE.DR PO SCH (10:02)
[2020-09-28] MEDS ORDERED: DOCUSATE SODIUM 100 MG CAPSULE (FP) PO ONE (13:04)
[2020-09-28] MEDS: POLYETHYLENE GLYCOL 3350 119 GM BTL PO SCH (13:53)
[2020-09-28] MEDS ORDERED: LACTULOSE 20 GM/30 ML UDC (FOR RECTAL USE ONLY) PR SCH (15:15)
[2020-09-28] MEDS: LACTULOSE 20 GM/30 ML UDC (FOR RECTAL USE ONLY) PR SCH ×2 (17:22→22:52)
[2020-09-28] MEDS: SENNOSIDES 8.8 MG/5 ML BULK BOTTLE PO SCH (22:53)
[2020-09-29] MEDS ORDERED: PT OWN MED DRAWER 7, Y5N ONE ×3 (05:23→22:03)
[2020-09-29] MEDS: LACTULOSE 20 GM/30 ML UDC (FOR RECTAL USE ONLY) PR SCH (05:29)
[2020-09-29 10:47] LABS: BASO % 0.6 % (0-2.0); EOS % 9.4 % (0-4.5); HEMATOCRIT 26.6 % (32.4-45.2); HEMOGLOBIN 9.1 GM/dL (10.7-15.3); LYMPH % 29.5 % (8-40); MCHC 34.1 g/dl (32.0-36.0); MEAN CELL VOLUME 93.7 fl (80-96); MEAN PLT VOLUME 8.2 fl (7.5-11.1); MONO % 9.3 % (3.8-10.2); NEUT % 51.2 % (42.8-82.8); PLATELET COUNT 211 K/MM3 (134-434); RBC 2.85 M/mm3 (3.60-5.2); RDW 17.6 % (11.6-15.6); WHITE BLOOD COUNT 5.2 K/mm3 (4.0-10.0)
[2020-09-29 10:50] LABS: INR 1.08 (0.83-1.09); PROTHROMBIN TIME (PATIENT) 13.2 SEC (9.7-13.0)
[2020-09-29 10:52] LABS: ACTIVATED PTT 30.7 SECONDS (25.2-36.5)
[2020-09-29] MEDS: GABAPENTIN 100 MG CAPSULE PO SCH ×2 (10:53→22:18)
[2020-09-29] MEDS: POLYETHYLENE GLYCOL 3350 119 GM BTL PO SCH (10:53)
[2020-09-29] MEDS: METOPROLOL TARTRATE 25 MG TABLET (FP) PO SCH ×2 (10:53→22:17)
[2020-09-29] MEDS: levETIRAcetam 500 MG TABLET (FP) PO SCH ×2 (10:53→22:18)
[2020-09-29] MEDS: PANTOPRAZOLE 40 MG TABLET PO SCH (10:53)
[2020-09-29] MEDS: DULoxetine HCL 20 MG CAPSULE.DR PO SCH (10:53)
[2020-09-29] MEDS: ENOXAPARIN NA (PORCINE) 40 MG/0.4 ML DISP.SYRIN SQ SCH (10:53)
[2020-09-29] MEDS: AMINO ACIDS/PROTEIN HYDROLYS 30 ML LIQUID.PKT PO SCH (10:53)
[2020-09-29] MEDS: guaiFENesin 600 MG TABLET.ER (FP) PO SCH ×2 (10:53→22:18)
[2020-09-29 11:52] LABS: POTASSIUM 3.9 mmol/L (3.5-5.1)
[2020-09-29 12:05] LABS: BLOOD UREA NITROGEN 5.7 mg/dL (7-18); CALCIUM 9.4 mg/dL (8.5-10.1)
[2020-09-29 12:06] LABS: ALBUMIN 2.2 g/dl (3.4-5.0)
[2020-09-29 12:08] LABS: CREATININE 0.6 mg/dL (0.55-1.3)
[2020-09-29 12:09] LABS: PHOSPHOROUS 3.2 mg/dL (2.5-4.9)
[2020-09-29 12:10] LABS: BILIRUBIN,TOTAL 0.5 mg/dL (0.2-1); TOT PROT 6.5 g/dl (6.4-8.2)
[2020-09-29 12:11] LABS: MAGNESIUM 1.8 mg/dL (1.8-2.4)
[2020-09-29] MEDS: SENNOSIDES 8.8 MG/5 ML BULK BOTTLE PO SCH (22:52)
[2020-09-30 09:51] LABS: BASO % 0.8 % (0-2.0); EOS % 9.7 % (0-4.5); HEMATOCRIT 26.8 % (32.4-45.2); HEMOGLOBIN 9.2 GM/dL (10.7-15.3); LYMPH % 36.2 % (8-40); MCH 32.1 pg (25.7-33.7); MCHC 34.2 g/dl (32.0-36.0); MEAN CELL VOLUME 93.6 fl (80-96); NEUT % 44.3 % (42.8-82.8); PLATELET COUNT 225 K/MM3 (134-434); RBC 2.86 M/mm3 (3.60-5.2); WHITE BLOOD COUNT 5.1 K/mm3 (4.0-10.0)
[2020-09-30 10:05] LABS: POTASSIUM 3.8 mmol/L (3.5-5.1)
[2020-09-30] MEDS ORDERED: PT OWN MED DRAWER 7, Y5N ONE ×2 (10:24→21:07)
[2020-09-30] MEDS: METOPROLOL TARTRATE 25 MG TABLET (FP) PO SCH ×2 (10:34→21:21)
[2020-09-30] MEDS: PANTOPRAZOLE 40 MG TABLET PO SCH (10:34)
[2020-09-30] MEDS: levETIRAcetam 500 MG TABLET (FP) PO SCH ×2 (10:34→21:21)
[2020-09-30 10:35] LABS: ALBUMIN 2.5 g/dl (3.4-5.0); BLOOD UREA NITROGEN 8.2 mg/dL (7-18); CALCIUM 9.6 mg/dL (8.5-10.1)
[2020-09-30] MEDS: GABAPENTIN 100 MG CAPSULE PO SCH ×2 (10:35→21:21)
[2020-09-30] MEDS: DULoxetine HCL 20 MG CAPSULE.DR PO SCH (10:35)
[2020-09-30] MEDS: POLYETHYLENE GLYCOL 3350 119 GM BTL PO SCH (10:35)
[2020-09-30] MEDS: guaiFENesin 600 MG TABLET.ER (FP) PO SCH ×2 (10:35→21:21)
[2020-09-30] MEDS: AMINO ACIDS/PROTEIN HYDROLYS 30 ML LIQUID.PKT PO SCH (10:35)
[2020-09-30 10:38] LABS: CREATININE 0.6 mg/dL (0.55-1.3)
[2020-09-30 10:39] LABS: PHOSPHOROUS 3.5 mg/dL (2.5-4.9)
[2020-09-30 10:40] LABS: BILIRUBIN,TOTAL 0.7 mg/dL (0.2-1); TOT PROT 6.7 g/dl (6.4-8.2)
[2020-09-30] MEDS: LACTULOSE 20 GM/30 ML UDC (FOR ORAL USE ONLY) PO PRN (16:38)
[2020-09-30] MEDS: ACETAMINOPHEN 325 MG TABLET (FP) PO PRN (21:21)
[2020-09-30] MEDS: SENNOSIDES 8.8 MG/5 ML BULK BOTTLE PO SCH (21:21)
[2020-10-01] MEDS: AMINO ACIDS/PROTEIN HYDROLYS 30 ML LIQUID.PKT PO SCH (08:00)
[2020-10-01] MEDS: guaiFENesin 600 MG TABLET.ER (FP) PO SCH ×2 (10:44→22:01)
[2020-10-01] MEDS: PANTOPRAZOLE 40 MG TABLET PO SCH (10:44)
[2020-10-01] MEDS: DULoxetine HCL 20 MG CAPSULE.DR PO SCH (10:44)
[2020-10-01] MEDS: POLYETHYLENE GLYCOL 3350 119 GM BTL PO SCH (10:44)
[2020-10-01] MEDS: METOPROLOL TARTRATE 25 MG TABLET (FP) PO SCH ×2 (10:44→22:01)
[2020-10-01] MEDS: levETIRAcetam 500 MG TABLET (FP) PO SCH ×2 (10:44→22:01)
[2020-10-01] MEDS: GABAPENTIN 100 MG CAPSULE PO SCH ×2 (10:44→22:01)
[2020-10-01 12:36] LABS: BASO % 0.7 % (0-2.0); EOS % 11.1 % (0-4.5); HEMATOCRIT 25.7 % (32.4-45.2); HEMOGLOBIN 8.9 GM/dL (10.7-15.3); LYMPH % 38.8 % (8-40); MCH 32.2 pg (25.7-33.7); MCHC 34.5 g/dl (32.0-36.0); MEAN CELL VOLUME 93.2 fl (80-96); MONO % 11.3 % (3.8-10.2); NEUT % 38.1 % (42.8-82.8); PLATELET COUNT 191 K/MM3 (134-434); RBC 2.76 M/mm3 (3.60-5.2)
[2020-10-01 12:51] LABS: POTASSIUM 3.8 mmol/L (3.5-5.1)
[2020-10-01 12:57] LABS: ALBUMIN 2.4 g/dl (3.4-5.0); BLOOD UREA NITROGEN 7.9 mg/dL (7-18); CALCIUM 9.6 mg/dL (8.5-10.1)
[2020-10-01 13:00] LABS: CREATININE 0.5 mg/dL (0.55-1.3); PHOSPHOROUS 3.6 mg/dL (2.5-4.9)
[2020-10-01 13:02] LABS: BILIRUBIN,TOTAL 0.7 mg/dL (0.2-1); TOT PROT 6.5 g/dl (6.4-8.2)
[2020-10-01 14:07] LABS: CSF APPEARANCE CLEAR; CSF COLOR COLORLESS; CSF WBC 0
[2020-10-01 15:23] LABS: BF GLUCOSE (CSF ONLY) 46 mg/dL (40-70)
[2020-10-01] MEDS: SENNOSIDES 8.8 MG/5 ML BULK BOTTLE PO SCH (22:01)
[2020-10-02 09:26] LABS: MCHC 33.9 g/dl (32.0-36.0); RBC 2.84 M/mm3 (3.60-5.2); WHITE BLOOD COUNT 3.9 K/mm3 (4.0-10.0)
[2020-10-02 09:27] LABS: POTASSIUM 3.7 mmol/L (3.5-5.1)
[2020-10-02 09:30] LABS: BASO % 0.8 % (0-2.0); EOS % 10.1 % (0-4.5); HEMATOCRIT 26.8 % (32.4-45.2); HEMOGLOBIN 9.1 GM/dL (10.7-15.3); LYMPH % 36.7 % (8-40); MEAN CELL VOLUME 94.2 fl (80-96); MEAN PLT VOLUME 8.3 fl (7.5-11.1); MONO % 11.4 % (3.8-10.2); PLATELET COUNT 186 K/MM3 (134-434)
[2020-10-02 09:31] LABS: ALBUMIN 2.4 g/dl (3.4-5.0); CALCIUM 9.6 mg/dL (8.5-10.1); MAGNESIUM 1.9 mg/dL (1.8-2.4)
[2020-10-02 09:34] LABS: CREATININE 0.5 mg/dL (0.55-1.3); PHOSPHOROUS 3.5 mg/dL (2.5-4.9)
[2020-10-02 09:36] LABS: BILIRUBIN,TOTAL 0.7 mg/dL (0.2-1); TOT PROT 6.4 g/dl (6.4-8.2)
[2020-10-02] MEDS ORDERED: PT OWN MED DRAWER 7, Y5N ONE ×2 (09:55→22:18)
[2020-10-02] MEDS: LACTULOSE 20 GM/30 ML UDC (FOR ORAL USE ONLY) PO PRN (09:56)
[2020-10-02] MEDS: AMINO ACIDS/PROTEIN HYDROLYS 30 ML LIQUID.PKT PO SCH (09:56)
[2020-10-02] MEDS: METOPROLOL TARTRATE 25 MG TABLET (FP) PO SCH ×2 (09:56→22:54)
[2020-10-02] MEDS: POLYETHYLENE GLYCOL 3350 119 GM BTL PO SCH (09:57)
[2020-10-02] MEDS: levETIRAcetam 500 MG TABLET (FP) PO SCH ×2 (09:57→22:54)
[2020-10-02] MEDS: PANTOPRAZOLE 40 MG TABLET PO SCH (09:57)
[2020-10-02] MEDS: DULoxetine HCL 20 MG CAPSULE.DR PO SCH (09:57)
[2020-10-02] MEDS: guaiFENesin 600 MG TABLET.ER (FP) PO SCH ×2 (09:57→22:54)
[2020-10-02] MEDS: GABAPENTIN 100 MG CAPSULE PO SCH ×2 (09:57→22:54)
[2020-10-02] MEDS: ACETAMINOPHEN 325 MG TABLET (FP) PO PRN (16:49)
[2020-10-02] MEDS: SENNOSIDES 8.8 MG/5 ML BULK BOTTLE PO SCH (22:54)
[2020-10-03] MEDS ORDERED: PT OWN MED DRAWER 7, Y5N ONE (09:19)
[2020-10-03] MEDS: METOPROLOL TARTRATE 25 MG TABLET (FP) PO SCH (09:23)
[2020-10-03] MEDS: PANTOPRAZOLE 40 MG TABLET PO SCH (09:23)
[2020-10-03] MEDS: guaiFENesin 600 MG TABLET.ER (FP) PO SCH (09:23)
[2020-10-03] MEDS: AMINO ACIDS/PROTEIN HYDROLYS 30 ML LIQUID.PKT PO SCH (09:23)
[2020-10-03] MEDS: GABAPENTIN 100 MG CAPSULE PO SCH (09:23)
[2020-10-03] MEDS: levETIRAcetam 500 MG TABLET (FP) PO SCH (09:24)
[2020-10-03] MEDS: DULoxetine HCL 20 MG CAPSULE.DR PO SCH (09:24)
[2020-10-03] MEDS: POLYETHYLENE GLYCOL 3350 119 GM BTL PO SCH (09:24)
[2020-10-03 09:35] VITALS: BP 121/67; PULSE 74; TEMP 98.4
[2020-10-05 14:07] LABS: ALPHA-1-GLOBULIN,CSF 7.1 % (1.1-6.6); ALPHA-2-GLOBULIN,CSF 10.2 % (3.0-12.6); BETA GLOBULIN,CSF 26.4 % (7.3-17.9); GAMMA GLOBULIN,CSF 12.5 % (3.0-13.0); M-SPIKE CSF Not Observed % (Not Observed); PRE-ALBUMIN CSF 7.1 % (2.2-7.1)
[2020-10-05 18:09] LABS: MYELIN BASIC PROTEIN,CSF 4.4 ng/mL (0.0-4.7)
[2020-10-06 08:08] LABS: TOXOPLASMA IGG,CSF < 3.0 IU/mL (.)
== END 2020-10-03 15:13 | disposition home or self-care (01) | DRG 853 ==
LOC: JER 14:07 → JERBED 17:41 → J6S 09-18 04:30
PROVIDERS: ADMIT Internal Medicine; ATTEND Student in an Organized Health Care Education/Training Program
PROC: 0TP98DZ Removal of Intraluminal Device from Ureter, Via Natural or Artificial Opening Endoscopic (ICD-10-PCS; 2020-09-24)
PROC: 0TP98DZ Removal of Intraluminal Device from Ureter, Via Natural or Artificial Opening Endoscopic (ICD-10-PCS; 2020-09-24)
PROC: BT14ZZZ Fluoroscopy of Kidneys, Ureters and Bladder (ICD-10-PCS; 2020-09-24)
PROC: 0T788DZ Dilation of Bilateral Ureters with Intraluminal Device, Via Natural or Artificial Opening Endoscopic (ICD-10-PCS; principal; 2020-09-24 15:30)
PROC: 009U3ZX Drainage of Spinal Canal, Percutaneous Approach, Diagnostic (ICD-10-PCS; 2020-10-01)
DX: A41.59 Other Gram-negative sepsis (principal); I67.83 Posterior reversible encephalopathy syndrome; I63.9 Cerebral infarction, unspecified; C78.7 Secondary malignant neoplasm of liver and intrahepatic bile duct; N13.6 Pyonephrosis; E72.20 Disorder of urea cycle metabolism, unspecified; N39.0 Urinary tract infection, site not specified; C50.912 Malignant neoplasm of unspecified site of left female breast; D63.0 Anemia in neoplastic disease; I10 Essential (primary) hypertension; G56.92 Unspecified mononeuropathy of left upper limb; M79.89 Other specified soft tissue disorders; E66.9 Obesity, unspecified; Z68.33 Body mass index [BMI] 33.0-33.9, adult; B96.89 Other specified bacterial agents as the cause of diseases classified elsewhere; K59.00 Constipation, unspecified; E88.09 Other disorders of plasma-protein metabolism, not elsewhere classified
CPT/HCPCS: 36415; 62272; 70450-TC; 70553-TC; 71045-TC-FY; 73030-TC-LT-FY; 73060-TC-LT-FY; 73090-TC-LT-FY; 73110-TC-LT-FY; 73130-TC-LT-FY; 74178-TC; 76000-TC-FY; 76705-TC; 76775-TC; 80053; 81003; 82140; 82150; 82232; 82272; 82607; 82728; 82746; 82945; 83540; 83550; 83605; 83690; 83735; 83873; 84100; 84157; 84166; 84439; 84443; 84484; 85025; 85045; 85610; 85730; 86644; 86682; 86777; 86850; 86900; 86901; 87040; 87070; 87086; 87186; 87205; 87476; 87798; 88108; 88300-TC; 93005; 93010; 93306-TC; 93970-TC; 94760; 97116-GP; 97162-GP; 99285-25; C9803; J0131; Q9967; U0003

== ENCOUNTER 2020-10-16 09:45 | Inpatient (IN) | payer OTHER ==
[2020-10-16] MEDS ORDERED: LACTATED RINGERS SOLUTION 1000 ML INFUS.BAG IV ONE (11:27)
[2020-10-16] MEDS ORDERED: ACETAMINOPHEN 1000 MG/100 ML VIAL (NON FORMULARY) IVPB ONE (11:27)
[2020-10-16 11:50] LABS: BASO % 0.7 % (0-2.0); EOS % 8.6 % (0-4.5); HEMATOCRIT 27.8 % (32.4-45.2); HEMOGLOBIN 9.4 GM/dL (10.7-15.3); LYMPH % 20.1 % (8-40); MCHC 33.7 g/dl (32.0-36.0); MEAN CELL VOLUME 91.8 fl (80-96); MEAN PLT VOLUME 7.8 fl (7.5-11.1); MONO % 16.1 % (3.8-10.2); NEUT % 54.5 % (42.8-82.8); PLATELET COUNT 170 K/MM3 (134-434); RBC 3.03 M/mm3 (3.60-5.2); RDW 15.7 % (11.6-15.6); WHITE BLOOD COUNT 6.8 K/mm3 (4.0-10.0)
[2020-10-16] MEDS ORDERED: ACETAMINOPHEN INJECTION 100 ML IVPB ONE (11:52)
[2020-10-16 11:57] LABS: PROTHROMBIN TIME (PATIENT) 12.1 SEC (9.7-13.0)
[2020-10-16 11:59] LABS: ACTIVATED PTT 29.3 SECONDS (25.2-36.5)
[2020-10-16 12:07] LABS: CHLORIDE 106 mmol/L (98-107); SODIUM 137 mmol/L (136-145)
[2020-10-16 12:09] LABS: ANION GAP 4 MMOL/L (8-16); BLOOD UREA NITROGEN 15.2 mg/dL (7-18); CALCIUM 9.1 mg/dL (8.5-10.1); CO2 27 mmol/L (21-32); GLUCOSE,RANDOM 138 mg/dL (74-106); MAGNESIUM 2.2 mg/dL (1.8-2.4)
[2020-10-16 12:10] LABS: ALBUMIN 2.4 g/dl (3.4-5.0)
[2020-10-16 12:12] LABS: CREATININE 1.3 mg/dL (0.55-1.3)
[2020-10-16 12:13] LABS: SGOT/AST 42 U/L (15-37); SGPT/ALT 33 U/L (13-61)
[2020-10-16] MEDS ORDERED: ASPIRIN 81 MG CHEWABLE TABLETS PO ONE (12:13)
[2020-10-16 12:14] LABS: BILIRUBIN,TOTAL 0.3 mg/dL (0.2-1); TOT PROT 7.2 g/dl (6.4-8.2)
[2020-10-16 12:15] LABS: ALK PHOS 221 U/L (45-117)
[2020-10-16] MEDS ORDERED: ASPIRIN 81 MG CHEWABLE TABLETS ONE (12:34)
[2020-10-16 13:28] LABS: EPI CELLS 20 /uL (0-25.1); HYALINE CASTS 20 /uL (0-3.1); URINE APPEARANCE TURBID; URINE BACTERIA 90 /uL (0-1359); URINE BILIRUBIN NEGATIVE (NEGATIVE); URINE COLOR YELLOW; URINE GLUCOSE (UA) NEGATIVE (NEGATIVE); URINE KETONE NEGATIVE (NEGATIVE); URINE LEUK ESTERASE 3+ (NEGATIVE); URINE NITRITE NEGATIVE (NEGATIVE); URINE PROTEIN 2+ (NEGATIVE); URINE UROBILINOGEN 0.2 mg/dL (0.2-1.0); URINE WBC 17294 /uL (0-25.8)
[2020-10-16] MEDS ORDERED: CEFTRIAXONE 1,000 MG in DEXTROSE 5%-WATER - 50 ML IVPB ONE (13:34)
[2020-10-16] MEDS ORDERED: CEFTRIAXONE 1 GM/50 ML BAG ONE (14:02)
[2020-10-16 15:23] LABS: URINE RBC 3050.1 /uL (0-23.9); YEAST MODERATE (NEGATIVE)
[2020-10-16] MEDS ORDERED: ACETAMINOPHEN 325 MG TABLET (FP) PO PRN (18:00)
[2020-10-16] MEDS ORDERED: SODIUM CHLORIDE 0.45% 1,000 ML IV SCH (18:00)
[2020-10-16] MEDS ORDERED: HEPARIN NA (PORCINE) 5,000 UNITS/ML 1ML VIAL ONE ×2 (18:12→21:12)
[2020-10-16] MEDS: HEPARIN NA (PORCINE) 5,000 UNITS/ML 1ML VIAL SQ SCH ×2 (18:26→21:15)
[2020-10-17] MEDS ORDERED: HEPARIN NA (PORCINE) 5,000 UNITS/ML 1ML VIAL ONE ×2 (05:49→14:19)
[2020-10-17] MEDS: HEPARIN NA (PORCINE) 5,000 UNITS/ML 1ML VIAL SQ SCH ×3 (05:50→21:36)
[2020-10-17] MEDS ORDERED: ACETAMINOPHEN 325 MG TABLET (FP) ONE (06:36)
[2020-10-17 06:46] LABS: BASO % 0.5 % (0-2.0); EOS % 8.4 % (0-4.5); HEMATOCRIT 27.5 % (32.4-45.2); HEMOGLOBIN 9.4 GM/dL (10.7-15.3); LYMPH % 25.7 % (8-40); MCH 30.8 pg (25.7-33.7); MEAN CELL VOLUME 90.5 fl (80-96); MEAN PLT VOLUME 7.8 fl (7.5-11.1); MONO % 13.5 % (3.8-10.2); NEUT % 51.9 % (42.8-82.8); PLATELET COUNT 171 K/MM3 (134-434); RBC 3.04 M/mm3 (3.60-5.2); RDW 15.4 % (11.6-15.6); WHITE BLOOD COUNT 6.1 K/mm3 (4.0-10.0)
[2020-10-17 07:25] LABS: ALBUMIN 2.4 g/dl (3.4-5.0); ALK PHOS 200 U/L (45-117); ANION GAP 5 MMOL/L (8-16); BILIRUBIN,TOTAL 0.7 mg/dL (0.2-1); BLOOD UREA NITROGEN 14.8 mg/dL (7-18); CALCIUM 9.2 mg/dL (8.5-10.1); CHLORIDE 109 mmol/L (98-107); CO2 27 mmol/L (21-32); GLUCOSE,RANDOM 88 mg/dL (74-106); MAGNESIUM 1.9 mg/dL (1.8-2.4); PHOSPHOROUS 2.7 mg/dL (2.5-4.9); SGOT/AST 42 U/L (15-37); SGPT/ALT 27 U/L (13-61); SODIUM 141 mmol/L (136-145); TOT PROT 6.8 g/dl (6.4-8.2)
[2020-10-17] MEDS ORDERED: CEFTRIAXONE 1 GM/50 ML BAG ONE (09:36)
[2020-10-17] MEDS ORDERED: ASPIRIN 81 MG CHEWABLE TABLETS ONE (09:49)
[2020-10-17] MEDS ORDERED: METOPROLOL TARTRATE 25 MG TABLET (FP) ONE (09:49)
[2020-10-17] MEDS ORDERED: PANTOPRAZOLE 40 MG TABLET ONE (09:49)
[2020-10-17] MEDS ORDERED: levETIRAcetam 500 MG TABLET (FP) PO ONE (09:49)
[2020-10-17] MEDS ORDERED: GABAPENTIN 100 MG CAPSULE ONE (09:50)
[2020-10-17] MEDS ORDERED: CEFTRIAXONE 1 GM in DEXTROSE 5%-WATER - 50 ML IVPB SCH (10:00)
[2020-10-17] MEDS ORDERED: ASPIRIN 81 MG CHEWABLE TABLETS PO SCH (10:00)
[2020-10-17] MEDS ORDERED: METOPROLOL TARTRATE 25 MG TABLET (FP) PO SCH (10:00)
[2020-10-17] MEDS ORDERED: GABAPENTIN 100 MG CAPSULE PO SCH (10:00)
[2020-10-17] MEDS ORDERED: levETIRAcetam 500 MG TABLET (FP) PO SCH (10:00)
[2020-10-17] MEDS ORDERED: DULoxetine HCL 20 MG CAPSULE.DR PO SCH (10:00)
[2020-10-17] MEDS ORDERED: PANTOPRAZOLE 40 MG TABLET PO SCH (10:00)
[2020-10-17] MEDS: POLYETHYLENE GLYCOL 3350 119 GM BTL PO SCH ×2 (14:10→22:04)
[2020-10-17] MEDS ORDERED: SODIUM CHLORIDE 0.45% 1,000 ML IV SCH (17:01)
[2020-10-17] MEDS: METOPROLOL TARTRATE 25 MG TABLET (FP) PO SCH (21:32)
[2020-10-17] MEDS: levETIRAcetam 500 MG TABLET (FP) PO SCH (21:35)
[2020-10-17] MEDS: GABAPENTIN 100 MG CAPSULE PO SCH (21:36)
[2020-10-18] MEDS: HEPARIN NA (PORCINE) 5,000 UNITS/ML 1ML VIAL SQ SCH ×3 (05:23→21:04)
[2020-10-18 09:18] LABS: HEMOGLOBIN 9.2 GM/dL (10.7-15.3); MCH 30.9 pg (25.7-33.7); MEAN CELL VOLUME 90.6 fl (80-96); MEAN PLT VOLUME 7.7 fl (7.5-11.1); PLATELET COUNT 191 K/MM3 (134-434); RBC 2.97 M/mm3 (3.60-5.2)
[2020-10-18] MEDS ORDERED: CEFTRIAXONE 1 GM in DEXTROSE 5%-WATER - 50 ML IVPB SCH (10:00)
[2020-10-18 10:54] LABS: ALBUMIN 2.3 g/dl (3.4-5.0); BILIRUBIN,TOTAL 0.4 mg/dL (0.2-1); BLOOD UREA NITROGEN 13.1 mg/dL (7-18); CALCIUM 9.2 mg/dL (8.5-10.1); TOT PROT 6.6 g/dl (6.4-8.2)
[2020-10-18] MEDS: GABAPENTIN 100 MG CAPSULE PO SCH ×2 (11:52→21:04)
[2020-10-18] MEDS: levETIRAcetam 500 MG TABLET (FP) PO SCH ×2 (11:52→21:06)
[2020-10-18] MEDS: PANTOPRAZOLE 40 MG TABLET PO SCH (11:52)
[2020-10-18] MEDS: ASPIRIN 81 MG CHEWABLE TABLETS PO SCH (11:52)
[2020-10-18] MEDS: METOPROLOL TARTRATE 25 MG TABLET (FP) PO SCH ×2 (11:52→21:06)
[2020-10-18] MEDS: DULoxetine HCL 20 MG CAPSULE.DR PO SCH (11:52)
[2020-10-18] MEDS: POLYETHYLENE GLYCOL 3350 119 GM BTL PO SCH ×2 (11:54→21:05)
[2020-10-18] MEDS ORDERED: FLUCONAZOLE 200 MG/D5W 100 ML IVPB SCH (15:45)
[2020-10-18] MEDS ORDERED: SODIUM CHLORIDE 0.45% 1,000 ML IV SCH (16:30)
[2020-10-18] MEDS ORDERED: PT OWN MED DRAWER 7, Y5N ONE (18:10)
[2020-10-18] MEDS: FLUCONAZOLE 200 MG/NS 100 ML IVPB SCH (19:29)
[2020-10-19] MEDS: HEPARIN NA (PORCINE) 5,000 UNITS/ML 1ML VIAL SQ SCH ×3 (05:17→21:59)
[2020-10-19 08:22] LABS: HEMATOCRIT 29.3 % (32.4-45.2); MCH 31.3 pg (25.7-33.7); MEAN CELL VOLUME 92.3 fl (80-96); PLATELET COUNT 175 K/MM3 (134-434); RBC 3.18 M/mm3 (3.60-5.2); RDW 15.6 % (11.6-15.6); WHITE BLOOD COUNT 8.6 K/mm3 (4.0-10.0)
[2020-10-19 08:39] LABS: ALBUMIN 2.3 g/dl (3.4-5.0)
[2020-10-19] MEDS ORDERED: PT OWN MED DRAWER 7, Y5N ONE ×2 (08:39→09:17)
[2020-10-19 08:40] LABS: BLOOD UREA NITROGEN 16.4 mg/dL (7-18)
[2020-10-19 08:43] LABS: CREATININE 1.2 mg/dL (0.55-1.3)
[2020-10-19 08:44] LABS: BILIRUBIN,TOTAL 0.5 mg/dL (0.2-1); TOT PROT 6.8 g/dl (6.4-8.2)
[2020-10-19] MEDS: ASPIRIN 81 MG CHEWABLE TABLETS PO SCH (09:16)
[2020-10-19] MEDS: DULoxetine HCL 20 MG CAPSULE.DR PO SCH (09:17)
[2020-10-19] MEDS: GABAPENTIN 100 MG CAPSULE PO SCH ×2 (09:18→21:59)
[2020-10-19] MEDS: levETIRAcetam 500 MG TABLET (FP) PO SCH ×2 (09:18→21:59)
[2020-10-19] MEDS: FLUCONAZOLE 200 MG/NS 100 ML IVPB SCH (09:18)
[2020-10-19] MEDS: METOPROLOL TARTRATE 25 MG TABLET (FP) PO SCH ×2 (09:18→21:59)
[2020-10-19] MEDS: PANTOPRAZOLE 40 MG TABLET PO SCH (09:18)
[2020-10-19] MEDS: POLYETHYLENE GLYCOL 3350 119 GM BTL PO SCH ×2 (09:19→21:57)
[2020-10-19] MEDS ORDERED: FLUCONAZOLE 200 MG/NS 100 ML IVPB SCH (10:00)
[2020-10-20] MEDS: HEPARIN NA (PORCINE) 5,000 UNITS/ML 1ML VIAL SQ SCH ×3 (05:16→21:53)
[2020-10-20] MEDS ORDERED: PT OWN MED DRAWER 7, Y5N ONE (09:25)
[2020-10-20] MEDS: DULoxetine HCL 20 MG CAPSULE.DR PO SCH (09:27)
[2020-10-20] MEDS: FLUCONAZOLE 200 MG/NS 100 ML IVPB SCH (09:27)
[2020-10-20] MEDS: POLYETHYLENE GLYCOL 3350 119 GM BTL PO SCH ×2 (09:28→21:52)
[2020-10-20] MEDS: GABAPENTIN 100 MG CAPSULE PO SCH (09:28)
[2020-10-20] MEDS: PANTOPRAZOLE 40 MG TABLET PO SCH (09:28)
[2020-10-20] MEDS: ASPIRIN 81 MG CHEWABLE TABLETS PO SCH (09:28)
[2020-10-20] MEDS: levETIRAcetam 500 MG TABLET (FP) PO SCH ×2 (09:28→21:52)
[2020-10-20] MEDS: METOPROLOL TARTRATE 25 MG TABLET (FP) PO SCH ×2 (09:28→21:52)
[2020-10-20 10:10] LABS: HEMATOCRIT 26.2 % (32.4-45.2); HEMOGLOBIN 8.8 GM/dL (10.7-15.3); MCH 30.6 pg (25.7-33.7); MCHC 33.5 g/dl (32.0-36.0); MEAN CELL VOLUME 91.5 fl (80-96); MEAN PLT VOLUME 7.9 fl (7.5-11.1); PLATELET COUNT 165 K/MM3 (134-434); RBC 2.86 M/mm3 (3.60-5.2); RDW 15.8 % (11.6-15.6); WHITE BLOOD COUNT 7.1 K/mm3 (4.0-10.0)
[2020-10-20 10:59] LABS: ALBUMIN 2.2 g/dl (3.4-5.0); BLOOD UREA NITROGEN 18.2 mg/dL (7-18); CALCIUM 9.1 mg/dL (8.5-10.1)
[2020-10-20 11:02] LABS: BILIRUBIN,TOTAL 0.5 mg/dL (0.2-1); CREATININE 1.1 mg/dL (0.55-1.3)
[2020-10-20 11:04] LABS: TOT PROT 6.5 g/dl (6.4-8.2)
[2020-10-20] MEDS: ACETAMINOPHEN 325 MG TABLET (FP) PO PRN (15:57)
[2020-10-20 20:46] LABS: EPI CELLS >36 /uL (0-25.1); HYALINE CASTS 27 /uL (0-3.1); URINE APPEARANCE TURBID; URINE BACTERIA 552 /uL (0-1359); URINE BILIRUBIN NEGATIVE (NEGATIVE); URINE COLOR YELLOW; URINE GLUCOSE (UA) NEGATIVE (NEGATIVE); URINE KETONE NEGATIVE (NEGATIVE); URINE LEUK ESTERASE 3+ (NEGATIVE); URINE NITRITE NEGATIVE (NEGATIVE); URINE PROTEIN 2+ (NEGATIVE); URINE WBC 22725 /uL (0-25.8)
[2020-10-20 22:31] LABS: URINE RBC 1528.9 /uL (0-23.9); YEAST NEGATIVE (NEGATIVE)
[2020-10-21] MEDS: HEPARIN NA (PORCINE) 5,000 UNITS/ML 1ML VIAL SQ SCH ×3 (05:17→22:02)
[2020-10-21] MEDS: ACETAMINOPHEN 325 MG TABLET (FP) PO PRN (06:32)
[2020-10-21 09:15] LABS: BASO % 0.4 % (0-2.0); EOS % 7.5 % (0-4.5); HEMATOCRIT 24.9 % (32.4-45.2); HEMOGLOBIN 8.6 GM/dL (10.7-15.3); LYMPH % 19.1 % (8-40); MCH 30.7 pg (25.7-33.7); MCHC 34.4 g/dl (32.0-36.0); MEAN CELL VOLUME 89.2 fl (80-96); MEAN PLT VOLUME 7.9 fl (7.5-11.1); MONO % 9.8 % (3.8-10.2); NEUT % 63.2 % (42.8-82.8); PLATELET COUNT 185 K/MM3 (134-434); RBC 2.79 M/mm3 (3.60-5.2); RDW 15.6 % (11.6-15.6); WHITE BLOOD COUNT 7.4 K/mm3 (4.0-10.0)
[2020-10-21 10:56] LABS: CALCIUM 9.3 mg/dL (8.5-10.1)
[2020-10-21 10:57] LABS: BLOOD UREA NITROGEN 16.1 mg/dL (7-18)
[2020-10-21 11:00] LABS: CREATININE 1.2 mg/dL (0.55-1.3)
[2020-10-21] MEDS ORDERED: PT OWN MED DRAWER 7, Y5N ONE (11:19)
[2020-10-21] MEDS: levETIRAcetam 500 MG TABLET (FP) PO SCH ×2 (11:28→22:02)
[2020-10-21] MEDS: PANTOPRAZOLE 40 MG TABLET PO SCH (11:28)
[2020-10-21] MEDS: METOPROLOL TARTRATE 25 MG TABLET (FP) PO SCH ×2 (11:28→22:02)
[2020-10-21] MEDS: GABAPENTIN 100 MG CAPSULE PO SCH (11:29)
[2020-10-21] MEDS: DULoxetine HCL 20 MG CAPSULE.DR PO SCH (11:29)
[2020-10-21] MEDS: ASPIRIN 81 MG CHEWABLE TABLETS PO SCH (11:29)
[2020-10-21] MEDS: POLYETHYLENE GLYCOL 3350 119 GM BTL PO SCH ×2 (11:30→22:01)
[2020-10-21] MEDS: FLUCONAZOLE 200 MG/NS 100 ML IVPB SCH (12:36)
[2020-10-22] MEDS: ACETAMINOPHEN 325 MG TABLET (FP) PO PRN ×2 (02:46→12:59)
[2020-10-22] MEDS: HEPARIN NA (PORCINE) 5,000 UNITS/ML 1ML VIAL SQ SCH ×3 (05:30→23:06)
[2020-10-22] MEDS ORDERED: PT OWN MED DRAWER 7, Y5N ONE (09:12)
[2020-10-22 09:25] LABS: BASO % 0.7 % (0-2.0); HEMOGLOBIN 8.6 GM/dL (10.7-15.3); LYMPH % 29.4 % (8-40); MCH 30.5 pg (25.7-33.7); MCHC 34.3 g/dl (32.0-36.0); MEAN CELL VOLUME 88.9 fl (80-96); MONO % 9.9 % (3.8-10.2); PLATELET COUNT 211 K/MM3 (134-434); RBC 2.81 M/mm3 (3.60-5.2); RDW 15.7 % (11.6-15.6)
[2020-10-22] MEDS: levETIRAcetam 500 MG TABLET (FP) PO SCH ×2 (09:55→23:06)
[2020-10-22] MEDS: GABAPENTIN 100 MG CAPSULE PO SCH (09:55)
[2020-10-22] MEDS: PANTOPRAZOLE 40 MG TABLET PO SCH (09:55)
[2020-10-22] MEDS: ASPIRIN 81 MG CHEWABLE TABLETS PO SCH (09:55)
[2020-10-22] MEDS: METOPROLOL TARTRATE 25 MG TABLET (FP) PO SCH ×2 (09:55→23:06)
[2020-10-22] MEDS: DULoxetine HCL 20 MG CAPSULE.DR PO SCH (09:56)
[2020-10-22] MEDS: POLYETHYLENE GLYCOL 3350 119 GM BTL PO SCH ×2 (09:56→23:06)
[2020-10-22 10:54] LABS: CALCIUM 9.1 mg/dL (8.5-10.1)
[2020-10-22 10:58] LABS: CREATININE 1.1 mg/dL (0.55-1.3)
[2020-10-22] MEDS: FLUCONAZOLE 200 MG/NS 100 ML IVPB SCH (12:59)
[2020-10-23] MEDS: ACETAMINOPHEN 325 MG TABLET (FP) PO PRN (05:25)
[2020-10-23] MEDS: HEPARIN NA (PORCINE) 5,000 UNITS/ML 1ML VIAL SQ SCH ×3 (05:26→22:54)
[2020-10-23] MEDS ORDERED: PT OWN MED DRAWER 7, Y5N ONE ×3 (09:33→10:29)
[2020-10-23] MEDS: PANTOPRAZOLE 40 MG TABLET PO SCH (09:38)
[2020-10-23] MEDS: ASPIRIN 81 MG CHEWABLE TABLETS PO SCH (09:39)
[2020-10-23] MEDS: DULoxetine HCL 20 MG CAPSULE.DR PO SCH (09:39)
[2020-10-23] MEDS: POLYETHYLENE GLYCOL 3350 119 GM BTL PO SCH ×2 (09:39→22:54)
[2020-10-23] MEDS: METOPROLOL TARTRATE 25 MG TABLET (FP) PO SCH ×2 (09:39→22:54)
[2020-10-23] MEDS: GABAPENTIN 100 MG CAPSULE PO SCH (09:39)
[2020-10-23] MEDS: levETIRAcetam 500 MG TABLET (FP) PO SCH ×2 (09:39→22:55)
[2020-10-23] MEDS ORDERED: FLUCONAZOLE 100 MG TABLET (UD) PO SCH (10:00)
[2020-10-23] MEDS: SODIUM CHLORIDE 0.45% 1,000 ML IV SCH (14:02)
[2020-10-23 16:57] VITALS: BMI 31.4
[2020-10-24] MEDS: SODIUM CHLORIDE 0.45% 1,000 ML IV SCH ×2 (03:32→12:30)
[2020-10-24] MEDS: HEPARIN NA (PORCINE) 5,000 UNITS/ML 1ML VIAL SQ SCH ×2 (06:15→13:37)
[2020-10-24 07:36] VITALS: PULSE 72
[2020-10-24] MEDS ORDERED: PT OWN MED DRAWER 7, Y5N ONE (09:14)
[2020-10-24] MEDS: GABAPENTIN 100 MG CAPSULE PO SCH (09:18)
[2020-10-24] MEDS: METOPROLOL TARTRATE 25 MG TABLET (FP) PO SCH (09:18)
[2020-10-24] MEDS: ASPIRIN 81 MG CHEWABLE TABLETS PO SCH (09:18)
[2020-10-24] MEDS: DULoxetine HCL 20 MG CAPSULE.DR PO SCH (09:18)
[2020-10-24] MEDS: levETIRAcetam 500 MG TABLET (FP) PO SCH (09:18)
[2020-10-24] MEDS: PANTOPRAZOLE 40 MG TABLET PO SCH (09:18)
[2020-10-24] MEDS: POLYETHYLENE GLYCOL 3350 119 GM BTL PO SCH (09:20)
[2020-10-24 09:39] VITALS: BP 143/70; TEMP 98.5
[2020-10-24 10:21] LABS: ALBUMIN 2.4 g/dl (3.4-5.0); BLOOD UREA NITROGEN 9.1 mg/dL (7-18); CALCIUM 9.7 mg/dL (8.5-10.1)
[2020-10-24 10:22] LABS: CREATININE 0.9 mg/dL (0.55-1.3)
[2020-10-24 10:26] LABS: TOT PROT 7.2 g/dl (6.4-8.2)
[2020-10-24 10:27] LABS: BILIRUBIN,TOTAL 1.5 mg/dL (0.2-1)
== END 2020-10-24 15:26 | disposition home or self-care (01) | DRG 689 ==
LOC: JER 09:45 → JERBED 13:35 → J5S 10-17 14:53
PROVIDERS: ADMIT Internal Medicine
DX: N13.6 Pyonephrosis (principal); I67.83 Posterior reversible encephalopathy syndrome; C78.7 Secondary malignant neoplasm of liver and intrahepatic bile duct; B49 Unspecified mycosis; I10 Essential (primary) hypertension; N17.9 Acute kidney failure, unspecified; E66.01 Morbid (severe) obesity due to excess calories; C50.919 Malignant neoplasm of unspecified site of unspecified female breast; R07.89 Other chest pain; D63.8 Anemia in other chronic diseases classified elsewhere; G56.02 Carpal tunnel syndrome, left upper limb; G62.9 Polyneuropathy, unspecified; M54.12 Radiculopathy, cervical region; E66.9 Obesity, unspecified; Z68.31 Body mass index [BMI] 31.0-31.9, adult
CPT/HCPCS: 36415; 71045-TC-FY; 74176-TC; 76775-TC; 76937; 78306-TC; 80048; 80053; 81003; 82550; 83735; 84100; 84484; 85025; 85027; 85379; 85610; 85730; 87040; 87077; 87086; 87186; 93005; 93010; 95860-TC; 97116-GP; 97161-GP; 99285-25; A9503; C9803; J0131; J1644; U0003; U0005

== ENCOUNTER 2020-12-18 11:04 | Inpatient (IN) | payer OTHER ==
[2020-12-18] MEDS ORDERED: levETIRAcetam 500 MG TABLET (FP) PO ONE ×3 (11:49→22:37)
[2020-12-18 14:56] LABS: BASO % 0.7 % (0-2.0); EOS % 7.4 % (0-4.5); HEMATOCRIT 36.1 % (32.4-45.2); HEMOGLOBIN 11.9 GM/dL (10.7-15.3); LYMPH % 40.2 % (8-40); MCH 29.3 pg (25.7-33.7); MEAN CELL VOLUME 88.7 fl (80-96); MEAN PLT VOLUME 8.3 fl (7.5-11.1); MONO % 9.4 % (3.8-10.2); NEUT % 42.3 % (42.8-82.8); PLATELET COUNT 194 10^3/uL (134-434); RBC 4.07 M/mm3 (3.60-5.2); RDW 16.9 % (11.6-15.6); WHITE BLOOD COUNT 5.6 K/mm3 (4.0-10.0)
[2020-12-18 15:19] LABS: CHLORIDE 106 mmol/L (98-107); SODIUM 141 mmol/L (136-145)
[2020-12-18 15:21] LABS: ALBUMIN 3.2 g/dl (3.4-5.0); CALCIUM 10.2 mg/dL (8.5-10.1)
[2020-12-18 15:22] LABS: ANION GAP 7 MMOL/L (8-16); BLOOD UREA NITROGEN 8.6 mg/dL (7-18); CO2 28 mmol/L (21-32); GLUCOSE,RANDOM 95 mg/dL (74-106); MAGNESIUM 1.9 mg/dL (1.8-2.4)
[2020-12-18 15:25] LABS: CREATININE 0.6 mg/dL (0.55-1.3); PHOSPHOROUS 3.9 mg/dL (2.5-4.9); SGOT/AST 65 U/L (15-37); SGPT/ALT 34 U/L (13-61)
[2020-12-18 15:26] LABS: BILIRUBIN,TOTAL 0.7 mg/dL (0.2-1)
[2020-12-18 15:28] LABS: ALK PHOS 225 U/L (45-117)
[2020-12-18 16:25] LABS: EPI CELLS 2 /uL (0-25.1); HYALINE CASTS 1 /uL (0-3.1); URINE APPEARANCE TURBID; URINE BACTERIA 73 /uL (0-1359); URINE BILIRUBIN NEGATIVE (NEGATIVE); URINE COLOR YELLOW; URINE GLUCOSE (UA) NEGATIVE (NEGATIVE); URINE KETONE NEGATIVE (NEGATIVE); URINE LEUK ESTERASE 3+ (NEGATIVE); URINE NITRITE NEGATIVE (NEGATIVE); URINE PROTEIN 2+ (NEGATIVE); URINE RBC 217 /uL (0-23.9); URINE UROBILINOGEN 0.2 mg/dL (0.2-1.0); URINE WBC 6645 /uL (0-25.8)
[2020-12-18] MEDS ORDERED: CEFTRIAXONE 1 GM in DEXTROSE 5%-WATER - 100 ML IVPB ONE (16:27)
[2020-12-18] MEDS ORDERED: CEFTRIAXONE 1 GM/50 ML BAG ONE (16:45)
[2020-12-18] MEDS ORDERED: VANCOMYCIN 1 GM in D5W (PRE-DOCKED) 1,000 MG/250 ML IVPB ONE (19:37)
[2020-12-18] MEDS ORDERED: SODIUM CHLORIDE 1,000 ML IV SCH (22:15)
[2020-12-18] MEDS ORDERED: METOPROLOL TARTRATE 25 MG TABLET (FP) ONE (22:37)
[2020-12-18] MEDS: levETIRAcetam 500 MG TABLET (FP) PO SCH (22:50)
[2020-12-18] MEDS: METOPROLOL TARTRATE 25 MG TABLET (FP) PO SCH (22:50)
[2020-12-19 00:30] VITALS: BMI 32.0
[2020-12-19] MEDS: METOPROLOL TARTRATE 25 MG TABLET (FP) PO SCH ×2 (09:29→21:47)
[2020-12-19] MEDS: levETIRAcetam 500 MG TABLET (FP) PO SCH ×2 (09:29→21:47)
[2020-12-19] MEDS: PANTOPRAZOLE SODIUM 40 MG VIAL IVPUSH SCH (09:29)
[2020-12-19] MEDS ORDERED: ENOXAPARIN NA (PORCINE) 40 MG/0.4 ML DISP.SYRIN SQ SCH (10:00)
[2020-12-19] MEDS ORDERED: VANCOMYCIN 1 GM in D5W (PRE-DOCKED) 1,000 MG/250 ML IVPB SCH ×2 (10:00→20:00)
[2020-12-19 11:28] LABS: BASO % 0.5 % (0-2.0); EOS % 7.1 % (0-4.5); HEMATOCRIT 31.6 % (32.4-45.2); HEMOGLOBIN 10.7 GM/dL (10.7-15.3); LYMPH % 39.6 % (8-40); MCH 29.7 pg (25.7-33.7); MCHC 33.8 g/dl (32.0-36.0); MONO % 12.6 % (3.8-10.2); NEUT % 40.2 % (42.8-82.8); PLATELET COUNT 172 10^3/uL (134-434); RBC 3.59 M/mm3 (3.60-5.2); RDW 16.5 % (11.6-15.6); WHITE BLOOD COUNT 4.8 K/mm3 (4.0-10.0)
[2020-12-19 11:49] LABS: CHLORIDE 107 mmol/L (98-107); SODIUM 140 mmol/L (136-145)
[2020-12-19 12:01] LABS: ALBUMIN 2.8 g/dl (3.4-5.0); ANION GAP 8 MMOL/L (8-16); BLOOD UREA NITROGEN 7.7 mg/dL (7-18); CALCIUM 9.4 mg/dL (8.5-10.1); CO2 26 mmol/L (21-32); MAGNESIUM 1.8 mg/dL (1.8-2.4)
[2020-12-19 12:02] LABS: GLUCOSE,RANDOM 114 mg/dL (74-106)
[2020-12-19 12:04] LABS: PHOSPHOROUS 3.6 mg/dL (2.5-4.9); SGOT/AST 56 U/L (15-37); SGPT/ALT 30 U/L (13-61)
[2020-12-19 12:05] LABS: CREATININE 0.7 mg/dL (0.55-1.3)
[2020-12-19 12:06] LABS: BILIRUBIN,TOTAL 0.7 mg/dL (0.2-1)
[2020-12-19 12:07] LABS: ALK PHOS 203 U/L (45-117)
[2020-12-19] MEDS ORDERED: POLYETHYLENE GLYCOL 3350 119 GM BTL PO ONE (14:16)
[2020-12-19] MEDS ORDERED: DOCUSATE NA 100 MG/10 ML UNIT-DOSE CUPS PO ONE (14:16)
[2020-12-19] MEDS: NYSTATIN POWDER 100,000 UNITS/GM - 15 GM TOPICAL POWDER TP SCH (14:42)
[2020-12-19] MEDS ORDERED: DEXAMETHASONE SOD PHOSPHATE 4 MG/1 ML VIAL IVPUSH ONE (15:03)
[2020-12-19] MEDS: DEXAMETHASONE SOD PHOSPHATE 4 MG/1 ML VIAL IVPUSH SCH (21:47)
[2020-12-20] MEDS: DEXAMETHASONE SOD PHOSPHATE 4 MG/1 ML VIAL IVPUSH SCH ×4 (03:02→21:59)
[2020-12-20] MEDS: levETIRAcetam 500 MG TABLET (FP) PO SCH ×2 (10:24→21:57)
[2020-12-20] MEDS: PANTOPRAZOLE SODIUM 40 MG VIAL IVPUSH SCH (10:24)
[2020-12-20] MEDS: METOPROLOL TARTRATE 25 MG TABLET (FP) PO SCH ×2 (10:24→21:57)
[2020-12-20] MEDS: ASPIRIN COATED 81 MG TABLET.EC PO SCH (10:24)
[2020-12-20] MEDS: POLYETHYLENE GLYCOL 3350 119 GM BTL PO SCH (10:36)
[2020-12-20] MEDS ORDERED: TRIMETHOBENZAMIDE HCL 300 MG CAPSULE PO ONE (11:11)
[2020-12-20] MEDS ORDERED: ALPRAZolam 1 MG TABLET PO PRN (11:13)
[2020-12-20] MEDS: NYSTATIN POWDER 100,000 UNITS/GM - 15 GM TOPICAL POWDER TP SCH (11:51)
[2020-12-20] MEDS: ACETAMINOPHEN 325 MG TABLET (FP) PO PRN (16:13)
[2020-12-20 16:45] LABS: HEMATOCRIT 30.1 % (32.4-45.2); HEMOGLOBIN 10.1 GM/dL (10.7-15.3); MCH 29.7 pg (25.7-33.7); MCHC 33.5 g/dl (32.0-36.0); MEAN CELL VOLUME 88.7 fl (80-96); MEAN PLT VOLUME 8.2 fl (7.5-11.1); PLATELET COUNT 176 10^3/uL (134-434); RBC 3.39 M/mm3 (3.60-5.2); WHITE BLOOD COUNT 6.9 K/mm3 (4.0-10.0)
[2020-12-20 17:09] LABS: BLOOD UREA NITROGEN 10.1 mg/dL (7-18); CALCIUM 9.2 mg/dL (8.5-10.1)
[2020-12-20 17:13] LABS: CREATININE 0.6 mg/dL (0.55-1.3); PHOSPHOROUS 2.4 mg/dL (2.5-4.9)
[2020-12-20] MEDS ORDERED: LACTULOSE 20 GM/30 ML UDC (FOR ORAL USE ONLY) PO ONE (17:24)
[2020-12-20] MEDS ORDERED: MELATONIN 1 MG TABLET PO SCH ×2 (22:00)
[2020-12-21] MEDS: DEXAMETHASONE SOD PHOSPHATE 4 MG/1 ML VIAL IVPUSH SCH ×4 (02:16→21:40)
[2020-12-21 09:02] LABS: HEMATOCRIT 31.3 % (32.4-45.2); HEMOGLOBIN 10.4 GM/dL (10.7-15.3); MCH 29.7 pg (25.7-33.7); MCHC 33.1 g/dl (32.0-36.0); MEAN CELL VOLUME 89.7 fl (80-96); MEAN PLT VOLUME 8.3 fl (7.5-11.1); PLATELET COUNT 185 10^3/uL (134-434); RBC 3.49 M/mm3 (3.60-5.2); RDW 16.9 % (11.6-15.6); WHITE BLOOD COUNT 7.1 K/mm3 (4.0-10.0)
[2020-12-21 09:33] LABS: CALCIUM 9.6 mg/dL (8.5-10.1)
[2020-12-21 09:34] LABS: ALBUMIN 2.9 g/dl (3.4-5.0); BLOOD UREA NITROGEN 10.3 mg/dL (7-18); MAGNESIUM 2.3 mg/dL (1.8-2.4)
[2020-12-21 09:37] LABS: CREATININE 0.7 mg/dL (0.55-1.3); PHOSPHOROUS 2.2 mg/dL (2.5-4.9)
[2020-12-21 09:38] LABS: BILIRUBIN,TOTAL 0.4 mg/dL (0.2-1); TOT PROT 7.2 g/dl (6.4-8.2)
[2020-12-21] MEDS ORDERED: PT OWN MED DRAWER 7, Y5N ONE ×2 (10:03→17:22)
[2020-12-21] MEDS: PANTOPRAZOLE SODIUM 40 MG VIAL IVPUSH SCH (10:06)
[2020-12-21] MEDS: DOCUSATE NA 100 MG/10 ML UNIT-DOSE CUPS PO PRN (10:07)
[2020-12-21] MEDS: levETIRAcetam 500 MG TABLET (FP) PO SCH ×2 (10:07→21:40)
[2020-12-21] MEDS: METOPROLOL TARTRATE 25 MG TABLET (FP) PO SCH ×2 (10:07→21:40)
[2020-12-21] MEDS: ASPIRIN COATED 81 MG TABLET.EC PO SCH (10:07)
[2020-12-21] MEDS: ENOXAPARIN NA (PORCINE) 40 MG/0.4 ML DISP.SYRIN SQ SCH (10:08)
[2020-12-21] MEDS: NYSTATIN POWDER 100,000 UNITS/GM - 15 GM TOPICAL POWDER TP SCH (10:10)
[2020-12-21] MEDS: POLYETHYLENE GLYCOL 3350 119 GM BTL PO SCH (10:10)
[2020-12-21] MEDS ORDERED: guaiFENesin 200 MG/10 ML 10 ML UNIT-DOSE CUPS PO PRN (16:39)
[2020-12-21] MEDS ORDERED: PATIENT'S OWN MEDICATION (NON-FORMULARY) (Mirabegron [Myrbetriq] 50 MG Tab.Er.24h) PO SCH (18:30)
[2020-12-21] MEDS: PATIENT'S OWN MEDICATION (NON-FORMULARY) (Mirabegron [Myrbetriq] 50 MG Tab.Er.24h) PO SCH (21:40)
[2020-12-22] MEDS: DEXAMETHASONE SOD PHOSPHATE 4 MG/1 ML VIAL IVPUSH SCH ×3 (02:44→14:54)
[2020-12-22] MEDS ORDERED: PT OWN MED DRAWER 7, Y5N ONE ×2 (08:37→23:04)
[2020-12-22] MEDS: ASPIRIN COATED 81 MG TABLET.EC PO SCH (09:57)
[2020-12-22] MEDS: PANTOPRAZOLE 40 MG TABLET PO SCH (10:02)
[2020-12-22] MEDS: levETIRAcetam 500 MG TABLET (FP) PO SCH ×2 (10:02→22:47)
[2020-12-22] MEDS: METOPROLOL TARTRATE 25 MG TABLET (FP) PO SCH ×2 (10:02→22:47)
[2020-12-22] MEDS: POLYETHYLENE GLYCOL 3350 119 GM BTL PO SCH (10:05)
[2020-12-22] MEDS: ACETAMINOPHEN 325 MG TABLET (FP) PO PRN (10:18)
[2020-12-22] MEDS: ENOXAPARIN NA (PORCINE) 40 MG/0.4 ML DISP.SYRIN SQ SCH (10:20)
[2020-12-22 10:36] LABS: HEMATOCRIT 31.9 % (32.4-45.2); HEMOGLOBIN 10.5 GM/dL (10.7-15.3); MCH 29.6 pg (25.7-33.7); MCHC 32.8 g/dl (32.0-36.0); MEAN CELL VOLUME 90.3 fl (80-96); MEAN PLT VOLUME 8.6 fl (7.5-11.1); PLATELET COUNT 186 10^3/uL (134-434); RBC 3.54 M/mm3 (3.60-5.2); RDW 17.3 % (11.6-15.6); WHITE BLOOD COUNT 7.7 K/mm3 (4.0-10.0)
[2020-12-22] MEDS: NYSTATIN POWDER 100,000 UNITS/GM - 15 GM TOPICAL POWDER TP SCH (11:00)
[2020-12-22 11:13] LABS: ALBUMIN 2.8 g/dl (3.4-5.0); BLOOD UREA NITROGEN 15.1 mg/dL (7-18); CALCIUM 9.3 mg/dL (8.5-10.1)
[2020-12-22 11:14] LABS: MAGNESIUM 2.3 mg/dL (1.8-2.4)
[2020-12-22 11:16] LABS: CREATININE 0.6 mg/dL (0.55-1.3)
[2020-12-22 11:20] LABS: BILIRUBIN,TOTAL 0.4 mg/dL (0.2-1)
[2020-12-22] MEDS ORDERED: guaiFENesin/CODEINE 10 ML UNIT-DOSE CUPS PO PRN ×2 (14:19→14:20)
[2020-12-22] MEDS: INSULIN SLIDING SCALE (NOVOLOG) 1 VIAL SQ SCH (16:35)
[2020-12-22] MEDS: DOCUSATE NA 100 MG/10 ML UNIT-DOSE CUPS PO PRN (17:59)
[2020-12-22] MEDS: DEXAMETHASONE SOD PHOSPHATE 4 MG/1 ML VIAL IVPB SCH (22:47)
[2020-12-22] MEDS: PATIENT'S OWN MEDICATION (NON-FORMULARY) (Mirabegron [Myrbetriq] 50 MG Tab.Er.24h) PO SCH (22:48)
[2020-12-23] MEDS: ACETAMINOPHEN 325 MG TABLET (FP) PO PRN ×2 (02:58→22:12)
[2020-12-23] MEDS ORDERED: MELATONIN 5 MG TABLETS PO ONE (03:55)
[2020-12-23] MEDS ORDERED: ACETAMINOPHEN 1000 MG/100 ML VIAL (NON FORMULARY) IVPB ONE (03:55)
[2020-12-23] MEDS: DEXAMETHASONE SOD PHOSPHATE 4 MG/1 ML VIAL IVPB SCH ×3 (05:00→22:10)
[2020-12-23] MEDS: INSULIN SLIDING SCALE (NOVOLOG) 1 VIAL SQ SCH ×3 (06:19→16:52)
[2020-12-23] MEDS: ENOXAPARIN NA (PORCINE) 40 MG/0.4 ML DISP.SYRIN SQ SCH (11:49)
[2020-12-23] MEDS: levETIRAcetam 500 MG TABLET (FP) PO SCH ×2 (11:49→22:10)
[2020-12-23] MEDS: METOPROLOL TARTRATE 25 MG TABLET (FP) PO SCH ×2 (11:49→22:10)
[2020-12-23] MEDS: POLYETHYLENE GLYCOL 3350 119 GM BTL PO SCH (11:50)
[2020-12-23] MEDS: ASPIRIN COATED 81 MG TABLET.EC PO SCH (11:50)
[2020-12-23] MEDS: PANTOPRAZOLE 40 MG TABLET PO SCH (11:51)
[2020-12-23] MEDS: DOCUSATE NA 100 MG/10 ML UNIT-DOSE CUPS PO PRN (11:52)
[2020-12-23] MEDS ORDERED: INSULIN (NOVOLOG) ASPART 100 UNITS/ML 10ML VIAL ONE (12:04)
[2020-12-23] MEDS: NYSTATIN POWDER 100,000 UNITS/GM - 15 GM TOPICAL POWDER TP SCH (12:20)
[2020-12-23] MEDS: PATIENT'S OWN MEDICATION (NON-FORMULARY) (Mirabegron [Myrbetriq] 50 MG Tab.Er.24h) PO SCH (22:11)
[2020-12-24] MEDS ORDERED: MELATONIN 5 MG TABLETS PO ONE (00:06)
[2020-12-24] MEDS: DEXAMETHASONE SOD PHOSPHATE 4 MG/1 ML VIAL IVPB SCH ×2 (05:29→21:50)
[2020-12-24] MEDS: INSULIN SLIDING SCALE (NOVOLOG) 1 VIAL SQ SCH ×3 (06:03→17:41)
[2020-12-24] MEDS: ASPIRIN COATED 81 MG TABLET.EC PO SCH (09:59)
[2020-12-24] MEDS: NYSTATIN POWDER 100,000 UNITS/GM - 15 GM TOPICAL POWDER TP SCH (10:00)
[2020-12-24] MEDS: POLYETHYLENE GLYCOL 3350 119 GM BTL PO SCH (10:00)
[2020-12-24] MEDS: levETIRAcetam 500 MG TABLET (FP) PO SCH ×2 (10:00→21:50)
[2020-12-24] MEDS: PANTOPRAZOLE 40 MG TABLET PO SCH (10:00)
[2020-12-24] MEDS: METOPROLOL TARTRATE 25 MG TABLET (FP) PO SCH ×2 (10:00→21:50)
[2020-12-24] MEDS: ENOXAPARIN NA (PORCINE) 40 MG/0.4 ML DISP.SYRIN SQ SCH (10:00)
[2020-12-24] MEDS ORDERED: INSULIN (NOVOLOG) ASPART 100 UNITS/ML 10ML VIAL ONE (11:42)
[2020-12-24] MEDS: ACETAMINOPHEN 325 MG TABLET (FP) PO PRN (17:38)
[2020-12-24] MEDS: DOCUSATE NA 100 MG/10 ML UNIT-DOSE CUPS PO PRN (17:38)
[2020-12-24] MEDS ORDERED: LORazepam 2 MG TABLET PO ONE (20:50)
[2020-12-24] MEDS ORDERED: LORazepam 1 MG TABLET PO ONE (21:00)
[2020-12-24] MEDS: PATIENT'S OWN MEDICATION (NON-FORMULARY) (Mirabegron [Myrbetriq] 50 MG Tab.Er.24h) PO SCH (21:50)
[2020-12-25] MEDS: INSULIN SLIDING SCALE (NOVOLOG) 1 VIAL SQ SCH ×3 (06:09→16:59)
[2020-12-25] MEDS: DEXAMETHASONE SOD PHOSPHATE 4 MG/1 ML VIAL IVPB SCH (10:23)
[2020-12-25] MEDS: ASPIRIN COATED 81 MG TABLET.EC PO SCH (10:24)
[2020-12-25] MEDS: levETIRAcetam 500 MG TABLET (FP) PO SCH (10:24)
[2020-12-25] MEDS: NYSTATIN POWDER 100,000 UNITS/GM - 15 GM TOPICAL POWDER TP SCH (10:24)
[2020-12-25] MEDS: PANTOPRAZOLE 40 MG TABLET PO SCH (10:24)
[2020-12-25] MEDS: POLYETHYLENE GLYCOL 3350 119 GM BTL PO SCH (10:25)
[2020-12-25] MEDS: METOPROLOL TARTRATE 25 MG TABLET (FP) PO SCH (10:25)
[2020-12-25] MEDS: ENOXAPARIN NA (PORCINE) 40 MG/0.4 ML DISP.SYRIN SQ SCH (10:25)
[2020-12-25] MEDS ORDERED: INSULIN (NOVOLOG) ASPART 100 UNITS/ML 10ML VIAL ONE (11:19)
[2020-12-25] MEDS: ACETAMINOPHEN 325 MG TABLET (FP) PO PRN (11:27)
[2020-12-25 11:59] LABS: HEMATOCRIT 39.5 % (32.4-45.2); HEMOGLOBIN 12.7 GM/dL (10.7-15.3); MCH 28.9 pg (25.7-33.7); MCHC 32.2 g/dl (32.0-36.0); MEAN CELL VOLUME 89.9 fl (80-96); MEAN PLT VOLUME 8.3 fl (7.5-11.1); PLATELET COUNT 230 10^3/uL (134-434); RBC 4.39 M/mm3 (3.60-5.2); RDW 17.2 % (11.6-15.6); WHITE BLOOD COUNT 7.7 K/mm3 (4.0-10.0)
[2020-12-25 12:22] LABS: ALBUMIN 3.1 g/dl (3.4-5.0); CALCIUM 9.4 mg/dL (8.5-10.1)
[2020-12-25 12:24] LABS: MAGNESIUM 2.9 mg/dL (1.8-2.4)
[2020-12-25 12:26] LABS: CREATININE 0.7 mg/dL (0.55-1.3)
[2020-12-25 12:27] LABS: PHOSPHOROUS 2.4 mg/dL (2.5-4.9)
[2020-12-25 12:28] LABS: BILIRUBIN,TOTAL 0.7 mg/dL (0.2-1); TOT PROT 7.6 g/dl (6.4-8.2)
[2020-12-25] MEDS ORDERED: PT OWN MED DRAWER 7, Y5N ONE (20:04)
[2020-12-25 20:11] VITALS: BP 153/94; PULSE 56; TEMP 98
== END 2020-12-25 20:09 | disposition home health service (06) | DRG 54 ==
LOC: JER 11:04 → JERBED 19:33 → OBSVTOIN 22:05 → J5S 23:26 → JERBED 12-22 21:04 → J5S 12-22 21:06
PROVIDERS: ADMIT Hospitalist; ATTEND Internal Medicine
DX: C79.31 Secondary malignant neoplasm of brain (principal); G93.6 Cerebral edema; G81.91 Hemiplegia, unspecified affecting right dominant side; C79.49 Secondary malignant neoplasm of other parts of nervous system; N13.30 Unspecified hydronephrosis; D64.9 Anemia, unspecified; I10 Essential (primary) hypertension; Z87.440 Personal history of urinary (tract) infections; G40.909 Epilepsy, unspecified, not intractable, without status epilepticus; K59.00 Constipation, unspecified; R74.01 Elevation of levels of liver transaminase levels; R82.81 Pyuria; K86.9 Disease of pancreas, unspecified; Z85.3 Personal history of malignant neoplasm of breast
CPT/HCPCS: 36415; 70450-TC; 70553-TC; 71045-TC-FY; 74177-TC; 80048; 80053; 80177; 81003; 82140; 82550; 82962; 83036; 83735; 84100; 84443; 84484; 85025; 85027; 87040; 87086; 93005; 93010; 94010; 97162-GP; 99285-25; C9803; G0378; J0131; Q9967; U0003; U0005

== ENCOUNTER → 2021-01-31 | Day surgery (SDC) | payer OTHER ==
[2021-01-31 15:31] LABS: BASO % 0.3 % (0-2.0); EOS % 0.5 % (0-4.5); HEMATOCRIT 39.2 % (32.4-45.2); HEMOGLOBIN 12.9 GM/dL (10.7-15.3); LYMPH % 16.6 % (8-40); MCH 29.9 pg (25.7-33.7); MCHC 32.8 g/dl (32.0-36.0); MEAN CELL VOLUME 91.1 fl (80-96); MEAN PLT VOLUME 7.6 fl (7.5-11.1); MONO % 7.3 % (3.8-10.2); NEUT % 75.3 % (42.8-82.8); PLATELET COUNT 199 10^3/uL (134-434); RDW 16.5 % (11.6-15.6); WHITE BLOOD COUNT 7.6 K/mm3 (4.0-10.0)
[2021-01-31 15:43] LABS: CALCIUM 9.3 mg/dL (8.5-10.1)
[2021-01-31 15:44] LABS: ALBUMIN 2.3 g/dl (3.4-5.0); BLOOD UREA NITROGEN 15.1 mg/dL (7-18)
[2021-01-31 15:47] LABS: CREATININE 0.8 mg/dL (0.55-1.3)
[2021-01-31 15:49] LABS: BILIRUBIN,TOTAL 0.4 mg/dL (0.2-1); TOT PROT 6.2 g/dl (6.4-8.2)
[2021-01-31 16:50] LABS: MAGNESIUM 2.2 mg/dL (1.8-2.4)
[2021-02-02 16:07] LABS: HEP B CORE AB, TOT Negative (Negative)
== END | disposition home or self-care (01) ==
LOC: JONCCHEMO 07:16
PROVIDERS: ATTEND Internal Medicine Hematology & Oncology
DX: Z53.8 Procedure and treatment not carried out for other reasons (principal)
CPT/HCPCS: 36415; 74019-TC-FY; 76700-TC; 80053; 82150; 83690; 83735; 85025; 86300; 86704; 86706; 86707; 86708; 86709; 87340; 87517

== ENCOUNTER 2021-02-01 20:10 | Inpatient (IN) | payer OTHER ==
[2021-02-01 20:19] VITALS: BMI 30.4
[2021-02-01] MEDS ORDERED: morphine CARPU-JECT 4 MG/1 ML DISP.SYRIN IVPUSH ONE (22:21)
[2021-02-01] MEDS ORDERED: morphine SULFATE 4 MG/ML VIAL ONE (22:32)
[2021-02-01 22:33] LABS: BASO % 0.1 % (0-2.0); EOS % 0.2 % (0-4.5); HEMATOCRIT 38.3 % (32.4-45.2); HEMOGLOBIN 12.9 GM/dL (10.7-15.3); LYMPH % 14.3 % (8-40); MCH 30.4 pg (25.7-33.7); MCHC 33.6 g/dl (32.0-36.0); MEAN CELL VOLUME 90.3 fl (80-96); MEAN PLT VOLUME 7.7 fl (7.5-11.1); MONO % 5.4 % (3.8-10.2); PLATELET COUNT 170 10^3/uL (134-434); RBC 4.24 M/mm3 (3.60-5.2); RDW 16.6 % (11.6-15.6); WHITE BLOOD COUNT 6.8 K/mm3 (4.0-10.0)
[2021-02-01 22:37] LABS: EPI CELLS 3 /uL (0-25.1); HYALINE CASTS 4 /uL (0-3.1); PH,URINE 6.5 (5.0-8.0); URINE APPEARANCE CLOUDY; URINE BACTERIA 33 /uL (0-1359); URINE BILIRUBIN NEGATIVE (NEGATIVE); URINE COLOR YELLOW; URINE GLUCOSE (UA) NEGATIVE (NEGATIVE); URINE KETONE NEGATIVE (NEGATIVE); URINE LEUK ESTERASE 3+ (NEGATIVE); URINE NITRITE NEGATIVE (NEGATIVE); URINE PROTEIN TRACE (NEGATIVE); URINE UROBILINOGEN 0.2 mg/dL (0.2-1.0); URINE WBC 2323 /uL (0-25.8)
[2021-02-01 22:52] LABS: CHLORIDE 110 mmol/L (98-107); SODIUM 143 mmol/L (136-145)
[2021-02-01 22:54] LABS: CALCIUM 8.8 mg/dL (8.5-10.1)
[2021-02-01 22:55] LABS: ANION GAP 7 MMOL/L (8-16); BLOOD UREA NITROGEN 16.1 mg/dL (7-18); CO2 27 mmol/L (21-32); GLUCOSE,RANDOM 202 mg/dL (74-106); LIPASE 644 U/L (73-393)
[2021-02-01 22:58] LABS: CREATININE 0.7 mg/dL (0.55-1.3); SGOT/AST 64 U/L (15-37); SGPT/ALT 67 U/L (13-61)
[2021-02-01 22:59] LABS: BILIRUBIN,TOTAL 0.3 mg/dL (0.2-1)
[2021-02-01 23:00] LABS: TOT PROT 5.7 g/dl (6.4-8.2)
[2021-02-01 23:01] LABS: ALK PHOS 329 U/L (45-117); URINE RBC 54.7 /uL (0-23.9); YEAST MODERATE (NEGATIVE)
[2021-02-01 23:03] LABS: LACTIC ACID 2.7 mmol/L (0.4-2.0)
[2021-02-01] MEDS ORDERED: HYDROmorphone HCL CARPU-JECT 2 MG/1 ML DISP.SYRIN IVPUSH ONE (23:22)
[2021-02-01] MEDS ORDERED: DOCUSATE SODIUM 100 MG CAPSULE (FP) PO ONE (23:22)
[2021-02-01] MEDS ORDERED: CEFTRIAXONE 1,000 MG in DEXTROSE 5%-WATER - 50 ML IVPB ONE (23:24)
[2021-02-01] MEDS ORDERED: VANCOMYCIN 1 GM in D5W (PRE-DOCKED) 1,000 MG/250 ML IVPB ONE (23:25)
[2021-02-01] MEDS ORDERED: HYDROmorphone HCl 2 MG/ML VIAL ONE (23:58)
[2021-02-02] MEDS ORDERED: CEFTRIAXONE 1 GM/50 ML BAG ONE (00:01)
[2021-02-02] MEDS ORDERED: FLUCONAZOLE 200 MG/D5W 100 ML IVPB ONE (00:15)
[2021-02-02] MEDS ORDERED: VANCOMYCIN 1 GRAM (PRE-DOCKED) 1,000 MG/250 ML BAG IVPB ONE (01:50)
[2021-02-02] MEDS ORDERED: FLUCONAZOLE 200 MG/NS 100 ML IVPB ONE (03:45)
[2021-02-02] MEDS ORDERED: ONDANSETRON 4 MG/2 ML VIAL IVPB PRN (09:30)
[2021-02-02] MEDS ORDERED: HYDROmorphone HCl 2 MG/ML VIAL IVPB PRN (09:30)
[2021-02-02] MEDS: DEXTROSE 5%-NORMAL SALINE 1,000 ML IV SCH (11:09)
[2021-02-02] MEDS: DEXAMETHASONE SOD PHOSPHATE 4 MG/1 ML VIAL IVPUSH SCH ×2 (11:09→21:43)
[2021-02-02] MEDS: ENOXAPARIN NA (PORCINE) 40 MG/0.4 ML DISP.SYRIN SQ SCH (11:11)
[2021-02-02] MEDS: PANTOPRAZOLE SODIUM 40 MG VIAL IVPUSH SCH (11:13)
[2021-02-02] MEDS: levETIRAcetam 500 MG/5 ML INJECTION VIAL IVPB SCH ×2 (11:14→21:41)
[2021-02-02] MEDS: METOPROLOL TARTRATE 25 MG TABLET (FP) PO SCH ×3 (11:15→21:47)
[2021-02-02 12:56] LABS: BASO % 0.2 % (0-2.0); EOS % 0.7 % (0-4.5); HEMATOCRIT 39.6 % (32.4-45.2); HEMOGLOBIN 13.4 GM/dL (10.7-15.3); LYMPH % 21.3 % (8-40); MCH 30.8 pg (25.7-33.7); MCHC 33.8 g/dl (32.0-36.0); MEAN CELL VOLUME 91.1 fl (80-96); MEAN PLT VOLUME 7.7 fl (7.5-11.1); MONO % 9.5 % (3.8-10.2); NEUT % 68.3 % (42.8-82.8); PLATELET COUNT 169 10^3/uL (134-434); RBC 4.35 M/mm3 (3.60-5.2); RDW 16.5 % (11.6-15.6); WHITE BLOOD COUNT 9.4 K/mm3 (4.0-10.0)
[2021-02-02 13:16] LABS: BLOOD UREA NITROGEN 14.8 mg/dL (7-18); CALCIUM 8.9 mg/dL (8.5-10.1); MAGNESIUM 2.3 mg/dL (1.8-2.4)
[2021-02-02 13:19] LABS: CREATININE 0.6 mg/dL (0.55-1.3); PHOSPHOROUS 3.2 mg/dL (2.5-4.9)
[2021-02-02 13:27] LABS: LACTIC ACID 3.5 mmol/L (0.4-2.0)
[2021-02-02] MEDS ORDERED: SODIUM CHLORIDE 1,000 ML IV STA (13:55)
[2021-02-02] MEDS ORDERED: HYDROmorphone HCl 2 MG/ML VIAL IVPUSH ONE (14:00)
[2021-02-02] MEDS: HYDROmorphone HCl 2 MG/ML VIAL IVPB PRN ×2 (17:04→21:33)
[2021-02-02] MEDS ORDERED: CEFTRIAXONE 1 GM in DEXTROSE 5%-WATER - 50 ML IVPB ONE (18:58)
[2021-02-02 19:47] LABS: LACTIC ACID 2.9 mmol/L (0.4-2.0)
[2021-02-02] MEDS ORDERED: SODIUM CHLORIDE 500 ML IV STA ×2 (20:45→23:27)
[2021-02-02] MEDS ORDERED: DEXTROSE 5%-WATER - 50 ML IVPB ONE (21:29)
[2021-02-02] MEDS ORDERED: cefTRIAXone SODIUM 1 GM VIAL ONE (21:29)
[2021-02-02] MEDS: POLYETHYLENE GLYCOL (HEALTHYLAX) 3350 17 GM PACKET PO SCH (21:49)
[2021-02-02 22:29] LABS: LACTIC ACID 2.7 mmol/L (0.4-2.0)
[2021-02-03] MEDS: DEXTROSE 5%-NORMAL SALINE 1,000 ML IV SCH ×2 (02:38→12:27)
[2021-02-03] MEDS: HYDROmorphone HCl 2 MG/ML VIAL IVPB PRN ×4 (04:46→21:06)
[2021-02-03 09:30] LABS: BASO % 0.2 % (0-2.0); EOS % 0.1 % (0-4.5); HEMATOCRIT 37.6 % (32.4-45.2); HEMOGLOBIN 12.6 GM/dL (10.7-15.3); LYMPH % 20.4 % (8-40); MCH 30.4 pg (25.7-33.7); MCHC 33.5 g/dl (32.0-36.0); MEAN CELL VOLUME 90.7 fl (80-96); MEAN PLT VOLUME 7.7 fl (7.5-11.1); MONO % 4.8 % (3.8-10.2); NEUT % 74.5 % (42.8-82.8); PLATELET COUNT 193 10^3/uL (134-434); RBC 4.15 M/mm3 (3.60-5.2); RDW 16.4 % (11.6-15.6); WHITE BLOOD COUNT 7.8 K/mm3 (4.0-10.0)
[2021-02-03 09:35] LABS: INR 1.03 (0.83-1.09); PROTHROMBIN TIME (PATIENT) 12.7 SEC (9.7-13.0)
[2021-02-03 09:38] LABS: ACTIVATED PTT 24.9 SECONDS (25.2-36.5)
[2021-02-03 10:22] LABS: LACTIC ACID 3.3 mmol/L (0.4-2.0)
[2021-02-03] MEDS ORDERED: PT OWN MED DRAWER 7, Y5N ONE (12:16)
[2021-02-03] MEDS: POLYETHYLENE GLYCOL (HEALTHYLAX) 3350 17 GM PACKET PO SCH ×2 (12:26→21:16)
[2021-02-03] MEDS: ENOXAPARIN NA (PORCINE) 40 MG/0.4 ML DISP.SYRIN SQ SCH (12:26)
[2021-02-03] MEDS: DEXAMETHASONE SOD PHOSPHATE 4 MG/1 ML VIAL IVPUSH SCH ×2 (12:26→21:05)
[2021-02-03] MEDS: METOPROLOL TARTRATE 25 MG TABLET (FP) PO SCH ×2 (12:26→21:06)
[2021-02-03] MEDS: PANTOPRAZOLE SODIUM 40 MG VIAL IVPUSH SCH (12:26)
[2021-02-03] MEDS: Methylnaltrexone Bromide 12 MG/0.6 ML KIT SQ SCH (12:27)
[2021-02-03] MEDS: levETIRAcetam 500 MG/5 ML INJECTION VIAL IVPB SCH ×2 (12:27→22:16)
[2021-02-03] MEDS ORDERED: PIPERACILLIN/TAZOBACTAM 3.375 GM VIAL IVPB ONE ×2 (15:13→16:47)
[2021-02-03] MEDS ORDERED: DEXTROSE 5%-WATER - 50 ML IVPB ONE ×2 (15:13→16:47)
[2021-02-03] MEDS: PIPERACILLIN/TAZOB 3.375 GM 3.375 GM in DEXTROSE 5%-WATER - 50 ML IVPB SCH ×2 (15:16→17:02)
[2021-02-03 20:00] LABS: LACTIC ACID 2.4 mmol/L (0.4-2.0)
[2021-02-04] MEDS ORDERED: PIPERACILLIN/TAZOBACTAM 3.375 GM VIAL IVPB ONE ×3 (00:42→17:34)
[2021-02-04] MEDS ORDERED: DEXTROSE 5%-WATER - 50 ML IVPB ONE ×3 (00:43→17:34)
[2021-02-04] MEDS: DEXTROSE 5%-NORMAL SALINE 1,000 ML IV SCH ×2 (01:02→13:01)
[2021-02-04] MEDS: HYDROmorphone HCl 2 MG/ML VIAL IVPB PRN ×4 (01:08→13:56)
[2021-02-04] MEDS: PIPERACILLIN/TAZOB 3.375 GM 3.375 GM in DEXTROSE 5%-WATER - 50 ML IVPB SCH ×3 (01:29→17:42)
[2021-02-04] MEDS: Methylnaltrexone Bromide 12 MG/0.6 ML KIT SQ SCH (09:42)
[2021-02-04] MEDS: ENOXAPARIN NA (PORCINE) 40 MG/0.4 ML DISP.SYRIN SQ SCH (09:43)
[2021-02-04] MEDS: POLYETHYLENE GLYCOL (HEALTHYLAX) 3350 17 GM PACKET PO SCH ×3 (09:43→21:13)
[2021-02-04] MEDS: levETIRAcetam 500 MG/5 ML INJECTION VIAL IVPB SCH ×2 (09:43→21:25)
[2021-02-04] MEDS: DEXAMETHASONE SOD PHOSPHATE 4 MG/1 ML VIAL IVPUSH SCH ×2 (09:43→21:25)
[2021-02-04] MEDS: METOPROLOL TARTRATE 25 MG TABLET (FP) PO SCH ×3 (09:45→21:14)
[2021-02-04] MEDS: PANTOPRAZOLE SODIUM 40 MG VIAL IVPUSH SCH (09:46)
[2021-02-04 12:27] LABS: BASO % 0.1 % (0-2.0); EOS % 0.2 % (0-4.5); HEMATOCRIT 24.1 % (32.4-45.2); LYMPH % 16.3 % (8-40); MCH 30.7 pg (25.7-33.7); MCHC 29.1 g/dl (32.0-36.0); MEAN PLT VOLUME 7.6 fl (7.5-11.1); MONO % 6.6 % (3.8-10.2); NEUT % 76.8 % (42.8-82.8); PLATELET COUNT 97 10^3/uL (134-434); RBC 2.28 M/mm3 (3.60-5.2); RDW 17.3 % (11.6-15.6); WHITE BLOOD COUNT 4.1 K/mm3 (4.0-10.0)
[2021-02-04] MEDS ORDERED: ENALAPRILAT DIHYDRATE 1.25 MG/1 ML VIAL IVPB SCH (12:30)
[2021-02-04 12:31] LABS: MEAN CELL VOLUME 105.4 fl (80-96)
[2021-02-04 12:42] LABS: CHLORIDE 123 mmol/L (98-107); SODIUM 147 mmol/L (136-145)
[2021-02-04 12:47] LABS: LIPASE 239 U/L (73-393)
[2021-02-04 12:48] LABS: CO2 16 mmol/L (21-32)
[2021-02-04 12:49] LABS: MAGNESIUM 1.2 mg/dL (1.8-2.4)
[2021-02-04 12:50] LABS: CREATININE 0.9 mg/dL (0.55-1.3); SGOT/AST 49 U/L (15-37); SGPT/ALT 49 U/L (13-61)
[2021-02-04 12:53] LABS: PHOSPHOROUS 1.6 mg/dL (2.5-4.9)
[2021-02-04 12:54] LABS: BILIRUBIN,TOTAL 0.2 mg/dL (0.2-1); LACTIC ACID 2.6 mmol/L (0.4-2.0)
[2021-02-04] MEDS ORDERED: hydrALAZINE HCL 20 MG/ML VIAL IVPB ONE (13:18)
[2021-02-04 13:33] LABS: AMYLASE 75 U/L (25-115)
[2021-02-04] MEDS: DEXTROSE 5%-0.45% SALINE 1,000 ML IV SCH (13:55)
[2021-02-04 14:55] LABS: ANISOCYTOSIS 1+; MACROCYTOSIS 1+; ROULEAU 1+
[2021-02-04] MEDS ORDERED: HYDROmorphone HCl 2 MG/ML VIAL IVPB PRN (16:01)
[2021-02-04] MEDS ORDERED: MORPHINE SULFATE 2 MG/ML VIAL IVPUSH PRN ×2 (16:01→17:36)
[2021-02-04] MEDS ORDERED: ACETAMINOPHEN 1000 MG/100 ML VIAL (NON FORMULARY) IVPB PRN (16:02)
[2021-02-04 16:50] LABS: BASO % 0.1 % (0-2.0); EOS % 0.1 % (0-4.5); HEMATOCRIT 36.2 % (32.4-45.2); HEMOGLOBIN 12.2 GM/dL (10.7-15.3); LYMPH % 15.7 % (8-40); MCH 30.5 pg (25.7-33.7); MCHC 33.8 g/dl (32.0-36.0); MEAN CELL VOLUME 90.4 fl (80-96); MEAN PLT VOLUME 7.8 fl (7.5-11.1); NEUT % 80.1 % (42.8-82.8); PLATELET COUNT 174 10^3/uL (134-434); RBC 4.01 M/mm3 (3.60-5.2); RDW 16.7 % (11.6-15.6); WHITE BLOOD COUNT 7.6 K/mm3 (4.0-10.0)
[2021-02-04 17:07] LABS: CALCIUM 8.3 mg/dL (8.5-10.1)
[2021-02-04 17:08] LABS: ALBUMIN 2.1 g/dl (3.4-5.0); BLOOD UREA NITROGEN 12.8 mg/dL (7-18)
[2021-02-04 17:11] LABS: CREATININE 0.7 mg/dL (0.55-1.3); PHOSPHOROUS 2.5 mg/dL (2.5-4.9)
[2021-02-04 17:12] LABS: BILIRUBIN,TOTAL 0.4 mg/dL (0.2-1); TOT PROT 5.6 g/dl (6.4-8.2)
[2021-02-04 17:20] LABS: LACTIC ACID 2.2 mmol/L (0.4-2.0)
[2021-02-04] MEDS ORDERED: morphine SULFATE 4 MG/ML VIAL IVPUSH PRN (17:34)
[2021-02-04] MEDS ORDERED: morphine SULFATE 4 MG/ML VIAL IVPUSH ONE (17:49)
[2021-02-04] MEDS ORDERED: MORPHINE SULFATE/0.9% NACL/PF 100 MG/100 ML BAG IVPB SCH (18:00)
[2021-02-04] MEDS: PATIENT'S OWN MEDICATION (NON-FORMULARY) (Mirabegron [Myrbetriq] 50 MG Tab.Er.24h) PO SCH ×2 (18:22→18:23)
[2021-02-04] MEDS: MORPHINE SULFATE/0.9% NACL/PF 100 MG/100 ML BAG IVPB SCH (20:11)
[2021-02-05] MEDS ORDERED: PIPERACILLIN/TAZOBACTAM 3.375 GM VIAL IVPB ONE ×2 (01:35→09:56)
[2021-02-05] MEDS ORDERED: DEXTROSE 5%-WATER - 50 ML IVPB ONE ×2 (01:35→09:57)
[2021-02-05] MEDS: PIPERACILLIN/TAZOB 3.375 GM 3.375 GM in DEXTROSE 5%-WATER - 50 ML IVPB SCH ×2 (02:26→12:11)
[2021-02-05] MEDS: DEXTROSE 5%-0.45% SALINE 1,000 ML IV SCH ×3 (05:16→20:38)
[2021-02-05] MEDS: POLYETHYLENE GLYCOL (HEALTHYLAX) 3350 17 GM PACKET PO SCH ×2 (09:53→21:37)
[2021-02-05] MEDS: METOPROLOL TARTRATE 25 MG TABLET (FP) PO SCH ×2 (10:00→21:37)
[2021-02-05] MEDS: DEXAMETHASONE SOD PHOSPHATE 4 MG/1 ML VIAL IVPUSH SCH ×2 (10:06→21:36)
[2021-02-05] MEDS: levETIRAcetam 500 MG/5 ML INJECTION VIAL IVPB SCH ×2 (10:07→21:37)
[2021-02-05] MEDS: PANTOPRAZOLE SODIUM 40 MG VIAL IVPUSH SCH (10:07)
[2021-02-05] MEDS ORDERED: Methylnaltrexone Bromide 12 MG/0.6 ML KIT SQ SCH (12:15)
[2021-02-05] MEDS: Methylnaltrexone Bromide 12 MG/0.6 ML KIT SQ SCH (13:42)
[2021-02-05] MEDS: PATIENT'S OWN MEDICATION (NON-FORMULARY) (Mirabegron [Myrbetriq] 50 MG Tab.Er.24h) PO SCH (13:43)
[2021-02-05] MEDS: MORPHINE SULFATE/0.9% NACL/PF 100 MG/100 ML BAG IVPB SCH ×2 (13:59→20:34)
[2021-02-05 15:21] LABS: BF WBC & OTHER NUCLEATED CELLS 179 /mm3
[2021-02-05 15:57] LABS: BODY FLUID MACROPHAGES 20 %; BODY FLUID MESOTHELIAL 7 %; BODY FLUID MONOCYTE 3 %
[2021-02-05 18:47] LABS: HEMATOCRIT 34.4 % (32.4-45.2); HEMOGLOBIN 11.6 GM/dL (10.7-15.3); MCH 30.4 pg (25.7-33.7); MCHC 33.8 g/dl (32.0-36.0); MEAN CELL VOLUME 90.1 fl (80-96); MEAN PLT VOLUME 7.3 fl (7.5-11.1); PLATELET COUNT 162 10^3/uL (134-434); RBC 3.81 M/mm3 (3.60-5.2); RDW 16.4 % (11.6-15.6); WHITE BLOOD COUNT 5.8 K/mm3 (4.0-10.0)
[2021-02-05 19:08] LABS: CALCIUM 8.2 mg/dL (8.5-10.1)
[2021-02-05 19:09] LABS: ALBUMIN 1.9 g/dl (3.4-5.0); BLOOD UREA NITROGEN 11.5 mg/dL (7-18); MAGNESIUM 1.8 mg/dL (1.8-2.4)
[2021-02-05 19:12] LABS: CREATININE 0.5 mg/dL (0.55-1.3); PHOSPHOROUS 2.5 mg/dL (2.5-4.9)
[2021-02-05 19:13] LABS: BILIRUBIN,TOTAL 0.3 mg/dL (0.2-1)
[2021-02-06] MEDS: METOPROLOL TARTRATE 25 MG TABLET (FP) PO SCH ×2 (09:48→23:02)
[2021-02-06] MEDS: POLYETHYLENE GLYCOL (HEALTHYLAX) 3350 17 GM PACKET PO SCH ×2 (09:48→23:01)
[2021-02-06 09:52] LABS: HEMATOCRIT 36.5 % (32.4-45.2); HEMOGLOBIN 12.2 GM/dL (10.7-15.3); MCH 30.3 pg (25.7-33.7); MCHC 33.5 g/dl (32.0-36.0); MEAN CELL VOLUME 90.3 fl (80-96); MEAN PLT VOLUME 7.5 fl (7.5-11.1); PLATELET COUNT 166 10^3/uL (134-434); RBC 4.04 M/mm3 (3.60-5.2); RDW 16.1 % (11.6-15.6); WHITE BLOOD COUNT 6.5 K/mm3 (4.0-10.0)
[2021-02-06] MEDS: ENOXAPARIN NA (PORCINE) 40 MG/0.4 ML DISP.SYRIN SQ SCH (09:57)
[2021-02-06] MEDS: DEXAMETHASONE SOD PHOSPHATE 4 MG/1 ML VIAL IVPUSH SCH ×2 (09:57→23:01)
[2021-02-06] MEDS: levETIRAcetam 500 MG/5 ML INJECTION VIAL IVPB SCH ×2 (09:57→23:01)
[2021-02-06] MEDS: PANTOPRAZOLE SODIUM 40 MG VIAL IVPUSH SCH (09:57)
[2021-02-06 10:25] LABS: CALCIUM 8.6 mg/dL (8.5-10.1)
[2021-02-06 10:26] LABS: BLOOD UREA NITROGEN 12.5 mg/dL (7-18)
[2021-02-06 10:29] LABS: CREATININE 0.5 mg/dL (0.55-1.3)
[2021-02-06 10:30] LABS: BILIRUBIN,TOTAL 0.5 mg/dL (0.2-1); PHOSPHOROUS 2.7 mg/dL (2.5-4.9)
[2021-02-06 10:31] LABS: TOT PROT 5.3 g/dl (6.4-8.2)
[2021-02-06] MEDS: DEXTROSE 5%-0.45% SALINE 1,000 ML IV SCH (10:53)
[2021-02-06] MEDS: MORPHINE SULFATE/0.9% NACL/PF 100 MG/100 ML BAG IVPB SCH ×2 (17:21→20:29)
[2021-02-07] MEDS: DEXTROSE 5%-0.45% SALINE 1,000 ML IV SCH ×2 (01:29→15:06)
[2021-02-07] MEDS: POLYETHYLENE GLYCOL (HEALTHYLAX) 3350 17 GM PACKET PO SCH ×2 (09:33→21:27)
[2021-02-07] MEDS: METOPROLOL TARTRATE 25 MG TABLET (FP) PO SCH ×2 (09:33→21:27)
[2021-02-07] MEDS: DEXAMETHASONE SOD PHOSPHATE 4 MG/1 ML VIAL IVPUSH SCH ×2 (09:38→21:27)
[2021-02-07] MEDS: ENOXAPARIN NA (PORCINE) 40 MG/0.4 ML DISP.SYRIN SQ SCH (09:38)
[2021-02-07] MEDS: levETIRAcetam 500 MG/5 ML INJECTION VIAL IVPB SCH ×2 (09:39→21:27)
[2021-02-07] MEDS: PANTOPRAZOLE SODIUM 40 MG VIAL IVPUSH SCH (09:39)
[2021-02-07] MEDS ORDERED: SCOPOLAMINE HYDROBROMIDE 1 PATCH PATCH.TD72 TD SCH (10:30)
[2021-02-07] MEDS: MORPHINE SULFATE/0.9% NACL/PF 100 MG/100 ML BAG IVPB SCH ×2 (17:02→20:56)
[2021-02-07 18:07] LABS: BODY FLUID ALBUMIN 0.3 g/dL (Not Estab.)
[2021-02-08] MEDS ORDERED: METOPROLOL TARTRATE 25 MG TABLET (FP) PO SCH (06:07)
[2021-02-08] MEDS: POLYETHYLENE GLYCOL (HEALTHYLAX) 3350 17 GM PACKET PO SCH ×2 (09:58→21:08)
[2021-02-08] MEDS: levETIRAcetam 500 MG/5 ML INJECTION VIAL IVPB SCH ×2 (10:06→21:08)
[2021-02-08] MEDS: DEXAMETHASONE SOD PHOSPHATE 4 MG/1 ML VIAL IVPUSH SCH ×2 (10:06→21:08)
[2021-02-08] MEDS: ENOXAPARIN NA (PORCINE) 40 MG/0.4 ML DISP.SYRIN SQ SCH (10:06)
[2021-02-08] MEDS: PANTOPRAZOLE SODIUM 40 MG VIAL IVPUSH SCH (10:06)
[2021-02-08] MEDS: DEXTROSE 5%-0.45% SALINE 1,000 ML IV SCH ×2 (14:08→20:09)
[2021-02-08] MEDS ORDERED: PCA PUMP NR ONE (14:12)
[2021-02-08] MEDS: MORPHINE SULFATE/0.9% NACL/PF 100 MG/100 ML BAG IVPB SCH ×2 (14:17→21:07)
[2021-02-09] MEDS: ENOXAPARIN NA (PORCINE) 40 MG/0.4 ML DISP.SYRIN SQ SCH (10:51)
[2021-02-09] MEDS: DEXAMETHASONE SOD PHOSPHATE 4 MG/1 ML VIAL IVPUSH SCH ×2 (10:51→22:34)
[2021-02-09] MEDS: POLYETHYLENE GLYCOL (HEALTHYLAX) 3350 17 GM PACKET PO SCH ×2 (10:52→22:35)
[2021-02-09] MEDS: PANTOPRAZOLE SODIUM 40 MG VIAL IVPUSH SCH (10:55)
[2021-02-09] MEDS: levETIRAcetam 500 MG/5 ML INJECTION VIAL IVPB SCH ×2 (10:59→22:34)
[2021-02-09] MEDS: MORPHINE SULFATE/0.9% NACL/PF 100 MG/100 ML BAG IVPB SCH ×2 (11:18→20:35)
[2021-02-09] MEDS: DEXTROSE 5%-0.45% SALINE 1,000 ML IV SCH (16:57)
[2021-02-10] MEDS: MORPHINE SULFATE/0.9% NACL/PF 100 MG/100 ML BAG IVPB SCH (07:47)
[2021-02-10 15:34] VITALS: BP 80/40; PULSE 110; TEMP 99.9
== END 2021-02-10 10:50 | disposition expired | DRG 597 ==
LOC: JER 20:10 → JERBED 02-02 01:49 → J5S 02-02 09:33
PROVIDERS: ADMIT Internal Medicine Hematology & Oncology; ATTEND Internal Medicine
PROC: 0W9G3ZX Drainage of Peritoneal Cavity, Percutaneous Approach, Diagnostic (ICD-10-PCS; principal; 2021-02-05)
DX: C50.919 Malignant neoplasm of unspecified site of unspecified female breast (principal); K85.80 Other acute pancreatitis without necrosis or infection; G93.5 Compression of brain; C79.49 Secondary malignant neoplasm of other parts of nervous system; I69.352 Hemiplegia and hemiparesis following cerebral infarction affecting left dominant side; J90 Pleural effusion, not elsewhere classified; E87.2 Acidosis; R18.0 Malignant ascites; C79.31 Secondary malignant neoplasm of brain; N17.9 Acute kidney failure, unspecified; J98.11 Atelectasis; G93.40 Encephalopathy, unspecified; D37.8 Neoplasm of uncertain behavior of other specified digestive organs; G40.909 Epilepsy, unspecified, not intractable, without status epilepticus; I10 Essential (primary) hypertension; M54.5 Low back pain; N13.9 Obstructive and reflux uropathy, unspecified; K59.00 Constipation, unspecified; R09.2 Respiratory arrest; R10.9 Unspecified abdominal pain; Z96.641 Presence of right artificial hip joint; E66.9 Obesity, unspecified; Z68.30 Body mass index [BMI] 30.0-30.9, adult; Z66 Do not resuscitate
CPT/HCPCS: 36415; 71045-TC-FY; 74177-TC; 76942-TC; 80048; 80053; 81003; 82042; 82150; 82465; 82945; 83605; 83615; 83690; 83735; 83986; 84100; 84157; 84478; 84484; 85025; 85027; 85610; 85730; 87040; 87070; 87075; 87077; 87086; 87102; 87116; 87205; 87206; 87210; 88108; 88305-TC; 93005; 93010; 99285-25; C9803; J0131; U0003; U0005